=== PATIENT | female | born 1940 | race Caucasian/White ===

== ENCOUNTER 2020-01-11 13:39 | Outpatient (CLI) | payer OTHER, SELFPAY ==
--- NOTE | ~2020-01-11 | MM_ITS ---
EXAMINATION: MM screening gideon BI w von HISTORY: Screening mammogram TECHNIQUE: Craniocaudal and mediolateral oblique 3-D tomosynthesis images were obtained and synthetic 2-D images were generated. CAD analysis was submitted and interpreted. COMPARISON: Comparison to multiple prior studies sequentially, with oldest reviewed study dated 10/2016. BREAST PARENCHYMAL COMPOSITION: There are scattered areas of fibroglandular density. FINDINGS: There is a developing focal asymmetry in the periareolar location of the left breast on MLO view. There is a cluster of calcifications in the lower inner quadrant of the right breast near the areola which have increased in number and density. IMPRESSION: 1. Developing left breast asymmetry and clustered right breast calcifications. 2. Additional mammographic views and possible breast ultrasound are recommended. BI-RADS Category 0: Incomplete: Needs additional imaging evaluation. Reviewed, dictated and finalized at location A. IMPRESSION: 1. Developing left breast asymmetry and clustered right breast calcifications. 2. Additional mammographic views and possible breast ultrasound are recommended . BI-RADS Category 0: Incomplete: Needs additional imaging evaluation.
== END 2020-01-11 13:40 | disposition home or self-care (01) ==
LOC: ANHIMG 13:47
PROVIDERS: PCP Obstetrics & Gynecology; Visit Provider Obstetrics & Gynecology
DX: Z12.31 Encounter for screening mammogram for malignant neoplasm of breast (principal); R92.8 Other abnormal and inconclusive findings on diagnostic imaging of breast
CPT/HCPCS: 77063; 77067

== ENCOUNTER 2020-01-23 12:15 | Outpatient (CLI) | payer OTHER, MEDICAID, SELFPAY ==
--- NOTE | ~2020-01-23 | MMUS_ITS ---
EXAMINATION: MM diagnostic mammo BI, US breast LT limited HISTORY: Follow-up right breast calcifications and left breast asymmetry TECHNIQUE: Additional 3-D tomosynthesis images of were performed and synthetic 2-D images were genera juan. CAD analysis was submitted and interpreted. High resolution left breast ultrasound was performed . COMPARISON: Comparison to multiple prior studies sequentially, with oldest reviewed study dated 11/2017. FINDINGS: MAMMOGRAPHIC FINDINGS: Breast composed of scattered areas of fibroglandular density. The calcifications in the subareolar lo cation of the right breast have a linear monomorphic appearance, most likely benign. There is persist ent focal asymmetry superiorly in the left breast on MLO and medial lateral views anteriorly. ULTRASOUND: High-resolution Limited left breast ultrasound: At 12:00 near the nipple there is an irregular shaped hypoechoic structure measuring 11 x 9 x 5 mm wi thout internal vascularity. There is mixed posterior attenuation. IMPRESSION: 1. Irregular shaped hypoechoic mass of the left breast at 12:00 near the nipple measuring 11 mm maxim um dimension. Ultrasound-guided left breast biopsy recommended. BI-RADS Category 4. 2. Probable benign right breast calcifications. Six-month follow-up diagnostic right mammogram recomm ended. BI-RADS Category 3. Reviewed, dictated and finalized at location A. IMPRESSION: 1. Irregular shaped hypoechoic mass of the left breast at 12:00 near the nipple measuring 11 mm maximum dimension. Ultrasound-guided left breast biopsy recomm ended. BI-RADS Category 4. 2. Probable benign right breast calcifications. Six-month follow-up diagnostic right mammogram recommended. BI-RADS Category 3.
== END 2020-01-23 12:16 | disposition home or self-care (01) ==
PROVIDERS: PCP Obstetrics & Gynecology; Visit Provider Obstetrics & Gynecology
DX: R92.8 Other abnormal and inconclusive findings on diagnostic imaging of breast (principal)
CPT/HCPCS: 76642; 77066

== ENCOUNTER 2020-02-02 09:03 | Outpatient (CLI) | payer OTHER, MEDICAID, SELFPAY ==
--- NOTE | ~2020-02-02 | MMUS_ITS ---
EXAMINATION: US breast biopsy LT w image, MM post biopsy invasive LT DATE: 02/02/2020 10:22 (accession [id number]), 02/02/2020 10:27 (accession [id number]) INDICATION: Indeterminate left breast mass. Ultrasound-guided core biopsy is requested to evaluate fo r malignancy. TECHNIQUE AND FINDINGS: The risks and potential benefits of the procedure were discussed with the patient including bleeding and infection. A time out was performed. The skin of the left breast was prepared and draped in usual sterile fashion. 1% lidocaine was used for superficial anesthesia. 1% lidocaine with epinephrine was used for deep anesthesia. A vacuum-assisted biopsy gun needle was advanced through to the outer edge of the region of interest from a lateral approach utilizing sonographic guidance. A total of three tissue core samples were obt ained through the lesion. A tissue marker clip was then placed at the biopsy site. Hemostasis was ach ieved. A sterile bandage was applied. The patient tolerated procedure well and there was no evidence of immediate complication. A two view left breast mammogram was obtained to document tissue marker clip placement. IMPRESSION: 1. Successful ultrasound-guided vacuum-assisted biopsy of left breast mass with tissue marker placeme nt. Reviewed, dictated and finalized at location A. IMPRESSION: 1. Successful ultrasound-guided vacuum-assisted biopsy of left breast mass with tissue marker placement.
== END 2020-02-02 09:04 | disposition home or self-care (01) ==
LOC: ANHIMG 09:05
PROVIDERS: Visit Provider Obstetrics & Gynecology
DX: N60.12 Diffuse cystic mastopathy of left breast (principal)
CPT/HCPCS: 19083; 88305; A4648

== ENCOUNTER 2020-04-15 19:34 | Emergency (ER) | payer OTHER, MEDICAID, SELFPAY ==
[2020-04-15 19:41] VITALS: BP 143/85; PULSE 82; RESP 16; TEMP 36.7; O2SAT 98
--- NOTE | 2020-04-15 20:02 | ED.WOUNDLAC ---
HPI - Wound/Laceration General Chief Complaint: Wound/Laceration Stated Complaint: scratched vericose vein/bleeding now controlled Time Seen by Provider: 04/15/20 19:57 Source: patient Mode of arrival: ambulatory Limitations: no limitations History of Present Illness HPI narrative: This patient is a 79 year old female on eliquis for afib who presents for evaluation left leg bleeding. She states approximately 2 hours ago she scratched a sore on her leg because she thought it was a mosquito bite. This wound began bleeding. She applied pressure for an hour and she was unable to stop the bleeding. She denies any other bleeding issues. She denies lightheadedness. She has no pain. Related Data Allergies Allergy/AdvReac Type Severity Reaction Status Date / Time amiodarone Allergy Unknown Verified 06/02/17 16:29 diltiazem Allergy Unknown Verified 06/02/17 16:29 losartan Allergy Unknown rash Verified 04/24/16 21:03 Review of Systems Review of Systems: All systems reviewed & are unremarkable except as noted in HPI and below Constitutional: Constitutional: Denies chills and Denies fever(s) Cardiovascular: Cardiovascular: Denies chest pain Respiratory: Respiratory: Denies dyspnea Genitourinary: Genitourinary: Denies hematuria Neurologic: Denies focal weakness and Denies numbness PMFSH Past Medical History Medical History (Updated 04/15/20 @ 20:10 by Jacquelyn Wilks MD) Atrial fibrillation Hypertension Surgical History Surgical History (Updated 04/15/20 @ 20:07 by Jacquelyn Wilks MD) H/O repair of rotator cuff Family History Family History (Updated 11/21/16 @ 23:56 by DOCTOR UNKNOWN) Sibling Hypertension Mother Family history of heart disease in male family member before age 55 Family history of coronary artery disease, Onset Age: 81 No family history of cardiovascular disease Patient's mother is Father Acute myocardial infarction Family history of premature coronary heart disease, Onset Age: 62 Hypertension Family history of elevated blood lipids Family history of diabetes mellitus in first degree relative Patient's father is Other Cerebrovascular accident Diabetes mellitus Family history of arthritis Social History Social History (Updated 04/15/20 @ 20:07 by Jacquelyn Wilks MD) Smoking status: Former smoker Smoking end date: 08/17/02 Alcohol intake: never Exam Const: General: no acute distress and alert Orientation/consciousness: patient oriented x3 Eyes: EOM: EOMs intact bilaterally Resp: Effort & Inspection: normal respiratory effort Skin: General skin exam: normal color Rashes: no rashes Neuro: General: patient oriented x3 and moves all extremities Extrem: General: no pedal edema Other: left lateral leg with varicose veins. No bleeding to small punctate area on lateral leg Course Reevaluation(s) Reevaluation #1: Patients' bleeding has stopped. Her leg was rewrapped. Date: 04/15/20 Time: 20:08 Vital Signs Vital signs: Vital Signs Temperature 98.0 F 04/15/20 19:41 Pulse Rate 82 04/15/20 19:41 Respiratory Rate 16 04/15/20 19:41 Blood Pressure 143/85 H 04/15/20 19:41 Pulse Oximetry 98 04/15/20 19:41 Temperature 98.0 F 04/15/20 20:14 Pulse Rate 82 04/15/20 20:14 Respiratory Rate 16 04/15/20 20:14 Blood Pressure 141/85 H 04/15/20 20:14 Pulse Oximetry 98 04/15/20 20:14 Discharge Plan Discharge Clinical Impression: Bleeding from varicose veins of left lower extremity Patient Disposition: Home, Self-Care Condition: Stable Instructions: Abrasion (ED) Additional Instructions: If your bleeding restarts, apply pressure with 2 fingers to the area for 20 minutes. REturn to ER if unable to stop bleeding Follow-up/Referrals: Angel,Moreno Hernandez MD [Primary Care Provider] - Discharge Date/Time: 04/15/20 20:15
[2020-04-15 20:14] VITALS: BP 141/85; PULSE 82; RESP 16; TEMP 36.7; O2SAT 98
== END 2020-04-15 20:15 | disposition home or self-care (01) ==
PROVIDERS: Emergency Provider General Practice; PCP Internal Medicine
DX: I83.892 Varicose veins of left lower extremity with other complications (principal); I48.91 Unspecified atrial fibrillation; Z79.01 Long term (current) use of anticoagulants; I10 Essential (primary) hypertension; Z87.891 Personal history of nicotine dependence
CPT/HCPCS: 99283

== ENCOUNTER 2020-04-22 20:03 | Emergency (ER) | payer OTHER, MEDICAID, SELFPAY ==
--- NOTE | ~2020-04-22 | XR_ITS ---
XR chest 2V DATE: 04/22/2020 20:31 INDICATION: Generalized chest pain. Shortness of breath. Hypertension. History of atrial fibrillation . TECHNIQUE: AP and lateral views COMPARISON: 01/13/2017 PA and lateral chest FINDINGS: Heart size is within normal range. Aortic calcification. No hilar or mediastinal enlargemen t. No pulmonary infiltrate or consolidation, pleural effusion or pulmonary vascular congestion or pne umothorax. Diffuse osteopenia. IMPRESSION: No active cardiopulmonary disease. Aortic calcification Diffuse osteopenia Reviewed, dictated and finalized at location A.
--- NOTE | ~2020-04-22 | CT_ITS ---
EXAMINATION: CT abdomen pelvis w con INDICATION: Right upper quadrant and epigastric pain TECHNIQUE: Computed tomographic images of the abdomen and pelvis were obtained after the administrati on of 100 cc of Omnipaque 350 intravenous contrast. The dose-length product (DLP) was 1033.50 mGy-cm. Automated exposure control and iterative reconstruction technique were employed. COMPARISON: 03/19/2013 FINDINGS: Minimal dependent atelectasis is present in the lung bases. The heart size is normal. The l iver, spleen, pancreas, gallbladder, and adrenal glands are normal. Cysts of the kidneys measure up t o 11 mm on the left. There is calcified atherosclerosis of the aorta and many of the other arteries. No pathologically enlarged abdominal or pelvic lymph nodes are identified. Colonic diverticulosis is present without evidence of diverticulitis. The appendix is normal. There is mild lumbar spondylosis. The endometrial thickness measures approximately 11 mm. There appears to be a tiny soft tissue densi ty projecting in the endometrial complex at the left aspect of the uterine fundus. IMPRESSION: 1. No CT correlate for the patient's symptoms. 2. Mild thickening of the endometrial complex with possible small polyp. Follow-up with nonemergent p elvic ultrasound is recommended. Reviewed, dictated and finalized at location A. IMPRESSION: 1. No CT correlate for the patient's symptoms. 2. Mild thickening of the endometrial complex with possible small polyp. Follow -up with nonemergent pelvic ultrasound is recommended.
[2020-04-22 20:09] VITALS: BP 146/93; PULSE 73; RESP 24; TEMP 36.5; O2SAT 95
--- NOTE | 2020-04-22 20:12 | ECG_ITS ---
Measurements Intervals [place] Rate: 64 P: 74 WI: 150 QRS: 53 QRSD: 94 T: 41 QT: 425 QTc: 440 Interpretive Statements SINUS RHYTHM ATRIAL PREMATURE COMPLEX RSR' IN V1 OR V2, CONSIDER RIGHT VENTRICULAR HYPERTROPHY OR RIGHT VCD BASELINE ARTIFACT- I, II, III, AVR, AVL BORDERLINE ECG Electronically Signed On 04-23-2020 8:19:53 CDT by [facility] D.O.
[2020-04-22 20:49] LABS: Basophils Percent Auto 0.1 % (0.2-1.2); Eosinophils Absolute Auto 0.1 K/mm3 (0-0.3); Eosinophils Percent Auto 0.6 % (0-4.4); Hematocrit 40.9 % (37.0-47.0); Hemoglobin 13.6 g/dL (12.0-15.0); Immature Granulocyte Absolute 0.05 K/mm3 (0.00-0.031); Immature Granulocyte Percent A 0.4 % (0-0.5); Lymphocytes Absolute Auto 1.38 K/mm3 (0.9-3.2); Lymphocytes Percent Auto 10.3 % (18.3-44.2); Mean Corpuscular HGB Conc 33.3 g/dl (32-36); Mean Corpuscular Hemoglobin 30.4 pg (26-34); Mean Corpuscular Volume 91.3 fl (80-100); Mean Platelet Volume 11.1 fl (7.4-10.4); Monocytes Absolute Auto 0.8 K/mm3 (0.1-0.6); Monocytes Percent Auto 6.3 % (2.6-8.5); Neutrophils Percent Auto 82.3 % (45.5-73.1); Platelet Count Result 267 k/mm3 (150-375); Red Blood Count 4.48 M/mm3 (4.2-5.4); Red Cell Distribution Width 13.2 % (11.5-14.5); White Blood Count 13.3 K/mm3 (4.5-10.0)
--- NOTE | 2020-04-22 20:57 | ED.GENADULT ---
HPI - General Adult General Chief complaint: Chest Pain Stated complaint: cp, back pain Time Seen by Provider: 04/22/20 20:09 History of Present Illness HPI narrative: Patient is a 79-year-old female who presents ER with chest/abdominal pain. Symptoms began approximately 5:30 PM while she was at rest. Pain is sharp and associated with vomiting x1. It radiates to her back. No aggravating or alleviating factors. She tried simethicone. She had similar symptoms back in February. She has not had a stress test or ultrasound. Still has her gallbladder. Has never had any coronary issue recalled. Related Data Home Medications Medication Instructions Recorded Confirmed apixaban [Eliquis] mg 04/22/20 celecoxib mg 04/22/20 furosemide 04/22/20 isosorbide mononitrate mg PO 04/22/20 metoprolol succinate PO 04/22/20 omeprazole 04/22/20 sotalol 04/22/20 Allergies Allergy/AdvReac Type Severity Reaction Status Date / Time amiodarone Allergy Unknown Unknown Verified 04/22/20 20:36 diltiazem Allergy Unknown Unknown Verified 04/22/20 20:36 losartan Allergy Unknown rash Verified 04/24/16 21:03 Review of Systems Review of Systems: All systems reviewed & are unremarkable except as noted in HPI and below Constitutional: Constitutional: Denies chills, Denies fever(s) and Denies weakness Cardiovascular: Cardiovascular: Reports chest pain, Denies rapid heart rate and Denies radiating jaw, neck or arm pain Respiratory: Respiratory: Denies cough, Denies dyspnea and Denies wheezing Gastrointestinal: Gastrointestinal: Reports abdominal pain, Denies diarrhea, Reports nausea and Reports vomiting Genitourinary: Genitourinary: Denies nocturia and Denies dysuria Musculoskeletal: Musculoskeletal: Reports back pain [facility] Past Medical History Medical History (Updated 04/22/20 @ 23:06 by Mike Acosta MD) Atrial fibrillation Hypertension Surgical History Surgical History (Updated 04/15/20 @ 20:07 by Jacquelyn Wikls MD) H/O repair of rotator cuff Family History Family History (Updated 11/21/16 @ 23:56 by DOCTOR UNKNOWN) Sibling Hypertension Mother Family history of heart disease in male family member before age 55 Family history of coronary artery disease, Onset Age: 81 No family history of cardiovascular disease Patient's mother is Father Acute myocardial infarction Family history of premature coronary heart disease, Onset Age: 62 Hypertension Family history of elevated blood lipids Family history of diabetes mellitus in first degree relative Patient's father is Other Cerebrovascular accident Diabetes mellitus Family history of arthritis Social History Social History (Updated 04/15/20 @ 20:07 by Jacquelyn Wilks MD) Smoking status: Former smoker Smoking end date: 08/17/02 Alcohol intake: never Exam Narrative: Exam Narrative: GENERAL: Uncomfortable-appearing, well-nourished, and in no acute distress. HEAD: Normocephalic, atraumatic. ENT: Mucous membranes moist. CHEST: Clear to auscultation. No respiratory distress. HEART: Regular rate and rhythm. Normal peripheral pulses. ABDOMEN: Soft, significantly tender to the epigastrium right upper quadrant with guarding, nondistended, normal active bowel sounds. EXTREMITIES: Normal range of motion. No edema. SKIN: Warm, dry, no rash. NEURO: Alert and oriented x3. PSYCH: Normal mood and affect. Course Course Emergency Course: Patient informed of results. Pain resolved with morphine but still has some discomfort with palpation. Nausea vomiting. Tolerating oral fluids. Discussed case with Dr. Duval. Patient most comfortable with going home with oral antibiotics and pain and nausea control and eating a low-fat diet as opposed to staying in the hospital for potential work-up. Her etl informatica developer is located at [facility]. Discussed she will need a cardiac clearance before she can have her
--- NOTE | 2020-04-22 20:59 | PC.NURSE ---
Called lab to add on Hepatic and Lipase
[2020-04-22 21:02] LABS: Anion Gap 10 mmol/L (8-16); Blood Urea Nitrogen 18 mg/dL (7-17); Calcium 9.5 mg/dL (8.4-10.2); Carbon Dioxide 30 mmol/L (22-30); Chloride 101 mmol/L (98-107); Estimated Glomerular Filt Rate > 60; Glucose 155 mg/dL (65-105); INR 1.1; Prothrombin Time 14.2 Seconds (11.1-14.7); Sodium 141 mmol/L (137-145)
[2020-04-22 21:12] LABS: Troponin I < 0.012 ng/mL (0.000-0.034)
[2020-04-22] MEDS: MORPHINE SULFATE 4 MG/ML INJ IV PUSH (21:14)
[2020-04-22 21:16] LABS: Alanine Aminotransferase 23 U/L (4-35); Albumin Level 4.4 g/dL (3.5-5.1); Alkaline Phosphatase 78 U/L (38-126); Aspartate Amino Transferase 54 U/L (14-36); Bilirubin,Total 0.7 mg/dL (0.2-1.3); Lipase 83 U/L (23-300)
[2020-04-22 23:12] VITALS: BP 138/65; PULSE 65; RESP 16; O2SAT 96
== END 2020-04-22 23:50 | disposition home or self-care (01) ==
PROVIDERS: Emergency Provider Emergency Medicine; PCP Internal Medicine
DX: K80.50 Calculus of bile duct without cholangitis or cholecystitis without obstruction (principal); I10 Essential (primary) hypertension; Z79.01 Long term (current) use of anticoagulants; Z87.891 Personal history of nicotine dependence; I48.91 Unspecified atrial fibrillation; R94.31 Abnormal electrocardiogram [ECG] [EKG]; I49.1 Atrial premature depolarization
CPT/HCPCS: 36415; 71046; 74177; 80048; 80076; 83690; 84484; 85025; 85610; 85730; 93005; 96374; 99284; J2270; Q9967

== ENCOUNTER 2020-04-29 08:20 | Outpatient (CLI) | payer OTHER, MEDICAID, SELFPAY ==
--- NOTE | ~2020-04-29 | US_ITS ---
US abdomen complete EXAMINATION: US Abdomen Complete INDICATION: Nausea and vomiting. Back pain. PROCEDURE: Realtime High Resolution abdomen ultrasound. COMPARISON: Ultrasound dated 12/03/2011 FINDINGS: There are gallstones. There are foci of comet tail artifact, consistent with adenomyomatosi s. No significant gallbladder wall thickening or pericholecystic fluid. Common bile duct measures 5 mm. Liver echotexture is slightly heterogeneous, although no discrete mass identified.. Pancreas within normal limits. Pancreatic tail is obscured by bowel gas. Spleen is unremarkeable. Renal echotexture is within normal limits bilaterally without hydronephrosis, contour deforming mass or renal stone. R ight kidney measures 9.8 cm. Left kidney measures 10.1 cm. There is a 1.2 cm left renal cyst. Visualized aspects of the aorta and IVC are within normal limits. Portal vein is patent. No sonograph ic Bolton's sign indicated by the technologist. IMPRESSION: 1: Cholelithiasis with gallbladder adenomyomatosis. Reviewed, dictated and finalized at location A.
== END 2020-04-29 08:21 | disposition home or self-care (01) ==
PROVIDERS: PCP Internal Medicine; Visit Provider Internal Medicine
DX: K80.20 Calculus of gallbladder without cholecystitis without obstruction (principal); D13.5 Benign neoplasm of extrahepatic bile ducts
CPT/HCPCS: 76700

== ENCOUNTER 2021-01-15 09:27 | Outpatient (CLI) | payer OTHER, MEDICAID, SELFPAY ==
--- NOTE | ~2021-01-15 | MM_ITS ---
EXAMINATION: MM screening [facility] BI w von HISTORY: Screening TECHNIQUE: Craniocaudal and mediolateral oblique 3-D tomosynthesis images were obtained and synthetic 2-D images were generated. CAD analysis was submitted and interpreted. COMPARISON: Comparison to multiple prior studies sequentially, with oldest reviewed study dated 11/2017. BREAST PARENCHYMAL COMPOSITION: There are scattered areas of fibroglandular density. FINDINGS: There are benign bilateral breast calcifications. There is no evidence of suspicious mass, calcification, or architectural distortion to suggest malignancy in either breast. There has been no suspicious interval change. IMPRESSION: 1. No mammographic evidence of malignancy. 2. Recommend routine screening mammography in one year. BI-RADS Category 2: Benign finding(s). Reviewed, dictated and finalized at location A.
== END 2021-01-15 09:28 | disposition home or self-care (01) ==
LOC: ANHIMG 09:32
PROVIDERS: PCP Internal Medicine; Visit Provider Obstetrics & Gynecology
DX: Z12.31 Encounter for screening mammogram for malignant neoplasm of breast (principal)
CPT/HCPCS: 77063; 77067

== ENCOUNTER 2021-05-05 07:34 | Emergency (ER) | payer OTHER, MEDICAID, SELFPAY ==
--- NOTE | ~2021-05-05 | XR_ITS ---
EXAMINATION: XR chest 1V portable INDICATION: Shortness of breath TECHNIQUE: Portable AP chest at 0930 hours COMPARISON: 04/22/2020 FINDINGS: The lungs are free of acute opacities. There is no pleural effusion or pneumothorax. There are questionable changes of right distal clavicle resection. There is thoracic dextroscoliosis. IMPRESSION: 1. No acute cardiopulmonary abnormality. Reviewed, dictated and finalized at location A.
[2021-05-05 07:35] VITALS: BP 162/65; PULSE 82; RESP 24; TEMP 37.6; O2SAT 93
--- NOTE | 2021-05-05 07:59 | ECG_ITS ---
Measurements Intervals [place] Rate: 80 P: 65 VT: 153 QRS: 64 QRSD: 94 T: 45 QT: 385 QTc: 446 Interpretive Statements SINUS RHYTHM INCOMPLETE RIGHT BUNDLE BRANCH BLOCK BASELINE ARTIFACT- I, III, AVR, AVL BORDERLINE ECG Electronically Signed On 05-05-2021 10:35:14 CDT by [facility] D.O.
[2021-05-05 08:22] VITALS: PULSE 78; RESP 20; O2SAT 99
[2021-05-05 09:03] LABS: Basophils Percent Auto 0.2 % (0.2-1.2); Eosinophils Absolute Auto 0.2 K/mm3 (0-0.3); Eosinophils Percent Auto 1.3 % (0-4.4); Hematocrit 42.3 % (37.0-47.0); Hemoglobin 13.8 g/dL (12.0-15.0); Immature Granulocyte Absolute 0.03 K/mm3 (0.00-0.031); Immature Granulocyte Percent A 0.2 % (0-0.5); Lymphocytes Absolute Auto 1.89 K/mm3 (0.9-3.2); Lymphocytes Percent Auto 15.7 % (18.3-44.2); Mean Corpuscular HGB Conc 32.6 g/dl (32-36); Mean Corpuscular Volume 95.1 fl (80-100); Mean Platelet Volume 11.4 fl (7.4-10.4); Monocytes Percent Auto 8.7 % (2.6-8.5); Neutrophils Absolute Auto 8.9 K/mm3 (1.3-6.7); Neutrophils Percent Auto 73.9 % (45.5-73.1); Platelet Count Result 224 k/mm3 (150-375); Red Blood Count 4.45 M/mm3 (4.2-5.4); Red Cell Distribution Width 12.8 % (11.5-14.5)
[2021-05-05 09:13] LABS: Alanine Aminotransferase 19 U/L (4-35); Albumin Level 4.1 g/dL (3.5-5.1); Alkaline Phosphatase 66 U/L (38-126); Anion Gap 7 mmol/L (8-16); Aspartate Amino Transferase 35 U/L (14-36); Bilirubin,Total 0.4 mg/dL (0.2-1.3); Blood Urea Nitrogen 10 mg/dL (7-17); Calcium 9.3 mg/dL (8.4-10.2); Carbon Dioxide 30 mmol/L (22-30); Chloride 105 mmol/L (98-107); Estimated CRCL calculation 83 ml/min; Estimated Glomerular Filt Rate > 60; Glucose 135 mg/dL (65-110); Potassium 3.6 mmol/L (3.4-5.0); Sodium 142 mmol/L (137-145)
[2021-05-05 09:23] VITALS: BP 159/54; PULSE 82; RESP 20; O2SAT 99
[2021-05-05 09:25] LABS: NT Pro B Type Natriuretic Pept 795 pg/mL (5-100); Troponin I < 0.012 ng/mL (0.000-0.034)
--- NOTE | 2021-05-05 10:32 | ED.SOB ---
HPI - SOB/Dyspnea General Chief Complaint: Shortness of Breath/Dyspnea Stated Complaint: sob Time Seen by Provider: 05/05/21 07:45 Source: patient Mode of arrival: EMS Limitations: no limitations History of Present Illness HPI Narrative: 80-year-old with a history of hypertension, A. fib on Eliquis here with complaints of sore throat and cough for past few days. Patient states that she has been having scratchy throat for the last few days, since last night she has been coughing and feels short of breath. She denies any fever or chills. She states cough at times is productive with brown-colored phlegm. She denies any chest pain. No history of nausea or vomiting. MD elicited complaint: shortness of breath and cough Onset (ago): day(s) (2) Timing: constant Severity: moderate Exacerbating factors: nothing Relieving factors: nothing Associated symptoms: sputum production (At times brown-colored sputum) Treatment prior to arrival: none Related Data Home Medications Medication Instructions Recorded Confirmed apixaban [Eliquis] mg 04/22/20 celecoxib mg 04/22/20 furosemide 04/22/20 isosorbide mononitrate mg PO 04/22/20 metoprolol succinate PO 04/22/20 omeprazole 04/22/20 sotalol 04/22/20 Allergies Allergy/AdvReac Type Severity Reaction Status Date / Time amiodarone Allergy Unknown Unknown Verified 05/05/21 07:40 diltiazem Allergy Unknown Unknown Verified 05/05/21 07:40 losartan Allergy Unknown rash Verified 05/05/21 07:40 Review of Systems Review of Systems: All systems reviewed & are unremarkable except as noted in HPI and below Constitutional: Constitutional: Reports no additional constitutional complaints Eyes: Eyes: Reports no additional eye complaints ENT: Reports as per HPI Cardiovascular: Cardiovascular: Reports no additional cardiovascular complaints Respiratory: Respiratory: Reports cough and Reports dyspnea Gastrointestinal: Gastrointestinal: Reports no additional gastrointestinal complaints Genitourinary: Genitourinary: Reports no additional female genitourinary complaints Musculoskeletal: Musculoskeletal: Reports no additional musculoskeletal complaints Integumentary/Breasts: Skin/Breast: Reports system reviewed and no additional complaints, except as docu PMFSH Past Medical History Medical History Atrial fibrillation Hypertension Surgical History Surgical History H/O repair of rotator cuff Family History Family History Sibling Hypertension Mother Family history of heart disease in male family member before age 55 Family history of coronary artery disease, Onset Age: 81 No family history of cardiovascular disease Patient's mother is Father Acute myocardial infarction Family history of premature coronary heart disease, Onset Age: 62 Hypertension Family history of elevated blood lipids Family history of diabetes mellitus in first degree relative Patient's father is Other Cerebrovascular accident Diabetes mellitus Family history of arthritis Social History Social History Smoking status: Former smoker Smoking end date: 08/17/02 Alcohol intake: never Exam Narrative: GENERAL: Well-appearing, well-nourished, and in no acute distress. HEAD: Normocephalic, atraumatic. EYES: PERRLA and EOMI. NECK: Supple. CHEST: Clear to auscultation. No respiratory distress. HEART: Regular rate and rhythm. No murmur heard. Normal peripheral pulses. ABDOMEN: Soft, nontender, nondistended, normal active bowel sounds. EXTREMITIES: Normal range of motion. No edema. SKIN: Warm, dry, no rash. NEURO: No focal deficits. Alert and oriented x3. PSYCH: Normal mood and affect. Course Course Emergency Course: Patient comfortab
[2021-05-05 10:51] VITALS: BP 159/54; PULSE 80; RESP 20; O2SAT 98
== END 2021-05-05 11:00 | disposition home or self-care (01) ==
PROVIDERS: Emergency Provider Family Medicine; PCP Internal Medicine
DX: J40 Bronchitis, not specified as acute or chronic (principal); I10 Essential (primary) hypertension; I48.91 Unspecified atrial fibrillation; Z79.01 Long term (current) use of anticoagulants; Z87.891 Personal history of nicotine dependence
CPT/HCPCS: 36415; 71045; 80053; 83880; 84484; 85025; 87040; 93005; 99284

== ENCOUNTER 2021-10-31 17:55 | Inpatient (IN) | payer OTHER, MEDICAID, SELFPAY ==
[2021-10-31] VITALS (7 sets, daily range): BP systolic 107–134; BP diastolic 42–82; PULSE 73–81; RESP 16–20; TEMP 36.8; O2SAT 92–96; BMI 33.9
--- NOTE | ~2021-10-31 | XR_ITS ---
XR chest 1V portable 11/04/2021 01:28 Indication: Shortness of breath Procedure: AP portable chest Comparison: Comparison to multiple prior studies sequentially, with oldest reviewed study dated 01/2020. Findings: Borderline heart size. Mild interstitial edema. No significant effusion. No pneumothorax. N o acute osseous abnormality. Impression: 1: Mild interstitial edema. Reviewed, dictated and finalized at location A. Impression: 1: Mild interstitial edema.
--- NOTE | ~2021-10-31 | CT_ITS ---
EXAMINATION: CT chest abdomen pelvis wo con DATE: 10/31/2021 19:22 INDICATION: Right-sided chest pain, abdominal pain. Back pain. Vomiting, diarrhea. TECHNIQUE: Computed tomography (CT) of the chest, abdomen, and pelvis was performed without intraveno us contrast. Automated exposure control and iterative reconstruction technique were employed. Exam do se: 1233.78 mGy-cm total exam DLP. COMPARISON: 05/05/2021 portable AP chest 04/29/2020 complete abdominal ultrasound 04/22/2020 CT abdomen and pelvis FINDINGS: CHEST CT: The lungs are clear of infiltrate or consolidation. Thoracic aortic and great vessel and prominent coronary artery calcification. No thoracic aortic aneu rysm. Normal heart size. No pericardial or pleural effusion. No hilar or mediastinal mass lesion or lymphadenopathy. No pulmonary infiltrate or consolidation or pulmonary mass lesion. Small sliding hiatal hernia. ABDOMEN/PELVIS CT: Status post cholecystectomy. No hepatic, splenic, pancreatic, and adrenal or renal space-occupying ma ss lesion. No bile duct or pancreatic duct dilatation. No urinary tract calculus or hydroureteronephrosis. There is extensive calcification of the abdominal aorta and at the origins of the celiac and superior mesenteric and renal arteries. No abdominal aortic aneurysm. No intraperitoneal or retroperitoneal o r pelvic mass lesion or adenopathy or ascites. The uterus, adnexal areas and urinary bladder are unremarkable. Small bilateral fat-containing inguinal hernias. Normal appendix. There are fluid containing nondilated small bowel segments throughout the abdomen as well as some flu id levels in the colon, consistent with clinical presentation of diarrhea. No bowel obstruction, courtney l wall thickening, pneumatosis or intraperitoneal free air is noted. Severe degenerative disc disease of the lower cervical spine. Inferior compression fracture of T12 vertebral body, with prominent cupping of the inferior vertebral endplate. IMPRESSION: Extensive atherosclerotic calcification of the thoracic and abdominal aorta and at the o rigins of the celiac, superior mesenteric and renal arteries Prominent coronary artery calcifications Status post cholecystectomy Fluid containing nondilated small bowel segments and fluid levels in the colon, suggesting enterocoli tis; no bowel obstruction or free air Reviewed, dictated and finalized at Location [facility]. Reviewed, dictated and finalized at location A. IMPRESSION: Extensive atherosclerotic calcification of the thoracic and abdomi nal aorta and at the origins of the celiac, superior mesenteric and renal arter ies Prominent coronary artery calcifications Status post cholecystectomy Fluid containing nondilated small bowel segments and fluid levels in the colon, suggesting enterocolitis; no bowel obstruction or free air
[2021-10-31] MEDS: SODIUM CHLORIDE 0.9% IV 1,000 ML 999 ML (18:18)
--- NOTE | 2021-10-31 18:24 | ED.GENADULT ---
HPI - General Adult General Chief complaint: Nausea/Vomiting/Diarrhea <Noble Mccallum MD - Last Filed: 10/31/21 18:40> Stated complaint: Vomiting diarrhea <Noble Mccallum MD - Last Filed: 10/31/21 18:40> Time Seen by Provider: 10/31/21 18:07 <Noble Mccallum MD - Last Filed: 10/31/21 18:40> Source: patient and EMS <Noble Mccallum MD - Last Filed: 10/31/21 18:40> Mode of arrival: EMS <Noble Mccallum MD - Last Filed: 10/31/21 18:40> Limitations: no limitations <Noble Mccallum MD - Last Filed: 10/31/21 18:40> History of Present Illness HPI narrative: Patient 81 years old white female came to the emergency room by ambulance from home complaining of nausea, vomiting and diarrhea started yesterday, patient reports vomiting at least 20 episodes and diarrhea at least 20 episodes. Patient denies fever, chills, sick contact, lives with her sister who is asymptomatic. Patient also complaining of diffuse abdominal pain and chest pain mainly on the right side which gets worse with activity and vomiting. Patient is telling me that she have right chest injury when she was little with a lot of surgery and the scar tissue associated with chronic right chest pain but lately is worse than ever.. <Noble Mccallum MD - Last Filed: 10/31/21 18:40> Related Data Home medications: Home Medications Medication Instructions Recorded Confirmed apixaban [Eliquis] mg 04/22/20 celecoxib mg 04/22/20 furosemide 04/22/20 isosorbide mononitrate mg PO 04/22/20 metoprolol succinate PO 04/22/20 omeprazole 04/22/20 sotalol 04/22/20 <Noble Mccallum MD - Last Filed: 10/31/21 18:40> Allergies/adverse reactions: Allergies Allergy/AdvReac Type Severity Reaction Status Date / Time amiodarone Allergy Unknown Unknown Verified 05/05/21 07:40 diltiazem Allergy Unknown Unknown Verified 05/05/21 07:40 losartan Allergy Unknown rash Verified 05/05/21 07:40 <Noble Mccallum MD - Last Filed: 10/31/21 18:40> Review of Systems Review of Systems: CONSTITUTIONAL: Denies fever, chills, or sweats. EYES: Denies visual changes, redness, or discharge. ENT: Denies rhinorrhea, congestion, sore throat, or otalgia. CARDIOVASCULAR: Denies chest pain, palpitations, or edema. RESPIRATORY: Denies cough or dyspnea. GASTROINTESTINAL: Abdominal pain with nausea, vomiting and diarrhea GENITOURINARY: Denies dysuria or hematuria. SKIN: Denies rash or itching. MUSCULOSKELETAL: Denies back pain, joint pain, or myalgia. NEUROLOGIC: Denies headache, numbness, or weakness. PSYCHIATRIC: Denies anxiety or depression. <Noble Mccallum MD - Last Filed: 10/31/21 18:40> [facility] Past Medical History Medical History: Medical History Atrial fibrillation Hypertension <Noble Mccallum MD - Last Filed: 10/31/21 18:40> Surgical History Surgical History: Surgical History H/O repair of rotator cuff <Noble Mccallum MD - Last Filed: 10/31/21 18:40> Family History Family History: Family History Sibling Hypertension Mother Family history of heart disease in male family member before age 55 Family history of coronary artery disease, Onset Age: 81 No family history of cardiovascular disease Patient's mother is Father Acute myocardial infarction Family history of premature coronary heart disease, Onset Age: 62 Hypertension Family history of elevated blood lipids Family history of diabetes mellitus in first degree relative Patient's father is Other Cerebrovascular accident Diabetes mellitus Family history of arthritis <Noble Mccallum MD - Last Filed: 10/31/21 18:40> Social History Social History: Social History Smoking status: Former smoker Smoking end date:
[2021-10-31 18:34] LABS: Basophils Percent Auto 0.3 % (0.2-1.2); Eosinophils Percent Auto 0.2 % (0-4.4); Hematocrit 52.7 % (37.0-47.0); Hemoglobin 16.9 g/dL (12.0-15.0); Immature Granulocyte Absolute 0.04 K/mm3 (0.00-0.031); Immature Granulocyte Percent A 0.3 % (0-0.5); Lymphocytes Absolute Auto 1.58 K/mm3 (0.9-3.2); Lymphocytes Percent Auto 13.8 % (18.3-44.2); Mean Corpuscular HGB Conc 32.1 g/dl (32-36); Mean Corpuscular Hemoglobin 30.5 pg (26-34); Mean Corpuscular Volume 95.1 fl (80-100); Mean Platelet Volume 11.5 fl (7.4-10.4); Monocytes Absolute Auto 1.9 K/mm3 (0.1-0.6); Monocytes Percent Auto 16.6 % (2.6-8.5); Neutrophils Absolute Auto 7.9 K/mm3 (1.3-6.7); Neutrophils Percent Auto 68.8 % (45.5-73.1); Platelet Count Result 210 k/mm3 (150-375); Red Blood Count 5.54 M/mm3 (4.2-5.4); Red Cell Distribution Width 13.2 % (11.5-14.5); White Blood Count 11.5 K/mm3 (4.5-10.0)
[2021-10-31 18:44] LABS: Alanine Aminotransferase 43 U/L (4-35); Albumin Level 4.5 g/dL (3.5-5.1); Alkaline Phosphatase 58 U/L (38-126); Anion Gap 13 mmol/L (8-16); Aspartate Amino Transferase 101 U/L (14-36); Bilirubin,Total 0.4 mg/dL (0.2-1.3); Blood Urea Nitrogen 30 mg/dL (7-17); Calcium 8.8 mg/dL (8.4-10.2); Carbon Dioxide 25 mmol/L (22-30); Chloride 100 mmol/L (98-107); Estimated CRCL calculation 23 ml/min; Estimated Glomerular Filt Rate 24; Glucose 133 mg/dL (65-110); Lipase 45 U/L (23-300); Potassium 3.4 mmol/L (3.4-5.0); Sodium 138 mmol/L (137-145)
[2021-10-31] MEDS: SODIUM CHLORIDE 0.9% IV 1,000 ML 999 ML IV CONT (18:50)
[2021-10-31] MEDS: ONDANSETRON INJ 4 MG/2 ML VIAL 8 MG IV PUSH (18:51)
--- NOTE | 2021-10-31 19:56 | PM.IMHP ---
H&P: HPI History of Present Illness Date/Time: 10/31/21 19:56 Chief Complaint: Nausea vomiting diarrhea. Narrative: Patient is a 81-year-old female with past medical history significant for atrial fibrillation, hypertension, patient is rate controlled and anticoagulated. She presents to the emergency room today due to nausea vomiting diarrhea for 3 days or so now she has become incontinent of bowel. Patient denies any fevers, rigors, chills, abdominal pain, pelvic pain, pain or burning with urination ,no shortness of breath, no cough, no sputum production, no leg swelling. Patient had too many numerous bowel movements to count. In emergency room patient was found to have urinalysis with numerous WBCs. Patient has been admitted for further evaluation management and treatment. Review of Systems Review of Systems: Nausea, vomiting, diarrhea. Constitutional: Constitutional: Denies chills, Denies fever(s), Denies malaise, Denies night sweats and Denies weakness Eyes: Eyes: Denies change in vision ENT: Denies dysphagia, Denies vertigo, Denies dizziness, Denies nasal congestion, Denies nasal discharge, Denies nasal obstruction and Denies odynophagia Cardiovascular: Cardiovascular: Denies pedal edema, Denies claudication, Denies leg edema, Denies radiating jaw, neck or arm pain, Denies palpitations, Denies dyspnea on exertion and Denies orthopnea Respiratory: Respiratory: Denies chest congestion, Denies cough, Denies excessive phlegm production, Denies dyspnea and Denies wheezing Gastrointestinal: Gastrointestinal: Denies abdominal pain, Denies dyspepsia, Denies heartburn, Reports diarrhea, Reports nausea and Reports vomiting Genitourinary: Genitourinary: Denies dysuria and Denies pelvic pain Musculoskeletal: Musculoskeletal: Denies arthralgias and Denies muscle weakness Integumentary/Breasts: Skin/Breast: Denies rash Neurologic: Denies syncope, Denies focal weakness and Denies Sensory deficit (Neuro) Psychiatric: Psychiatric: Reports no additional psychiatric complaints and Reports as per HPI Endocrine: Endocrine: Denies cold intolerance, Denies heat intolerance, Denies polyphagia, Denies polydipsia and Denies palpitations Hematologic/Lymphatic: Hematologic/Lymphatic: Reports no additional hematologic/lymphatic complaints and Reports as per HPI Allergic/Immunologic: Allergic/Immunologic: Reports no additional allergic/immunologic complaints and Reports as per HPI PMFSH Past Medical History Medical History (Updated 11/01/21 @ 12:27 by UTE Estevez) Atrial fibrillation Hypertension Surgical History Surgical History H/O repair of rotator cuff Family History Family History Sibling Hypertension Mother Family history of heart disease in male family member before age 55 Family history of coronary artery disease, Onset Age: 81 No family history of cardiovascular disease Patient's mother is Father Acute myocardial infarction Family history of premature coronary heart disease, Onset Age: 62 Hypertension Family history of elevated blood lipids Family history of diabetes mellitus in first degree relative Patient's father is Other Cerebrovascular accident Diabetes mellitus Family history of arthritis Social History Social History Smoking status: Never smoker Smoking end date: 08/17/02 Alcohol intake: never Substance use: never Spiritual care concerns: No Meds Home Medications and Allergies Home Medications Medication Instructions Recorded Confirmed Type apixaban [Eliquis] 5 mg PO BID 10/31/21 10/31/21 History furosemide 40 mg PO DAILY 10/31/21 10/31/21 History isosorbide mononitrate 30 mg PO DAILY 10/31/21 10/31/21 History metoprolol succinate 50 mg PO DAILY 10/31/21 10/31/21 History omep
[2021-10-31 20:18] LABS: Add Urine Microscopic? YES; Appearance Urine Cloudy (Clear); Bilirubin Urine Negative (Negative); Color Urine Yellow (Yellow); Glucose Urine UA Negative (Negative); Ketones Urine Negative (Negative); Leukocyte Esterase Ur 1+ LEU/UL (Negative); Mucus Urine Rare /lpf; Nitrate Urine Negative (Negative); Protein Urine 1+ mg/dL (Negative); Squamous Epithelial Cell Urine Few /hpf (Few); Urobilinogen Urine Negative mg/dL (<2.0); WBC Urine 21-30 /hpf
[2021-10-31 20:20] LABS: Blood Urine Negative (Negative)
[2021-10-31] MEDS: SODIUM CHLORIDE 0.9% IV 1,000 ML 125 ML IV CONT (21:25)
[2021-10-31 21:54] LABS: Toxigenic C. Diff POSITIVE (NEGATIVE)
--- NOTE | 2021-10-31 22:09 | ADMGEN ---
This patient, Dulce Gibbons, was admitted to [facility] Surg Room 328-01. Patient/family oriented to hospital policies and general routines including ID bracelet, bed and alarms, visiting hours, pain management, procedures, bathroom and other care routines, personal items, smoking policy, room service/diet, and visiting hours. Information on how to activate the Rapid Response Team has been discussed. Patient/Family are encouraged to report perceived risks to care and to ask questions if they do not understand what they are told or what they should do.
[2021-11-01] MEDS: SODIUM CHLORIDE 0.9% IV 1,000 ML 125 ML IV CONT ×3 (05:44→20:17)
[2021-11-01 05:58] VITALS: BP 128/36; PULSE 77; RESP 16; TEMP 37.2; O2SAT 90
[2021-11-01 08:14] VITALS: PULSE 76
[2021-11-01] MEDS: PANTOPRAZOLE 40 MG TABLET PO (08:14)
[2021-11-01] MEDS: SOTALOL HCL 80 MG TABLET PO ×2 (08:14→16:59)
[2021-11-01] MEDS: METOPROLOL SUCCINATE EXT REL 50 MG TABCR PO (08:14)
[2021-11-01] MEDS: ISOSORBIDE MONONITRATE 30 MG TAB.ER.24H PO (08:15)
[2021-11-01] MEDS: APIXABAN 5 MG TABLET PO ×2 (08:15→16:59)
[2021-11-01] MEDS: MORPHINE SULFATE (*CRX) 2 MG/ML INJ 1 MG IV PUSH (08:24)
[2021-11-01 09:04] VITALS: O2SAT 92
--- NOTE | 2021-11-01 11:30 | PM.IMPN ---
Progress Note: A&P Assessment and Plan (1) C. difficile colitis: Code(s): A04.72 - Enterocolitis due to Clostridium difficile, not specified as recurrent Status: Acute Assessment and Plan: Reports only 3 episodes of diarrhea today WBC is 6.0 Stool specimens positive Fidaxomicin 200mg PO Q12hr IV fluids Contact precautions (2) MODESTO (acute kidney injury): Code(s): N17.9 - Acute kidney failure, unspecified Status: Acute Assessment and Plan: BUN/Cr 30/2.0 upon admission Currently 17/0.80 IV hydration Continue to trend labs Education about hydration (3) Abnormal urinalysis: Code(s): R82.90 - Unspecified abnormal findings in urine Status: Acute Assessment and Plan: Urinalysis showed cloudy yellow urine with 1+ leukocyte esterase, 21-30 wbc's Urine culture pending No signs urgency or frequency noted by the patient Will hold off any antibiotics for now Continue to trend for symptoms Educate about good [place] care (4) Afib: Code(s): I48.91 - Unspecified atrial fibrillation Status: Acute Assessment and Plan: History of AFib Continue Eliquis, metoprolol, sotalol Talked to cardiology who stated this is a patient of Dr. Agarwal, and said to continue current treatment Continue to monitor heart rate and rhythm (5) Hypertension: Code(s): I10 - Essential (primary) hypertension Status: Acute Assessment and Plan: Current BP 128/36 Continue antihypertensives Trend BP Adjust therapy as indicated Time Spent With Patient Time with patient: Greater than 35 minutes Subjective Date/time seen: 11/01/21 11:30 Interval history: Date/Time 11/01/21 1130 Patient seems to be doing well today. She was really wanting to go home today. She did present with an MODESTO which has been trending down and she does know that she has C diff. her bowel movements have slowed down however I feel like the patient needs at least 1 more data shows some portion. She denies any other complaints like chest pain, shortness of breath, nausea, vomiting, sweats, fevers, chills. She does have abdominal cramping and pain however his from her C diff infection. Review of Systems Review of Systems: All systems reviewed & are unremarkable except as noted in HPI and below Exam Const: General: cooperative, healthy appearing, no acute distress, well developed, alert and awake Nutritional Appearance: well nourished Orientation/consciousness: oriented to person, oriented to place, oriented to time and patient oriented x3 Limitations: no limitations HENMT: Head: normal to inspection Ears: hearing grossly normal bilaterally General nose exam: Normal external nose present Mouth: Yes Normal oral and palatal mucosa present, Yes lip normal and Yes tongue normal Teeth and gingiva: abnormal tooth and associated gingiva and poor dentition Eyes: General: appearance normal, both eyes and all related structures Neck: Neck: normal visual inspection, full ROM, trachea midline and supple Chest: Chest palpation & inspection: normal inspection of the chest Resp: Effort & Inspection: normal respiratory effort and able to speak in complete sentences Auscultation: clear to auscultation bilaterally Cardio: Jugular venous distension: no JVD Rate: regular rate Rhythm: regular rhythm Heart sounds: S1 normal heart sound present and S2 normal heart sound present Peripheral pulses: Peripheral pulses 2+ throughout GI: Inspection: normal to inspection GI Palp: Yes Soft to palpation and No Tenderness to palpation present (GI) Auscultation: normal bowel sounds Skin: General skin exam: normal color and no rashes or lesions noted Lesions: no lesions Rashes: no rashes Trauma: no lacerations or abrasions Wounds: no wounds Hair: normal Nails: normal Neuro: General: patient oriented x3, moves all extremities and Normal light touch and
[2021-11-01 12:00] LABS: Hematocrit 43.4 % (37.0-47.0); Hemoglobin 14.3 g/dL (12.0-15.0); Mean Corpuscular HGB Conc 32.9 g/dl (32-36); Mean Corpuscular Hemoglobin 30.8 pg (26-34); Mean Corpuscular Volume 93.3 fl (80-100); Mean Platelet Volume 11.2 fl (7.4-10.4); Platelet Count Result 173 k/mm3 (150-375); Red Blood Count 4.65 M/mm3 (4.2-5.4); Red Cell Distribution Width 13.3 % (11.5-14.5)
[2021-11-01 12:12] LABS: Alanine Aminotransferase 36 U/L (4-35); Albumin Level 3.4 g/dL (3.5-5.1); Alkaline Phosphatase 39 U/L (38-126); Anion Gap 7 mmol/L (8-16); Aspartate Amino Transferase 79 U/L (14-36); Bilirubin,Total 0.3 mg/dL (0.2-1.3); Blood Urea Nitrogen 17 mg/dL (7-17); Calcium 7.8 mg/dL (8.4-10.2); Carbon Dioxide 23 mmol/L (22-30); Chloride 109 mmol/L (98-107); Estimated CRCL calculation 52 ml/min; Estimated Glomerular Filt Rate > 60; Glucose 91 mg/dL (65-110); Magnesium 1.6 mg/dL (1.6-2.3); Potassium 3.3 mmol/L (3.4-5.0); Sodium 139 mmol/L (137-145)
[2021-11-01] MEDS: SACCHAROMYCES BOULARDII 250 MG CAPSULE PO ×2 (12:59→16:59)
[2021-11-01] MEDS: FIDAXOMICIN 200 MG TABLET PO ×2 (12:59→20:17)
[2021-11-01 14:00] VITALS: BP 97/50; PULSE 71; RESP 16; TEMP 35.9; O2SAT 93
[2021-11-01] MEDS: traMADol HCL (*CRX) 50 MG TABLET PO (16:58)
[2021-11-01 16:59] VITALS: PULSE 70
[2021-11-01 22:00] VITALS: BP 132/68; PULSE 70; RESP 18; TEMP 36.9; O2SAT 93
[2021-11-02] VITALS (8 sets, daily range): BP systolic 113–150; BP diastolic 51–69; PULSE 67–73; RESP 14–18; TEMP 36.5–37; O2SAT 91–94
[2021-11-02] MEDS: traMADol HCL (*CRX) 50 MG TABLET PO ×2 (00:10→06:35)
[2021-11-02] MEDS: ONDANSETRON INJ 4 MG/2 ML VIAL IV PUSH (01:42)
[2021-11-02] MEDS: SODIUM CHLORIDE 0.9% IV 1,000 ML 125 ML IV CONT ×3 (04:14→19:59)
[2021-11-02 05:59] LABS: Basophils Percent Auto 0.2 % (0.2-1.2); Eosinophils Percent Auto 0.6 % (0-4.4); Hematocrit 46.1 % (37.0-47.0); Hemoglobin 14.9 g/dL (12.0-15.0); Immature Granulocyte Absolute 0.01 K/mm3 (0.00-0.031); Immature Granulocyte Percent A 0.2 % (0-0.5); Lymphocytes Absolute Auto 1.58 K/mm3 (0.9-3.2); Mean Corpuscular HGB Conc 32.3 g/dl (32-36); Mean Corpuscular Hemoglobin 31.4 pg (26-34); Mean Corpuscular Volume 97.3 fl (80-100); Mean Platelet Volume 11.4 fl (7.4-10.4); Monocytes Absolute Auto 0.7 K/mm3 (0.1-0.6); Monocytes Percent Auto 14.3 % (2.6-8.5); Neutrophils Absolute Auto 2.7 K/mm3 (1.3-6.7); Neutrophils Percent Auto 53.7 % (45.5-73.1); Platelet Count Result 179 k/mm3 (150-375); Red Blood Count 4.74 M/mm3 (4.2-5.4); Red Cell Distribution Width 13.5 % (11.5-14.5); White Blood Count 5.1 K/mm3 (4.5-10.0)
[2021-11-02 06:24] LABS: Alanine Aminotransferase 37 U/L (4-35); Albumin Level 3.7 g/dL (3.5-5.1); Alkaline Phosphatase 44 U/L (38-126); Anion Gap 7 mmol/L (8-16); Aspartate Amino Transferase 67 U/L (14-36); Bilirubin,Total 0.2 mg/dL (0.2-1.3); Blood Urea Nitrogen 10 mg/dL (7-17); Calcium 8.2 mg/dL (8.4-10.2); Carbon Dioxide 24 mmol/L (22-30); Chloride 112 mmol/L (98-107); Estimated CRCL calculation 59 ml/min; Estimated Glomerular Filt Rate > 60; Glucose 95 mg/dL (65-110); Magnesium 1.6 mg/dL (1.6-2.3); Potassium 3.2 mmol/L (3.4-5.0); Sodium 143 mmol/L (137-145)
[2021-11-02] MEDS: SOTALOL HCL 80 MG TABLET PO ×2 (09:40→18:16)
[2021-11-02] MEDS: ISOSORBIDE MONONITRATE 30 MG TAB.ER.24H PO (09:40)
[2021-11-02] MEDS: FIDAXOMICIN 200 MG TABLET PO ×2 (09:40→19:59)
[2021-11-02] MEDS: APIXABAN 5 MG TABLET PO ×2 (09:40→18:16)
[2021-11-02] MEDS: METOPROLOL SUCCINATE EXT REL 50 MG TABCR PO (09:40)
[2021-11-02] MEDS: PANTOPRAZOLE 40 MG TABLET PO (09:41)
[2021-11-02] MEDS: SACCHAROMYCES BOULARDII 250 MG CAPSULE PO ×3 (09:41→18:16)
--- NOTE | 2021-11-02 13:08 | PM.IMPN ---
Progress Note: A&P Assessment and Plan (1) C. difficile colitis: Code(s): A04.72 - Enterocolitis due to Clostridium difficile, not specified as recurrent Status: Acute Assessment and Plan: Patient's leukocytosis has resolved. Patient is doing well on current regimen of fidaxomicin and patient is having fewer stools. At this point in time case management has found that the medication will only be 4 dollars, but there is no pharmacy that will have the medication until Thursday. (2) MODESTO (acute kidney injury): Code(s): N17.9 - Acute kidney failure, unspecified Status: Acute Assessment and Plan: AKA has resolved and is at baseline. (3) Afib: Code(s): I48.91 - Unspecified atrial fibrillation Status: Acute Assessment and Plan: Patient has a history of atrial fibrillation, but she states she has not been in atrial fibrillation for quite some time. Patient is on sotalol. Will continue with anticoagulation. (4) Hypokalemia: Code(s): E87.6 - Hypokalemia Status: Acute Assessment and Plan: Will replace potassium and recheck level in a.m.. Subjective Date/time seen: 11/02/21 13:08 Interval history: Date/Time 11/01/21 1130 Patient seems to be doing well today. She was really wanting to go home today. She did present with an MODESTO which has been trending down and she does know that she has C diff. her bowel movements have slowed down however I feel like the patient needs at least 1 more data shows some portion. She denies any other complaints like chest pain, shortness of breath, nausea, vomiting, sweats, fevers, chills. She does have abdominal cramping and pain however his from her C diff infection. Date 11/02/2021: Patient states she has significantly improved. Patient states that she is very uncomfortable Hospital but. Patient states that she is not able to control her bowel movements and not have any incontinence. Patient states she did have 2 diarrhea stools last evening. Patient denies any fever chills. Patient denies any nausea, vomiting, constipation, dysuria, hematuria, frequency, or urgency. Review of Systems Review of Systems: A 12 point review of systems was completed patient all pertinent positive and negative per HPI the remainder are unremarkable. Exam Narrative: Constitutional: Patient is well-nourished in no acute distress. Patient is alert and oriented x3 HEENT: Moist mucous membranes. No scleral icterus. No lymphadenopathy. Neck: No carotid bruits noted no JVD noted Lungs: Lung sounds are clear to auscultation bilaterally. No accessory muscle use. No rhonchi, rales, or wheezes noted. Cardiovascular: Apical pulse is regular rate and rhythm. S1-S2 noted, no S3 or S4 noted. No gallops, murmurs, or rubs noted. Abdomen: Soft, round, and nontender. No palpable masses. Extremities: No edema. Nontender. Skin: No rashes or lesions. Warm and dry. Skin is intact. Neurological: No focal neurological deficits. Cranial nerves II-XII grossly intact. Psychiatric: Cooperative, appropriate mood, and affect Objective Data Vital Signs Vital Signs: Vital Signs - 24 hr 11/01/21 14:00 11/01/21 16:59 11/01/21 22:00 Temperature 35.9 C L 36.9 C Pulse Rate 71 70 70 Respiratory Rate 16 18 Blood Pressure 97/50 L 132/68 Pulse Oximetry 93 93 11/02/21 06:00 11/02/21 08:48 11/02/21 09:40 Temperature 36.5 C Pulse Rate 73 68 Respiratory Rate 16 Blood Pressure 150/69 H Pulse Oximetry 91 93 Intake/Output Intake/Output: Intake & Output 10/30/21 10/31/21 11/01/21 11/02/21 23:59 23:59 23:59 23:59 Intake Total 1999 4490 2690 Output Total 4500 Balance 1999 2690 Meds/Results Medications: Active Medications Generic Name Dose Route Start Last Admin Trade Name Freq PRN Reason Stop Dose Admin Hydrocodone Bitart/Acetaminophen 1 tab 11/02/21 13:03 Hydrocodone/Acetaminophen (*Crx) 5-325 Mg Tablet PO Q6H
[2021-11-02] MEDS: CYCLOBENZAPRINE HCL 5 MG TABLET PO (13:55)
[2021-11-02] MEDS: POTASSIUM CHLORIDE 20 MEQ PACKET (FOR LIQUID) PO (13:58)
[2021-11-02] MEDS: HYDROcodone/acetaminophen (*CRX) 5-325 MG TABLET 1 TAB PO (18:15)
[2021-11-03] VITALS (8 sets, daily range): BP systolic 96–148; BP diastolic 46–69; PULSE 68–77; RESP 16–24; TEMP 36.2–36.7; O2SAT 91–93
[2021-11-03] MEDS: SODIUM CHLORIDE 0.9% IV 1,000 ML 125 ML IV CONT ×2 (03:03→21:45)
[2021-11-03 06:09] LABS: Basophils Percent Auto 0.3 % (0.2-1.2); Eosinophils Absolute Auto 0.1 K/mm3 (0-0.3); Eosinophils Percent Auto 1.8 % (0-4.4); Hematocrit 41.8 % (37.0-47.0); Hemoglobin 13.5 g/dL (12.0-15.0); Immature Granulocyte Absolute 0.01 K/mm3 (0.00-0.031); Immature Granulocyte Percent A 0.3 % (0-0.5); Lymphocytes Absolute Auto 1.37 K/mm3 (0.9-3.2); Lymphocytes Percent Auto 34.4 % (18.3-44.2); Mean Corpuscular HGB Conc 32.3 g/dl (32-36); Mean Corpuscular Hemoglobin 30.5 pg (26-34); Mean Corpuscular Volume 94.6 fl (80-100); Mean Platelet Volume 11.4 fl (7.4-10.4); Monocytes Absolute Auto 0.6 K/mm3 (0.1-0.6); Monocytes Percent Auto 14.3 % (2.6-8.5); Neutrophils Percent Auto 48.9 % (45.5-73.1); Platelet Count Result 136 k/mm3 (150-375); Red Blood Count 4.42 M/mm3 (4.2-5.4); Red Cell Distribution Width 13.4 % (11.5-14.5)
[2021-11-03 06:31] LABS: Anion Gap 6 mmol/L (8-16); Blood Urea Nitrogen 4 mg/dL (7-17); Calcium 7.8 mg/dL (8.4-10.2); Carbon Dioxide 21 mmol/L (22-30); Chloride 113 mmol/L (98-107); Estimated CRCL calculation 67 ml/min; Estimated Glomerular Filt Rate > 60; Glucose 87 mg/dL (65-110); Potassium 3.1 mmol/L (3.4-5.0); Sodium 140 mmol/L (137-145)
[2021-11-03] MEDS: POTASSIUM CHLORIDE 20 MEQ TABLET 40 MEQ PO (08:28)
[2021-11-03] MEDS: SOTALOL HCL 80 MG TABLET PO ×2 (08:30→17:58)
[2021-11-03] MEDS: METOPROLOL SUCCINATE EXT REL 50 MG TABCR PO (08:31)
[2021-11-03] MEDS: ISOSORBIDE MONONITRATE 30 MG TAB.ER.24H PO (08:31)
[2021-11-03] MEDS: PANTOPRAZOLE 40 MG TABLET PO (08:31)
[2021-11-03] MEDS: FIDAXOMICIN 200 MG TABLET PO ×2 (08:31→21:33)
[2021-11-03] MEDS: SACCHAROMYCES BOULARDII 250 MG CAPSULE PO ×3 (08:31→17:58)
[2021-11-03] MEDS: APIXABAN 5 MG TABLET PO ×2 (08:31→17:59)
[2021-11-03] MEDS: HYDROcodone/acetaminophen (*CRX) 5-325 MG TABLET 1 TAB PO (10:31)
--- NOTE | 2021-11-03 10:53 | PM.IMPN ---
Progress Note: A&P Assessment and Plan (1) C. difficile colitis: Code(s): A04.72 - Enterocolitis due to Clostridium difficile, not specified as recurrent Status: Acute Assessment and Plan: - Patient's leukocytosis has resolved. Patient is doing well on current regimen of fidaxomicin and patient is having fewer stools. At this point in time case management has found that the medication will only be 4 dollars, but there is no pharmacy that will have the medication until Thursday. (2) MODESTO (acute kidney injury): Code(s): N17.9 - Acute kidney failure, unspecified Status: Acute Assessment and Plan: - MODESTO has resolved and is at baseline. (3) Afib: Qualifiers: Atrial fibrillation type: paroxysmal Qualified Code(s): I48.0 - Paroxysmal atrial fibrillation Code(s): I48.91 - Unspecified atrial fibrillation Status: Acute Assessment and Plan: - Patient has a history of atrial fibrillation, but she states she has not been in atrial fibrillation for quite some time. Patient is on sotalol. Will continue with anticoagulation. (4) Hypokalemia: Code(s): E87.6 - Hypokalemia Status: Acute Assessment and Plan: - Will replace potassium and recheck level in a.m.. Time Spent With Patient Time with patient: 15 - 25 minutes Subjective Date/time seen: 11/03/21 0830 This pt. was examined at the bedside in interval assessment. She denies any acute complaints of CP, dyspnea, N/V/and has not had any diarrhea in >12 hours. She has been afebrile. Her potassium remains marginally low this morning and it will be replaced. No further issues or symptoms. She will be able to discharge tomorrow as long as her Potassium is OK as her pharmacy will have her Fidaxomicin. Review of Systems Review of Systems: A 12 point ROS was performed and is otherwise negative with exception of what is documented in HPI. All systems reviewed & are unremarkable except as noted in HPI and below Exam Narrative: Constitutional: Patient is well-nourished in no acute distress. Patient is alert and oriented x3 HEENT: Moist mucous membranes. No scleral icterus. No lymphadenopathy. Neck: No carotid bruits noted no JVD noted Lungs: Lung sounds are clear to auscultation bilaterally. No accessory muscle use. No rhonchi, rales, or wheezes noted. Cardiovascular: Apical pulse is regular rate and rhythm. S1-S2 noted, no S3 or S4 noted. No gallops, murmurs, or rubs noted. Abdomen: Soft, round, and nontender. No palpable masses. Extremities: No edema. Nontender. Skin: No rashes or lesions. Warm and dry. Skin is intact. Neurological: No focal neurological deficits. Cranial nerves II-XII grossly intact. Psychiatric: Cooperative, appropriate mood, and affect Objective Data Vital Signs Vital Signs: Vital Signs - 24 hr 11/02/21 14:00 11/02/21 18:16 11/02/21 21:28 Temperature 98.6 F Pulse Rate 70 70 Respiratory Rate 18 Blood Pressure 126/69 Pulse Oximetry 91 93 11/02/21 22:00 11/03/21 06:00 11/03/21 08:30 Temperature 98.4 F 97.1 F L Pulse Rate 67 69 72 Respiratory Rate 14 16 Blood Pressure 113/51 L 148/67 H Pulse Oximetry 94 92 11/03/21 08:31 Temperature Pulse Rate 72 Respiratory Rate Blood Pressure Pulse Oximetry Intake/Output Intake/Output: Intake & Output 10/31/21 11/01/21 11/02/21 11/03/21 23:59 23:59 23:59 23:59 Intake Total 1999 4490 4350 2518 Output Total 4500 Balance 1999 4350 2518 Meds/Results Medications: Active Medications Generic Name Dose Route Start Last Admin Trade Name Freq PRN Reason Stop Dose Admin Hydrocodone Bitart/Acetaminophen 1 tab 11/02/21 13:03 11/03/21 10:31 Hydrocodone/Acetaminophen (*Crx) 5-325 Mg Tablet PO 1 tab Q6H PRN Administration Pain Rated 7-10 Apixaban 5 mg 11/01/21 09:00 11/03/21 08:31 Apixaban 5 Mg Tablet PO 5 mg BID DA Administration Cyclobenzaprine HCl 5 mg 10/15
[2021-11-03] MEDS: traMADol HCL (*CRX) 50 MG TABLET PO (21:41)
[2021-11-03] MEDS: CYCLOBENZAPRINE HCL 5 MG TABLET PO (21:42)
[2021-11-04] MEDS: HYDROcodone/acetaminophen (*CRX) 5-325 MG TABLET 1 TAB PO (00:38)
[2021-11-04 00:56] VITALS: BP 182/60; PULSE 77; RESP 24; TEMP 36.6; O2SAT 91
[2021-11-04] MEDS: FUROSEMIDE INJ 40 MG/4 ML VIAL IV PUSH (01:35)
[2021-11-04 03:13] LABS: Estimated CRCL calculation 67 ml/min; Estimated Glomerular Filt Rate > 60
[2021-11-04 06:00] VITALS: BP 119/62; PULSE 71; RESP 20; TEMP 36.7; O2SAT 92
[2021-11-04 08:00] VITALS: PULSE 71; RESP 20; O2SAT 92
--- NOTE | 2021-11-04 08:04 | PM.DS ---
DS: Admitting Diagnosis Discharge Date 11/04/2021 Admitting Diagnosis 1) UTI 2) Nausea and Vomiting 3) Diarrhea 4) MODESTO DS: Discharge Diagnosis Discharge Diagnosis (1) C. difficile colitis: Code(s): A04.72 - Enterocolitis due to Clostridium difficile, not specified as recurrent Status: Acute Assessment and Plan: - Patient's leukocytosis has resolved. Patient is doing well on current regimen of fidaxomicin and patient is having fewer stools. At this point in time case management has found that the medication will only be 4 dollars, but there is no pharmacy that will have the medication until Thursday. (2) MODESTO (acute kidney injury): Code(s): N17.9 - Acute kidney failure, unspecified Status: Acute Assessment and Plan: - MODESTO has resolved and is at baseline. (3) Afib: Qualifiers: Atrial fibrillation type: paroxysmal Qualified Code(s): I48.0 - Paroxysmal atrial fibrillation Code(s): I48.91 - Unspecified atrial fibrillation Status: Acute Assessment and Plan: - Patient has a history of atrial fibrillation, but she states she has not been in atrial fibrillation for quite some time. Patient is on sotalol. Will continue with anticoagulation. (4) Hypokalemia: Code(s): E87.6 - Hypokalemia Status: Acute Assessment and Plan: - Will replace potassium and recheck level in a.m.. - Pt. will be sent home with a minimal dose of Potassium and have orders to recheck it in two days along with follow up labs in two days to recheck and further orders/continuation/discontinuation per PCP. DS: Summary Hospital Course Reason for hospitalization: Diarrhea Hospital Course: This pleasant, 81 year old female with past medical history significant for atrial fibrillation, and HTN presents to the ER with complaints of having three to four days of N/V/D and she has started to become incontinent of bowel. There was no preceeding fevers, rigors, chills, abdominal or pelvic pain. She denied any cough, dyspnea or edema of the legs. Pt. was having so many bowel movements that it could not be counted. She was also found to have numerous WBC's on her UA. She appeared dehydrated with MODESTO, and elevated WBC's and was therefore admitted to the hospital for further workup and management. She was started on Rocephin initially and then later on 10/31, the pt's C-diff returned positive. She was started on Fidaxomicin at that time. Pt's Potassium has waxed and waned since being admitted and she has been supplemented orally several times. She is being discharged today with continued Fidaxomicin 200 mg po BID for 8 days as she has already completed two days. In addition, she will be discharged with a prescription for Potassium supplementation to take at home and orders to have her BMP rechecked on 11/06/21. She will need follow up with her PCP this week without fail to readdress the potassium. Pt. is advised to increase fluids and allow for rest time. Status at Discharge Functional status at discharge: independent ambulation Overall status at discharge: patient is back to baseline Time Spent with Patient Time attestation: Total time spent providing and/or coordinating discharge services: 35 mintues Time spent: Greater than 30 minutes Exam Narrative: Constitutional: Patient is well-nourished in no acute distress. Patient is alert and oriented x3 HEENT: Moist mucous membranes. No scleral icterus. No lymphadenopathy. Neck: No carotid bruits noted no JVD noted Lungs: Lung sounds are clear to auscultation bilaterally. No accessory muscle use. No rhonchi, rales, or wheezes noted. Cardiovascular: Apical pulse is regular rate and rhythm. S1-S2 noted, no S3 or S4 noted. No gallops, murmurs, or rubs noted. Abdomen: Soft, round, and nontender. No palpable masses. Extremities: No edema. Nontender. Skin: No rashes or lesions. Warm and dry. Skin is intact. Neurological: No focal neurological deficits.
[2021-11-04] MEDS: PANTOPRAZOLE 40 MG TABLET PO (08:46)
[2021-11-04] MEDS: POTASSIUM CHLORIDE 20 MEQ PACKET (FOR LIQUID) 60 MEQ PO (08:46)
[2021-11-04] MEDS: ISOSORBIDE MONONITRATE 30 MG TAB.ER.24H PO (08:46)
[2021-11-04] MEDS: APIXABAN 5 MG TABLET PO (08:46)
[2021-11-04] MEDS: SACCHAROMYCES BOULARDII 250 MG CAPSULE PO (08:46)
[2021-11-04] MEDS: FIDAXOMICIN 200 MG TABLET PO (08:46)
[2021-11-04] MEDS: METOPROLOL SUCCINATE EXT REL 50 MG TABCR PO (08:46)
[2021-11-04] MEDS: SOTALOL HCL 80 MG TABLET PO (08:46)
--- NOTE | 2021-11-04 11:30 | PCCCNOTE ---
On 11/04/21, the student, [Talita Gonzales ], provided care and [facility]. I have reviewed the student's documentation and agree with the findings.
== END 2021-11-04 11:56 | disposition home or self-care (01) | DRG 372 ==
LOC: ANHED 19:36 → ANH3MEDSUR 20:53
PROVIDERS: Emergency Medicine; Nurse Practitioner; Nurse Practitioner Adult Health; Admitting Provider Internal Medicine; Emergency Provider Emergency Medicine; PCP Internal Medicine; Visit Provider Nurse Practitioner Adult Health
DX: A04.72 Enterocolitis due to Clostridium difficile, not specified as recurrent (principal); N39.0 Urinary tract infection, site not specified; N17.9 Acute kidney failure, unspecified; R11.2 Nausea with vomiting, unspecified; E87.6 Hypokalemia; I48.0 Paroxysmal atrial fibrillation; I10 Essential (primary) hypertension; Z79.899 Other long term (current) drug therapy; Z79.01 Long term (current) use of anticoagulants
CPT/HCPCS: 36415; 71045; 71250; 74176; 80048; 80053; 81001; 82565; 83690; 83735; 85025; 85027; 87040; 87045; 87086; 87088; 87269; 87272; 87427; 87493; 89055; 96361; 96374; 96375; 99285; A9270; G0378; J0692; J1940; J2270; J2405; J3370; J7030

== ENCOUNTER 2021-11-22 14:02 | Outpatient (CLI) | payer OTHER, MEDICAID, SELFPAY ==
--- NOTE | ~2021-11-22 | US_ITS ---
US breast RT complete DATE: 11/22/2021 15:51 INDICATION: Right breast lump TECHNIQUE: Real-time imaging of complete right breast including all 4 quadrants and subareolar area COMPARISON: 01/15/2021 bilateral screening mammogram FINDINGS: Linear hyperechoic subcutaneous calcifications with posterior shadowing are noted, consiste nt with benign calcifications noted in the upper inner quadrant of the right breast. No suspicious mass lesion or suspicious shadowing, cyst or other significant finding is noted otherwi se. IMPRESSION: BI-RADS Category 2: Benign finding Recommendation: Routine mammographic screening Reviewed, dictated and finalized at [facility]. Reviewed, dictated and finalized at location A.
== END 2021-11-22 14:03 | disposition home or self-care (01) ==
LOC: ANHIMG 14:21
PROVIDERS: PCP Internal Medicine; Visit Provider Student in an Organized Health Care Education/Training Program
DX: N64.4 Mastodynia (principal)
CPT/HCPCS: 76641

== ENCOUNTER 2022-01-16 09:51 | Outpatient (CLI) | payer OTHER, MEDICAID, SELFPAY ==
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
== END 2022-01-16 09:52 | disposition home or self-care (01) ==
PROVIDERS: PCP Internal Medicine; Visit Provider Internal Medicine
DX: Z12.31 Encounter for screening mammogram for malignant neoplasm of breast (principal)
CPT/HCPCS: 77063; 77067

== ENCOUNTER 2022-07-18 09:58 | Emergency (ER) | payer OTHER, MEDICAID, SELFPAY ==
--- NOTE | ~2022-07-18 | XR_ITS ---
EXAMINATION: XR chest 1V DATE: 07/18/2022 10:54 INDICATION: Arrhythmia. TECHNIQUE: A single frontal view of the chest was obtained. COMPARISON: Chest single view 11/04/2021, chest CT 10/31/2021 FINDINGS: There is no pneumonia, pleural effusion, or pneumothorax. The heart size is normal. Surgica l clips in the right upper quadrant are likely from cholecystectomy. IMPRESSION: 1. No acute cardiopulmonary disease. Reviewed, dictated and finalized at location A. FACTURING TECHNOLOGY ANALYST
[2022-07-18 10:03] VITALS: BP 167/90; PULSE 97; RESP 23; TEMP 36.1; O2SAT 94
[2022-07-18 10:16] VITALS: BP 126/74; PULSE 98; RESP 17; O2SAT 92
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
[2022-07-18 10:31] VITALS: BP 112/72; PULSE 97; RESP 17; O2SAT 92
--- NOTE | 2022-07-18 10:33 | ECG_ITS ---
Measurements Intervals [place] Rate: 97 P: 92 [place]: 173 QRS: 58 QRSD: 94 T: 51 QT: 372 QTc: 473 Interpretive Statements SINUS RHYTHM NONSPECIFIC ST & T-WAVE ABNORMALITY COMPARED TO ECG 05/05/2021 08:15:48 T-WAVE ABNORMALITY NOW PRESENT Electronically Signed On 07-18-2022 10:43:06 [employer] by Patti Dior M.D.
[2022-07-18 10:46] VITALS: BP 124/84; PULSE 97; RESP 18; O2SAT 92
== END 2022-07-18 11:34 | disposition home or self-care (01) ==
PROVIDERS: Emergency Provider Emergency Medicine; PCP Internal Medicine
DX: R00.2 Palpitations (principal); I48.91 Unspecified atrial fibrillation; I10 Essential (primary) hypertension; Z79.01 Long term (current) use of anticoagulants; R94.31 Abnormal electrocardiogram [ECG] [EKG]
CPT/HCPCS: 71045; 93005; 99283

== ENCOUNTER 2023-01-15 09:20 | Observation (INO) | payer OTHER, MEDICAID, SELFPAY ==
[2023-01-15] VITALS (40 sets, daily range): BP systolic 103–164; BP diastolic 59–107; PULSE 72–117; RESP 13–38; TEMP 36.5–36.8; O2SAT 89–97; BMI 33.5
--- NOTE | ~2023-01-15 | XR_ITS ---
EXAMINATION: XR chest 2V DATE: 01/15/2023 09:45 INDICATION: Chest pain. TECHNIQUE: Frontal and lateral views of the chest were obtained. COMPARISON: Chest single view 07/18/2022 FINDINGS: The chest demonstrates clear lungs without pneumonia, pleural effusion, or pneumothorax. Th e heart size is normal. 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 Surgical clips in the right upper quadrant are likely from cholecystectomy. IMPRESSION: 1. No acute cardiopulmonary disease. Reviewed, dictated and finalized at location A.
--- NOTE | 2023-01-15 09:28 | ECG_ITS ---
Measurements Intervals [place] Rate: 116 P: [place]: 0 QRS: 60 QRSD: 94 T: 23 QT: 308 QTc: 428 Interpretive Statements ATRIAL FLUTTER/TACHYCARDIA WITH RAPID VENTRICULAR RESPONSE NONSPECIFIC T-WAVE ABNORMALITY ABNORMAL RHYTHM ECG COMPARED TO ECG 07/18/2022 10:06:36 ATRIAL FLUTTER NOW PRESENT Electronically Signed On 01-15-2023 15:27:04 CDT by Patti Dior M.D.
--- NOTE | 2023-01-15 09:36 | ED.CHESTPAIN ---
HPI - Chest Pain General Chief Complaint: Chest Pain Stated Complaint: EMS calling STEMI Time Seen by Provider: 01/15/23 09:36 Related Data Home Medications Medication Instructions Recorded Confirmed apixaban 5 mg tablet (Eliquis) 5 mg PO BID 10/31/21 04/15/22 furosemide 40 mg tablet 40 mg PO DAILY 10/31/21 04/15/22 isosorbide mononitrate 30 mg 30 mg PO DAILY 10/31/21 04/15/22 tablet,extended release 24 hr metoprolol succinate 50 mg 50 mg PO DAILY 10/31/21 04/15/22 tablet,extended release 24 hr omeprazole 40 mg capsule,delayed 40 mg PO DAILY 10/31/21 04/15/22 release sotalol 80 mg tablet (Sotalol AF) 80 mg PO BID 10/31/21 04/15/22 Allergies Allergy/AdvReac Type Severity Reaction Status Date / Time amiodarone Allergy Unknown Unknown Verified 07/18/22 09:59 diltiazem Allergy Unknown Unknown Verified 07/18/22 09:59 losartan Allergy Unknown rash Verified 07/18/22 09:59 codeine Allergy Itching Verified 07/18/22 09:59 [facility] Past Medical History Medical History Atrial fibrillation Hypertension Surgical History Surgical History H/O knee surgery H/O repair of rotator cuff Family History Family History Sibling Hypertension Mother Family history of heart disease in male family member before age 55 Family history of coronary artery disease, Onset Age: 81 No family history of cardiovascular disease Patient's mother is Father Acute myocardial infarction Family history of premature coronary heart disease, Onset Age: 62 Hypertension Family history of elevated blood lipids Family history of diabetes mellitus in first degree relative Patient's father is Other Cerebrovascular accident Diabetes mellitus Family history of arthritis Social History Social History Smoking status: Former smoker Smoking end date: 08/17/02 Alcohol intake: never Substance use: never Spiritual care concerns: No Course Reevaluation(s) Reevaluation #1: Currently patient is asymptomatic after Lopressor 5 mg IV x3, heart rate running in the 100s, ekg monitor tech showing A-fib. Patient to be admitted to IMU for further evaluation Date: 01/15/23 Time: 12:34 Consultations Consultation #1: DR BORGES bell attendant on-call, Date: 01/15/23 Time: 12:33 Vital Signs Vital signs: Vital Signs Temperature 36.8 C 01/15/23 09:19 Pulse Rate 115 H 01/15/23 09:19 Respiratory Rate 16 01/15/23 09:19 Blood Pressure 164/107 H 01/15/23 09:19 Pulse Oximetry 92 01/15/23 09:19 Oxygen Delivery Room Air 01/15/23 09:19 Temperature 36.8 C 01/15/23 09:19 Pulse Rate 107 H 01/15/23 12:55 Respiratory Rate 13 01/15/23 12:51 Blood Pressure 108/69 01/15/23 12:31 Pulse Oximetry 95 01/15/23 12:51 Oxygen Delivery Nasal Cannula 01/15/23 10:55 Oxygen Flow Rate 2 01/15/23 10:55 MDM - Chest Pain MDM Narrative Medical decision making narrative: Patient presents with fast heartbeat and questionable intermittent sharp pain under her left breast since last night. EKG on arrival showed A-fib with RVR. Patient on Eliquis for A-fib, last EKG showed normal sinus rhythm, A-fib today is new Currently patient is asymptomatic, denying any chest pain or shortness of breath. Differential diagnosis include stress, anxiety, electrolyte imbalance, hypertension, coronary artery disease, noncompliance with her medication. Patient have allergy to Cardizem, make her throat close up. Currently on sotalol and blood pressure. Lopressor 5 mg IV x3 ordered. With heart rate running in the 100s. Later 25 mg of Lopressor orally given, heart rate currently running less than 100, still A-fib. Currently patient is still asymptomatic. Patient to be admitted to the hospitalist, IMU, work-u
[2023-01-15] MEDS: METOPROLOL TARTRATE INJ 5 MG/5 ML VIAL IV PUSH ×3 (09:52→10:06)
[2023-01-15 09:59] LABS: Basophils Percent Auto 0.4 % (0.2-1.2); Eosinophils Absolute Auto 0.1 K/mm3 (0-0.3); Eosinophils Percent Auto 1.6 % (0-4.4); Hematocrit 48.5 % (37.0-47.0); Hemoglobin 16.3 g/dL (12.0-15.0); Immature Granulocyte Absolute 0.02 K/mm3 (0.00-0.031); Immature Granulocyte Percent A 0.3 % (0-0.5); Lymphocytes Absolute Auto 2.58 K/mm3 (0.9-3.2); Lymphocytes Percent Auto 33.8 % (18.3-44.2); Mean Corpuscular HGB Conc 33.6 g/dl (32-36); Mean Corpuscular Hemoglobin 31.2 pg (26-34); Mean Corpuscular Volume 92.7 fl (80-100); Mean Platelet Volume 11.6 fl (7.4-10.4); Monocytes Absolute Auto 0.8 K/mm3 (0.1-0.6); Monocytes Percent Auto 10.2 % (2.6-8.5); Neutrophils Absolute Auto 4.1 K/mm3 (1.3-6.7); Neutrophils Percent Auto 53.7 % (45.5-73.1); Platelet Count Result 241 k/mm3 (150-375); Red Blood Count 5.23 M/mm3 (4.2-5.4); Red Cell Distribution Width 12.8 % (11.5-14.5); White Blood Count 7.6 K/mm3 (4.5-10.0)
[2023-01-15 10:12] LABS: INR 1.2; Prothrombin Time 16.2 Seconds (11.1-14.7)
[2023-01-15 10:13] LABS: Partial Thromboplastin Time 33.8 SECONDS (22.3-36.8)
[2023-01-15 10:20] LABS: Alanine Aminotransferase 29 U/L (6-35); Albumin Level 4.4 g/dL (3.5-5.1); Alkaline Phosphatase 73 U/L (38-126); Anion Gap 7 mmol/L (8-16); Aspartate Amino Transferase 44 U/L (14-36); Bilirubin,Total 0.8 mg/dL (0.2-1.3); Blood Urea Nitrogen 11 mg/dL (7-17); Calcium 8.9 mg/dL (8.4-10.2); Carbon Dioxide 31 mmol/L (22-30); Chloride 102 mmol/L (98-107); Estimated CRCL calculation 78 ml/min; Estimated Glomerular Filt Rate > 60; Glucose 149 mg/dL (65-110); Lipase 36 U/L (23-300); Potassium 3.5 mmol/L (3.4-5.0); Sodium 140 mmol/L (137-145)
[2023-01-15 10:31] LABS: Troponin I < 0.012 ng/mL (0.000-0.034)
[2023-01-15 10:32] LABS: Alveolar/Arterial O2 Gradient 38.5 mmHg; Base Excess ABG 2.9 mEq/l (+/-2.0); Fractional Inspired Oxygen 21 %; HCO3 ABG 27.8 mEq/l (22.0-26.0); Oxygen Content ABG 20.2 %vol (16.0-22.0); Oxygen Saturation ABG 91.1 % (95.0-100.0); Oxyhemoglobin 89.5 % THb (90.0-100.0); PCO2 ABG 43.5 mmHg (35.0-45.0); PO2 ABG 59.1 mmHg (80.0-100.0); PO2 FiO2 Ratio Arterial Blood 2.81 %; Total Hemoglobin 16.1 g/dL (12.0-18.0); pH ABG 7.424 (7.350-7.450)
[2023-01-15 10:33] LABS: Site Drawn LEFT BRACHIAL
[2023-01-15 10:34] LABS: Device ROOM AIR
[2023-01-15 12:44] LABS: Troponin I < 0.012 ng/mL (0.000-0.034)
[2023-01-15] MEDS: METOPROLOL TARTRATE 50 MG TAB 25 MG PO (12:55)
--- NOTE | 2023-01-15 14:10 | PM.IMHP ---
H&P: HPI History of Present Illness Date/Time: 01/15/23 14:10 Chief Complaint: Chest pain Narrative: This is a 82-year-old female patient with a past medical history of AFib. The patient stated that she has had an ablation in the past. EMS called a STEMI. Chest x-ray was read as no acute cardiopulmonary disease. Chest x-ray was read as no acute cardiopulmonary disease. H&H is 16.3 and 48.5. Troponin has been negative x2. EKG was atrial flutter tachycardia with rapid ventricular response. The patient was given aspirin Lopressor x3 IV pushes the p.o. which overload. The patient is on metoprolol as well as sotalol at home. Cardiology has been consulted. When I saw the patient in ER she was anywhere from 90 to the lower 1 teens AFib. The patient no longer has any chest pain. The patient is being admitted to observation status on the date of service of 01/15/2023. Review of Systems Review of Systems: All systems reviewed & are unremarkable except as noted in HPI and below Constitutional: Constitutional: Reports as per HPI and Reports no additional constitutional complaints Eyes: Eyes: Reports as per HPI and Reports no additional eye complaints ENT: Reports system reviewed and no additional complaints, except as documented and Reports Normal hearing present Cardiovascular: Cardiovascular: Reports no additional cardiovascular complaints Respiratory: Respiratory: Reports no additional respiratory complaints and Reports no additional respiratory complaints Gastrointestinal: Gastrointestinal: Reports as per HPI and Reports no additional gastrointestinal complaints Musculoskeletal: Musculoskeletal: Reports no additional musculoskeletal complaints Integumentary/Breasts: Skin/Breast: Reports system reviewed and no additional complaints, except as docu and Reports as per HPI Neurologic: Reports system reviewed and no additional complaints, except as documented, Reports as per HPI and Reports Normal hearing present Psychiatric: Psychiatric: Reports no additional psychiatric complaints and Reports as per HPI Endocrine: Endocrine: Reports no additional endocrine complaints Hematologic/Lymphatic: Hematologic/Lymphatic: Reports no additional hematologic/lymphatic complaints Allergic/Immunologic: Allergic/Immunologic: Reports no additional allergic/immunologic complaints [facility] Past Medical History Medical History (Updated 01/15/23 @ 18:17 by Adina Armstrong NP) Atrial fibrillation Chronic GERD Diverticulitis Hypertension Surgical History Surgical History (Updated 01/15/23 @ 18:17 by Adina Armstrong NP) H/O cardiac radiofrequency ablation H/O knee surgery Bilateral H/O repair of rotator cuff H/O tubal ligation Family History Family History Sibling Hypertension Mother Family history of heart disease in male family member before age 55 Family history of coronary artery disease, Onset Age: 81 No family history of cardiovascular disease Patient's mother is Father Acute myocardial infarction Family history of premature coronary heart disease, Onset Age: 62 Hypertension Family history of elevated blood lipids Family history of diabetes mellitus in first degree relative Patient's father is Other Cerebrovascular accident Diabetes mellitus Family history of arthritis Social History Social History (Updated 01/15/23 @ 18:18 by Adina Armstrong NP) Social History: She lives with her sister and is . She has 4 sons. Code status full code Smoking packs per day: 1 Smoking cigarettes per day: 20.0 Years smoked: 40 Smoking pack-years: 40.00 Smoking status: Former smoker Smoking end date: 08/17/02 Alcohol intake: never Substance use: never Lack of Transportation: No Lack of Food: Never True Current Housing: I Have Housing Concerned About Future Housing: No Difficulty Payi
--- NOTE | 2023-01-15 16:16 | PM.CNCAR ---
Assessment and Plan Assessment and plan (1) Atrial fibrillation with rapid ventricular response: Code(s): I48.91 - Unspecified atrial fibrillation Status: Acute Assessment and Plan: Continue home Sotalol dose. Continue Eliquis. Will increase dose of Toprol from 50mg to 100mg. Monitor on tele. Patient to follow up with Dr. Gupta after hospital discharge. History of Present Illness History of Present Illness Consult date/time: 01/15/23 16:16 Requesting physician: Noble Mccallum MD Consult reason: atrial fibrillation Reason For Visit: A-Fib with RVR Narrative: We are consulted for atrial fibrillation with RVR. This is an 82-year-old female with a known history of paroxysmal atrial fibrillation on Sotalol, Toprol, and Eliquis who presented from home for evaluation of palpitations. Noticed her heart rate going up to the 120s at home. On arrival to the ED, EKG shows possible atrial flutter with ventricular rate at 116bpm. Patient was given total of IV Metoprolol 15mg with improvement in heart rates down to the 90s. Tele currently shows HR in the 90s - 115s. Patient is feeling well otherwise. Her primary medical receptionist medical assistant is Dr. Gupta. Review of Systems Review of Systems: All systems reviewed & are unremarkable except as noted in HPI and below (HPI) [facility] Past Medical History Medical History Atrial fibrillation Hypertension Surgical History Surgical History H/O cardiac radiofrequency ablation H/O knee surgery H/O repair of rotator cuff H/O tubal ligation Family History Family History Sibling Hypertension Mother Family history of heart disease in male family member before age 55 Family history of coronary artery disease, Onset Age: 81 No family history of cardiovascular disease Patient's mother is Father Acute myocardial infarction Family history of premature coronary heart disease, Onset Age: 62 Hypertension Family history of elevated blood lipids Family history of diabetes mellitus in first degree relative Patient's father is Other Cerebrovascular accident Diabetes mellitus Family history of arthritis Social History Social History Social History: lives with sister and i 4 sons full code Smoking status: Former smoker Smoking end date: 08/17/02 Alcohol intake: never Substance use: never Spiritual care concerns: No Meds Home Medications and Allergies Home Medications Medication Instructions Recorded Confirmed Type apixaban 5 mg tablet (Eliquis) 5 mg PO BID 10/31/21 04/15/22 History furosemide 40 mg tablet 40 mg PO DAILY 10/31/21 04/15/22 History isosorbide mononitrate 30 mg 30 mg PO DAILY 10/31/21 04/15/22 History tablet,extended release 24 hr metoprolol succinate 50 mg 50 mg PO DAILY 10/31/21 04/15/22 History tablet,extended release 24 hr omeprazole 40 mg capsule,delayed 40 mg PO DAILY 10/31/21 04/15/22 History release sotalol 80 mg tablet (Sotalol AF) 80 mg PO BID 10/31/21 04/15/22 History Allergies Allergy/AdvReac Type Severity Reaction Status Date / Time amiodarone Allergy Unknown Unknown Verified 07/18/22 09:59 diltiazem Allergy Unknown Unknown Verified 07/18/22 09:59 losartan Allergy Unknown rash Verified 07/18/22 09:59 codeine Allergy Itching Verified 07/18/22 09:59 Vital Signs Vital Signs - 24 hr 01/15/23 09:19 01/15/23 09:28 01/15/23 09:52 Temperature 36.8 C Pulse Rate 115 H 116 H 117 H Respiratory Rate 16 Blood Pressure 164/107 H Pulse Oximetry 92 Oxygen Delivery Room Air Oxygen Flow Rate 01/15/23 10:00 01/15/23 10:02 01/15/23 10:06 Temperature Pulse Rate 106 H 89 98 Respiratory Rate 18 Blood Pressure 114/70 Pulse Oximetry 90
--- NOTE | 2023-01-15 17:10 | PC.NURSE ---
This patient, Dulce Gibbons, was admitted to IMU Room 206-02. Patient/family oriented to hospital policies and general routines including ID bracelet, bed and alarms, visiting hours, pain management, procedures, bathroom and other care routines, personal items, smoking policy, room service/diet, and visiting hours. Information on how to activate the Rapid Response Team has been discussed. Patient/Family are encouraged to report perceived risks to care and to ask questions if they do not understand what they are told or what they should do.
[2023-01-15] MEDS: METOPROLOL SUCCINATE EXT REL 25 MG TABCR PO (17:40)
[2023-01-15 18:15] LABS: Troponin I < 0.012 ng/mL (0.000-0.034)
[2023-01-15] MEDS: APIXABAN 5 MG TABLET PO (20:07)
[2023-01-15] MEDS: SOTALOL HCL 80 MG TABLET PO (20:07)
[2023-01-15] MEDS: diphenhydrAMINE HCl CAP 25 MG CAPSULE PO (20:13)
[2023-01-15] MEDS: MELATONIN 5 MG TABLET PO (22:01)
[2023-01-16] VITALS (17 sets, daily range): BP systolic 120–133; BP diastolic 56–80; PULSE 72–119; RESP 12–20; TEMP 35.8–36.7; O2SAT 90–97
[2023-01-16] MEDS: FUROSEMIDE 40 MG TABLET PO (08:44)
[2023-01-16] MEDS: PANTOPRAZOLE 40 MG TABLET PO ×2 (08:44→20:51)
[2023-01-16] MEDS: ISOSORBIDE MONONITRATE 30 MG TAB.ER.24H PO (08:44)
[2023-01-16] MEDS: SOTALOL HCL 80 MG TABLET PO ×2 (08:44→20:50)
[2023-01-16] MEDS: MULTIVITAMINS THERAPEUTIC TAB (*BKC) 1 TABLET PO (08:44)
[2023-01-16] MEDS: APIXABAN 5 MG TABLET PO ×2 (08:45→20:51)
[2023-01-16] MEDS: METOPROLOL SUCCINATE EXT REL 100 MG TABCR PO (08:45)
--- NOTE | 2023-01-16 09:19 | ECG_ITS ---
Measurements Intervals [place] Rate: 114 P: [place]: 0 QRS: 64 QRSD: 95 T: 31 QT: 274 QTc: 378 Interpretive Statements ATRIAL FLUTTER/TACHYCARDIA WITH RAPID VENTRICULAR RESPONSE ST DEVIATION AND MODERATE T-WAVE ABNORMALITY, CONSIDER ANTERIOR ISCHEMIA [-0.1+ mV T WAVE IN V3/V4] COMPARED TO ECG 01/15/2023 09:22:18 NO SIGNIFICANT CHANGES Electronically Signed On 01-16-2023 13:48:20 CDT by Patti Dior M.D.
[2023-01-16] MEDS: METOPROLOL SUCCINATE EXT REL 50 MG TABCR PO (09:45)
[2023-01-16] MEDS: diphenhydrAMINE HCl CAP 25 MG CAPSULE PO (09:46)
--- NOTE | 2023-01-16 10:43 | PM.PNCARD ---
Progress Note: A&P Assessment and Plan (1) Atrial fibrillation with rapid ventricular response: Code(s): I48.91 - Unspecified atrial fibrillation Status: Acute Assessment and Plan: Continue home Sotalol dose. Of note, patient has allergies to Amiodarone and Diltiazem (shortness of breath, swelling of throat). Continue Eliquis. Will work on rate control. Home dose of Toprol increased from 50mg to 100mg. Will increase to 150mg this morning. Monitor on tele. Patient to follow up with Dr. Gupta after hospital discharge. Subjective Date/time seen: 01/16/23 10:43 Interval history: Reason for visit: Atrial fibrillation / atrial flutter with RVR. HPI: We are consulted for atrial fibrillation with RVR. This is an 82-year-old female with a known history of paroxysmal atrial fibrillation on Sotalol, Toprol, and Eliquis who presented from home for evaluation of palpitations. Noticed her heart rate going up to the 120s at home. On arrival to the ED, EKG shows possible atrial flutter with ventricular rate at 116bpm. Patient was given total of IV Metoprolol 15mg with improvement in heart rates down to the 90s. Tele currently shows HR in the 90s - 115s. Patient is feeling well otherwise. Her primary art psychotherapist is Dr. Gupta. Date of service 01/16: EKG this morning shows atrial flutter with ventricular rate at 114bpm. Patient otherwise doing well. Has occasional intermittent chest pressure. Review of Systems Review of Systems: 8 point ROS obtained. Negative, unless stated in HPI. Exam Const: General: comfortable and no acute distress HENMT: Mouth: Yes moist mucous membranes Eyes: General: appearance normal, both eyes and all related structures Sclera: sclerae normal Neck: Neck: supple Resp: Effort & Inspection: normal respiratory effort Auscultation: clear to auscultation bilaterally Cardio: Rate: tachycardic Rhythm: regular rhythm GI: GI Palp: Yes Soft to palpation and No Tenderness to palpation present (GI) Neuro: Speech: normal speech Extrem: General: normal to inspection Psych: Mental Status: mental status grossly normal Affect: normal affect Objective Data Vital Signs Vital Signs: Vital Signs - 24 hr 01/15/23 10:45 01/15/23 10:47 01/15/23 10:55 Temperature Pulse Rate 117 H 117 H Respiratory Rate 22 H 16 Blood Pressure 142/74 H Pulse Oximetry 90 91 94 Oxygen Delivery Nasal Cannula Oxygen Flow Rate 2 01/15/23 12:55 01/15/23 10:48 01/15/23 11:00 Temperature Pulse Rate 107 H 116 H 115 H Respiratory Rate 24 H 18 Blood Pressure Pulse Oximetry 90 96 Oxygen Delivery Oxygen Flow Rate 01/15/23 11:19 01/15/23 11:32 01/15/23 11:48 Temperature Pulse Rate 107 H 86 115 H Respiratory Rate 25 H 20 29 H Blood Pressure Pulse Oximetry 96 96 95 Oxygen Delivery Oxygen Flow Rate 01/15/23 12:01 01/15/23 12:02 01/15/23 12:15 Temperature Pulse Rate 100 108 H 116 H Respiratory Rate 31 H 38 H 14 Blood Pressure 111/88 Pulse Oximetry 96 96 Oxygen Delivery Oxygen Flow Rate 01/15/23 12:31 01/15/23 12:33 01/15/23 12:51 Temperature Pulse Rate 92 102 H 103 H Respiratory Rate 19 25 H 13 Blood Pressure 108/69 Pulse Oximetry 96 96 95 Oxygen Delivery Oxygen Flow Rate 01/15/23 13:00 01/15/23 13:03 01/15/23 13:15 Temperature Pulse Rate 95 96 103 H Respiratory Rate 21 H 17 20 Blood Pressure 114/59 L Pulse Oximetry 95 95 Oxygen Delivery Oxygen Flow Rate 01/15/23 13:30 01/15/23 13:32 01/15/23 13:45 Temperature Pulse Rate 99 105 H 108 H Respiratory Rate 19 28 H 31 H Blood Pressure 103/63 Pulse Oximetry 95 Oxygen Delivery Oxygen Flow Rate 01/15/23 14:00 01/15/23 16:26 01/15/23 17:40 Temperature Pulse Rate 112 H 115 H 114 H Respiratory Rate 23 H 18 Blood Pressure 103/63 Pulse Oximetry 95 93 Oxygen Delivery Oxygen Flow Rate 01/15/23 16:44 01/15/23 17:30 06
--- NOTE | 2023-01-16 13:25 | PM.IMPN ---
Progress Note: A&P Assessment and Plan (1) Atrial fibrillation with rapid ventricular response: Code(s): I48.91 - Unspecified atrial fibrillation Status: Acute Assessment and Plan: Cardiology has been consulted. Continue with home sotalol and continue Eliquis. Patient's sister metoprolol will be increased from 50-100. Continue to monitor in telemetry. Continue heart healthy diet (2) Hypertension: Qualifiers: Hypertension type: primary hypertension Qualified Code(s): I10 - Essential (primary) hypertension Code(s): I10 - Essential (primary) hypertension Status: Acute Assessment and Plan: Continue with isosorbide, Lasix metoprolol has been increased and continue sotalol Subjective Date/time seen: 01/16/23 13:25 Interval history: No new complaints. Exam Const: General: cooperative, healthy appearing, comfortable, no acute distress, well developed, alert, awake, Physically active, average body habitus and well nourished Nutritional Appearance: average body habitus and well nourished Orientation/consciousness: oriented to person, oriented to place, oriented to time and patient oriented x3 Limitations: no limitations HENMT: Head: normal to inspection, No palpable skull fracture present, normocephalic and atraumatic Ears: hearing grossly normal bilaterally and external ears normal Face/Nose/Sinus: Normal external nose present and Normal nares present Eyes: General: appearance normal, both eyes and all related structures Alignment and Position: alignment normal Periorbital: periorbital findings normal Eyelids: eyelids normal Cornea: corneas normal Pupils: Equal, round and reactive pupils present EOM: EOMs intact bilaterally Neck: Neck: normal visual inspection, full ROM, no lymphadenopathy, trachea midline and supple Thyroid: thyroid normal Carotids: normal carotid upstroke Lymphatic: no lymphadenopathy noted Chest: Chest palpation & inspection: normal inspection of the chest Resp: Auscultation: clear to auscultation bilaterally Cardio: Palpation: normal PMI Rate: tachycardic Rhythm: abnormal rhythm Heart sounds: S1 normal heart sound present and S2 normal heart sound present Peripheral pulses: Peripheral pulses 2+ throughout GI: Inspection: normal to inspection Auscultation: normal bowel sounds Rectal Exam: deferred Back/Spine/Pelvis: Cervical Spine: cervical ROM normal Skin: General skin exam: normal color Lesions: no lesions Rashes: no rashes Trauma: no lacerations or abrasions Wounds: no wounds Hair: normal Nails: normal Neuro: General: oriented to person, oriented to place, oriented to time and patient oriented x3 Cranial nerves: Yes Equal, round and reactive pupils present and Yes Normal hearing present Cognition (Neuro): normal cognition Speech: normal speech Motor exam (neuro): 5/5 motor strength present throughout Sensory Exam: normal sensation Extrem: General: normal to inspection Right upper extremity: normal to inspection and shoulder/upper arm Left upper extremity: normal to inspection and shoulder/upper arm Right lower extremity: normal to inspection Left lower extremity: normal to inspection Psych: Appearance: grossly normal Mental Status: mental status grossly normal Speech and movement: Normal speech and movement present Affect: normal affect Attitude: cooperative Thought process: Normal thought process present Insight: Good insight present (Psych) Judgement: Good judgement present (Psych) Objective Data Vital Signs Vital Signs: Vital Signs - 24 hr 01/15/23 13:30 01/15/23 13:32 01/15/23 13:45 Temperature Pulse Rate 99 105 H 108 H Respiratory Rate 19 28 H 31 H Blood Pressure 103/63 Pulse Oximetry 95 Oxygen Delivery 01/15/23 14:00 01/15/23 16:26 01/15/23 17:40 Temperature Pulse Rate 112 H 115 H 114 H Respiratory Rate 23 H 18 Blood Pressure 103/63 Pulse Oximetry 95 93 Oxygen Delivery
[2023-01-16] MEDS: MELATONIN 5 MG TABLET PO (21:57)
[2023-01-17] VITALS (11 sets, daily range): BP systolic 112–135; BP diastolic 64–68; PULSE 87–117; RESP 20; TEMP 35.8–36.3; O2SAT 92–96
[2023-01-17] MEDS: ACETAMINOPHEN 325 MG TABLET 650 MG PO (07:35)
--- NOTE | 2023-01-17 08:35 | ECG_ITS ---
Measurements Intervals [place] Rate: 114 P: SD: 0 QRS: 60 QRSD: 102 T: 15 QT: 318 QTc: 439 Interpretive Statements ATRIAL FLUTTER/TACHYCARDIA NONSPECIFIC ST & T-WAVE ABNORMALITY ABNORMAL RHYTHM ECG COMPARED TO ECG 01/16/2023 09:41:34 NO SIGNIFICANT CHANGES Electronically Signed On 01-17-2023 9:44:39 CDT by Patti Dior M.D.
--- NOTE | 2023-01-17 08:41 | PM.PNCARD ---
Progress Note: A&P Assessment and Plan (1) Atrial fibrillation with rapid ventricular response: Code(s): I48.91 - Unspecified atrial fibrillation Status: Acute Assessment and Plan: Continue home Sotalol dose. Of note, patient has allergies to Amiodarone and Diltiazem (shortness of breath, swelling of throat). Continue Eliquis. Will work on rate control. Home dose of Toprol increased from 50mg to 200mg QD. Monitor on tele. Patient to follow up with Dr. Gupta after hospital discharge. Patient is now rate-controlled. Okay to discharge home from my standpoint. Recommendations/plan discussed with Hospitalist, Dr. Goldman. Subjective Date/time seen: 01/17/23 08:41 Interval history: Reason for visit: Atrial fibrillation / atrial flutter with RVR. HPI: We are consulted for atrial fibrillation with RVR. This is an 82-year-old female with a known history of paroxysmal atrial fibrillation on Sotalol, Toprol, and Eliquis who presented from home for evaluation of palpitations. Noticed her heart rate going up to the 120s at home. On arrival to the ED, EKG shows possible atrial flutter with ventricular rate at 116bpm. Patient was given total of IV Metoprolol 15mg with improvement in heart rates down to the 90s. Tele currently shows HR in the 90s - 115s. Patient is feeling well otherwise. Her primary atm servicer is Dr. Gupta. Date of service 01/16: EKG this morning shows atrial flutter with ventricular rate at 114bpm. Patient otherwise doing well. Has occasional intermittent chest pressure. Date of service 01/17: Doing well this morning. No symptoms. Rate controlled on tele now. Review of Systems Review of Systems: 8 point ROS obtained. Negative, unless stated in HPI. Exam Const: General: comfortable and no acute distress HENMT: Mouth: Yes moist mucous membranes Eyes: General: appearance normal, both eyes and all related structures Sclera: sclerae normal Neck: Neck: supple Resp: Effort & Inspection: normal respiratory effort Auscultation: clear to auscultation bilaterally Cardio: Rate: regular rate Rhythm: regular rhythm GI: GI Palp: Yes Soft to palpation and No Tenderness to palpation present (GI) Neuro: Speech: normal speech Extrem: General: normal to inspection Psych: Mental Status: mental status grossly normal Affect: normal affect Objective Data Vital Signs Vital Signs: Vital Signs - 24 hr 01/16/23 08:44 01/16/23 08:45 01/16/23 09:45 Temperature Pulse Rate 118 H 118 H 114 H Respiratory Rate Blood Pressure Pulse Oximetry Oxygen Delivery 01/16/23 10:00 01/16/23 11:57 01/16/23 12:00 Temperature Pulse Rate 119 H 103 H Respiratory Rate Blood Pressure Pulse Oximetry Oxygen Delivery Room Air 01/16/23 12:00 01/16/23 16:00 01/16/23 16:00 Temperature 35.8 C L 36.3 C L Pulse Rate 109 H 117 H 117 H Respiratory Rate 16 16 Blood Pressure 122/77 120/65 Pulse Oximetry 91 93 Oxygen Delivery Room Air 01/16/23 14:00 01/16/23 16:00 01/16/23 18:00 Temperature Pulse Rate 92 83 99 Respiratory Rate Blood Pressure Pulse Oximetry Oxygen Delivery 01/16/23 20:00 01/16/23 20:50 01/16/23 20:00 Temperature 36.4 C Pulse Rate 93 89 Respiratory Rate 20 Blood Pressure 132/59 L Pulse Oximetry 90 Oxygen Delivery Room Air 01/16/23 20:00 01/16/23 22:00 01/16/23 23:30 Temperature 36.2 C L Pulse Rate 92 72 85 Respiratory Rate 20 Blood Pressure 124/56 L Pulse Oximetry 92 Oxygen Delivery 01/17/23 00:00 01/17/23 00:00 01/17/23 02:00 Temperature Pulse Rate 88 88 Respiratory Rate Blood Pressure Pulse Oximetry Oxygen Delivery Room Air 01/17/23 04:00 01/17/23 04:00 01/17/23 04:00 Temperature 36.3 C L Pulse Rate 87 111 H Respiratory Rate 20 Blood Pressure 122/68 Pulse Oximetry 92 Oxygen Delivery Room Air 01/17/23 06:00 01/17/23 08:04 Temperature 35.8
[2023-01-17] MEDS: SOTALOL HCL 80 MG TABLET PO (09:11)
[2023-01-17] MEDS: ISOSORBIDE MONONITRATE 30 MG TAB.ER.24H PO (09:11)
[2023-01-17] MEDS: APIXABAN 5 MG TABLET PO (09:11)
[2023-01-17] MEDS: FUROSEMIDE 40 MG TABLET PO (09:11)
[2023-01-17] MEDS: PANTOPRAZOLE 40 MG TABLET PO (09:11)
[2023-01-17] MEDS: MULTIVITAMINS THERAPEUTIC TAB (*BKC) 1 TABLET PO (09:13)
[2023-01-17] MEDS: METOPROLOL SUCCINATE EXT REL 100 MG TABCR 200 MG PO (09:14)
--- NOTE | 2023-01-17 12:33 | PM.DS ---
DS: Admitting Diagnosis Discharge Date January 17, 2023 Admitting Diagnosis Atrial fibrillation with RVR DS: Discharge Diagnosis Discharge Diagnosis (1) Atrial fibrillation with rapid ventricular response: Code(s): I48.91 - Unspecified atrial fibrillation Status: Acute Assessment and Plan: Cardiology has been consulted. Continue with home sotalol and continue Eliquis. Patient's sister metoprolol will be increased from 50-100. Continue to monitor in telemetry. Continue heart healthy diet (2) Hypertension: Qualifiers: Hypertension type: primary hypertension Qualified Code(s): I10 - Essential (primary) hypertension Code(s): I10 - Essential (primary) hypertension Status: Acute Assessment and Plan: Continue with isosorbide, Lasix metoprolol has been increased and continue sotalol DS: Summary Hospital Course Hospital Course: Patient is an 82-year-old female with known history of AFib with RVR. She came in with RVR her medications were adjusted and her heart rates are now controlled. Continue anticoagulation and follow up with Cardiology as an outpatient Time Spent with Patient Time attestation: Total time spent providing and/or coordinating discharge services: Exam Const: General: cooperative, healthy appearing, comfortable, no acute distress, well developed, alert, awake, Physically active, average body habitus and well nourished Nutritional Appearance: average body habitus and well nourished Orientation/consciousness: oriented to person, oriented to place, oriented to time and patient oriented x3 Limitations: no limitations HENMT: Head: normal to inspection, No palpable skull fracture present, normocephalic and atraumatic Ears: hearing grossly normal bilaterally and external ears normal Face/Nose/Sinus: Normal external nose present and Normal nares present Eyes: General: appearance normal, both eyes and all related structures Alignment and Position: alignment normal Periorbital: periorbital findings normal Eyelids: eyelids normal Cornea: corneas normal Pupils: Equal, round and reactive pupils present EOM: EOMs intact bilaterally Neck: Neck: normal visual inspection, full ROM, no lymphadenopathy, trachea midline and supple Thyroid: thyroid normal Carotids: normal carotid upstroke Lymphatic: no lymphadenopathy noted Chest: Chest palpation & inspection: normal inspection of the chest Resp: Auscultation: clear to auscultation bilaterally Cardio: Palpation: normal PMI Rate: tachycardic Rhythm: abnormal rhythm Heart sounds: S1 normal heart sound present and S2 normal heart sound present Peripheral pulses: Peripheral pulses 2+ throughout GI: Inspection: normal to inspection Auscultation: normal bowel sounds Rectal Exam: deferred Back/Spine/Pelvis: Cervical Spine: cervical ROM normal Skin: General skin exam: normal color Lesions: no lesions Rashes: no rashes Trauma: no lacerations or abrasions Wounds: no wounds Hair: normal Nails: normal Neuro: General: oriented to person, oriented to place, oriented to time and patient oriented x3 Cranial nerves: Yes Equal, round and reactive pupils present and Yes Normal hearing present Cognition (Neuro): normal cognition Speech: normal speech Motor exam (neuro): 5/5 motor strength present throughout Sensory Exam: normal sensation Extrem: General: normal to inspection Right upper extremity: normal to inspection and shoulder/upper arm Left upper extremity: normal to inspection and shoulder/upper arm Right lower extremity: normal to inspection Left lower extremity: normal to inspection Psych: Appearance: grossly normal Mental Status: mental status grossly normal Speech and movement: Normal speech and movement present Affect: normal affect Attitude: cooperative Thought process: Normal thought process present Insight: Good insight present (Psych) Judgement: Good judgement present (Psych) Discharge Plan Discharge Atten
== END 2023-01-17 13:30 | disposition home or self-care (01) ==
LOC: ANHED 12:27 → ANHIMU 14:35
PROVIDERS: Admitting Provider Chiropractor; Emergency Provider Emergency Medicine; PCP Internal Medicine; Visit Provider Chiropractor
DX: I48.91 Unspecified atrial fibrillation (principal); I10 Essential (primary) hypertension; R07.9 Chest pain, unspecified; R94.31 Abnormal electrocardiogram [ECG] [EKG]; D64.9 Anemia, unspecified; K21.9 Gastro-esophageal reflux disease without esophagitis; K57.92 Diverticulitis of intestine, part unspecified, without perforation or abscess without bleeding; Z87.891 Personal history of nicotine dependence; Z79.01 Long term (current) use of anticoagulants; Z79.899 Other long term (current) drug therapy; Z82.49 Family history of ischemic heart disease and other diseases of the circulatory system
CPT/HCPCS: 36415; 36600; 71046; 80053; 82805; 83690; 84443; 84484; 85025; 85610; 85730; 93005; 96374; 96376; 99285; A9270; G0378

== ENCOUNTER 2023-04-30 00:50 | Emergency (ER) | payer OTHER, MEDICAID, SELFPAY ==
--- NOTE | ~2023-04-30 | CT_ITS ---
CT of the Abdomen and Pelvis: Indication: Abdominal pain Technique: 2.5 mm axial scans were obtained through the abdomen and pelvis following intravenous adm inistration of 100 cc of Omnipaque 350. Dose reduction technique was used on this scan by utilizing a utomated exposure control and iterative reconstruction technique. The dose-length product (DLP) was 1 091.94 mGy-cm. COMPARISON: 10/31/2021 Findings: Scans through the lung bases are unremarkable. The liver, spleen, pancreas, adrenals and kidneys are within normal limits. Cholecystectomy clips pre sent. There are atherosclerotic calcifications of the aorta. No lymphadenopathy. No bowel obstruction or bowel wall thickening. There is no evidence to suggest acute appendicitis. Si gmoid diverticulosis noted. Images through the pelvis were performed. Urinary bladder unremarkable. No pelvic mass seen. No ascit es. Impression: No significant abnormalities seen. Reviewed, dictated and finalized at [facility]. Impression: No significant abnormalities seen.
--- NOTE | ~2023-04-30 | XR_ITS ---
Clinical Indication: Chest pain PA and lateral views of the chest: Comparison: 01/15/2023 Findings: Questionable minimal bibasilar pulmonary edema/atelectasis. No pleural effusion or pneumoth orax. Cardiomediastinal silhouette is within normal limits. Bones and soft tissues are unremarkable. Impression: Questionable minimal bibasilar pulmonary edema/atelectasis. Reviewed, dictated and finalized at location . Impression: Questionable minimal bibasilar pulmonary edema/atelectasis.
--- NOTE | 2023-04-30 00:58 | ECG_ITS ---
Measurements Intervals [place] Rate: 62 P: 85 NE: 142 QRS: 77 QRSD: 102 T: 43 QT: 441 QTc: 451 Interpretive Statements SINUS RHYTHM EARLY PRECORDIAL R/S TRANSITION BASELINE ARTIFACT- I, II, III, AVR, AVL, AVF, V1-V2 BORDERLINE ECG COMPARED TO ECG 01/17/2023 09:31:48 SINUS RHYTHM NOW PRESENT Electronically Signed On 04-30-2023 6:39:50 CDT by [facility] D.O.
[2023-04-30 01:10] VITALS: BP 175/66; PULSE 65; RESP 18; TEMP 36.8; O2SAT 94
[2023-04-30 01:26] LABS: Basophils Percent Auto 0.2 % (0.2-1.2); Eosinophils Absolute Auto 0.2 K/mm3 (0-0.3); Eosinophils Percent Auto 2.1 % (0-4.4); Hematocrit 44.5 % (37.0-47.0); Hemoglobin 14.8 g/dL (12.0-15.0); Immature Granulocyte Absolute 0.02 K/mm3 (0.00-0.031); Immature Granulocyte Percent A 0.2 % (0-0.5); Lymphocytes Absolute Auto 2.95 K/mm3 (0.9-3.2); Mean Corpuscular HGB Conc 33.3 g/dl (32-36); Mean Corpuscular Hemoglobin 31.6 pg (26-34); Mean Corpuscular Volume 94.9 fl (80-100); Monocytes Absolute Auto 1.2 K/mm3 (0.1-0.6); Monocytes Percent Auto 12.1 % (2.6-8.5); Neutrophils Absolute Auto 5.4 K/mm3 (1.3-6.7); Neutrophils Percent Auto 55.4 % (45.5-73.1); Platelet Count Result 239 k/mm3 (150-375); Red Blood Count 4.69 M/mm3 (4.2-5.4); Red Cell Distribution Width 12.6 % (11.5-14.5); White Blood Count 9.8 K/mm3 (4.5-10.0)
[2023-04-30 01:39] LABS: Alanine Aminotransferase 23 U/L (6-35); Albumin Level 4.1 g/dL (3.5-5.1); Alkaline Phosphatase 68 U/L (38-126); Anion Gap 6 mmol/L (8-16); Aspartate Amino Transferase 35 U/L (14-36); Bilirubin,Total 0.6 mg/dL (0.2-1.3); Blood Urea Nitrogen 15 mg/dL (7-17); Calcium 9.5 mg/dL (8.4-10.2); Carbon Dioxide 32 mmol/L (22-30); Chloride 99 mmol/L (98-107); Estimated CRCL calculation 52 ml/min; Estimated Glomerular Filt Rate > 60; Glucose 124 mg/dL (65-110); Lipase 54 U/L (23-300); Potassium 3.6 mmol/L (3.4-5.0); Sodium 137 mmol/L (137-145)
[2023-04-30 01:44] LABS: INR 1.2; Prothrombin Time 15.9 Seconds (11.1-14.7)
[2023-04-30 01:49] LABS: Troponin I < 0.012 ng/mL (0.000-0.034)
--- NOTE | 2023-04-30 04:26 | ED.GENADULT ---
HPI - General Adult General Chief complaint: Chest Pain Stated complaint: right sided back/chest pain Time Seen by Provider: 04/30/23 03:24 History of Present Illness HPI narrative: Patient 82-year-old female who presents the emergency department with chief complaint of right-sided chest/abdominal pain. The patient reports that earlier in the week she had a flu shot and then reports that she started developing diarrhea and subsequently has had nausea and vomiting patient denies fever reports that this evening started vomiting yellow material and reports that she has pain in the right upper quadrant and right side of her chest in the area of the breast Related Data Home Medications Medication Instructions Recorded Confirmed apixaban 5 mg tablet (Eliquis) 5 mg PO BID 10/31/21 01/15/23 furosemide 40 mg tablet 40 mg PO DAILY 10/31/21 01/15/23 isosorbide mononitrate 30 mg 30 mg PO DAILY 10/31/21 01/15/23 tablet,extended release 24 hr omeprazole 40 mg capsule,delayed 40 mg PO DAILY 10/31/21 01/15/23 release multivitamin 1 tablet PO DAILY 01/15/23 01/15/23 Allergies Allergy/AdvReac Type Severity Reaction Status Date / Time amiodarone Allergy Unknown Unknown Verified 04/30/23 00:50 diltiazem Allergy Unknown Unknown Verified 04/30/23 00:50 losartan Allergy Unknown rash Verified 04/30/23 00:50 codeine Allergy Itching Verified 04/30/23 00:50 Review of Systems Review of Systems: A 10 system review of systems was completed on the patient and is negative except for what is stated in the HPI. Nursing and ancillary documentation was reviewed. [facility] Past Medical History Medical History Atrial fibrillation Chronic GERD Diverticulitis Hypertension Surgical History Surgical History H/O cardiac radiofrequency ablation H/O knee surgery Bilateral H/O repair of rotator cuff H/O tubal ligation Family History Family History Sibling Hypertension Mother Family history of heart disease in male family member before age 55 Family history of coronary artery disease, Onset Age: 81 No family history of cardiovascular disease Patient's mother is Father Acute myocardial infarction Family history of premature coronary heart disease, Onset Age: 62 Hypertension Family history of elevated blood lipids Family history of diabetes mellitus in first degree relative Patient's father is Other Cerebrovascular accident Diabetes mellitus Family history of arthritis Social History Social History Social History: She lives with her sister and is . She has 4 sons. Code status full code Smoking packs per day: 1 Smoking cigarettes per day: 20.0 Years smoked: 40 Smoking pack-years: 40.00 Smoking status: Former smoker Smoking end date: 08/17/02 Alcohol intake: never Substance use: never Lack of Transportation: No Lack of Food: Never True Current Housing: I Have Housing Concerned About Future Housing: No Difficulty Paying Gas/Electric Bills: No Difficulty Paying for Meds: No Currently Unemployed: No Education: High School Diploma/GED Difficulty w/ Childcare or Family Care: No Spiritual care concerns: No Exam Narrative: GENERAL: Well-appearing, well-nourished, and in no acute distress. HEAD: Normocephalic, atraumatic. EYES: PERRLA and EOMI. ENT: Nares clear, no rhinorrhea or epistaxis. Mucous membranes moist. NECK: Supple. CHEST: Clear to auscultation. No respiratory distress. HEART: Regular rate and rhythm. No murmur heard. Normal peripheral pulses. ABDOMEN: Soft, tenderness to palpation in the right upper quadrant, nondistended, normal active bowel sounds. EXTREMITIES: Normal range
[2023-04-30] MEDS: MORPHINE SULFATE (*CRX) 2 MG/ML INJ IV PUSH (04:48)
[2023-04-30] MEDS: ONDANSETRON INJ 4 MG/2 ML VIAL IV PUSH (04:48)
[2023-04-30] MEDS: SODIUM CHLORIDE 0.9% IV 1,000 ML 999 ML IV CONT (04:49)
[2023-04-30 05:02] LABS: Lactic Acid Reflex 1.4 mmol/L (0.7-2.0)
[2023-04-30 05:09] LABS: Appearance Urine Cloudy (Clear); Bacteria Urine None Seen /hpf; Bilirubin Urine 1+ (Negative); Blood Urine Trace (Negative); Color Urine Dark Yellow (Yellow); Glucose Urine UA Negative (Negative); Ketones Urine Trace mg/dL (Negative); Leukocyte Esterase Ur Negative LEU/UL (Negative); Need Manual Microscopic Reviewed; Nitrate Urine Negative (Negative); Non Pathogenic Casts >20; Protein Urine 1+ mg/dL (Negative); Squamous Epithelial Cell Urine Few /hpf (Few)
[2023-04-30 05:15] LABS: Troponin I < 0.012 ng/mL (0.000-0.034)
[2023-04-30 05:20] LABS: Add Urine Microscopic? YES; Specific Grav Ur 1.038 (1.001-1.035)
[2023-04-30] MEDS: HYDROmorphone HCL INJ (*CRX) 1 MG/ML SYR 0.5 MG IV PUSH (05:40)
[2023-04-30 07:19] VITALS: BP 148/53; PULSE 71; RESP 17; O2SAT 96
== END 2023-04-30 07:20 | disposition home or self-care (01) ==
PROVIDERS: Emergency Provider Emergency Medicine; PCP Internal Medicine
DX: N39.0 Urinary tract infection, site not specified (principal); R07.89 Other chest pain; R94.31 Abnormal electrocardiogram [ECG] [EKG]
CPT/HCPCS: 36415; 71046; 74177; 80053; 81001; 83605; 83690; 84484; 85025; 85610; 85730; 87086; 87088; 93005; 96361; 96374; 96375; 99284; J1170; J2270; J2405; J7030; Q9967

== ENCOUNTER 2023-06-09 15:39 | Emergency (ER) | payer OTHER, MEDICAID, SELFPAY ==
[2023-06-09] VITALS (18 sets, daily range): BP systolic 127–164; BP diastolic 54–115; PULSE 57–102; RESP 12–24; TEMP 36.4; O2SAT 92–100
--- NOTE | ~2023-06-09 | XR_ITS ---
EXAMINATION: XR chest 2V DATE: 06/09/2023 16:00 INDICATION: Shortness of breath. Cough. TECHNIQUE: Frontal and lateral views of the chest were obtained. COMPARISON: Chest 2 views 04/30/2023, CT abdomen and pelvis 04/30/2023 FINDINGS: There is mild atelectasis in the lower lung zones. No pleural effusion or pneumothorax. The heart size is normal. Surgical clips in the right upper quadrant are likely from cholecystectomy. IMPRESSION: 1. Mild atelectasis in the lower lung zones. Reviewed, dictated and finalized at location E.
--- NOTE | 2023-06-09 15:44 | ECG_ITS ---
Measurements Intervals [place] Rate: 60 P: 71 NV: 148 QRS: 71 QRSD: 98 T: 59 QT: 463 QTc: 466 Interpretive Statements SINUS RHYTHM MINIMAL ST CHANGES COMPARED TO ECG 04/30/2023 01:03:13 ST (T WAVE) DEVIATION NOW PRESENT Electronically Signed On 06-09-2023 20:00:51 CDT by Halie Sandoval M.D.
[2023-06-09 16:03] LABS: Basophils Percent Auto 0.2 % (0.2-1.2); Eosinophils Absolute Auto 0.2 K/mm3 (0-0.3); Eosinophils Percent Auto 1.7 % (0-4.4); Hemoglobin 15.4 g/dL (12.0-15.0); Immature Granulocyte Absolute 0.03 K/mm3 (0.00-0.031); Immature Granulocyte Percent A 0.3 % (0-0.5); Lymphocytes Percent Auto 30.9 % (18.3-44.2); Mean Corpuscular HGB Conc 32.8 g/dl (32-36); Mean Corpuscular Hemoglobin 30.7 pg (26-34); Mean Corpuscular Volume 93.6 fl (80-100); Monocytes Absolute Auto 1.1 K/mm3 (0.1-0.6); Monocytes Percent Auto 11.2 % (2.6-8.5); Neutrophils Absolute Auto 5.6 K/mm3 (1.3-6.7); Neutrophils Percent Auto 55.7 % (45.5-73.1); Platelet Count Result 220 k/mm3 (150-375); Red Blood Count 5.02 M/mm3 (4.2-5.4)
[2023-06-09 16:16] LABS: Alanine Aminotransferase 20 U/L (6-35); Albumin Level 4.4 g/dL (3.5-5.1); Alkaline Phosphatase 65 U/L (38-126); Anion Gap 6 mmol/L (8-16); Aspartate Amino Transferase 34 U/L (14-36); Bilirubin,Total 0.5 mg/dL (0.2-1.3); Blood Urea Nitrogen 13 mg/dL (7-17); Calcium 9.5 mg/dL (8.4-10.2); Carbon Dioxide 29 mmol/L (22-30); Chloride 103 mmol/L (98-107); Estimated CRCL calculation 65 ml/min; Estimated Glomerular Filt Rate > 60; Glucose 107 mg/dL (65-110); Potassium 3.7 mmol/L (3.4-5.0); Sodium 138 mmol/L (137-145)
[2023-06-09 16:39] LABS: Influenza A QL RT-PCR Negative (Negative); Influenza B QL RT-PCR Negative (Negative); SARS-CoV-2 RNA PCR Negative (Negative)
--- NOTE | 2023-06-09 16:52 | ED.SOB ---
HPI - SOB/Dyspnea General Chief Complaint: Shortness of Breath/Dyspnea <Hope Ga PA-C - Last Filed: 06/11/23 10:22> Stated Complaint: cough, sob <JOANN Luevano Last Filed: 06/11/23 10:22> Time Seen by Provider: 06/09/23 17:00 <JOANN Luevano Last Filed: 06/11/23 10:22> Source: patient <JOANN Luevano Last Filed: 06/11/23 10:22> Mode of arrival: wheelchair <JOANN Luevano Last Filed: 06/11/23 10:22> Limitations: no limitations <JOANN Luevano Last Filed: 06/11/23 10:22> History of Present Illness HPI Narrative: This is a 82 year old female that presents to the ER for cold symptoms. Ongoing over the last several weeks. She has been on an antibiotic, cough medication and taking antihistamines with little relief. <JOANN Luevano Last Filed: 06/11/23 10:22> This is a 82 year old female that presents to the ER for cold symptoms. Ongoing over the last several weeks. She has been on an antibiotic, cough medication and taking antihistamines with little relief. Reports cough for 5 weeks, occasionally productive. She denies shortness of breath or chest pain at rest. Reports aching associated with coughing. Denies fevers. History of A-fib on Eliquis. <Laquita Villalobos PA-C - Last Filed: 06/10/23 01:27> Related Data Home Medications: Home Medications Medication Instructions Recorded Confirmed apixaban 5 mg tablet (Eliquis) 5 mg PO BID 10/31/21 01/15/23 furosemide 40 mg tablet 40 mg PO DAILY 10/31/21 01/15/23 isosorbide mononitrate 30 mg 30 mg PO DAILY 10/31/21 01/15/23 tablet,extended release 24 hr omeprazole 40 mg capsule,delayed 40 mg PO DAILY 10/31/21 01/15/23 release multivitamin 1 tablet PO DAILY 01/15/23 01/15/23 <Hope Ga PA-C - Last Filed: 06/11/23 10:22> Allergies/Adverse Reactions: Allergies Allergy/AdvReac Type Severity Reaction Status Date / Time amiodarone Allergy Unknown Unknown Verified 06/09/23 17:03 diltiazem Allergy Unknown Unknown Verified 06/09/23 17:03 losartan Allergy Unknown rash Verified 06/09/23 17:03 codeine Allergy Itching Verified 06/09/23 17:03 <Hope Ga PA-C - Last Filed: 06/11/23 10:22> Review of Systems Review of Systems: CONSTITUTIONAL: Denies fever ENT: Reports congestion CARDIOVASCULAR: Denies palpitations, or edema. RESPIRATORY: Reports cough and dyspnea. <Hope Ga PA-C - Last Filed: 06/11/23 10:22> All systems reviewed & are unremarkable except as noted in HPI and below <Hope Ga PA-C - Last Filed: 06/11/23 10:22> [facility] Past Medical History Medical History: Medical History Atrial fibrillation Chronic GERD Diverticulitis Hypertension <Hope Ga PA-C - Last Filed: 06/11/23 10:22> Surgical History Surgical History: Surgical History H/O cardiac radiofrequency ablation H/O knee surgery Bilateral H/O repair of rotator cuff H/O tubal ligation <Hope Ga PA-C - Last Filed: 06/11/23 10:22> Family History Family History: Family History Sibling Hypertension Mother Family history of heart disease in male family member before age 55 Family history of coronary artery disease, Onset Age: 81 No family history of cardiovascular disease Patient's mother is Father Acute myocardial infarction Family history of premature coronary heart disease, Onset Age: 62 Hypertension Family history of elevated blood lipids Family history of diabetes mellitus in first degree relative Patient's father is Other Cerebrovascular accident Diabetes mellitus Family history of arthritis <Hope Ga PA-C - Last Filed: 06/11/23 10:22> Social History Social History:
[2023-06-09 17:47] LABS: NT Pro B Type Natriuretic Pept 983 pg/mL (19.9-100); Troponin I < 0.012 ng/mL (0.000-0.034)
[2023-06-09] MEDS: IPRATROPIUM BR 0.02% INH SOLN 0.5 MG/2.5 ML VIAL 1.5 MG INHALATION (17:52)
[2023-06-09] MEDS: LEVALBUTEROL NEB 1.25 MG/3 ML 2.5 MG INHALATION (17:52)
--- NOTE | 2023-06-09 19:10 | PC.NURSE ---
Assumed care of pt from JARAD Martinez at this time.
== END 2023-06-09 20:25 | disposition home or self-care (01) ==
PROVIDERS: Emergency Medicine; Physician Assistant; Emergency Provider Physician Assistant; PCP Internal Medicine
DX: J40 Bronchitis, not specified as acute or chronic (principal); R06.2 Wheezing; I48.91 Unspecified atrial fibrillation; K21.9 Gastro-esophageal reflux disease without esophagitis; I10 Essential (primary) hypertension
CPT/HCPCS: 36415; 71046; 80053; 83880; 84484; 85025; 87636; 93005; 94640; 99284

== ENCOUNTER 2023-08-31 15:02 | Emergency (ER) | payer OTHER, MEDICAID, SELFPAY ==
[2023-08-31 15:04] VITALS: BP 142/65; PULSE 61; RESP 18; TEMP 36.6; O2SAT 93
--- NOTE | 2023-08-31 15:14 | ECG_ITS ---
Measurements Intervals [place] Rate: 60 P: 56 WA: 153 QRS: 54 QRSD: 95 T: 42 QT: 454 QTc: 456 Interpretive Statements SINUS RHYTHM INCOMPLETE RIGHT BUNDLE BRANCH BLOCK BASELINE ARTIFACT- I, II, AVR, AVL BORDERLINE ECG COMPARED TO ECG 06/09/2023 15:49:46 NO SIGNIFICANT CHANGES Electronically Signed On 08-31-2023 15:41:51 [employer] by [facility] D[facility]
[2023-08-31 15:47] VITALS: BP 143/53; PULSE 61; RESP 16; O2SAT 91
--- NOTE | 2023-08-31 17:23 | ED.GENADULT ---
HPI - General Adult General Chief complaint: Arrhythmia/Palpitations Stated complaint: neuro sx, now resolved Time Seen by Provider: 08/31/23 16:50 82-year-old female presenting to the emergency department for evaluation of some left-sided arm weakness. Patient states that when she was checking her blood pressure and pulse ox earlier she had a few seconds of weakness of the left arm. Patient denies any recent falls or injuries. Patient denies any prior history of CVA. Patient states that she does feel improved and patient is declining any additional workup Related Data Home Medications Medication Instructions Recorded Confirmed apixaban 5 mg tablet (Eliquis) 5 mg PO BID 10/31/21 01/15/23 furosemide 40 mg tablet 40 mg PO DAILY 10/31/21 01/15/23 isosorbide mononitrate 30 mg 30 mg PO DAILY 10/31/21 01/15/23 tablet,extended release 24 hr omeprazole 40 mg capsule,delayed 40 mg PO DAILY 10/31/21 01/15/23 release multivitamin 1 tablet PO DAILY 01/15/23 01/15/23 sotalol 120 mg tablet mg 08/31/23 08/31/23 Allergies Allergy/AdvReac Type Severity Reaction Status Date / Time amiodarone Allergy Unknown Unknown Verified 08/31/23 15:19 diltiazem Allergy Unknown Unknown Verified 08/31/23 15:19 losartan Allergy Unknown rash Verified 08/31/23 15:19 codeine Allergy Itching Verified 08/31/23 15:19 Review of Systems Review of Systems: All systems reviewed & are unremarkable except as noted in HPI and below PMFSH Past Medical History Medical History Atrial fibrillation Chronic GERD Diverticulitis Hypertension Surgical History Surgical History H/O cardiac radiofrequency ablation H/O knee surgery Bilateral H/O repair of rotator cuff H/O tubal ligation Family History Family History Sibling Hypertension Mother Family history of heart disease in male family member before age 55 Family history of coronary artery disease, Onset Age: 81 No family history of cardiovascular disease Patient's mother is Father Acute myocardial infarction Family history of premature coronary heart disease, Onset Age: 62 Hypertension Family history of elevated blood lipids Family history of diabetes mellitus in first degree relative Patient's father is Other Cerebrovascular accident Diabetes mellitus Family history of arthritis Social History Social History Social History: She lives with her sister and is . She has 4 sons. Code status full code Smoking packs per day: 1 Smoking cigarettes per day: 20.0 Years smoked: 40 Smoking pack-years: 40.00 Smoking status: Former smoker Smoking end date: 08/17/02 Alcohol intake: never Substance use: never Lack of Transportation: No Lack of Food: Never True Current Housing: I Have Housing Concerned About Future Housing: No Difficulty Paying Gas/Electric Bills: No Difficulty Paying for Meds: No Currently Unemployed: No Education: High School Diploma/GED Difficulty w/ Childcare or Family Care: No Spiritual care concerns: No Exam Narrative: APPEARANCE: Well appearing, no pain, no distress, well-nourished. HEAD: normocephalic, atraumatic. EYES: PERRLA/EOMI, conjunctivae clear. NOSE: Normal no drainage EARS:TMS clear with good light reflex. THROAT: Pharynx clear, no exudate. NECK: Supple. No adenopathy, no masses. RESPIRATORY: Airway patent, respirations nonlabored. Clear to auscultation bilaterally, no rales, rhonchi, wheezing. CARDIOVASCULAR: Regular rate and rhythm without murmurs rubs or gallops. ABDOMINAL: Soft, nontender, nondistended, normal bowel sounds MUSCULOSKELETAL: Moves all extremities. Strength/ROM intact, No edema, No calf tenderness. NEURO: Al
[2023-08-31 18:03] VITALS: BP 181/65; PULSE 62; RESP 16; O2SAT 93
== END 2023-08-31 18:05 | disposition home or self-care (01) ==
PROVIDERS: Emergency Provider Emergency Medicine; PCP Internal Medicine
DX: R53.1 Weakness (principal); I48.91 Unspecified atrial fibrillation; K21.9 Gastro-esophageal reflux disease without esophagitis; I10 Essential (primary) hypertension; Z86.73 Personal history of transient ischemic attack (TIA), and cerebral infarction without residual deficits; Z87.891 Personal history of nicotine dependence
CPT/HCPCS: 93005; 99283

== ENCOUNTER 2023-10-23 13:37 | Outpatient (CLI) | payer OTHER, MEDICAID, SELFPAY ==
--- NOTE | ~2023-10-23 | MM_ITS ---
EXAMINATION: MM screening gideon BI w von HISTORY: Screening mammogram TECHNIQUE: Craniocaudal and mediolateral oblique 3-D tomosynthesis images were obtained and synthetic 2-D images were generated. CAD analysis was submitted and interpreted. COMPARISON: 01/16/2022 bilateral screening mammogram 11/22/2021 complete right breast ultrasound examination 01/15/2021 bilateral screening mammogram BREAST PARENCHYMAL COMPOSITION: There are scattered areas of fibroglandular density. FINDINGS: Chronic small right breast. Bilateral benign calcifications. Biopsy marker on the left; his tory of prior benign left breast biopsy. There is no evidence of suspicious mass, calcification, or a rchitectural distortion to suggest malignancy in either breast. There has been no suspicious interval change. IMPRESSION: 1. No mammographic evidence of malignancy. 2. Recommend routine screening mammography in one year. BI-RADS Category 2: Benign finding(s). Reviewed, dictated and finalized at location A. PROOFER
== END 2023-10-23 13:38 | disposition home or self-care (01) ==
LOC: ANHIMG 13:40
PROVIDERS: PCP Internal Medicine; Visit Provider Obstetrics & Gynecology
DX: Z12.31 Encounter for screening mammogram for malignant neoplasm of breast (principal)
CPT/HCPCS: 77063; 77067

== ENCOUNTER 2024-11-08 10:03 | Outpatient (CLI) | payer OTHER, MEDICAID, SELFPAY ==
--- NOTE | ~2024-11-08 | MM_ITS ---
EXAMINATION: MM screening gideon BI w von HISTORY: Screening TECHNIQUE: Craniocaudal and mediolateral oblique 3-D tomosynthesis images were obtained and synthetic 2-D images were generated. CAD analysis was submitted and interpreted. COMPARISON: 10/23/2023 and dating back to 01/15/2021 BREAST PARENCHYMAL COMPOSITION: There are scattered areas of fibroglandular density. FINDINGS: Punctate calcifications are detected bilaterally, stable and benign in appearance. Microclip within the retroareolar position of the left breast, consistent with patient's history. Otherwise stable parenchymal pattern without suspicious microcalcifications, architectural distortion , discrete masses or significant asymmetry. IMPRESSION: 1. No mammographic evidence of malignancy. 2. Recommend routine screening mammography in one year. BI-RADS Category 2: Benign finding(s). Reviewed, dictated and finalized at location A.
--- OUTSIDE RECORDS SUMMARY | 2024-11-08 11:37 | XMS_ITS | Clinical Summary ---
Author Organization [facility] Address [address] [place] [address] Care Team Providers Care Gis Specialist Name Role Phone Deena Garcia MD Primary Care Provider + Source Comments [facility],non-owned Affiliates and Associated Physician Practices is amultiple site organization consisting of ambulatory clinics and hospital sitesin [place], [place], [place] and [place]. This disclosure is being madepursuant to the Care Everywhere program and may not contain all information available regarding this patient. Last updated 18.[facility] [employer] Social History Tobacco Use Types Packs/Day Years Used Date Smoking Tobacco: Never Assessed Sex and Gender Information Value Date Recorded Sex Assigned at Not on file Gender Identity Not on file Sexual Orientation Not on file Plan of Treatment Health Maintenance Due Date Last Done Comments BONE DENSITY TESTING 1942 DTAP/TDAP/TD VACCINES (1 - Tdap) 1961 PNEUMOCOCCAL VACCINE 50+ (1 of 1 - PCV) 1992 ZOSTER VACCINE (1 of 2) 1992 Respiratory Syncytial Virus (RSV) Vaccine Pt: or over 60 yrs (1 - 1-dose 75+ series) 2017 COVID-19 VACCINE ( - 2023-2 5 season) 2024 INFLUENZA VACCINE (#1) 2024 04/18/2017 DEPRESSION SCREENING 08/17/2024 MEDICARE AWV CALENDAR YEAR 2024 HEPATITIS B VACCINE Aged Out No longe r eligible based on patient's age to complete this topic HIB VACCINE Aged Out No longer eligi ble based on patient's age to complete this topic HPV VACCINE Aged Out No longer eligi ble based on patient's age to complete this topic MENINGOCOCCAL (Group B) VACC INE SHARED DECISION-MAKING Aged Out No longer eligibl e based on patient's age to complete this topic MENINGOCOCCAL GROUPS A/C/Y/W VACCINE Aged Out No longer eligible b ased on patient's age to complete this topic Care Teams Gis Specialist Relationship Specialty Start Date End Date Deena Garcia MD [address] [facility] [address] [place] [address] PCP - General 02/07/20
--- OUTSIDE RECORDS SUMMARY | 2024-11-08 11:37 | XMS_ITS | Continuity of Care Document ---
Author Organization [employer] Address [address] [place] [address] Phone Care Team Providers Care Dressage Judge Name Role Phone Moreno Ortiz MD Unavailable Unavailable Allergies, Adverse Reactions, Alerts Substance Reaction Status Criticality ARB-Angiotensin Receptor Antagonist Activ e No Information diltiazem Anaphylaxis(severe) Active No Infor mation amiodarone Anaphylaxis(severe) Active No Infor mation Medications Medication Instructions Dosage Effective Dates (start - stop) Status Comments Guaifenesin AC 10 mg-100 mg/5 mL oral liquid take 10 milliliter by oral route every 4 hours as needed 10.00 milliliter - Active lidocaine-prilocai ne 2.5 %-2.5 % topical cream apply to painful area on breast daily as needed - Active Ozempic 0.25 mg or 0.5 mg (2 mg/3 mL) subcutaneous pen injector inject (0.5MG) by subcutaneous route every week on the same day of each week 0.5 MG - Active furosemide 40 mg tablet take 1 tablet by oral route every day 40 MG - Active omeprazole 40 mg capsule,delayed release take 1 capsule by oral route every day - Active metoprolol succinate ER 100 mg tablet,extended release 24 hr take 2 tablet by oral route every day 200 MG - Active trazodone 50 mg tablet take 1 tablet by oral route every day at bedtime 50 MG - Active atorvastatin 40 mg tablet take 1 tablet by oral route every day 40 MG - Active Eliquis 5 mg tablet take 1 tablet by oral route 2 times every day 5 MG - Active isosorbide mononitrate ER 30 mg tablet,extended release 24 hr take 1 tablet by oral route every day in the morning 30 MG - Active sotalol 120 mg tablet take 1 tablet by oral route 2 times every day 120 MG - Active Vitamin B-12 1,000 mcg tablet take 1 tablet by oral route every day - Active Guaifenesin AC 10 mg-100 mg/5 mL oral liquid take 10 milliliter by oral route every 4 hours as needed 10.00 milliliter - No Longer Active Procedures Procedure Date COMPREHEN METABOLIC PANEL [facility] HEMOGLOBIN A1C HGA1C, GLYCO LIPID PANEL MICROALBUMIN, QN (URINE) CREATININE, (U-R) ROUTINE VENIPUNCTURE PPPS, subseq visit BODY MASS INDEX DOCD SYST BP LT 130 MM HG DIAST BP < 80 MM HG PPPS, subseq visit BODY MASS INDEX [facility] SYST BP LT 130 MM HG DIAST BP < 80 MM HG Pt inelig neg scrn depres COMPREHEN METABOLIC PANEL [facility] HEMOGLOBIN A1C HGA1C, GLYCO LIPID PANEL MICROALBUMIN, QN (URINE) CREATININE, (U-R) ROUTINE VENIPUNCTURE OFFICE [id number] Visit Complexity Inherent To E/M 2023 BODY MASS INDEX [facility] SYST BP LT 130 MM HG DIAST BP < 80 MM HG TELEPHONE E&M SERVICE BY A PHYSICIAN;5-1 0 MINUTES OF MEDICAL DISCUSSION [facility] MED/CURRENT MED MERGE TELEPHONE E&M SERVICE BY A PHYSICIAN;5-1 0 MINUTES OF MEDICAL DISCUSSION [facility] MED/CURRENT MED MERGE FALL RISK ASSESSMENT DOC'D PRES/ABSN URINE INCON ASSESS PPPS, subseq visit BODY MASS INDEX DOCD SYST BP LT 130 MM HG DIAST BP < 80 MM HG FALL RISK ASSESSMENT DOC'D PRES/ABSN URINE INCON ASSESS Kept Appointment No Charge Encounter Feb Transitional Care- First 7 Days Of Disch arge BODY MASS INDEX DOCD SYST BP LT 130 MM HG DIAST BP < 80 MM HG FALL RISK ASSESSMENT DOC'D PRES/ABSN URINE INCON ASSESS Pt inelig neg scrn depres COMPREHEN METABOLIC PANEL CMP HEMOGLOBIN A1C HGA1C, GLYCO LIPID PANEL MICROALBUMIN, QN (URINE) CREATININE, (U-R) ROUTINE VENIPUNCTURE OFFICE [id number] BODY MASS INDEX DOCD SYST BP GE 130 - 139MM HG DIAST BP < 80 MM HG FALL RISK ASSESSMENT DOC'D PRES/ABSN URINE INCON ASSESS PPPS, subseq visit BODY MASS INDEX DOCD SYST BP GE 130 - 139MM HG DIAST BP < 80 MM HG FALL RISK ASSESSMENT DOC'D PRES/ABSN URINE INCON ASSESS OFFICE [id number] BODY MASS INDEX DOCD SYST BP LT 130 MM HG DIAST BP < 80 MM HG FALL RISK ASSESSMENT DOC'D PRES/ABSN URINE INCON ASSESS COMPREHEN METABOLIC PANEL CMP HEMOGLOBIN A1C HGA1C, GLYCO LIPID PANEL MICROALBUMIN, QN (URINE) CREATININE, (U-R) ROUTINE VENIPUNCTURE OFFICE [id number] BODY MASS INDEX DOCD SYST BP GE 130 - 139MM HG DIAST BP < 80 MM HG [facility] MED/CURRENT MED MERGE Pt inelig neg scrn depres OFFICE [id number] BODY MASS INDEX DOCD SYST BP GE 130 - 139MM HG DIAST BP < 80 MM HG FALL RISK ASSESSMENT DOC'D PRES/ABSN URINE INCON ASSESS OFFICE [id number] BODY MASS INDEX DOCD SYST BP LT 130 MM HG DIAST BP 80-89 MM HG FALL RISK ASSESSMENT DOC'D PRES/ABSN URINE INCON ASSESS PPPS, subseq visit BODY MASS INDEX DOCD SYST BP LT 130 MM HG DIAST BP < 80 MM HG FALL RISK ASSESSMENT DOC'D PRES/ABSN URINE INCON ASSESS HEMOGLOBIN A1C HGA1C, GLYCO ROUTINE VENIPUNCTURE OFFICE [id number] BODY MASS INDEX DOCD SYST BP LT 130 MM HG DIAST BP < 80 MM HG FALL RISK ASSESSMENT DOC'D PRES/ABSN URINE INCON ASSESS Pt inelig neg scrn depres OFFICE [id number] BODY MASS INDEX DOCD SYST BP LT 130 MM HG DIAST BP < 80 MM HG CBC, INC PLATELETS AND DIFFERENTIAL COMPREHEN METABOLIC PANEL CMP 0 HEMOGLOBIN A1C HGA1C, GLYCO LIPID PANEL ROUTINE VENIPUNCTURE FALL RISK ASSESSMENT DOC'D PRES/ABSN URINE INCON ASSESS PPPS, subseq visit BODY MASS INDEX DOCD SYST BP LT 130 MM HG DIAST BP < 80 MM HG FALL PLAN OF CARE DOC'D URINE INCON PLAN DOC'D PRES/ABSN URINE INCON ASSESS OFFICE [id number] BODY MASS INDEX DOCD SYST BP LT 130 MM HG DIAST BP < 80 MM HG FALL PLAN OF CARE DOC'D URINE INCON PLAN DOC'D PRES/ABSN URINE INCON ASSESS Pt inelig neg scrn depres CBC, INC PLATELETS AND DIFFERENTIAL COMPREHEN METABOLIC PANEL CMP 9 LIPID PANEL VITAMIN D, 25-HYDROXY ROUTINE VENIPUNCTURE HEMOGLOBIN A1C HGA1C, GLYCO OFFICE [id number] BODY MASS INDEX DOCD SYST BP GE 130 - 139MM HG DIAST BP < 80 MM HG FALL PLAN OF CARE DOC'D URINE INCON PLAN DOC'D PRES/ABSN URINE INCON ASSESS OFFICE [id number] BODY MASS INDEX DOCD SYST BP LT 130 MM HG DIAST BP < 80 MM HG Advance Directives Directive Yes / No Effective Date File Name Life Support Not Answered N/A N/A Intubation Not Answered N/A N/A Antibiotics Not Answered N/A N/A IV Fluid Support Not Answered N/A N/A Tube Feed Not Answered N/A N/A Other Directive N/A N/A WARNING:The information contained in this section is historical and is provided for information only and does not constitute a legal document or any assurance that the information is still accurate. Please verify the information with the barakat of the legal document before using it for clinical purposes. Encounters Encounter Description Practice Location Reason(s) For Visit Diagnoses Date Provider Providers Copied on Encounter [facility], [address], [place], [place], [address] , tel: [phone] [facility] No Information 5 Angel Mayer. [address] [place] [address], [facility] [address] [place], [place], [address] , . tel: [phone] [facility], [address] [place] [address], [id number] , tel: [phone] [place] preventive (chief complaint)C hronic Conditions (chief complaint) Medicare annual wellness visit, subsequentType 2 diabetes mellitus with obesityObesity, unspecifiedChronic diastolic heart failureParoxysmal atrial fibrillationAortic atherosclerosisLung fibrosisGastroesoph ageal reflux disease, unspecified whether esophagitis presentBody mass index [BMI] 33.0-33.9, adult 5 Angel Mayer. [address] [place] [address], [facility] [address] , [place], [place], [address] , . tel: [phone] Referring Provider: Moreno Ortiz, [address] [place] [address] [address] , [place], [address] . tel:[phone] [facility], [address], [place], [place], [address] , tel: [phone] [facility] No Information 4 Angel Mayer. [address] [place] [address], [address] , [place], [place], [address] , . tel: [phone] [facility], [address] [place] [address], [id number] , tel: [phone] [place] Medicare preventive (chief complaint)C hronic Conditions (chief complaint) Medicare annual wellness visit, subsequentType 2 diabetes mellitus with obesityObesity, unspecifiedParoxysm al atrial fibrillation Apr- 4 Angel Mayer. [address] [place] [address], [address] , [place], [place], [address] [place] [address] , . tel: [phone] Referring Provider: Moreno Ortiz, [address] [place] [address] [address], [place], [address] . tel:[phone] [facility], [address], [place], [address] [place] [address] , tel: [phone] [facility] No Information Apr-0 4 Angel Mayer. [address] [place] [address], [address], [place], [address] [place] [address] , . tel: [phone] [facility], [address], [place], [place], [address] , tel: [phone] [facility] No Information 0 4 Angel Mayer. [address] [place] [address], [address], [place], [address] [place] [address] , . tel: [phone] [facility], [address], [place], [place], [address] , tel: [phone] [facility] No Information 4 Angel Mayer. [address] [place] [address], [address], [place], [address] [place] [address] , . tel: [phone] [facility], [address], [place], [place], [address] , tel: [phone] [facility] No Information 4 Angel Mayer. [address] [place] [address], [address], [place], [address] [place] [address] , . tel: [phone] OFFICE WJSIM-XPM-WJP [facility], [address], [place], [address] [place] [address] , tel: [phone] [facility] Chronic Conditions (chief complaint) Morbid obesityPrimary hypertensionAortic atherosclerosisChro luis fernando diastolic heart failureControlled type 2 diabetes mellitus with complication, without long-term current use of insulinParoxysmal atrial fibrillationLung fibrosisPrimary osteoarthritis involving multiple jointsBody mass index [BMI] 35.0-35.9, adult 4 Angel Mayer. [address] [place] [address], [address] [place], [place], [address] [place] [address] , . tel: [phone] Referring Provider: Moreno Ortiz, [address] [place] [address] [address] , [place], [place], [address] [place] [address] . tel:[phone] [facility], [address], [place], [place], [address] , tel: [phone] [facility] PalpitationsParoxys mal atrial fibrillation 4 Angel Mayer. [address] [place] [address], [address] , [place], [address] [place] [address] , . tel: [phone] TELEPHONE E&M SERVICE BY A PHYSICIAN;5-1 0 MINUTES OF MEDICAL DISCUSSION [facility], [address], [place], [place], [address] , tel: [phone] [facility] Paroxysmal atrial fibrillationPalpita tions 4 Angel Mayer. [address] [place] [address], [address] [place], [place], [address] [place] [address] , . tel: [phone] Referring Provider: Moreno Ortiz, [address] [place] [address], [place], [address] [place] [address] . tel:[phone] [facility], [address], [place], [place], [address] , tel: [phone] [facility] No Information 4 Angel Mayer. [address] [place] [address], [address] [place], [place], [address] , . tel: [phone] [facility], [address], [place], [place], [address] , tel: [phone] [facility] No Information 3 Angel Mayer. [address] [place] [address], [address] , [place], [place], [address] , . tel: [phone] TELEPHONE E&M SERVICE BY A PHYSICIAN;5-1 0 MINUTES OF MEDICAL DISCUSSION [facility], [address], [place], [place], [address] , tel: [phone] [facility] Cough, unspecified 3 Angel Mayer. [address] [place] [address], [address], [place], [place], [address] , . tel: [phone] Referring Provider: Moreno Ortiz, [address] [place] [address] [address], [place], [address] . tel:[phone] [facility], [address], [place], [place], [address] , tel: [phone] [facility] Medicare preventive (chief complaint)C hronic Conditions (chief complaint) Atypical chest painLung fibrosisUrinary frequencyMedicare annual wellness visit, subsequentSubconjun ctival hemorrhage of left eye 3 Angel Mayer. [address] [place] [address], [address], [place], [place], [address] , . tel: [phone] Referring Provider: Moreno Ortiz, [address] [place] [address] [address], [place], [address] . tel:[phone] [facility], [address], [place], [place], [address] , tel: [phone] [facility] No Information 3 Gerardo Bains. [address] [place] [address], [address], [place], [place], [address] , . tel: [phone] [facility], [address], [place], [place], [address] , tel: [phone] [facility] Paroxysmal atrial fibrillation 3 Angel Mayer. [address] [place] [address], [address], [place], [place], [address] , . tel: [phone] Referring Provider: Moreno Ortiz, [address] [place] [address] [address], [place], [address] . tel:[phone] Transitional Care- First 7 Days Of Discharge [facility], [address], [place], [place], [address] , tel: [phone] [facility] Chronic Conditions (chief complaint) Paroxysmal atrial fibrillationBody mass index [BMI] 35.0-35.9, adult Garrick- 3 Angel Mayer. [address] [place] [address], [address] , [place], [place], [address] , . tel: [phone] Referring Provider: Moreno Ortiz [address] [place] [address] [address], [place], [address] [place] [address] . tel:[phone] OFFICE CIIFI-DZA-JMM [facility], [address], [place], [address] , tel: [phone] [facility] Chronic Conditions (chief complaint) Morbid obesityDiabetes mellitus type 2 in obeseAortic atherosclerosisChro luis fernando diastolic heart failureParoxysmal atrial fibrillationOSA (obstructive sleep apnea)Primary hypertensionGastroe sophageal reflux disease, unspecified whether esophagitis present 3 Angel Mayer. [address] [place] [address], [address] , [place], [place], [address] , . tel: [phone] Referring Provider: Moreno Ortiz [address] [place] [address] [address] , [place], [address] [place] [address] . tel:[phone] [facility], [address], [place], [place], [address] , tel: [phone] [facility] Carotid bruit, unspecified laterality 2 Angel Mayer. [address] [place] [address], [address] , [place], [place], [address] , . tel: [phone] [facility], [address], [place], [place], [address] , tel: [phone] [facility] Other specified symptoms and signs involving the circulatory and respiratory systems 2 Angel Mayer. [address] [place] [address], [address] , [place], [place], [address] , . tel: [phone] [facility], [address], [place], [place], [address] , tel: [phone] [facility] Paroxysmal atrial fibrillationAtheros clerosis of aorta 2 Angel Mayer. [address] [place] [address], [address], [place], [place], [address] , . tel: [phone] [facility], [address], [place], [address] , tel: [phone] [facility] Type 2 diabetes mellitus with other specified complication 2 Angel Mayer. [address] [place] [address], [address] , [place], [place], [address] , . tel: [phone] [facility], [address], [place], [place], [address] , tel: [phone] [facility] Medicare preventive (chief complaint)C hronic Conditions (chief complaint) Medicare annual wellness visit, subsequentPrimary osteoarthritis involving multiple jointsGastroesophag eal reflux disease, unspecified whether esophagitis presentBody mass index [BMI] 36.0-36.9, adult 2 Angel Mayer. [address] [place] [address], [address] , [place], [place], [address] , . tel: [phone] Referring Provider: Moreno Ortiz [address] [place] [address] [address] , [place], [address] . tel:[phone] OFFICE UYZWO-UVU-MMO ANDED [facility], [address], [place], [place], [address] , tel: [phone] [facility] acute problem (chief complaint) Acute bronchitis, unspecified organism 2 Angel Mayer. [address] [place] [address], [address] , [place], [place], [address] , . tel: [phone] Referring Provider: Moreno Ortiz [address] [place] [address] [address] , [place], [address] . tel:[phone] OFFICE YFLKO[facility]GUA-FDB [employer], [address], [place], [place], [address] , tel: [phone] [facility] Chronic Conditions (chief complaint) Diabetes mellitus type 2 in obeseMorbid obesityAortic atherosclerosisOSA (obstructive sleep apnea)Chronic diastolic heart failureParoxysmal atrial fibrillationChronic bilateral low back pain without sciaticaC. difficile colitis 2 Angel Mayer. [address] [place] [address], [address] , [place], [place], [address] , . tel: [phone] Referring Provider: Moreno Ortiz, [address] [place] [address] [address], [place], [address] . tel:[phone] [facility], [address], [place], [place], [address] , tel: [phone] [facility] No Information 2 Angel Mayer. [address] [place] [address], [address], [place], [address] [place] [address] , . tel: [phone] Referring Provider: Moreno Ortiz, [address] [place] [address] [address], [place], [address] [place] [address] . tel:[phone] OFFICE UKRAE-INC-OJR ANDED [facility], [address], [place], [address] [place] [address] , tel: [phone] [facility] Chronic Conditions (chief complaint) Obesity (BMI 30-39.9)Vitamin B12 deficiencyBody mass index [BMI] 37.0-37.9, adult Dec- 1 Angel Mayer. [address] [place] [address], [address] , [place], [address] [place] [address] , . tel: [phone] Referring Provider: Moreno Ortiz, [address] [place] [address] [address], [place], [address] [place] [address] . tel:[phone] [facility], [address], [place], [place], [address] , tel: [phone] [facility] No Information 1 Angel Mayer. [address] [place] [address], [address] , [place], [address] [place] [address] , . tel: [phone] OFFICE IHVUI-BNF-PGK ANDED [facility], [address], [place], [place], [address] , tel: [phone] [facility] Chronic Conditions (chief complaint) Cough 1 Angel Mayer. [address] [place] [address], [address], [place], [place], [address] , . tel: [phone] Referring Provider: Moreno Ortiz, [address] [place] [address] [address] , [place], [address] [place] [address] . tel:[phone] [facility], [address], [place], [place], [address] , tel: [phone] [facility] Medicare preventive (chief complaint)C hronic Conditions (chief complaint) Medicare annual wellness visit, subsequentDiabetes mellitus type 2 in obeseObesity, unspecifiedDermatit isChronic cough 1 Angel Mayer. [address] [place] [address], [address] , [place], [place], [address] , . tel: [phone] Referring Provider: Moreno Ortiz, [address] [place] [address] [address], [place], [address] . tel:[phone] [facility], [address], [place], [place], [address] , tel: [phone] [facility] Yeast infection of the vagina 1 Angel Mayer. [address] [place] [address], [address] , [place], [place], [address] , . tel: [phone] OFFICE GQLDP-YWI-GWB [facility], [address], [place], [address] , tel: [phone] [facility] Chronic Conditions (chief complaint) Chronic diastolic heart failureParoxysmal atrial fibrillationDiabete s mellitus type 2 in obeseMorbid obesityEssential hypertensionAortic atherosclerosisScia angelica of left sideCervical radiculopathy 1 Angel Mayer. [address] [place] [address], [address] , [place], [place], [address] , . tel: [phone] Referring Provider: Moreno Ortiz, [address] [place] [address] [address], [place], [address] . tel:[phone] [facility], [address], [place], [place], [address] , tel: [phone] [facility] Type 2 diabetes mellitus with other specified complication 1 Angel Mayer. [address] [place] [address], [address] , [place], [place], [address] , . tel: [phone] OFFICE QYMFZ-XAS-QSF [facility], [address], [place], [place], [address] , tel: [phone] [facility] Chronic Conditions (chief complaint) Lower abdominal painHemorrhage of varicose veins of left lower extremityDiabetes mellitus type 2 in obeseObesity, unspecified May- 0 Angel Mayer. [address] [place] [address], [address], [place], [address] [place] [address] , . tel: [phone] Referring Provider: Moreno Ortiz, [address] [place] [address] [address], [place], [address] . tel:[phone] [facility], [address], [place], [place], [address] , [place] tel: [phone] [facility] Encounter for gynecological examination (general) (routine) with abnormal findings May- 0 Angel Mayer. [address] [place] [address], [address], [place], [address] [place] [address] , . tel: [phone] [facility], [address], [place], [place], [address] , tel: [phone] [facility] Encounter for well woman exam with abnormal findings May- 0 Angel Mayer. [address] [place] [address], [address], [place], [place], [address] , . tel: [phone] [facility], [address], [place], [place], [address] , [place] tel: [phone] [facility] Atherosclerosis of aorta Apr- 0 Angel Mayer. [address] [place] [address], [address], [place], [place], [address] , [place]. tel: [phone] [facility], [address], [place], [place], [address] , [place] tel: [phone] [facility] Gallstones Apr- 0 Angel Mayer. [address] [place] [address], [address], [place], [place], [address] , [place]. tel: [phone] [facility], [address], [place], [place], [address] , tel: [phone] [facility] Abdominal pain, unspecified abdominal location Sep-0 0 Angel Mayer. [address] [place] [address], [address], [place], [place], [address] , [place]. tel: [phone] [facility], [address], [place], [place], [address] , [place] tel: [phone] [facility] No Information 0 Angel Mayer. [address] [place] [address], [address], [place], [place], [address] , [place]. tel: [phone] [facility], [address], [place], [place], [address] , [place] tel: [phone] [facility] Unspecified lump in the left breast, unspecified quadrantOther abnormal and inconclusive findings on diagnostic imaging of breast 0 Angel Mayer. [address] [place] [address], [address] , [place], [place], [address] , [place]. tel: [phone] [facility], [address], [place], [place], [address] , tel: [phone] [facility] Medicare preventive (chief complaint)C hronic Conditions (chief complaint) Medicare annual wellness visit, subsequentMorbid obesityChronic diastolic heart failureAortic atherosclerosisPrim augusta osteoarthritis involving multiple jointsOSA (obstructive sleep apnea)Paroxysmal atrial fibrillationRash 0 Angel Mayer. [address] [place] [address], [address] , [place], [place], [address] , [place]. tel: [phone] Referring Provider: Moreno Ortiz [address] [place] [address] [address] , [place], [address] . tel:[phone] OFFICE JOHMZ-JOA-KIO [facility], [address], [place], [place], [address] , [place] tel: [phone] [facility] Chronic Conditions (chief complaint) Morbid obesityEssential hypertensionAortic atherosclerosisPrim augusta osteoarthritis involving multiple jointsParoxysmal atrial fibrillationPurpura 0 Angel Mayer. [address] [place] [address], [address], [place], [place], [address] , . tel: [phone] Referring Provider: Moreno Ortiz [address] [place] [address] [address], [place], [address] . tel:[phone] [facility], [address], [place], [place], [address] , tel: [phone] [facility] Unilateral primary osteoarthritis, left kneeOther meniscus derangements, unspecified lateral meniscus, left knee 9 Angel Mayer. [address] [place] [address], [address] , [place], [place], [address] , . tel: [phone] [facility], [address], [place], [place], [address] , [place] tel: [phone] [facility] Left knee pain, unspecified chronicity 9 Angel Mayer. [address] [place] [address], [address] , [place], [place], [address] , . tel: [phone] [facility], [address], [place], [place], [address] , tel: [phone] [facility] No Information 9 Angel Mayer. [address] [place] [address], [address] , [place], [place], [address] , [place]. tel: [phone] OFFICE NMZAF-SWB-CBN [facility], [address], [place], [place], [address] , tel: [phone] [facility] Chronic Conditions (chief complaint) Body mass index (BMI) 37.0-37.9, adultEssential hypertensionParoxys mal atrial fibrillationAortic atherosclerosisCard iomyopathy, unspecified typeMorbid obesityVitamin D deficiencyOSA (obstructive sleep apnea)Lichen sclerosus of female genitaliaElevated glucose 9 Gerardo Bains. [address] [place] [address], [address] , [place], [place], [address] , . tel: [phone] Referring Provider: Moreno Ortiz, [address] [place] [address] [address], [place], [address] . tel:[phone] OROS, [address], [place], [place], [address] , tel: [phone] [facility] Encounter for gynecological examination (general) (routine) without abnormal findings 9 Angel Mayer. [address] [place] [address], [address], [place], [place], [address] , . tel: [phone] OROS, [address], [place], [place], [address] , tel: [phone] [facility] Lumbago with sciatica, left side 9 Angel Mayer. [address] [place] [address], [address], [place], [place], [address] , . tel: [phone] OROS, [address], [place], [place], [address] , tel: [phone] [facility] Chronic left-sided low back pain with left-sided sciaticaOther chronic pain 9 Angel Mayer. [address] [place] [address], [address], [place], [place], [address] , . tel: [phone] [id number] ANDED OROS, [address], [place], [place], [address] , tel: [phone] [facility] Chronic Conditions (chief complaint) Chronic left-sided low back pain with left-sided sciaticaParoxysmal atrial fibrillation 9 Angel Mayer. [address] [place] [address], [address], [place], [place], [address] , . tel: [phone] Referring Provider: Moreno Ortiz, [address] [place] [address] [address], [place], [address] . tel:[phone] OROS, [address], [place], [place], [address] , tel: [phone] [facility] Sciatica of right side 9 Angel Mayer. [address] [place] [address], [address], [place], [place], [address] , [place]. tel: [phone] OROS, [address], [place], [place], [address] , tel: [phone] [facility] Paroxysmal atrial fibrillation 9 Angel Mayer. [address] [place] [address], [address], [place], [place], [address] , . tel: [phone] OROS, [address], [place], [place], [address] , tel: [phone] [facility] Encounter for gynecological examination (general) (routine) without abnormal findings 9 Angel Mayer. [address] [place] [address], [address] [place], [place], [address] , . tel: [phone] OROS, [address], [place], [place], [address] , tel: [phone] [facility] Chronic Conditions (chief complaint) Dilated cardiomyopathyParox ysmal atrial fibrillationAortic atherosclerosisGast roesophageal reflux disease, esophagitis presence not specifiedMorbid obesityOSA (obstructive sleep apnea)Body mass index (BMI) 37.0-37.9, adult Angel Mayer. [address] [place] [address], [address] [place] [address], [id number] , . tel: [phone] Referring Provider: Moreno Ortiz [address] [place] [address] [address] , [place], [address] . tel:[phone] OROS, [address], [place], [place], [address] , tel: [phone] [facility] Paroxysmal atrial fibrillation 8 Angel Mayer. [address] [place] [address], [address] [place], [place], [address] , . tel: [phone] OROS, [address], [place], [place], [address] , tel: [phone] [facility] Body mass index (BMI) 38.0-38.9, adultParoxysmal atrial fibrillationDilated cardiomyopathyAorti c atherosclerosis Angel Mayer. [address] [place] [address], [address] [place], [place], [address] , . tel: [phone] Referring Provider: Moreno Ortiz [address] [place] [address] [address] , [place], [address] . tel:[phone] OROS, [address], [place], [place], [address] , tel: [phone] [facility] Morbid obesityParoxysmal atrial fibrillationDilated cardiomyopathyAorti c atherosclerosis 8 Angel Mayer. [address] [place] [address], [address], [place], [address] [place] [address] , . tel: [phone] Referring Provider: Moreno Ortiz, [address] [place] [address] [address], [place], [address] [place] [address] . tel:[phone] OROS, [address], [place], [place], [address] , tel: [phone] [facility] Paroxysmal atrial fibrillation 8 Angel Mayer. [address] [place] [address], [address], [place], [address] [place] [address] , . tel: [phone] OR[facility], [address], [place], [place], [address] , tel: [phone] [facility] ER f/u for bronchitis (chief complaint) Acute bronchitis, unspecified organism 8 Angel Mayer. [address] [place] [address], [address], [place], [place], [address] , . tel: [phone] Referring Provider: Moreno Ortiz, [address] [place] [address] [address], [place], [address] [place] [address] . tel:[phone] OR[facility], [address], [place], [address] , tel: [phone] [facility] Essential (primary) hypertension 8 Angel Mayer. [address] [place] [address], [address], [place], [address] [place] [address] , . tel: [phone] OROS, [address], [place], [place], [address] , tel: [phone] [facility] FRANTZ (obstructive sleep apnea)Aortic atherosclerosisCard iomyopathy, unspecified typeParoxysmal atrial fibrillationEssenti al hypertensionGastroe sophageal reflux disease without esophagitisMorbid obesityVitamin D deficiency 8 Gerardo Bains. [address] [place] [address], [address], [place], [place], [address] , [place]. tel: [phone] Referring Provider: Moreno Ortiz, [address] [place] [address] [address], [place], [address] . tel:[phone] [facility], [address], [place], [place], [address] , tel: [phone] [facility] Paroxysmal atrial fibrillation 8 Angel Mayer. [address] [place] [address], [address], [place], [place], [address] , . tel: [phone] [facility], [address], [place], [place], [address] , tel: [phone] [facility] Essential (primary) hypertension 8 nAgel Mayer. [address] [place] [address], [address], [place], [place], [address] , . tel: [phone] [employer] [facility], [address], [place], [place], [address] , tel: [phone] [facility] Paroxysmal atrial fibrillation 7 Angel Mayer. [address] [place] [address], [address], [place], [place], [address] , . tel: [phone] [facility] [facility], [address], [place], [place], [address] , tel: [phone] [facility] Paroxysmal atrial fibrillation 7 Angel Mayer. [address] [place] [address], [address], [place], [place], [address] , . tel: [phone] [facility], [address], [place], [place], [address] , tel: [phone] [facility] Paroxysmal atrial fibrillation 7 Angel Mayer. [address] [place] [address], [address], [place], [place], [address] , . tel: [phone] [facility], [address], [place], [place], [address] , tel: [phone] [facility] Aortic atherosclerosisParo xysmal atrial fibrillationMorbid obesitySnoringFatig ue, unspecified type 7 Nj Mc. [address] [place] [address], [address], [place], [place], [address] . tel: [phone] Referring Provider: Moreno Ortiz, [address] [place] [address] [address], [place], [address] . tel:[phone] OR[facility], [address], [place], [place], [address] , tel: [phone] [facility] Paroxysmal atrial fibrillation Angel Mayer. [address] [place] [address], [facility] [address], [place], [place], [address] , [place]. tel: [phone] OROS, [address], [place], [place], [address] , tel: [phone] [facility] Paroxysmal atrial fibrillation Angel Mayer. [address] [place] [address], [facility] [address], [place], [place], [address] , . tel: [phone] OROS, [address], [place], [place], [address] , tel: [phone] [facility] Paroxysmal atrial fibrillation 7 Angel Mayer. [address] [place] [address], [facility] [address], [place], [place], [address] , . tel: [phone] [facility], [address], [place], [place], [address] , tel: [phone] [facility] Essential hypertensionChronic diastolic heart failureParoxysmal atrial fibrillationAortic atherosclerosisAbno rmal mammogramMammograph ic microcalcification found on diagnostic imaging of breast 7 Angel Mayer. [address] [place] [address], [address], [place], [place], [address] , [place]. tel: [phone] Referring Provider: Moreno Ortiz, [address] [place] [address] [address], [place], [address] . tel:[phone] [facility], [address], [place], [place], [address] , tel: [phone] [facility] Paroxysmal atrial fibrillationEssenti al hypertensionGastroe sophageal reflux disease without esophagitisVitamin D deficiencyScre[place] [address] [facility], [facility] [address], [place], [place], [address] . tel: [phone] Referring Provider: Moreno Ortiz, [address] [facility] [address], [place], [address] . tel:[phone] Family History Family Member Type Diagnosis Age At Onset Mother Problem (finding) coronary arterioscleros is Mother Problem (finding) hypertension Sister Problem (finding) Hearing deficiency Mother Problem (finding) raised blood lipids Father Problem (finding) hypertension Sister Problem (finding) Obesity Sister Problem (finding) hypertension Father Problem (finding) Diabetes mellitus Mother Problem (finding) stroke Mother Problem (finding) Diabetes mellitus Father Problem (finding) coronary arterioscleros is Immunizations Vaccine Date Status Comments COVID-19, mRNA, LNP-S, PF, danica-sucrose, 30 mcg/0.3 mL administered Source: Othe r Provider Influenza, high-dose, trival ent, PF administered Source: Other Provid er COVID-19, mRNA, LNP-S, PF, danica-sucrose, 30 mcg/0.3 mL administered Source: Othe r Provider Pneumococcal conjugate PCV20 , polysaccharide [id number] conjugate, adjuvant, PF administered Source: Other Provid er RSV (Beyfortus), monoclonal antibody, seasonal dose, 0.5mL dosage, neonates and children to 24 mos administered Source: Source Unspe cified Fluzone High-Dose, high dose , preservative free administered Note: [facility] ; Source: Source Unspecified Fluzone High-Dose, high dose , preservative free administered Source: Source Unspe cified Moderna (Low Dose) COVID19 Vaccine, 0.25mL per dose, booster dose administered Source: Source Unspe cified Moderna COVID19 Vaccine, 0.5 mL per dose, 2 doses, administered 28 days apart administered Source: Source Unspe cified influenza, high-dose, quadrivalent administered Source: Other Provid er Moderna COVID19 Vaccine, 0.5 mL per dose, 2 doses, administered 28 days apart administered Source: Source Unspe cified Moderna COVID19 Vaccine, 0.5 mL per dose, 2 doses, administered 28 days apart administered Source: Source Unspe cified zoster recombinant administered Source: O ther Provider influenza, high-dose, quadrivalent administered Source: Other Provid er Flublok, quadrivalent, preservative free, 0.5mL dosage administered Source: Source Unspecified Pneumococcal conjugate PCV 13 administere d Note: [facility]. ; Source: Other Provider Flublok, quadrivalent, preservative free, 0.5mL dosage administered Source: Source Unspecified Flublok, quadrivalent, preservative free, 0.5mL dosage administered Source: Source Unspecified Fluzone High-Dose 4623-6943, high dose, preservative free administered Source: Carmela rce Unspecified Pneumococcal conjugate PCV 13 administere d Source: Other Provider pneumococcal polysaccharide vaccine, 23 valent administered Source: Other Provid er Zoster administered Source: Other P rovider Payers Payer name Insurance type Covered libertarian ID Leylaa vivi(s) [employer] [id number] Social History Type Description Quantity Date Captured Comments Alcohol Use Details Unknown Caffeine Use Details Unknown Tobacco Use Status No Information Smoking Status No Information Sex Female Chief Complaint And Reason For Visit No Information Reason For Referral Reason For Referral No Information Plan Of Treatment Date Type Action Status Goal Dietary manageme nt education, guidance, and counseling completed Goal Dietary manageme nt education, guidance, and counseling completed Goal Dietary manageme nt education, guidance, and counseling completed Goal Dietary manageme nt education, guidance, and counseling completed Goal Dietary manageme nt education, guidance, and counseling completed Goal Dietary manageme nt education, guidance, and counseling completed Goal Dietary manageme nt education, guidance, and counseling completed Goal Tobacco cessation counseling completed Goal Dietary manageme nt education, guidance, and counseling completed Goal Dietary manageme nt education, guidance, and counseling completed Referral Referred To: Sinan Morrell [address] [place], [place], [phone] Ordered: Referrals: Cardiology. Sinan Morrell. Evaluation/diagnostic/treatment - Level 3 Appointment date/timeframe: 09/02/2023 ordered Referral [place]erred To: [place] [address] [place]
[address] [place], [phone] Ordered: Referrals: Cardiology. Chago Lopez MD. Evaluation/diagnostic/treatment - Level 3 Appointment date/timeframe: 08/20/2022 ordered Referral Referred To: Chago Lopez [address] [place]
[address] [place], [phone] Ordered: Referrals: Cardiology. Chago Lopez. Evaluation/diagnostic/treatment - Level 3 Appointment date/timeframe: 07/21/2022 ordered Referral Referred To: Mary Solorio [address] [place], [phone] Ordered: Referrals: Magistrate Judge. Mary Solorio. Evaluation/diagnostic/treatment - Level 3 Appointment date/timeframe: 06/02/2022 ordered Referral Referred To: Tari Duval MD Ordered: Referrals: Surgery. Tari Duval MD. Evaluation/diagnostic/treatment - Level 3 Appointment date/timeframe: 04/15/2022 ordered Referral Referred To: Diane Reed [address] [facility] [place], [phone] Ordered: Referrals: Magistrate Judge. Diane Reed. Evaluation/diagnostic/treatment - Level 3 Appointment date/timeframe: 08/30/2020 ordered Referral Referred To: Donald Self [address] [place], [phone] Ordered: Referrals: Surgery. Donald Self. Evaluation/diagnostic/treatment - Level 3 Appointment date/timeframe: 06/06/2020 ordered Referral Referred To: Damir Fay MD Ordered: Referrals: Obstetrics and Gynecology. Damir Fay MD. Evaluation/diagnostic/treatment - Level 3 ordered Referral Referred To: Physical Therapy Ordered: Referrals: Physical Therapy. Location: [facility]. Evaluation/diagnostic/treatment - Level 3 Appointment date/timeframe: 07/18/2019 ordered Referral Referred To: [place] [address] [facility]
[address] [place], [phone] Ordered: Referrals: Orthopedic Surgery. Jared Rivera MD. Evaluation/diagnostic/treatment - Level 3 Appointment date/timeframe: 06/09/2019 ordered Referral Referred To: Damir Kemp MD Ordered: Referrals: Obstetrics and Gynecology. Damir Kemp MD. Evaluation/diagnostic/treatment - Level 3 ordered Referral Referred To: MD Oskar Torres [address] [place], [phone] Ordered: Referrals: Anesthesiology. MD Oskar Torres. Evaluation/diagnostic/treatment - Level 3 ordered Referral Referred To: Moreno Gallardo Ordered: Referrals: Chiropractor. Moreno Gallardo. Evaluation/diagnostic/treatment - Level 3 ordered Referral Referred To: Any Gupta Ordered: Referrals: Cardiovascular Disease. Any Gupta. Evaluation/diagnostic/treatment - Level 3 ordered Appointment Dulce Gibbons BOOKED Future Order: Radiology Order MR I cervical spine wo contrast ([id number]), Sent on: Sent History Of Present Illness Encounter Date Complaint History Of Prese nt Illness Chronic Conditions *See Chronic Conditions HPI Medicare preventive The patient has not felt depressed and has had interest and pleasure doing things recently. Functional Status: (Functional status has not changed) on 11/03/2024. Cognitive Status: (Cognitive status has not changed) on 11/03/2024. The ''Up and Go'' test took less than 30 seconds andthe patient does not need help with activities of daily living. The patient is at risk for falls. The patient has not fallen in the last year. The fall(s) did not result in injury. Patient's activity level is sedentary. Patient never exercises. The patient has smoke detectors in the home. Patient reports using a seatbelt in vehicles. Patient reports a healthy diet. Relevant history is negative for alcohol use. Patient is a former tobacco user. Medicare preventive The patient has not felt depressed and has had interest and pleasure doing things recently. Functional Status: (Functional status has not changed) on 04/27/2024. Cognitive Status: (Cognitive status has not changed) on 04/27/2024. The ''Up and Go'' test took less than 30 seconds andthe patient does not need help with activities of daily living. The patient is at risk for falls. The patient has not fallen in the last year. The fall(s) did not result in injury. Patient's activity level is sedentary. Patient never exercises. The patient has smoke detectors in the home. Patient reports using a seatbelt in vehicles. Patient reports a healthy diet. Relevant history is negative for alcohol use. Chronic Conditions *See Chronic Conditions [facility] Chronic Conditions *See Chronic Conditions [facility] Medicare preventive The patient has not felt depressed and has had interest and pleasure doing things recently. Functional Status: (Functional status has not changed) on 05/01/2023. Cognitive Status: (Cognitive status has not changed) on 05/01/2023. The ''Up and Go'' test took less than 30 seconds andthe patient does not need help with activities of daily living. The patient is at risk for falls. The patient has not fallen in the last year. The fall(s) did not result in injury. Patient's activity level is sedentary. Patient never exercises. The patient has smoke detectors in the home. Patient reports using a seatbelt in vehicles. Patient reports a healthy diet. Patient reports recent weight loss. Relevant history is negative for alcohol use. Patient is a former tobacco user. Chronic Conditions *See Chronic Conditions [facility] Chronic Conditions *See Chronic Conditions [facility] Chronic Conditions *See Chronic Conditions HPI Medicare preventive The patient has not felt depressed and has had interest and pleasure doing things recently. Functional Status: (Functional status has not changed) on 04/10/2022. Cognitive Status: (Cognitive status has not changed) on 04/10/2022. The ''Up and Go'' test took less than 30 seconds andthe patient does not need help with activities of daily living. The patient is at risk for falls. The patient has not fallen in the last year. The fall(s) did not result in injury. Patient's activity level is sedentary. Patient never exercises. The patient has smoke detectors in the home. Patient reports using a seatbelt in vehicles. Patient reports a healthy diet. Patient reports recent weight gain. Relevant history is negative for alcohol use. Patient is a former tobacco user. Chronic Conditions *See Chronic Conditions [facility] acute problem Here with one we ek of severe cough, wheezing and shortness of breath, no fever, similar episode last year. Chronic Conditions *See Chronic Conditions [facility] Chronic Conditions *See Chronic Conditions [facility] Chronic Conditions *See Chronic Conditions [facility] Medicare preventive The patient has not felt depressed and has had interest and pleasure doing things recently. Functional Status: (Functional status has not changed) on 02/11/2021. Cognitive Status: (Cognitive status has not changed) on 02/11/2021. The ''Up and Go'' test took less than 30 seconds and the patient does not need help with activities of daily living. The patient is at risk for falls. The patient has not fallen in the last year. The fall(s) did not result in injury. Patient's activity level is sedentary. Patient never exercises. The patient has smoke detectors in the home. Patient reports using a seatbelt in vehicles. Patient reports a healthy diet. Patient reports recent weight gain. Relevant history is positive for passive smoke exposure. Relevant history is negative for alcohol use. Patient is a former tobacco user. Chronic Conditions *See Chronic Conditions [facility] Chronic Conditions *See Chronic Conditions [facility] Chronic Conditions *See Chronic Conditions [facility] Chronic Conditions *See Chronic Conditions [facility] Medicare preventive The patient has not felt depressed and has had interest and pleasure doing things recently. Cognitive Status: (Cognitive status has not changed) on 12/27/2019. The patient is not at risk for falls. The patient has not fallen in the last year. The fall(s) did not result in injury. Patient's activity level is sedentary. Patient reports a healthy diet. Patient reports recent weight loss. Relevant history is positive for passive smoke exposure. Relevant history is negative for alcohol use. Patient is a former tobacco user. Chronic Conditions *See Chronic Conditions HPI Chronic Conditions *See Chronic Conditions HPI Chronic Conditions *See Chronic Conditions HPI Chronic Conditions *See Chronic Conditions HPI ER f/u for bronchitis Here for f /u after her ER visit for severe shortness, diagnosed with bronchitis and given treatment, but still coughing and wheezing a lot. Saw EP this AM and reported things are going well with her heart. Functional Status Date Functional Assessmen t No Information Instructions Date Instruction Additional Infor hannahion Continue current med ications for now. Related to Gastroesophageal reflux disease, unspecified whether esophagitis present Keep UTD on vaccines. Related to Lung fibrosis Continue current med ications for now. Related to Paroxysmal atrial fibrillation Follow a low cholest maryan diet and check lipids. Related to Aortic atherosclerosis Continue a healthy d iet, exercise, and weight loss as appropriate. Related to Obesity, unspecified Continue medications at current dose/regimen and check CMP. Goals: Your goal is to monitor your weight. Related to Chronic diastolic heart failure Continue medications at current dose/regimen and check A1C and Micral. Goals: Your goal is to manage your medicine. Barriers: No barriers to goal achievement have been identified. Related to Type 2 diabetes mellitus with obesity Get appropriate vacc ammon. Return 6 months Related to Medicare annual wellness visit, subsequent Counseled on weight reduction Disease process Dietary management e ducation, guidance, and counseling Related to Body mass index (BMI) 33.0-33.9, adult Giving encouragement to exercise Related to Body mass index (BMI) 33.0-33.9, adult Counseled on dietary changes Continue current med ications for now. Related to Paroxysmal atrial fibrillation Continue a healthy d iet, exercise, and weight loss as appropriate. Related to Obesity, unspecified Get appropriate vacc ammon. Return 6 months Related to Medicare annual wellness visit, subsequent Continue current med ications for now. Goals: Your goal is to manage your medicine. Barriers: No barriers to goal achievement have been identified. Related to Type 2 diabetes mellitus with obesity Counseled on weight reduction Counseled on dietary changes Disease process Weight loss would help. Related to Primary osteoarthritis involving multiple joints Keep UTD on vaccines. Related to Lung fibrosis No new recommendations. Related to Paroxysmal atrial fibrillation Follow a low cholest maryan diet and check lipids. Related to Aortic atherosclerosis Continue medications at current dose/regimen and check CMP. Related to Primary hypertension Continue current med ications for now. Goals: Your goal is to monitor your weight. Related to Chronic diastolic heart failure Check A1C and Micral , will start Ozempic when samples available. Goals: Your goal is to work on healthy eating habits. Barriers: No barriers to goal achievement have been identified. Related to Controlled type 2 diabetes mellitus with complication, without long-term current use of insulin Continue a healthy d iet, exercise, and weight loss as appropriate. Return 6 months Related to Morbid obesity Disease process Dietary management e ducation, guidance, and counseling Related to Body mass index (BMI) 35.0-35.9, adult Giving encouragement to exercise Related to Body mass index (BMI) 35.0-35.9, adult Recheck UA. Related to Urina ry frequency Get appropriate vaccines. Relate d to Lung fibrosis See ophtho if persists. Related to Subconjunctival hemorrhage of left eye Get appropriate vacc ammon. Return 6 months Related to Medicare annual wellness visit, subsequent Observe for now. Related to Atyp ical chest pain Counseled on weight reduction Counseled on dietary changes Disease process Continue current med ications for now and CALL ME next time (has my cell number). Related to Paroxysmal atrial fibrillation Giving encouragement to exercise Related to Body mass index (BMI) 35.0-35.9, adult Dietary management e ducation, guidance, and counseling Related to Body mass index (BMI) 35.0-35.9, adult Disease process Continue current med ications for now. Related to Gastroesophageal reflux disease, unspecified whether esophagitis present Continue current med ications for now. Related to Paroxysmal atrial fibrillation Continue current med ications for now. Goals: Your goal is to manage your medicine. Related to Chronic diastolic heart failure Continues to benefit from using CPAP every night. Related to FRANTZ (obstructive sleep apnea) Continue medications at current dose/regimen and check CMP. Related to Primary hypertension Follow a low cholest maryan diet and check lipids. Related to Aortic atherosclerosis Continue a healthy d iet, exercise, and weight loss as appropriate. Return 6 months Related to Morbid obesity Check A1C and micral . Goals: Your goal is to work on healthy eating habits. Barriers: No barriers to goal achievement have been identified. Related to Diabetes mellitus type 2 in obese Disease process Continue current med ications for now. Related to Gastroesophageal reflux disease, unspecified whether esophagitis present Continue a healthy d iet, exercise, and weight loss as appropriate. Related to Primary osteoarthritis involving multiple joints Get appropriate vaccines. Relate d to Medicare annual wellness visit, subsequent Counseled on weight reduction Dietary management e ducation, guidance, and counseling Related to Body mass index (BMI) 36.0-36.9, adult Counseled on dietary changes Disease process Given samples of [place] legy, script for prednisone, call if not better soon! Related to Acute bronchitis, unspecified organism Disease process Continue Vancomycin another month and call with an update. Related to C. difficile colitis Will try a script an d let me know what happens. Related to Chronic bilateral low back pain without sciatica Continue current med ications for now. Related to Paroxysmal atrial fibrillation Continue current med ications for now. Goals: Your goal is to manage your medicine. Related to Chronic diastolic heart failure Continues to benefit from using CPAP every night. Related to FRANTZ (obstructive sleep apnea) Check A1C and micral . Goals: Your goal is to work on healthy eating habits. Barriers: No barriers to goal achievement have been identified. Related to Diabetes mellitus type 2 in obese Continue a healthy d iet, exercise, and weight loss as appropriate. Related to Morbid obesity Diabetes Health Report Urinary Incontinence Fall Risk Prevention Disease process Continue a healthy d iet, exercise, and weight loss as appropriate. Related to Obesity (BMI 30-39.9) Take supplement. Related to Mary [place] min B12 deficiency Fall Risk Prevention Dietary management e ducation, guidance, and counseling Related to Body mass index (BMI) 37.0-37.9, adult Giving encouragement to exercise Related to Body mass index (BMI) 37.0-37.9, adult Disease process Diabetes Health Report Urinary Incontinence Add prednisone and c all if not improving soon! Related to Cough Fall Risk Prevention Disease process Diabetes Health Report Urinary Incontinence No clear etiology, w ill continue to monitor. Related to Chronic cough Try Triamcinolone cream. Related to Dermatitis Continue a healthy d iet, exercise, and weight loss as appropriate. Related to Obesity, unspecified Continue a healthy d iet, exercise, and weight loss as appropriate. Your goal is to be active. No barriers to goal achievement have been identified. Related to Diabetes mellitus type 2 in obese Get appropriate vaccines. Relate d to Medicare annual wellness visit, subsequent Fall Risk Prevention Counseled on dietary changes Urinary Incontinence Disease process Diabetes Health Report Counseled on weight reduction Needs an MRI of the cervical spine to evaluate for a cervical myelopathy. Related to Cervical radiculopathy Weight loss would help her back. Related to Sciatica of left side Continue good foot care. Related to Aortic atherosclerosis Continue a healthy d iet, exercise, and weight loss as appropriate. Related to Morbid obesity Continue current med ications for now. Related to Essential hypertension Continue current med ications for now. Your goal is to manage your medicine. No barriers to goal achievement have been identified. Related to Chronic diastolic heart failure Continue current med ications for now. Related to Paroxysmal atrial fibrillation Check A1C on diet. Y our goal is to work on healthy eating habits. Related to Diabetes mellitus type 2 in obese Dietary management e ducation, guidance, and counseling Related to Body mass index (BMI) 36.0-36.9, adult Diabetes Health Report Giving encouragement to exercise Related to Body mass index (BMI) 36.0-36.9, adult Fall Risk Prevention Urinary Incontinence Disease process Continue a healthy d iet, exercise, and weight loss as appropriate. Related to Obesity, unspecified Recheck labs on diet . Your goal is to work on healthy eating habits. No barriers to goal achievement have been identified. Related to Diabetes mellitus type 2 in obese Call if any problems. 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 Related to Lower abdominal pain Fall Risk Prevention Urinary Incontinence Disease process Continue good foot care. Related to Aortic atherosclerosis Fungal, continue tri amcinolone and add fluconazole. Related to Rash Continue current med ications for now. Related to Paroxysmal atrial fibrillation Continues to benefit from using CPAP every night. Related to FRANTZ (obstructive sleep apnea) Call if any problems. Related to Primary osteoarthritis involving multiple joints Continue a healthy d iet, exercise, and weight loss as appropriate. Related to Morbid obesity Continue current med ications for now. Your goal is to manage your medicine. No barriers to goal achievement have been identified. Related to Chronic diastolic heart failure Get appropriate vaccines. Relate d to Medicare annual wellness visit, subsequent Dietary management e ducation, guidance, and counseling Related to Body mass index (BMI) 36.0-36.9, adult Counseled on weight reduction Disease process Urinary Incontinence Fall Risk Prevention Counseled on dietary changes Giving encouragement to exercise Related to Body mass index (BMI) 36.0-36.9, adult Protect skin with long sleeves. Related to Purpura F/u with cardiology. Related to Paroxysmal atrial fibrillation Try Celebrex. Related to Prima ry osteoarthritis involving multiple joints Follow a low cholesterol diet. R elated to Aortic atherosclerosis Continue current med ications for now. Related to Essential hypertension Continue a healthy d iet, exercise, and weight loss as appropriate. Related to Morbid obesity Urinary Incontinence Disease process Fall Risk Prevention She is noted to have elevated glucose on her lab results. Related to Elevated glucose Follow plan of care per refuse collector. Related to Lichen sclerosus of female genitalia Advise if symptoms return. Relat ed to FRANTZ (obstructive sleep apnea) Labs are drawn for f ollow up of chronic conditions Related to Vitamin D deficiency Encouraged to watch diet more closely, increase exercise to daily as able. Related to Morbid obesity Continue present lesley n of care. Advise if becomes short of breath. Related to Cardiomyopathy, unspecified type Continue present lesley n of care. will check lipids today. Related to Aortic atherosclerosis Continue present plan of care. R elated to Paroxysmal atrial fibrillation Labs are drawn for f ollow up of chronic conditions Related to Essential hypertension Disease process Prescribed activity/ exercise education Related to Body mass index (BMI) 37.0-37.9, adult Dietary management e ducation, guidance, and counseling Related to Body mass index (BMI) 37.0-37.9, adult Given samples of Eliquis. Relate d to Paroxysmal atrial fibrillation Check MRI of the lumbar spine. R elated to Chronic left-sided low back pain with left-sided sciatica Urinary Incontinence Disease process Fall Risk Prevention Given samples of Eliquis. Relate d to Paroxysmal atrial fibrillation Follow a low cholesterol diet. R elated to Aortic atherosclerosis Continue current med ications for now. Related to Gastroesophageal reflux disease, esophagitis presence not specified Continue current med ications for now. Related to Dilated cardiomyopathy Call if any new prob lems, weight loss would help. Related to FRANTZ (obstructive sleep apnea) Continue a healthy d iet, exercise, and weight loss as appropriate. Related to Morbid obesity Disease process Dietary management e ducation, guidance, and counseling Related to Body mass index (BMI) 37.0-37.9, adult Fall Risk Prevention Urinary Incontinence Giving encouragement to exercise Related to Body mass index (BMI) 37.0-37.9, adult Disease process Add Ray saldaña, symptoms should improve soon! Related to Acute bronchitis, unspecified organism Disease process Fall Risk Prevention Urinary Incontinence Assessments Type Assessment Date No Information Patient Care Teams Name Effective Dates (start - stop) Status Members No Information
--- OUTSIDE RECORDS SUMMARY | 2024-11-08 11:37 | XMS_ITS | Referral Summary ---
Author Organization [facility] Address [address] [place] [id number] Care Team Providers Care Mems Device Scientist Name Role Phone Moreno Ortiz MD Primary Care Provider [phone] Donald Self MD Unavailable [phone] Allergies Active Allergy Reactions Criticality Noted Date Comments Amiodarone Shortness of breath Reaction: Shortness of Breath, Codeine Itching Low 09/11/2017 Diltiazem Shortness of breath,Other (See comments) Reaction: Shortness of Breath, throat was closing up, Medications apixaban (ELIQUIS) 5 mg tablet take 1 tablet by oral route 2 times every day 0 0 6 Active isosorbide mononitrate ER (IMDUR) 30 mg 24 hr tablet take 1 tablet by oral route every day in the morning 0 0 6 Active multivitamin tablet tablet take 1 tablet by oral route every day with food 0 0 6 Active omeprazole (PriLOSEC) 40 mg capsule Take 1 capsule (40 mg total) by mouth daily Active sotalol (BETAPACE) 80 mg tablet Take 1 tablet (80 mg total) by mouth every 12 hours 120 twice daily 7 Active furosemide (LASIX) 40 mg tablet Take 1 tablet (40 mg total) by mouth daily 7 Active cholecalciferol (VITAMIN D-3) 1,000 unit Take 1 tablet/capsule (1,000 Units total) by mouth every other day Active metoprolol XL (TOPROL-XL) 50 mg 24 hr tablet Take 1 tablet (50 mg total) by mouth daily 90 tablet 2 9 Active Additional Information Patient taking differently:50 mg oral Daily,200 mg once daily, Reported on 02/23/2023 dicyclomine (BENTYL) 20 mg tablet Take 1 tablet (20 mg total) by mouth every 6 (six) hours 15 tablet 0 Active Additional Information Patient not taking.Reported on 07/21/2022 HYDROcodone-acet aminophen (NORCO) 5-325 mg per tabletIndication s:Pain Take 1 tablet by mouth every 6 (six) hours as needed for pain 10 tablet 0 Active Additional Information Patient not taking.Reported on 03/03/2022 oxyCODONE-acetam inophen (PERCOCET) 5-325 mg per tabletIndication s:Pain Take 1-2 tablets by mouth every 4 (four) hours as needed for pain 30 tablet 0 Active Additional Information Patient not taking.Reported on 03/03/2022 docusate sodium (COLACE) 100 mg capsuleIndicatio ns:constipation Take 1 capsule (100 mg total) by mouth 2 (two) times a day with a glass of water 30 capsule 0 Active Additional Information Patient not taking.Reported on 07/21/2022 gabapentin (NEURONTIN) 300 mg capsule Take 300 mg by mouth 3 (three) times a day Active losartan (COZAAR) 25 mg tablet Take 1 tablet (25 mg total) by mouth daily 90 tablet 3 4 Active atorvastatin (LIPITOR) 40 mg tablet Take 1 tablet (40 mg total) by mouth daily 60 tablet 5 11/28/19 25 Active Active Problems Problem Noted Date Diagnosed Date Gallbladder hydrops 05/03/2020 Overview (05/03/2020): Added automatically from request for surgery [id number] Chronic cholecystitis 05/03/2020 Aortic atherosclerosis 06/09/2019 Cardiomyopathy 06/09/2019 Gastro-esophageal reflux disease without esophag itis 06/09/2019 Morbid obesity 06/09/2019 Vitamin D deficiency 06/09/2019 Abnormal mammogram 06/09/2019 Non-rheumatic mitral regurgitation 09/11/2017 Assessment & Plan (09/11/2017 10:41 AM IN STORE MARKETING ASSOCIATE): This was noted as possibly severe on her transesophageal echocardiogram. Of course later in the study when the blood pressure was lower (about 85 or 90 systolic) this appeared mild. I did communicate these results with Dr. Gupta. I have asked her to follow up with him to determine if another transesophageal echocardiogram is needed, and it when should be performed. For now I have resumed her beta-jareth and discontinued verapamil. intermediate current use of antiarrhythmic drug Assessment & Plan (02/19/2018 10:40 AM CDT): She is in sinus rhythm, on 80 mg of sotalol twice a day. QTC is 460 milliseconds. Recent laboratory studies show a normal GFR. Assessment & Plan (11/13/2017 12:48 PM CDT): She is doing well on sotalol. Her QTC is 463 milliseconds today, which is acceptable. I did advise her to discuss any new prescriptions with her pharmacy, especially to avoid any additional QT prolonging agents. Assessment & Plan (09/11/2017 10:41 AM IN STORE MARKETING ASSOCIATE): She is doing well on sotalol 80 mg b.i.d.. Her QTC is acceptable today. Persistent atrial fibrillation 05/27/2016 Overview (02/19/2018): Persistent AF Assessment & Plan (02/19/2018 10:40 AM CDT): She remains in sinus rhythm, now 6 months status post PVI. She is interested in continuing sotalol, which is reasonable to do at this time. She should continue anticoagulation for life given her chads 2 Vasc score of 4. She denies any bleeding concerns. I will see her in follow-up in 6 months time. Assessment & Plan (11/13/2017 12:47 PM CDT): She remains in sinus rhythm, now 3 months status post PVI. We discussed discontinuing her antiarrhythmic, but she does prefer to stay on it at this time. This is reasonable, especially considering that she had persistent atrial fibrillation. She should continue on Eliquis for life unless a contraindication should arise. She has not had any bleeding concerns. I will see her again in 3 months. We again discussed lifestyle modifications such as weight loss to improve the durability of her PVI. Assessment & Plan (09/11/2017 10:39 AM IN STORE MARKETING ASSOCIATE): She remains in sinus rhythm, now 1 month status post PVI. She should continue on sotalol, and we will consider stopping this at the three-month bisi if she maintains sinus rhythm. Of course she may require antiarrhythmic drug therapy for maintenance of sinus rhythm given that she had persistent atrial fibrillation. She has a chads 2 Vasc score of 3 (age, female gender, hypertension) and it will be for after her birthday next week. I recommend continued use of apixaban for anticoagulation given her high risk for stroke. She denies any bleeding concerns at this time. I will see her again in 2 months. Assessment & Plan (07/17/2017 2:26 PM IN STORE MARKETING ASSOCIATE): She has symptomatic persistent atrial fibrillation. She previously had a good response from cardioversion, but after her most recent 1 her atrial fibrillation recurred within a few days. This is in spite of being on sotalol, although she is only on 80 mg BID and would likely need a higher dose. She was not able to tolerate amiodarone in the past due to allergy. Discussed options for management today, including medical therapy with either an increased dose of sotalol or an alternative agent or pulmonary vein isolation. I did inform her that she would likely require ablation and antiarrhythmic drug for maintenance of sinus rhythm. We discussed the risks of the procedure, including bleeding, damage to surrounding structures, cardiac perforation, esophageal injury, stroke, anesthesia complication, and recurrence. She would like to proceed with ablation. At that time, we can increase her sotalol to 120 mg, although her creatinine clearance is borderline given her obesity. I did emphasize the importance of treating sleep apnea if she is diagnosed with this. We also discussed lifestyle modifications such as weight loss for increasing her chances of maintaining sinus rhythm. She understands this, and would like to proceed with ablation. The chads 2 Vasc of 3 ( feel, hypertension, age) the and also with impaired glucose tolerance and 2 months until her 77th birthday. Therefore, she should remain on anticoagulation with Eliquis. She denies any bleeding problems with this. termite technician current use of anticoagulant therapy 1 Overview (11/21/2016): Chronic anticoagulation Impaired glucose tolerance 05/27/2016 Overview (11/21/2016): Glucose intolerance (impaired glucose tolerance) Drug allergy 05/27/2016 Overview (11/21/2016): Drug allergy Diastolic heart failure 05/27/2016 Overview (11/21/2016): Diastolic congestive heart failure, unspecified congestive heart failure chronicity Essential hypertension 05/27/2016 Overview (11/21/2016): Essential hypertension Obesity with body mass index 30 or greater 05/27 Overview (11/21/2016): Obesity (BMI 30-39.9) Assessment & Plan (09/11/2017 10:42 AM IN STORE MARKETING ASSOCIATE): She is making efforts at weight loss with diet restrictions. I encouraged her to continue this. There is evidence that patients who undergo PVI do better if they are able to lose and sustain weight loss. Social History Tobacco Use Types Packs/Day Years Used Date Smoking Tobacco: Former Smokeless Tobacco: Never Tobacco Cessation:Counseling Given: Not Answered Alcohol Use Standard Drinks/Week Comments No 0 (1 standard drink = 0.6 oz pur e alcohol) Comments No Sex and Gender Information Value Date Recorded Sex Assigned at Not on file Legal Sex Female 8:08 AM IN STORE MARKETING ASSOCIATE Gender Identity Not on file Sexual Orientation Not on file Occupation Industry Job Start Date Job End Date retired Not on file Not on file Not on file Last Filed Vital Signs Vital Sign Reading Time Taken Comments Blood Pressure 110/66 10/21/2023 12:16 PM IN STORE MARKETING ASSOCIATE Pulse 70 10/21/2023 12:16 PM IN STORE MARKETING ASSOCIATE Temperature 36.3 C (97.4 F) 12/03/2020 9:55 AM CDT Respiratory Rate 16 10/21/2023 12:16 PM IN STORE MARKETING ASSOCIATE Oxygen Saturation 90% 03/23/2023 10:28 AM CDT Inhaled Oxygen Concentration - - Weight 86.2 kg (190 lb) 10/21/2023 12:16 PM IN STORE MARKETING ASSOCIATE Verbal Height 160 cm (5' 3 ) 10/21/2023 12:16 PM IN STORE MARKETING ASSOCIATE Body Mass Index 33.66 10/21/2023 12:16 PM IN STORE MARKETING ASSOCIATE Plan of Treatment Not on file Insurance [facility] [place] [phone] [facility] [employer] [facility] [place] [address] Care Teams Mems Device Scientist Relationship Specialty Start Date End Date Moreno Ortiz MD PCP - General 08/06/17 Donald Self MD Surgeon General Surgery 05/07/20
--- OUTSIDE RECORDS SUMMARY | 2024-11-08 11:37 | XMS_ITS | Clinical Summary ---
Author Organization [facility] Address [address] [place] [id number] Care Team Providers Care Poultry Farm Worker Name Role Phone Moreno Ortiz MD Primary Care Provider [phone] Donald Self MD Unavailable [phone] Allergies Active Allergy Reactions Criticality Noted Date [...] (05/03/2020): Added automatically from request for surgery [id number] Chronic cholecystitis 05/03/2020 Aortic atherosclerosis 06/09/2019 Cardiomyopathy 06/09/2019 Gastro-esophageal reflux disease without esophag itis 06/09/2019 Morbid obesity 06/09/2019 Vitamin D deficiency 06/09/2019 Abnormal mammogram 06/09/2019 Non-rheumatic mitral regurgitation 09/11/2017 Assessment & Plan (09/11/2017 10:41 AM SALES AGENT FIN[employer]CIAL REPORT SERVICE): This was noted as possibly severe on [...] have resumed her beta-jareth and discontinued verapamil. care home current use of antiarrhythmic drug Assessment & [...] agents. Assessment & Plan (09/11/2017 10:41 AM SALES AGENT FINANCIAL REPORT SERVICE): She is doing well on sotalol 80 [...] PVI. Assessment & Plan (09/11/2017 10:39 AM SALES AGENT FINANCIAL REPORT SERVICE): She remains in sinus rhythm, now 1 [...] months. Assessment & Plan (07/17/2017 2:26 PM SALES AGENT FINANCIAL REPORT SERVICE): She has symptomatic persistent atrial fibrillation. She [...] She denies any bleeding problems with this. manager long term care current use of anticoagulant therapy 1 Overview [...] 30-39.9) Assessment & Plan (09/11/2017 10:42 AM SALES AGENT FINANCIAL REPORT SERVICE): She is making efforts at weight loss with diet restrictions. I encouraged her to continue this. There is evidence that patients who undergo PVI do better if they are able to lose and sustain weight loss. Surgical History Surgery Date Site/Laterality Comments TUBAL LIGATION KNEE SURGERY Bilateral ABLATION OF AFIB FLUTTER 08/12/2017 BUNIONECTOMY Right HEEL SPUR EXCISION Left Medical History Medical History Date Comments Hx Other Medical arthroscopic lin rgery right shoulder; Comments: [facility] 05/27/2016 - Hx Other Medical arthroscopic lin rgery left knee; Comments: [facility] 05/27/2016 - Atrial fibrillation (HCC) Hypertension Diastolic dysfunction CHF (congestive heart failure) (HCC) C. difficile diarrhea got after COVID Booster Covid-19 02/13/2022 Family History Medical History Relation Name Comments Other Brother 1 Diabetes Father Heart attack Father Other Father Diabetes Mother Heart failure Mother Stroke Mother Stroke; [facility] 06/2016 -Also had diabetes Relation Name Status Comments Brother 1 Brother 2 Alive Brother 3 Alive Brother 4 Alive Father Mother (Age 80) Sister Alive Social History Tobacco Use Types Packs/Day Years Used Date Smoking Tobacco: Former Smokeless Tobacco: Never Tobacco Cessation:Counseling Given: Not Answered Alcohol Use Standard Drinks/Week Comments No 0 (1 standard drink = 0.6 oz pur e alcohol) Comments No Sex and Gender Information Value Date Recorded Sex Assigned at Not on file Legal Sex Female 8:08 AM SALES AGENT FINANCIAL REPORT SERVICE Gender Identity Not on file Sexual Orientation Not on file Occupation Industry Job Start Date Job End Date retired Not on file Not on file Not on file Obstetrics History Last Filed Vital Signs Vital Sign Reading Time Taken Comments Blood Pressure 110/66 10/21/2023 12:16 PM SALES AGENT FINANCIAL REPORT SERVICE Pulse 70 10/21/2023 12:16 PM SALES AGENT FINANCIAL REPORT SERVICE Temperature 36.3 C (97.4 F) 12/03/2020 9:55 AM CDT Respiratory Rate 16 10/21/2023 12:16 PM SALES AGENT FIN[employer]CIAL REPORT SERVICE Oxygen Saturation 90% 03/23/2023 10:28 AM CDT Inhaled Oxygen Concentration - - Weight 86.2 kg (190 lb) 10/21/2023 12:16 PM SALES AGENT FINANCIAL REPORT SERVICE Verbal Height 160 cm (5' 3 ) 10/21/2023 12:16 PM SALES AGENT FINANCIAL REPORT SERVICE Body Mass Index 33.66 10/21/2023 12:16 PM SALES AGENT FIN[employer]CIAL REPORT SERVICE Plan of Treatment Health Maintenance Due Date Last Done Comments Depression Screening 1940 Osteoporosis Screening-Bone Density Scan 1942 DTaP/Tdap/Td Vaccine (1 - Tdap) 1953 Hepatitis B Screening 1960 Well Visit 65+ 2007 Pneumococcal vaccine 65+ (2 of 2 - PPSV23) 02/19/2016 02/18/2015 Zoster Vaccine (2 of 3) 10/09/2016 08/14/20 16, 09/06/2013, 04/22/2013 Fall Risk Assessment 05/07/2021 05/07/2020 Influenza Vaccine (#1) 2024 8, 05/18/2017, 06/24/2016, Additional history exists Insurance [facility] Member Subscriber Plan / Payer (Ef fective 2013-Present) Name:DULCE HAYNES Relation to Subscriber:Self Name:Dulce Haynes Payer ID:[id number] ([facility]) Type:MEDICARE RISK OTHER Address: [address] Member Subscriber Plan / Payer ( fective 2019-Present) Name:Dulce Haynes Relation to Subscriber:Self Name:Dulce Haynes Payer ID:[id number] ([facility]) Type:MEDICARE RISK OTHER Address: [address] [facility] Care Teams Poultry Farm Worker Relationship Specialty Start Date End Date Moreno Ortiz MD PCP - General 08/06/17 Donald Self MD Surgeon General Surgery 05/07/20
== END 2024-11-08 10:04 | disposition home or self-care (01) ==
LOC: ANHIMG 10:03
PROVIDERS: PCP Internal Medicine; Visit Provider Obstetrics & Gynecology
DX: Z12.31 Encounter for screening mammogram for malignant neoplasm of breast (principal)
CPT/HCPCS: 77063; 77067

== ENCOUNTER 2025-04-26 08:38 | Emergency (ER) | payer OTHER, SELFPAY ==
--- OUTSIDE RECORDS SUMMARY | 2025-04-19 02:35 | XMS_ITS | Continuity of Care Document ---
Author Organization [employer] Address [address] [place] [address] Phone Care Team Providers Care Head Miller Name Role Phone Moreno Ortiz MD Unavailable Unavailable Allergies, Adverse Reactions, Alerts Substance Reaction Status Criticality ARB-Angiotensin Receptor Antagonist Activ e No Information diltiazem Anaphylaxis(severe) Active No Infor mation amiodarone Anaphylaxis(severe) Active No Infor mation Procedures Procedure Date FALL RISK ASSESSMENT DOC'D PRES/ABSN URINE INCON ASSESS Pt inelig neg scrn depres OFFICE [id number] BODY MASS INDEX DOCD SYST BP LT 130 MM HG DIAST BP < 80 MM HG COMPREHEN METABOLIC PANEL [facility] 5 HEMOGLOBIN A1C HGA1C, GLYCO LIPID PANEL MICROALBUMIN, QN (URINE) CREATININE, (U-R) ROUTINE VENIPUNCTURE PPPS, subseq visit BODY MASS INDEX DOCD SYST BP LT 130 MM HG DIAST BP < 80 MM HG PPPS, subseq visit BODY MASS INDEX DOCD SYST BP LT 130 MM HG DIAST BP < 80 MM HG Pt inelig neg scrn depres COMPREHEN METABOLIC PANEL [facility] 4 HEMOGLOBIN A1C HGA1C, GLYCO LIPID PANEL MICROALBUMIN, QN (URINE) CREATININE, (U-R) ROUTINE VENIPUNCTURE OFFICE [id number] Visit Complexity Inherent To E/M 2023 BODY MASS INDEX DOCD SYST BP LT [...] neg scrn depres COMPREHEN METABOLIC PANEL CMP 3 HEMOGLOBIN A1C HGA1C, GLYCO LIPID PANEL MICROALBUMIN, QN (URINE) CREATININE, (U-R) ROUTINE VENIPUNCTURE OFFICE [id number] BODY MASS INDEX DOCD SYST BP GE 130 - 139MM HG DIAST BP < 80 MM HG FALL RISK ASSESSMENT DOC'D PRES/ABSN URINE INCON ASSESS PPPS, subseq visit BODY MASS INDEX DOCD SYST BP GE 130 - 139MM HG DIAST BP < 80 MM HG FALL RISK ASSESSMENT DOC'D PRES/ABSN URINE INCON ASSESS OFFICE [id number] BODY MASS INDEX DOCD SYST BP LT 130 MM HG DIAST BP < 80 MM HG FALL RISK ASSESSMENT DOC'D PRES/ABSN URINE INCON ASSESS COMPREHEN METABOLIC PANEL CMP HEMOGLOBIN A1C HGA1C, GLYCO LIPID PANEL MICROALBUMIN, QN (URINE) CREATININE, (U-R) ROUTINE VENIPUNCTURE OFFICE [id number] BODY MASS INDEX DOCD SYST BP GE 130 - 139MM HG DIAST BP < 80 MM HG DSCHRG MED/CURRENT MED MERGE Pt inelig neg scrn depres OFFICE [id number] BODY MASS INDEX DOCD SYST BP GE 130 - 139MM HG DIAST BP < 80 MM HG FALL RISK ASSESSMENT DOC'D PRES/ABSN URINE INCON ASSESS OFFICE [id number] BODY MASS INDEX DOCD SYST BP LT 130 MM HG DIAST BP 80-89 MM HG FALL RISK ASSESSMENT DOC'D PRES/ABSN URINE INCON ASSESS PPPS, subseq visit BODY MASS INDEX DOCD SYST BP LT 130 MM HG DIAST BP < 80 MM HG FALL RISK ASSESSMENT DOC'D PRES/ABSN URINE INCON ASSESS HEMOGLOBIN A1C HGA1C, GLYCO ROUTINE VENIPUNCTURE OFFICE [id number] BODY MASS INDEX DOCD SYST BP LT 130 MM HG DIAST BP < 80 MM HG FALL RISK ASSESSMENT DOC'D PRES/ABSN URINE INCON ASSESS Pt inelig neg scrn depres OFFICE [id number] BODY MASS INDEX DOCD SYST BP LT [...] PLAN DOC'D PRES/ABSN URINE INCON ASSESS OFFICE [id number] BODY MASS INDEX DOCD SYST BP LT 130 MM HG DIAST BP < 80 MM HG FALL PLAN OF CARE DOC'D URINE INCON PLAN DOC'D PRES/ABSN URINE INCON ASSESS Pt inelig neg scrn depres CBC, INC PLATELETS AND DIFFERENTIAL COMPREHEN METABOLIC PANEL CMP LIPID PANEL VITAMIN D, 25-HYDROXY ROUTINE VENIPUNCTURE HEMOGLOBIN A1C HGA1C, GLYCO OFFICE [id number] BODY MASS INDEX DOCD SYST BP GE 130 - 139MM HG DIAST BP < 80 MM HG FALL PLAN OF CARE DOC'D URINE INCON PLAN DOC'D PRES/ABSN URINE INCON ASSESS OFFICE [id number] BODY MASS INDEX DOCD SYST BP LT 130 MM HG DIAST BP < 80 MM HG Advance Directives Directive Yes / No Effective Date File Name No Information Encounters Encounter Description Practice Location Reason(s) For Visit Diagnoses Date Provider Providers Copied on Encounter [employer], [address], [place], [place], [address] , tel: [phone] [facility] No Information 5 Angel Mayer. [address] [place] [address], [facility] [address] , [place], [place], [address] , . tel: [phone] OFFICE ZUBQE-NWB-HEX FORTINO [employer], [address], [place], [place], [address] , tel: [phone] [facility] Chronic Conditions (chief complaint) Nausea and vomiting, unspecified vomiting typePain of right breastDouble visionType 2 diabetes mellitus with other specified complication 5 Angel Mayer. [address] [place] [address], [address], [place], [place], [address] , . tel: [phone] Referring Provider: Moreno Ortiz, [address] [place] [address] [address] , [place], [address] . tel:[phone] [facility], [address], [place], [place], [address] , tel: [phone] [facility] Medicare preventive (chief complaint)C hronic Conditions (chief complaint) Medicare annual wellness visit, subsequentType 2 diabetes mellitus with obesityObesity, unspecifiedChronic diastolic heart failureParoxysmal atrial fibrillationAortic atherosclerosisLung fibrosisGastroesoph ageal reflux disease, unspecified whether esophagitis presentBody mass index [BMI] 33.0-33.9, adult Oct- 5 Angel Mayer. [address] [place] [address], [address] , [place], [place], [address] , . tel: [phone] Referring Provider: Moreno Ortiz, [address] [place] [address] [address], [place], [address] . tel:[phone] [facility] [employer], [address], [place], [address] , tel: [phone] [facility] Medicare preventive (chief complaint)C hronic Conditions (chief complaint) Medicare annual wellness visit, subsequentType 2 diabetes mellitus with obesityObesity, unspecifiedParoxysm al atrial fibrillation Sep- 4 Angel Mayer. [address] [place] [address], [address] , [place], [address] , . tel: [phone] Referring Provider: Moreno Ortiz, [address] [place] [address] [address] , [place], [address] . tel:[phone] [employer], [address], [place], [place], [address] , tel: [phone] [facility] No Information Apr-0 4 Angel Mayer. [address] [place] [address], [address] , [place], [place], [address] , . tel: [phone] [facility] [employer], [address], [place], [address] , tel: [phone] [facility] No Information 4 Angel Mayer. [address] [place] [address], [address] , [place], [address] , . tel: [phone] OFFICE PFLPH-VXL-HCM FORTINO [facility] [employer] [facility], [address], [place], [address] , tel: [phone] [facility] Chronic Conditions (chief complaint) Morbid obesityPrimary hypertensionAortic atherosclerosisChro luis fernando diastolic heart failureControlled type 2 diabetes mellitus with complication, without long-term current use of insulinParoxysmal atrial fibrillationLung fibrosisPrimary osteoarthritis involving multiple jointsBody mass index [BMI] 35.0-35.9, adult Mar-2 - 4 Angel Mayer. [address] [place] [address], [address], [place], [address] , . tel: [phone] Referring Provider: Moreno Ortiz, [address] [place] [address] [address], [place], [address] . tel:[phone] [facility], [address], [place], [place], [address] , tel: [phone] [facility] PalpitationsParoxys mal atrial fibrillation 4 Angel Mayer. [address] [place] [address], [address], [place], [place], [address] , . tel: [phone] TELEPHONE E&M SERVICE BY A PHYSICIAN;5-1 0 MINUTES OF MEDICAL DISCUSSION [facility], [address], [place], [place], [address] , tel: [phone] [facility] Paroxysmal atrial fibrillationPalpita tions 4 Angel Mayer. [address] [place] [address], [address] , [place], [place], [address] , . tel: [phone] Referring Provider: Moreno Ortiz, [address] [place] [address] [address], [place], [address] . tel:[phone] [facility] [employer] [facility], [address], [place], [address] , tel: [phone] [facility] No Information 3 Angel Mayer. [address] [place] [address], [address] , [place], [address] , . tel: [phone] TELEPHONE E&M SERVICE BY A PHYSICIAN;5-1 0 MINUTES OF MEDICAL DISCUSSION [facility] [address], [place], [place], [address] , tel: [phone] [facility] Cough, unspecified 3 Angel Mayer. [address] [place] [address], [address] , [place], [address] , . tel: [phone] Referring Provider: Moreno Ortiz, [address] [place] [address] [address], [place], [address] . tel:[phone] [facility], [address], [place], [address] , tel: [phone] [facility] Medicare preventive (chief complaint)C hronic Conditions (chief complaint) Atypical chest painLung fibrosisUrinary frequencyMedicare annual wellness visit, subsequentSubconjun ctival hemorrhage of left eye 3 Angel Mayer. [address] [place] [address], [address] , [place], [address] [place] [address] , . tel: [phone] Referring Provider: Moreno Ortiz, [address] [place] [address] [address] , [place], [address] [place] [address] . tel:[phone] [employer], [address], [place], [place], [address] , tel: [phone] [facility] No Information 3 Gerardo Bains. [address] [place] [address], [address] , [place], [address] [place] [address] , . tel: [phone] [facility] [employer] [facility], [address], [place], [address] , tel: [phone] [facility] Paroxysmal atrial fibrillation 3 Angel Mayer. [address] [place] [address], [address] , [place], [address] [place] [address] , . tel: [phone] Referring Provider: Moreno Ortiz, [address] [place] [address] [address] , [place], [address] [place] [address] . tel:[phone] [facility]- First 7 Days Of Discharge [facility] [employer], [address], [place], [place], [address] , tel: [phone] [facility] Chronic Conditions (chief complaint) Paroxysmal atrial fibrillationBody mass index [BMI] 35.0-35.9, adult 3 Angel Mayer. [address] [place] [address], [address] , [place], [place], [address] , . tel: [phone] Referring Provider: Moreno Ortiz, [address] [place] [address] [address] , [place], [address] [place] [address] . tel:[phone] OFFICE ESHEJ-ACE-GYG FORTINO [facility] [employer] [facility], [address], [place], [address] , [place] tel: [phone] [facility] Chronic Conditions (chief complaint) Morbid obesityDiabetes mellitus type 2 in obeseAortic atherosclerosisChro luis fernando diastolic heart failureParoxysmal atrial fibrillationOSA (obstructive sleep apnea)Primary hypertensionGastroe sophageal reflux disease, unspecified whether esophagitis present 3 Angel Mayer. [address] [place] [address], [address] , [place], [address] [place] [address] , . tel: [phone] Referring Provider: Moreno Ortiz, [address] [place] [address] [address], [place], [address] [place] [address] . tel:[phone] [facility] [employer] [facility], [address], [place], [address] , tel: [phone] [facility] Carotid bruit, unspecified laterality 2 Angel Mayer. [address] [place] [address], [address] , [place], [address] [place] [address] , . tel: [phone] [facility] [employer] [facility], [address], [place], [address] , tel: [phone] [facility] Other specified symptoms and signs involving the circulatory and respiratory systems 2 Angel Mayer. [address] [place] [address], [address] , [place], [address] , . tel: [phone] [facility], [address], [place], [address] , tel: [phone] [facility] Paroxysmal atrial fibrillationAtheros clerosis of aorta 2 Angel Mayer. [address] [place] [address], [address], [place], [place], [address] , . tel: [phone] [facility] [employer], [address], [place], [address] , tel: [phone] [facility] Type 2 diabetes mellitus with other specified complication 2 Angel Mayer. [address] [place] [address], [address], [place], [place], [address] , . tel: [phone] [employer], [address], [place], [address] , [place] tel: [phone] [facility] Medicare preventive (chief complaint)C hronic Conditions (chief complaint) Medicare annual wellness visit, subsequentPrimary osteoarthritis involving multiple jointsGastroesophag eal reflux disease, unspecified whether esophagitis presentBody mass index [BMI] 36.0-36.9, adult 2 Angel Mayer. [address] [place] [address], [address] , [place], [place], [address] , . tel: [phone] Referring Provider: Moreno Ortiz [address] [place] [address] [address], [place], [address] . tel:[phone] OFFICE TCRIF-WWH-YKJ ANDED [facility] [employer] [facility], [address], [place], [address] , tel: [phone] [facility] acute problem (chief complaint) Acute bronchitis, unspecified organism 2 Angel Mayer. [address] [place] [address], [address] , [place], [address] , . tel: [phone] Referring Provider: Moreno Ortiz [address] [place] [address] [address] , [place], [address] . tel:[phone] OFFICE HEZEU-KWC-SPS FORTINO [facility], [address], [place], [address] , tel: [phone] [facility] Chronic Conditions (chief complaint) Diabetes mellitus type 2 in obeseMorbid obesityAortic atherosclerosisOSA (obstructive sleep apnea)Chronic diastolic heart failureParoxysmal atrial fibrillationChronic bilateral low back pain without sciaticaC. difficile colitis 2 Angel Mayer. [address] [place] [address], [address] , [place], [place], [address] , . tel: [phone] Referring Provider: Moreno Ortiz [address] [place] [address] [address], [place], [address] . tel:[phone] [facility] [employer], [address], [place], [address] , tel: [phone] [facility] No Information 2 Angel Mayer. [address] [place] [address], [address] , [place], [place], [address] , . tel: [phone] Referring Provider: Moreno Ortiz, [address] [place] [address] [address], [place], [address] . tel:[phone] OFFICE PLAAN-SEZ-GSL ANDED [facility] [employer] [facility], [address], [place], [address] , tel: [phone] [facility] Chronic Conditions (chief complaint) Obesity (BMI 30-39.9)Vitamin B12 deficiencyBody mass index [BMI] 37.0-37.9, adult Dec- 1 Angel Mayer. [address] [place] [address], [address], [place], [place], [address] , . tel: [phone] Referring Provider: Moreno Ortiz, [address] [place] [address] [address], [place], [address] . tel:[phone] [facility] [employer], [address], [place], [address] , tel: [phone] [facility] No Information 1 Angel Mayer. [address] [place] [address], [address] , [place], [place], [address] , . tel: [phone] OFFICE SHXKZ-XQS-QSG ANDED [facility], [address], [place], [address] , tel: [phone] [facility] Chronic Conditions (chief complaint) Cough Apr- 1 Angel Mayer. [address] [place] [address], [address] , [place], [place], [address] , . tel: [phone] Referring Provider: Moreno Ortiz [address] [place] [address] [address], [place], [address] . tel:[phone] [facility] [employer], [address], [place], [address] , tel: [phone] [facility] Medicare preventive (chief complaint)C hronic Conditions (chief complaint) Medicare annual wellness visit, subsequentDiabetes mellitus type 2 in obeseObesity, unspecifiedDermatit isChronic cough 1 Angel Mayer. [address] [place] [address], [address] , [place], [place], [address] , . tel: [phone] Referring Provider: Moreno Ortiz, [address] [place] [address] [address], [place], [address] . tel:[phone] [facility], [address], [place], [place], [address] , tel: [phone] [facility] Yeast infection of the vagina 1 Angel Mayer. [address] [place] [address], [address], [place], [address] , . tel: [phone] OFFICE HPVNP-OBO-MMV [facility], [address], [place], [place], [address] , tel: [phone] [facility] Chronic Conditions (chief complaint) Chronic diastolic heart failureParoxysmal atrial fibrillationDiabete s mellitus type 2 in obeseMorbid obesityEssential hypertensionAortic atherosclerosisScia angelica of left sideCervical radiculopathy 1 Angel Mayer. [address] [place] [address], [address], [place], [address] , . tel: [phone] Referring Provider: Moreno Ortiz, [address] [place] [address] [address], [place], [address] . tel:[phone] [facility], [address], [place], [place], [address] , tel: [phone] [facility] Type 2 diabetes mellitus with other specified complication 1 Angel Mayer. [address] [place] [address], [address], [place], [place], [address] , . tel: [phone] OFFICE PMCQD-ZFN-AFN [facility], [address], [place], [address] , tel: [phone] [facility] Chronic Conditions (chief complaint) Lower abdominal painHemorrhage of varicose veins of left lower extremityDiabetes mellitus type 2 in obeseObesity, unspecified 0 Angel Mayer. [address] [place] [address], [address], [place], [place], [address] , . tel: [phone] Referring Provider: Moreno Ortiz, [address] [place] [address] [address], [place], [address] . tel:[phone] [facility], [address], [place], [address] , [place] tel: [phone] [facility] Encounter for gynecological examination (general) (routine) with abnormal findings May- 0 Angel Mayer. [address] [place] [address], [address], [place], [place], [address] , [place]. tel: [phone] [facility], [address], [place], [address] , [place] tel: [phone] [facility] Encounter for well woman exam with abnormal findings May- 0 Angel Mayer. [address] [place] [address], [address], [place], [address] , [place]. tel: [phone] [facility], [address], [place], [address] , [place] tel: [phone] [facility] Atherosclerosis of aorta Apr- 0 Angel Mayer. [address] [place] [address], [address], [place], [address] , [place]. tel: [phone] [facility], [address], [place], [address] , [place] tel: [phone] [facility] Gallstones Apr- 0 Angel Mayer. [address] [place] [address], [address], [place], [address] , [place]. tel: [phone] [facility], [address], [place], [place], [address] , [place] tel: [phone] [facility] Abdominal pain, unspecified abdominal location Sep-0 0 Angel Mayer. [address] [place] [address], [address], [place], [address] , [place]. tel: [phone] [facility], [address], [place], [address] , [place] tel: [phone] [facility] No Information Mar- 0 Angel Mayer. [address] [place] [address], [address], [place], [address] , [place]. tel: [phone] [facility], [address], [place], [address] , tel: [phone] [facility] Unspecified lump in the left breast, unspecified quadrantOther abnormal and inconclusive findings on diagnostic imaging of breast 0 Angel Mayer. [address] [place] [address], [address] , [place], [place], [address] , . tel: [phone] [facility], [address], [place], [place], [address] , tel: [phone] [facility] Medicare preventive (chief complaint)C hronic Conditions (chief complaint) Medicare annual wellness visit, subsequentMorbid obesityChronic diastolic heart failureAortic atherosclerosisPrim augusta osteoarthritis involving multiple jointsOSA (obstructive sleep apnea)Paroxysmal atrial fibrillationRash 0 Angel Mayer. [address] [place] [address], [address] [place], [place], [address] , . tel: [phone] Referring Provider: Moreno Ortiz, [address] [place] [address] [address] , [place], [address] [place] [address] . tel:[phone] OFFICE YLQFL-HYM-MLI FORTINO [facility] [employer] [facility], [address], [place], [address] , tel: [phone] [facility] Chronic Conditions (chief complaint) Morbid obesityEssential hypertensionAortic atherosclerosisPrim augusta osteoarthritis involving multiple jointsParoxysmal atrial fibrillationPurpura 0 Angel Mayer. [address] [place] [address], [address] [place], [place], [address] , . tel: [phone] Referring Provider: Moreno Ortiz [address] [place] [address] [address] , [place], [address] . tel:[phone] [facility], [address], [place], [place], [address] , tel: [phone] [facility] Unilateral primary osteoarthritis, left kneeOther meniscus derangements, unspecified lateral meniscus, left knee 9 Angel Mayer. [address] [place] [address], [address] , [place], [place], [address] , . tel: [phone] [employer], [address], [place], [address] , [place] tel: [phone] [facility] Left knee pain, unspecified chronicity 9 Angel Mayer. [address] [place] [address], [address], [place], [place], [address] , . tel: [phone] [facility] [employer], [address], [place], [address] , tel: [phone] [facility] No Information 9 Angel Mayer. [address] [place] [address], [address], [place], [address] , [place]. tel: [phone] OFFICE TFXFB-UGP-DOQ FORTINO [employer], [address], [place], [address] , tel: [phone] [facility] Chronic Conditions (chief complaint) Body mass index (BMI) 37.0-37.9, adultEssential hypertensionParoxys mal atrial fibrillationAortic atherosclerosisCard iomyopathy, unspecified typeMorbid obesityVitamin D deficiencyOSA (obstructive sleep apnea)Lichen sclerosus of female genitaliaElevated glucose 9 Gerardo Bains. [address] [place] [address], [address], [place], [place], [address] , . tel: [phone] Referring Provider: Moreno Ortiz, [address] [place] [address] [address], [place], [address] . tel:[phone] [facility] [employer], [address], [place], [address] , [place] tel: [phone] [facility] Encounter for gynecological examination (general) (routine) without abnormal findings 9 Angel Mayer. [address] [place] [address], [address], [place], [address] , [place]. tel: [phone] [facility] [employer], [address], [place], [address] , tel: [phone] [facility] Lumbago with sciatica, left side 9 Angel Mayer. [address] [place] [address], [address], [place], [place], [address] , . tel: [phone] [facility] [employer], [address], [place], [address] , [place] tel: [phone] [facility] Chronic left-sided low back pain with left-sided sciaticaOther chronic pain 9 Angel Mayer. [address] [place] [address], [address], [place], [address] , . tel: [phone] OFFICE ZSLGH-XDY-FJL ANDED [employer], [address], [place], [address] , [place] tel: [phone] [facility] Chronic Conditions (chief complaint) Chronic left-sided low back pain with left-sided sciaticaParoxysmal atrial fibrillation 9 Angel Mayer. [address] [place] [address], [facility] [address], [place], [place], [address] , . tel: [phone] Referring Provider: Moreno Ortiz, [address] [place] [address] [address] , [place], [address] . tel:[phone] [facility] [employer], [address], [place], [address] , tel: [phone] [facility] Sciatica of right side 9 Angel Mayer. [address] [place] [address], [address] , [place], [place], [address] , . tel: [phone] [facility], [address], [place], [address] , tel: [phone] [facility] Paroxysmal atrial fibrillation 9 Angel Mayer. [address] [place] [address], [address], [place], [place], [address] , [place]. tel: [phone] [employer], [address], [place], [place], [address] , tel: [phone] [facility] Encounter for gynecological examination (general) (routine) without abnormal findings 9 Angel Mayer. [address] [place] [address], [address], [place], [place], [address] , . tel: [phone] [employer], [address], [place], [place], [address] , tel: [phone] [facility] Chronic Conditions (chief complaint) Dilated cardiomyopathyParox ysmal atrial fibrillationAortic atherosclerosisGast roesophageal reflux disease, esophagitis presence not specifiedMorbid obesityOSA (obstructive sleep apnea)Body mass index (BMI) 37.0-37.9, adult 9 Angel Mayer. [address] [place] [address], [address] [place], [place], [address] [place] [address] , . tel: [phone] Referring Provider: Moreno Ortiz, [address] [place] [address] [address], [place], [place], [address] [place] [address] . tel:[phone] [employer], [address], [place], [place], [address] , tel: [phone] [facility] Paroxysmal atrial fibrillation 8 Angel Mayer. [address] [place] [address], [address] [place], [place], [address] [place] [address] , . tel: [phone] [employer], [address], [place], [place], [address] , tel: [phone] [facility] Body mass index (BMI) 38.0-38.9, adultParoxysmal atrial fibrillationDilated cardiomyopathyAorti c atherosclerosis 8 Angel Mayer. [address] [place] [address], [address] [place], [place], [address] , . tel: [phone] Referring Provider: Moreno Ortiz, [address] [place] [address] [address] , [place], [address] [place] [address] . tel:[phone] [employer], [address], [place], [address] , tel: [phone] [facility] Morbid obesityParoxysmal atrial fibrillationDilated cardiomyopathyAorti c atherosclerosis 8 Angel Mayer. [address] [place] [address], [address] , [place], [place], [address] , . tel:[phone] Referring Provider: Moreno Ortiz [address] [place] [address] [address] , [place], [address] . tel:[phone] [employer], [address], [place], [place], [address] , tel: [phone] [facility] Paroxysmal atrial fibrillation 8 Angel Mayer. [address] [place] [address], [address], [place], [place], [address] , . tel: [phone] [facility] [employer], [address], [place], [place], [address] , tel: [phone] [facility] ER f/u for bronchitis (chief complaint) Acute bronchitis, unspecified organism 8 Angel Mayer. [address] [place] [address], [address], [place], [place], [address] , . tel: [phone] Referring Provider: Moreno Ortiz, [address] [place] [address] [address], [place], [address] . tel:[phone] [employer], [address], [place], [place], [address] , tel: [phone] [facility] Essential (primary) hypertension 8 Angel Mayer. [address] [place] [address], [address], [place], [place], [address] , . tel: [phone] [employer], [address], [place], [address] , tel: [phone] [facility] FRANTZ (obstructive sleep apnea)Aortic atherosclerosisCard iomyopathy, unspecified typeParoxysmal atrial fibrillationEssenti al hypertensionGastroe sophageal reflux disease without esophagitisMorbid obesityVitamin D deficiency 8 Gerardo Bains. [address] [place] [address], [address], [place], [place], [address] , . tel: [phone] Referring Provider: Moreno Ortiz [address] [place] [address] [address], [place], [address] . tel:[phone] [employer], [address], [place], [place], [address] , tel: [phone] [facility] Paroxysmal atrial fibrillation 8 Angel Mayer. [address] [place] [address], [address], [place], [place], [address] , [place]. tel: [phone] [employer], [address], [place], [address] , [place] tel: [phone] [facility] Essential (primary) hypertension 8 Angel Mayer. [address] [place] [address], [address], [place], [address] , [place]. tel: [phone] [employer], [address], [place], [address] , [place] tel: [phone] [facility] Paroxysmal atrial fibrillation 7 Angel Mayer. [address] [place] [address], [address], [place], [address] , [place]. tel: [phone] [employer], [address], [place], [place], [address] , tel: [phone] [facility] Paroxysmal atrial fibrillation 7 Angel Mayer. [address] [place] [address], [address], [place], [place], [address] , . tel: [phone] [employer], [address], [place], [place], [address] , [place] tel: [phone] [facility] Paroxysmal atrial fibrillation 7 Angel Mayer. [address] [place] [address], [address], [place], [address] , [place]. tel: [phone] [employer], [address], [place], [address] , [place] tel: [phone] [facility] Aortic atherosclerosisParo xysmal atrial fibrillationMorbid obesitySnoringFatig ue, unspecified type 7 [place] Mc. [id number] [place] [address], [address], [place], [place], [address] . tel: [phone] Referring Provider: Moreno Ortiz, [address] [place] [address] [address], [place], [address] . tel:[phone] [employer], [address], [place], [address] , [place] tel: [phone] [facility] Paroxysmal atrial fibrillation 7 Angel Mayer. [address] [place] [address], [address], [place], [place], [address] , . tel: [phone] [facility], [address], [place], [place], [address] , tel: [phone] [facility] Paroxysmal atrial fibrillation 7 Angel Mayer. [address] [place] [address], [facility] [address] , [place], [place], [address] , . tel: [phone] [facility], [address], [place], [place], [address] , tel: [phone] [facility] Paroxysmal atrial fibrillation May- 7 Angel Mayer. [address] [place] [address], [facility] [address], [place], [place], [address] , . tel: [phone] [facility], [address], [place], [place], [address] , tel: [phone] [facility] Essential hypertensionChronic diastolic heart failureParoxysmal atrial fibrillationAortic atherosclerosisAbno rmal mammogramMammograph ic microcalcification found on diagnostic imaging of breast May- 7 Angel Mayer. [address] [place] [address], [facility] [address] , [place], [place], [address] , . tel: [phone] Referring Provider: Moreno Ortiz, [address] [place] [address] [address] , [place], [address] . tel:[phone] [facility] [address], [place], [place], [address] , tel: [phone] [facility] Paroxysmal atrial fibrillationEssenti al hypertensionGastroe sophageal reflux disease without esophagitisVitamin D deficiencyScreening for cholesterol level 7 Nj Mc. [address] [place] [address], [address], [place], [place], [address] . tel: [phone] Referring Provider: Moreno Ortiz, [address] [place] [address] [address], [place], [address] . tel:[phone] Family History Family Member Type Diagnosis Age [...] r Provider Pneumococcal conjugate PCV20 , polysaccharide [id number] conjugate, adjuvant, PF administered Source: Other Provid [...] Pneumococcal conjugate PCV 13 administere d Note: alex. ; Source: Other Provider Flublok, quadrivalent, preservative free, 0.5mL dosage administered Source: Source Unspecified Flublok, quadrivalent, preservative free, 0.5mL dosage administered Source: Source Unspecified Fluzone High-Dose 5130-0832, high dose, preservative free administered Source: Carmela rce Unspecified Pneumococcal conjugate PCV 13 administere d Source: Other Provider pneumococcal polysaccharide vaccine, 23 valent administered Source: Other Provid er Zoster administered Source: Other P nathanielder Payers Payer name Insurance type Covered libertarian ID enid trinidad(s) [employer] [id number] Social History Type Description Quantity Date Captured Comments Sex Female Smoking Status No Information Chief Complaint And Reason For Visit No [...] guidance, and counseling completed Referral Referred To: Faizan Lau [address] [place], [phone] Ordered: Referrals: Retail [employer]. Faizan Lau. Evaluation/diagnostic/treatment - Level 3 Appointment date/timeframe: 02/09/2025 ordered Referral Referred To: Sinan Morrell [address] [place], [place], [phone] Ordered: Referrals: Cardiology. Sinan Morrell. Evaluation/diagnostic/treatment - Level 3 Appointment date/timeframe: 09/02/2023 ordered Referral [place]: [place] [address] [place]
[address] [place], [phone] Ordered: Referrals: Cardiology. Chago Lopez MD. Evaluation/diagnostic/treatment - Level 3 Appointment date/timeframe: 08/20/2022 ordered Referral Referred To: Chago Lopez [address] [place]
[address] [place], [phone] Ordered: Referrals: Cardiology. Chago Lopez. Evaluation/diagnostic/treatment - Level 3 Appointment date/timeframe: 07/21/2022 ordered Referral Referred To: Mary Solorio [address] [place], [phone] Ordered: Referrals: Retail Marketing Executive. Mary Solorio. Evaluation/diagnostic/treatment - Level 3 Appointment date/timeframe: 06/02/2022 ordered Referral Referred To: Tari Duval MD Ordered: Referrals: Surgery. Tari Duval MD. Evaluation/diagnostic/treatment - Level 3 Appointment date/timeframe: 04/15/2022 ordered Referral Referred To: Diane Reed [address] [facility], [phone] Ordered: Referrals: Retail Marketing Executive. Diane Reed. Evaluation/diagnostic/treatment - Level 3 Appointment date/timeframe: 08/30/2020 ordered Referral Referred To: Donald Self [address] [place], [phone] Ordered: Referrals: Surgery. Donald Self. Evaluation/diagnostic/treatment - Level 3 Appointment date/timeframe: 06/06/2020 ordered Referral Referred To: Damir Fay MD Ordered: Referrals: Obstetrics and Gynecology. Damir Fay MD. Evaluation/diagnostic/treatment - Level 3 ordered Referral Referred To: Physical Therapy Ordered: Referrals: Physical Therapy. Location: [facility]. Evaluation/diagnostic/treatment - Level 3 Appointment date/timeframe: 07/18/2019 ordered Referral [place] [address] [facility]
[address] [place], [phone] Ordered: Referrals: Orthopedic Surgery. Jared Rivera MD. Evaluation/diagnostic/treatment - Level 3 Appointment date/timeframe: 06/09/2019 ordered Referral Referred To: Damir Kemp MD Ordered: Referrals: Obstetrics and Gynecology. Damir Kemp MD. Evaluation/diagnostic/treatment - Level 3 ordered Referral Referred To: MD Oskar Torres [address] [place], [phone] Ordered: Referrals: Anesthesiology. MD Oskar Torres. Evaluation/diagnostic/treatment - Level 3 ordered Referral Referred To: Moreno Gallardo Ordered: Referrals: Chiropractor. Moreno Gallardo. Evaluation/diagnostic/treatment - Level 3 ordered Referral Referred To: Any Gupta Ordered: Referrals: Cardiovascular Disease. Any Gputa. Evaluation/diagnostic/treatment - Level 3 ordered Appointment Dulce Gibbons BOOKED Future Order: Radiology Order MR I cervical spine wo contrast ([id number]), Sent on: Sent History Of Present Illness Encounter Date Complaint History Of Prese nt Illness Chronic Conditions *See Chronic Conditions HPI Chronic Conditions *See Chronic Conditions HPI Medicare [...] alcohol use. Chronic Conditions *See Chronic Conditions HPI Chronic Conditions *See Chronic Conditions [facility] Medicare preventive The patient has not felt [...] tobacco user. Chronic Conditions *See Chronic Conditions [facility] Chronic Conditions *See Chronic Conditions [facility] Chronic Conditions *See Chronic Conditions HPI Medicare [...] tobacco user. Chronic Conditions *See Chronic Conditions [facility] acute problem Here with one we ek of severe cough, wheezing and shortness of breath, no fever, similar episode last year. Chronic Conditions *See Chronic Conditions [facility] Chronic Conditions *See Chronic Conditions [facility] Chronic Conditions *See Chronic Conditions [facility] Medicare preventive The patient has not felt [...] tobacco user. Chronic Conditions *See Chronic Conditions [facility] Chronic Conditions *See Chronic Conditions [facility] Chronic Conditions *See Chronic Conditions [facility] Chronic Conditions *See Chronic Conditions [facility] Medicare preventive The patient has not felt [...] No Information Instructions Date Instruction Additional Infor mation See ophtho. Related to Doubl e vision STOP Ozempic and rogelio l if not resolved. Related to Nausea and vomiting, unspecified vomiting type No good options. Related to Pain of right breast Disease process Continue current med ications for [...] Elevated glucose Follow plan of care per equipment service associate. 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
--- OUTSIDE RECORDS SUMMARY | 2025-04-19 02:35 | XMS_ITS | Continuity of Care Document ---
Author Organization [employer] Address [address] [place] [address] Phone Care Team Providers Care Dock Coordinator Name Role Phone Moreno Ortiz MD Unavailable Unavailable Allergies, Adverse Reactions, Alerts Substance Reaction Status Criticality ARB-Angiotensin Receptor Antagonist Activ e No Information diltiazem Anaphylaxis(severe) Active No Infor mation amiodarone Anaphylaxis(severe) Active No Infor mation Procedures Procedure Date FALL RISK ASSESSMENT DOC'D PRES/ABSN URINE INCON ASSESS Pt inelig neg scrn depres OFFICE [id number]-[id number] BODY MASS INDEX DOCD SYST BP LT 130 MM HG DIAST BP < 80 MM HG COMPREHEN METABOLIC PANEL [facility] 5 HEMOGLOBIN A1C HGA1C, GLYCO LIPID PANEL MICROALBUMIN, QN (URINE) CREATININE, (U-R) ROUTINE VENIPUNCTURE PPPS, subseq visit BODY MASS INDEX DOCD SYST BP LT 130 MM HG DIAST BP < 80 MM HG PPPS, subseq visit BODY MASS INDEX DOCD SYST BP LT 130 MM HG DIAST BP < 80 MM HG Pt inelig neg scrn depres COMPREHEN METABOLIC PANEL [facility] 4 HEMOGLOBIN A1C HGA1C, GLYCO LIPID PANEL MICROALBUMIN, QN (URINE) CREATININE, (U-R) ROUTINE VENIPUNCTURE OFFICE [id number] Visit Complexity Inherent To E/M 2023 BODY [...] QN (URINE) CREATININE, (U-R) ROUTINE VENIPUNCTURE OFFICE [id number]-[id number]-[id number] BODY MASS INDEX DOCD SYST BP GE 130 - 139MM HG DIAST BP < 80 MM HG FALL RISK ASSESSMENT DOC'D PRES/ABSN URINE INCON ASSESS PPPS, subseq visit BODY MASS INDEX DOCD SYST BP GE 130 - 139MM HG DIAST BP < 80 MM HG FALL RISK ASSESSMENT DOC'D PRES/ABSN URINE INCON ASSESS OFFICE [id number]-[id number]-[id number] BODY MASS INDEX DOCD SYST BP LT 130 MM HG DIAST BP < 80 MM HG FALL RISK ASSESSMENT DOC'D PRES/ABSN URINE INCON ASSESS COMPREHEN METABOLIC PANEL CMP HEMOGLOBIN A1C HGA1C, GLYCO LIPID PANEL MICROALBUMIN, QN (URINE) CREATININE, (U-R) ROUTINE VENIPUNCTURE OFFICE [id number] BODY MASS INDEX DOCD SYST BP GE 130 - 139MM HG DIAST BP < 80 MM HG DSCHRG MED/CURRENT MED MERGE Pt inelig neg scrn depres OFFICE [id number]-[id number] BODY MASS INDEX DOCD SYST BP GE 130 - 139MM HG DIAST BP < 80 MM HG FALL RISK ASSESSMENT DOC'D PRES/ABSN URINE INCON ASSESS OFFICE DLPKE-KES-WJNIWGNS BODY MASS INDEX DOCD SYST BP LT 130 MM HG DIAST BP 80-89 MM HG FALL RISK ASSESSMENT DOC'D PRES/ABSN URINE INCON ASSESS PPPS, subseq visit BODY MASS INDEX DOCD SYST BP LT 130 MM HG DIAST BP < 80 MM HG FALL RISK ASSESSMENT DOC'D PRES/ABSN URINE INCON ASSESS HEMOGLOBIN A1C HGA1C, GLYCO ROUTINE VENIPUNCTURE OFFICE [id number] BODY MASS INDEX DOCD SYST BP LT 130 MM HG DIAST BP < 80 MM HG FALL RISK ASSESSMENT DOC'D PRES/ABSN URINE INCON ASSESS Pt inelig neg scrn depres OFFICE [id number]-PQC-[id number] BODY MASS INDEX DOCD SYST BP LT [...] PLAN DOC'D PRES/ABSN URINE INCON ASSESS OFFICE IHUHN-OCT-EPFUFSGH BODY MASS INDEX DOCD SYST BP LT 130 MM HG DIAST BP < 80 MM HG FALL PLAN OF CARE DOC'D URINE INCON PLAN DOC'D PRES/ABSN URINE INCON ASSESS Pt inelig neg scrn depres CBC, INC PLATELETS AND DIFFERENTIAL COMPREHEN METABOLIC PANEL CMP LIPID PANEL VITAMIN D, 25-HYDROXY ROUTINE VENIPUNCTURE HEMOGLOBIN A1C HGA1C, GLYCO OFFICE GADVO-LAX-SNPSERNT BODY MASS INDEX DOCD SYST BP GE 130 - 139MM HG DIAST BP < 80 MM HG FALL PLAN OF CARE DOC'D URINE INCON PLAN DOC'D PRES/ABSN URINE INCON ASSESS OFFICE [id number]-[id number] BODY MASS INDEX DOCD SYST BP LT 130 MM HG DIAST BP < 80 MM HG Advance Directives Directive Yes / No Effective Date File Name No Information Encounters Encounter Description Practice Location Reason(s) For Visit Diagnoses Date Provider Providers Copied on Encounter [employer], [address], [place], [place], [address] , tel: [phone] [facility] No Information 5 Angel Mayer. [address] [place] [address], [facility] [address] , [place], [place], [address] , . tel: [phone] OFFICE BNNRY-PTN-KHJ FORTINO [employer], [address], [place], [place], [address] , tel: [phone] [facility] Chronic Conditions (chief complaint) Nausea and vomiting, unspecified vomiting typePain of right breastDouble visionType 2 diabetes mellitus with other specified complication 5 Angel Mayer. [address] [place] [address], [address], [place], [place], [address] , . tel: [phone] Referring Provider: Moreno Ortiz, [address] [place] [address] [address] , [place], [address] . tel:[phone] [facility], [address], [place], [place], [address] , tel: [phone] [facility] Medicare preventive (chief complaint)C hronic Conditions (chief complaint) Medicare annual wellness visit, subsequentType 2 diabetes mellitus with obesityObesity, unspecifiedChronic diastolic heart failureParoxysmal atrial fibrillationAortic atherosclerosisLung fibrosisGastroesoph ageal reflux disease, unspecified whether esophagitis presentBody mass index [BMI] 33.0-33.9, adult Oct- 5 Angel Mayer. [address] [place] [address], [address] , [place], [place], [address] , . tel: [phone] Referring Provider: Moreno Ortiz, [address] [place] [address] [address], [place], [address] . tel:[phone] [facility], [address], [place], [place], [address] , tel: [phone] [facility] Medicare preventive (chief complaint)C hronic Conditions (chief complaint) Medicare annual wellness visit, subsequentType 2 diabetes mellitus with obesityObesity, unspecifiedParoxysm al atrial fibrillation Sep- 4 Angel Mayer. [address] [place] [address], [address] , [place], [place], [address] , . tel: [phone] Referring Provider: Moreno Ortiz, [address] [place] [address] [address] , [place], [address] . tel:[phone] [facility], [address], [place], [place], [address] , tel: [phone] [facility] No Information Apr-0 4 Angel Mayer. [address] [place] [address], [address] , [place], [place], [address] , . tel: [phone] [facility], [address], [place], [place], [address] , tel: [phone] [facility] No Information 4 Angel Mayer. [address] [place] [address], [address] , [place], [place], [address] , . tel: [phone] OFFICE OKPZE-WYS-DGN FORTINO [employer], [address], [place], [place], [address] , tel: [phone] [facility] Chronic Conditions (chief complaint) Morbid obesityPrimary hypertensionAortic atherosclerosisChro luis fernando diastolic heart failureControlled type 2 diabetes mellitus with complication, without long-term current use of insulinParoxysmal atrial fibrillationLung fibrosisPrimary osteoarthritis involving multiple jointsBody mass index [BMI] 35.0-35.9, adult Mar-2 - 4 Angel Mayer. [address] [place] [address], [address], [place], [place], [address] , . tel: [phone] Referring Provider: Moreno Ortiz, [address] [place] [address] [address], [place], [address] . tel:[phone] [facility], [address], [place], [place], [address] , tel: [phone] [facility] PalpitationsParoxys mal atrial fibrillation 4 Angel Mayer. [address] [place] [address], [address], [place], [place], [address] , . tel: [phone] TELEPHONE E&M SERVICE BY A PHYSICIAN;5-1 0 MINUTES OF MEDICAL DISCUSSION [facility], [address], [place], [place], [address] , tel: [phone] [facility] Paroxysmal atrial fibrillationPalpita tions 4 Angel Mayer. [address] [place] [address], [address] , [place], [place], [address] , . tel: [phone] Referring Provider: Moreno Ortiz, [address] [place] [address] [address], [place], [address] . tel:[phone] [employer], [address], [place], [place], [address] , tel: [phone] [facility] No Information 3 Angel Mayer. [address] [place] [address], [address] , [place], [place], [address] , . tel: [phone] TELEPHONE E&M SERVICE BY A PHYSICIAN;5-1 0 MINUTES OF MEDICAL DISCUSSION [facility], [address], [place], [place], [address] , tel: [phone] [facility] Cough, unspecified 3 Angel Mayer. [address] [place] [address], [address] , [place], [place], [address] , . tel: [phone] Referring Provider: Moreno Ortiz, [address] [place] [address] [address], [place], [address] . tel:[phone] [employer], [address], [place], [place], [address] , tel: [phone] [facility] Medicare preventive (chief complaint)C hronic Conditions (chief complaint) Atypical chest painLung fibrosisUrinary frequencyMedicare annual wellness visit, subsequentSubconjun ctival hemorrhage of left eye 3 Angel Mayer. [address] [place] [address], [address] , [place], [address] [place] [address] , . tel: [phone] Referring Provider: Moreno Ortiz, [address] [place] [address] [address] , [place], [address] [place] [address] . tel:[phone] [employer], [address], [place], [place], [address] , tel: [phone] [facility] No Information 3 Gerardo Bains. [address] [place] [address], [address] , [place], [address] [place] [address] , . tel: [phone] [employer], [address], [place], [place], [address] , tel: [phone] [facility] Paroxysmal atrial fibrillation 3 Angel Mayer. [address] [place] [address], [address] , [place], [address] [place] [address] , . tel: [phone] Referring Provider: Moreno Ortiz, [address] [place] [address] [address] , [place], [address] [place] [address] . tel:[phone] Transitional Care- First 7 Days Of Discharge [employer], [address], [place], [place], [address] , tel: [phone] [facility] Chronic Conditions (chief complaint) Paroxysmal atrial fibrillationBody mass index [BMI] 35.0-35.9, adult 3 Angel Mayer. [address] [place] [address], [address] , [place], [place], [address] , . tel: [phone] Referring Provider: Moreno Ortiz, [address] [place] [address] [address] , [place], [address] [place] [address] . tel:[phone] OFFICE UTESJ-QPQ-AMP FORTINO [employer], [address], [place], [address] , [place] tel: [phone] [facility] Chronic Conditions (chief complaint) Morbid obesityDiabetes mellitus type 2 in obeseAortic atherosclerosisChro luis fernando diastolic heart failureParoxysmal atrial fibrillationOSA (obstructive sleep apnea)Primary hypertensionGastroe sophageal reflux disease, unspecified whether esophagitis present 3 Angel Mayer. [address] [place] [address], [address] , [place], [address] [place] [address] , . tel: [phone] Referring Provider: Moreno Ortiz, [address] [place] [address] [address], [place], [address] [place] [address] . tel:[phone] [employer], [address], [place], [place], [address] , tel: [phone] [facility] Carotid bruit, unspecified laterality 2 Angel Mayer. [address] [place] [address], [address] , [place], [address] [place] [address] , . tel: [phone] [employer], [address], [place], [place], [address] , tel: [phone] [facility] Other specified symptoms and signs involving the circulatory and respiratory systems 2 Angel Mayer. [address] [place] [address], [address] , [place], [place], [address] , . tel: [phone] [employer], [address], [place], [place], [address] , tel: [phone] [facility] Paroxysmal atrial fibrillationAtheros clerosis of aorta 2 Angel Mayer. [address] [place] [address], [address], [place], [place], [address] , . tel: [phone] [employer], [address], [place], [place], [address] , tel: [phone] [facility] Type 2 diabetes mellitus with other specified complication 2 Angel Mayer. [address] [place] [address], [address], [place], [place], [address] , . tel: [phone] [employer], [address], [place], [address] , [place] tel: [phone] [facility] Medicare preventive (chief complaint)C hronic Conditions (chief complaint) Medicare annual wellness visit, subsequentPrimary osteoarthritis involving multiple jointsGastroesophag eal reflux disease, unspecified whether esophagitis presentBody mass index [BMI] 36.0-36.9, adult 2 Angel Mayer. [address] [place] [address], [address] , [place], [place], [address] , . tel: [phone] Referring Provider: Moreno Ortiz [address] [place] [address] [address], [place], [address] . tel:[phone] OFFICE MTZYU-UNY-ZUD ANDED [employer], [address], [place], [place], [address] , tel: [phone] [facility] acute problem (chief complaint) Acute bronchitis, unspecified organism 2 Angel Mayer. [address] [place] [address], [address] , [place], [place], [address] , . tel: [phone] Referring Provider: Moreno Ortiz [address] [place] [address] [address] , [place], [address] . tel:[phone] OFFICE GPPKB-LKH-XRO FORTINO [employer], [address], [place], [place], [address] , tel: [phone] [facility] Chronic Conditions (chief complaint) Diabetes mellitus type 2 in obeseMorbid obesityAortic atherosclerosisOSA (obstructive sleep apnea)Chronic diastolic heart failureParoxysmal atrial fibrillationChronic bilateral low back pain without sciaticaC. difficile colitis 2 Angel Mayer. [address] [place] [address], [address] , [place], [place], [address] , . tel: [phone] Referring Provider: Moreno Ortiz [address] [place] [address] [address], [place], [address] . tel:[phone] [employer], [address], [place], [place], [address] , tel: [phone] [facility] No Information 2 Angel Mayer. [address] [place] [address], [address] , [place], [place], [address] , . tel: [phone] Referring Provider: Moreno Ortiz, [address] [place] [address] [address], [place], [address] . tel:[phone] OFFICE ZFIVJ-MYW-DEK ANDED [employer], [address], [place], [place], [address] , tel: [phone] [facility] Chronic Conditions (chief complaint) Obesity (BMI 30-39.9)Vitamin B12 deficiencyBody mass index [BMI] 37.0-37.9, adult Dec- 1 Angel Mayer. [address] [place] [address], [address], [place], [place], [address] , . tel: [phone] Referring Provider: Moreno Ortiz, [address] [place] [address] [address], [place], [address] . tel:[phone] [employer], [address], [place], [place], [address] , tel: [phone] [facility] No Information 1 Angel Mayer. [address] [place] [address], [address] , [place], [place], [address] , . tel: [phone] OFFICE MQPEB-KVV-JWF ANDED [employer], [address], [place], [place], [address] , tel: [phone] [facility] Chronic Conditions (chief complaint) Cough Apr- 1 Angel Mayer. [address] [place] [address], [address] , [place], [place], [address] , . tel: [phone] Referring Provider: Moreno Ortiz [address] [place] [address] [address], [place], [address] . tel:[phone] [employer], [address], [place], [place], [address] , tel: [phone] [facility] Medicare preventive (chief complaint)C hronic Conditions (chief complaint) Medicare annual wellness visit, subsequentDiabetes mellitus type 2 in obeseObesity, unspecifiedDermatit isChronic cough 1 Angel Mayer. [address] [place] [address], [address] , [place], [place], [address] , . tel: [phone] Referring Provider: Moreno Ortiz, [address] [place] [address] [address], [place], [address] . tel:[phone] [facility], [address], [place], [place], [address] , tel: [phone] [facility] Yeast infection of the vagina 1 Angel Mayer. [address] [place] [address], [address], [place], [place], [address] , . tel: [phone] OFFICE JCVCI-JJT-LYD [facility], [address], [place], [place], [address] , tel: [phone] [facility] Chronic Conditions (chief complaint) Chronic diastolic heart failureParoxysmal atrial fibrillationDiabete s mellitus type 2 in obeseMorbid obesityEssential hypertensionAortic atherosclerosisScia angelica of left sideCervical radiculopathy 1 Angel Mayer. [address] [place] [address], [address], [place], [place], [address] , . tel: [phone] Referring Provider: Moreno Ortiz, [address] [place] [address] [address], [place], [address] . tel:[phone] [facility], [address], [place], [place], [address] , tel: [phone] [facility] Type 2 diabetes mellitus with other specified complication 1 Angel Mayer. [address] [place] [address], [address], [place], [place], [address] , . tel: [phone] OFFICE AGXDG-RQQ-HXA [facility], [address], [place], [place], [address] , tel: [phone] [facility] Chronic Conditions (chief complaint) Lower abdominal painHemorrhage of varicose veins of left lower extremityDiabetes mellitus type 2 in obeseObesity, unspecified 0 Angel Mayer. [address] [place] [address], [address], [place], [place], [address] , . tel: [phone] Referring Provider: Moreno Ortiz, [address] [place] [address] [address], [place], [address] . tel:[phone] [facility], [address], [place], [place], [address] , [place] tel: [phone] [facility] Encounter for gynecological examination (general) (routine) with abnormal findings May- 0 Angel Mayer. [address] [place] [address], [address], [place], [address] , [place]. tel: [phone] [facility], [address], [place], [place], [address] , [place] tel: [phone] [facility] Encounter for well woman exam with abnormal findings May- 0 Angel Mayer. [address] [place] [address], [address], [place], [place], [address] , [place]. tel: [phone] [facility], [address], [place], [place], [address] , [place] tel: [phone] [facility] Atherosclerosis of aorta Apr- 0 Angel Mayer. [address] [place] [address], [address], [place], [place], [address] , [place]. tel: [phone] [facility], [address], [place], [place], [address] , [place] tel: [phone] [facility] Gallstones Apr- 0 Angel Mayer. [address] [place] [address], [address], [place], [address] , [place]. tel: [phone] [facility], [address], [place], [address] , [place] tel: [phone] [facility] Abdominal pain, unspecified abdominal location Sep-0 0 Angel Mayer. [address] [place] [address], [address], [place], [address] , [place]. tel: [phone] [facility], [address], [place], [place], [address] , [place] tel: [phone] [facility] No Information Mar- 0 Angel Mayer. [address] [place] [address], [address], [place], [address] , [place]. tel: [phone] [employer], [address], [place], [place], [address] , tel: [phone] [facility] Unspecified lump in the left breast, unspecified quadrantOther abnormal and inconclusive findings on diagnostic imaging of breast 0 Angel Mayer. [address] [place] [address], [address] , [place], [place], [address] , . tel: [phone] [facility], [address], [place], [place], [address] , tel: [phone] [facility] Medicare preventive (chief complaint)C hronic Conditions (chief complaint) Medicare annual wellness visit, subsequentMorbid obesityChronic diastolic heart failureAortic atherosclerosisPrim augusta osteoarthritis involving multiple jointsOSA (obstructive sleep apnea)Paroxysmal atrial fibrillationRash 0 Angel Mayer. [address] [place] [address], [address] [place], [place], [address] , . tel: [phone] Referring Provider: Moreno Ortiz, [address] [place] [address] [address] , [place], [address] [place] [address] . tel:[phone] OFFICE PXLLT-RLH-QPP FORTINO [employer], [address], [place], [address] , tel: [phone] [facility] Chronic Conditions (chief complaint) Morbid obesityEssential hypertensionAortic atherosclerosisPrim augusta osteoarthritis involving multiple jointsParoxysmal atrial fibrillationPurpura 0 Angel Mayer. [address] [place] [address], [address] [place], [place], [address] , . tel: [phone] Referring Provider: Moreno Ortiz [address] [place] [address] [address] , [place], [address] . tel:[phone] [employer], [address], [place], [place], [address] , tel: [phone] [facility] Unilateral primary osteoarthritis, left kneeOther meniscus derangements, unspecified lateral meniscus, left knee 9 Angel Mayer. [address] [place] [address], [address] , [place], [place], [address] , . tel: [phone] [employer], [address], [place], [place], [address] , [place] tel: [phone] [facility] Left knee pain, unspecified chronicity 9 Angel Mayer. [address] [place] [address], [address], [place], [place], [address] , . tel: [phone] [facility], [address], [place], [place], [address] , tel: [phone] [facility] No Information 9 Angel Mayer. [address] [place] [address], [address], [place], [place], [address] , [place]. tel: [phone] OFFICE UTMAB-VFI-DER FORTINO [employer], [address], [place], [place], [address] , tel: [phone] [facility] Chronic Conditions (chief complaint) Body mass index (BMI) 37.0-37.9, adultEssential hypertensionParoxys mal atrial fibrillationAortic atherosclerosisCard iomyopathy, unspecified typeMorbid obesityVitamin D deficiencyOSA (obstructive sleep apnea)Lichen sclerosus of female genitaliaElevated glucose 9 Gerardo Bains. [address] [place] [address], [address], [place], [place], [address] , . tel: [phone] Referring Provider: Moreno Ortiz, [address] [place] [address] [address], [place], [address] . tel:[phone] [facility] [facility], [address], [place], [place], [address] , [place] tel: [phone] [facility] Encounter for gynecological examination (general) (routine) without abnormal findings 9 Angel Mayer. [address] [place] [address], [address], [place], [place], [address] , [place]. tel: [phone] [facility] [facility], [address], [place], [place], [address] , tel: [phone] [facility] Lumbago with sciatica, left side 9 Angel Mayer. [address] [place] [address], [address], [place], [place], [address] , . tel: [phone] [employer], [address], [place], [address] , [place] tel: [phone] [facility] Chronic left-sided low back pain with left-sided sciaticaOther chronic pain 9 Angel Mayer. [address] [place] [address], [address], [place], [place], [address] , . tel: [phone] OFFICE OIFCN-NZR-RNO ANDED [employer], [address], [place], [place], [address] , [place] tel: [phone] [facility] Chronic Conditions (chief complaint) Chronic left-sided low back pain with left-sided sciaticaParoxysmal atrial fibrillation 9 Angel Mayer. [address] [place] [address], [facility] [address], [place], [place], [address] , . tel: [phone] Referring Provider: Moreno Ortiz, [address] [place] [address] [address] , [place], [address] . tel:[phone] [employer], [address], [place], [place], [address] , tel: [phone] [facility] Sciatica of right side 9 Angel Mayer. [address] [place] [address], [address] , [place], [place], [address] , . tel: [phone] [facility], [address], [place], [place], [address] , tel: [phone] [facility] Paroxysmal atrial fibrillation 9 Angel Mayer. [address] [place] [address], [address], [place], [address] , [place]. tel: [phone] [facility], [address], [place], [place], [address] , tel: [phone] [facility] Encounter for gynecological examination (general) (routine) without abnormal findings 9 Angel Mayer. [address] [place] [address], [address], [place], [place], [address] , . tel: [phone] [employer], [address], [place], [place], [address] , tel: [phone] [facility] Chronic Conditions (chief complaint) Dilated cardiomyopathyParox ysmal atrial fibrillationAortic atherosclerosisGast roesophageal reflux disease, esophagitis presence not specifiedMorbid obesityOSA (obstructive sleep apnea)Body mass index (BMI) 37.0-37.9, adult 9 Angel Mayer. [address] [place] [address], [address] [place], [place], [address] [place] [address] , . tel: [phone] Referring Provider: Moreno Ortiz, [address] [place] [address] [address], [place], [place], [address] [place] [address] . tel:[phone] [employer], [address], [place], [place], [address] , tel: [phone] [facility] Paroxysmal atrial fibrillation 8 Angel Mayer. [address] [place] [address], [address] [place], [place], [address] [place] [address] , . tel: [phone] [employer], [address], [place], [place], [address] , tel: [phone] [facility] Body mass index (BMI) 38.0-38.9, adultParoxysmal atrial fibrillationDilated cardiomyopathyAorti c atherosclerosis 8 Angel Mayer. [address] [place] [address], [address] [place], [place], [address] , . tel: [phone] Referring Provider: Moreno Ortiz, [address] [place] [address] [address] , [place], [place], [address] [place] [address] . tel:[phone] [employer], [address], [place], [place], [address] , tel: [phone] [facility] Morbid obesityParoxysmal atrial fibrillationDilated cardiomyopathyAorti c atherosclerosis 8 Angel Mayer. [address] [place] [address], [address] , [place], [place], [address] , . tel:[phone] Referring Provider: Moreno Ortiz [address] [place] [address] [address] , [place], [address] . tel:[phone] [employer], [address], [place], [place], [address] , tel: [phone] [facility] Paroxysmal atrial fibrillation 8 Angel Mayer. [address] [place] [address], [address], [place], [place], [address] , . tel: [phone] [facility] [employer], [address], [place], [place], [address] , tel: [phone] [facility] ER f/u for bronchitis (chief complaint) Acute bronchitis, unspecified organism 8 Angel Mayer. [address] [place] [address], [address], [place], [place], [address] , . tel: [phone] Referring Provider: Moreno Ortiz, [address] [place] [address] [address], [place], [address] . tel:[phone] [employer], [address], [place], [place], [address] , tel: [phone] [facility] Essential (primary) hypertension 8 Angel Mayer. [address] [place] [address], [address], [place], [place], [address] , . tel: [phone] [employer], [address], [place], [place], [address] , tel: [phone] [facility] FRANTZ (obstructive sleep apnea)Aortic atherosclerosisCard iomyopathy, unspecified typeParoxysmal atrial fibrillationEssenti al hypertensionGastroe sophageal reflux disease without esophagitisMorbid obesityVitamin D deficiency 8 Gerardo Bains. [address] [place] [address], [address], [place], [place], [address] , . tel: [phone] Referring Provider: Moreno Ortiz [address] [place] [address] [address], [place], [address] . tel:[phone] [employer], [address], [place], [place], [address] , tel: [phone] [facility] Paroxysmal atrial fibrillation 8 Angel Mayer. [address] [place] [address], [address], [place], [place], [address] , [place]. tel: [phone] [employer], [address], [place], [place], [address] , [place] tel: [phone] [facility] Essential (primary) hypertension 8 Angel Mayer. [address] [place] [address], [address], [place], [place], [address] , [place]. tel: [phone] [employer], [address], [place], [place], [address] , [place] tel: [phone] [facility] Paroxysmal atrial fibrillation 7 Angel Mayer. [address] [place] [address], [address], [place], [place], [address] , [place]. tel: [phone] [employer], [address], [place], [place], [address] , tel: [phone] [facility] Paroxysmal atrial fibrillation 7 Angel Mayer. [address] [place] [address], [address], [place], [place], [address] , . tel: [phone] [employer], [address], [place], [place], [address] , [place] tel: [phone] [facility] Paroxysmal atrial fibrillation 7 Angel Mayer. [address] [place] [address], [address], [place], [place], [address] , [place]. tel: [phone] [employer], [address], [place], [place], [address] , [place] tel: [phone] [facility] Aortic atherosclerosisParo xysmal atrial fibrillationMorbid obesitySnoringFatig ue, unspecified type [address] [place] [address], [address], [place], [place], [address] . tel: [phone] Referring Provider: Moreno Ortiz, [address] [place] [address] [address], [place], [address] . tel:[phone] [employer], [address], [place], [place], [address] , [place] tel: [phone] [facility] Paroxysmal atrial fibrillation 7 Angel Mayer. [address] [place] [address], [address], [place], [place], [address] , . tel: [phone] [facility], [address], [place], [place], [address] , tel: [phone] [facility] Paroxysmal atrial fibrillation 7 Angel Mayer. [address] [place] [address], [facility] [address] , [place], [place], [address] , . tel: [phone] [facility], [address], [place], [place], [address] , tel: [phone] [facility] Paroxysmal atrial fibrillation May- 7 Angel Mayer. [address] [place] [address], [facility] [address], [place], [place], [address] , . tel: [phone] [facility], [address], [place], [place], [address] , tel: [phone] [facility] Essential hypertensionChronic diastolic heart failureParoxysmal atrial fibrillationAortic atherosclerosisAbno rmal mammogramMammograph ic microcalcification found on diagnostic imaging of breast May- 7 Angel Mayer. [address] [place] [address], [facility] [address] , [place], [place], [address] , . tel: [phone] Referring Provider: Moreno Ortiz, [address] [place] [address] [address] , [place], [address] . tel:[phone] [facility] [address], [place], [place], [address] , tel: [phone] [facility] Paroxysmal atrial fibrillationEssenti al hypertensionGastroe sophageal reflux disease without esophagitisVitamin D deficiencyScreening for cholesterol level 7 Nj Mc. [address] [place] [address], [address], [place], [place], [address] . tel: [phone] Referring Provider: Moreno Ortiz, [address] [place] [address] [address], [place], [address] . tel:[phone] Family History Family Member Type Diagnosis Age [...] r Provider Pneumococcal conjugate PCV20 , polysaccharide [id number] conjugate, adjuvant, PF administered Source: Other Provid [...] dosage administered Source: Source Unspecified Fluzone High-Dose [id number], high dose, preservative free administered Source: Carmela rce Unspecified Pneumococcal conjugate PCV 13 administere d Source: Other Provider pneumococcal polysaccharide vaccine, 23 valent administered Source: Other Provid er Zoster administered Source: Other P nathanielder Payers Payer name Insurance type Covered democrat ID enid trinidad(s) Manufacturers[employer] Inventory [id number] Social History Type Description Quantity Date Captured [...] completed Referral Referred To: Faizan Lau [address] [place], [phone] Ordered: Referrals: Botanical Technical Officer. Faizan Lau. Evaluation/diagnostic/treatment - Level 3 Appointment date/timeframe: 02/09/2025 ordered Referral Referred To: Sinan Morrell [address] [place], [place], [phone] Ordered: Referrals: Cardiology. Sinan Morrell. Evaluation/diagnostic/treatment - Level 3 Appointment date/timeframe: 09/02/2023 ordered Referral [place]: [place] [address] [place], [phone] Ordered: Referrals: Cardiology. Chago Lopez MD. Evaluation/diagnostic/treatment - Level 3 Appointment date/timeframe: 08/20/2022 ordered Referral Referred To: Chago Lopez [address] [place], [phone] Ordered: Referrals: Cardiology. Chago Lopez. Evaluation/diagnostic/treatment - Level 3 Appointment date/timeframe: 07/21/2022 ordered Referral Referred To: Mary Solorio [address] [place], [phone] Ordered: Referrals: Botanical Technical Officer. Mary Solorio. Evaluation/diagnostic/treatment - Level 3 Appointment date/timeframe: 06/02/2022 ordered Referral Referred To: Tari Duval MD Ordered: Referrals: Surgery. Tari Duval MD. Evaluation/diagnostic/treatment - Level 3 Appointment date/timeframe: 04/15/2022 ordered Referral Referred To: Diane Reed [address] [facility] [place], [phone] Ordered: Referrals: Botanical Technical Officer. Diane Reed. Evaluation/diagnostic/treatment - Level 3 Appointment date/timeframe: 08/30/2020 ordered Referral Referred To: Donald Self [address] [place], [phone] Ordered: Referrals: Surgery. Donald Self. Evaluation/diagnostic/treatment - Level 3 Appointment date/timeframe: 06/06/2020 ordered Referral Referred To: Damir Fay MD Ordered: Referrals: Obstetrics and Gynecology. Damir Fay MD. Evaluation/diagnostic/treatment - Level 3 ordered Referral Referred To: Physical Therapy Ordered: Referrals: Physical Therapy. Location: [facility]. Evaluation/diagnostic/treatment - Level 3 Appointment date/timeframe: 07/18/2019 ordered Referral [place]: [place] [address] [facility]
[address] [place], [phone] Ordered: Referrals: Orthopedic Surgery. Jared Rivera MD. Evaluation/diagnostic/treatment - Level 3 Appointment date/timeframe: 06/09/2019 ordered Referral Referred To: Damir Kemp MD Ordered: Referrals: Obstetrics and Gynecology. Damir Kemp MD. Evaluation/diagnostic/treatment - Level 3 ordered Referral Referred To: MD Oskar Torres [address] [place], [phone] Ordered: Referrals: Anesthesiology. MD Oskar Torres. Evaluation/diagnostic/treatment - Level 3 ordered Referral Referred To: Moreno Gallardo Ordered: Referrals: Chiropractor. Moreno Gallardo. Evaluation/diagnostic/treatment - Level 3 ordered Referral Referred To: Any Gupta Ordered: Referrals: Cardiovascular Disease. Any Gupta. Evaluation/diagnostic/treatment - Level 3 ordered Appointment Dulce Gibbons BOOKED Future Order: Radiology Order MR I cervical spine wo contrast ([id number]), Sent on: Sent History Of Present Illness [...] Conditions HPI Chronic Conditions *See Chronic Conditions [facility] Medicare preventive The patient has not [...] tobacco user. Chronic Conditions *See Chronic Conditions [facility] Chronic Conditions *See Chronic Conditions [facility] Chronic Conditions *See Chronic Conditions HPI [...] tobacco user. Chronic Conditions *See Chronic Conditions [facility] acute problem Here with one we ek of severe cough, wheezing and shortness of breath, no fever, similar episode last year. Chronic Conditions *See Chronic Conditions [facility] Chronic Conditions *See Chronic Conditions [facility] Chronic Conditions *See Chronic Conditions [facility] Medicare preventive The patient has not [...] tobacco user. Chronic Conditions *See Chronic Conditions [facility] Chronic Conditions *See Chronic Conditions [facility] Chronic Conditions *See Chronic Conditions [facility] Chronic Conditions *See Chronic Conditions [facility] Medicare preventive The patient has not [...] Elevated glucose Follow plan of care per housekeeper supervisor. 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
--- NOTE | ~2025-04-26 | XR_ITS ---
EXAMINATION: XR chest 2V, 04/26/2025 10:00 CDT HISTORY: dyspnea recent pneumonia COMPARISON: No comparisons available. Technique: 2 views obtained. Findings: The lungs are clear, no effusion. No pneumothorax. Heart is normal size. Mediastinal and hilar contours are within normal limits. Bony thorax no acute abnormality. Impression: No acute cardiopulmonary abnormality. Reviewed, dictated and finalized at location A. Impression: No acute cardiopulmonary abnormality.
--- NOTE | ~2025-04-26 | CT_ITS ---
CTA CHEST CLINICAL HISTORY: SOB, travel, afib . COMPARISON: X-rays today TECHNIQUE: Helical CTA performed from thoracic inlet to upper abdomen 100 mL Omnipaque 350 Coronal, sagittal reformats. Multiplanar MIPS CT images acquired with automatic exposure control for dose reduction DLP: 538 mGy-cm FINDINGS: Pulmonary arteries: No PE. Thoracic Aorta: No dissection or aneurysm. Atherosclerotic disease. Bulky calcification along innominate artery. Heart/pericardium: Coronary artery calcifications. RV/LV ratio: Normal. Lungs/Pleura: Clear. Tracheobronchial tree: Patent. Nodes: No enlarged nodes. Bones: No acute bony abnormality. Soft tissues: Unremarkable. Visualized upper abdomen: Cirrhosis. Cholecystectomy. IMPRESSION: 1. No PE or other acute cardiopulmonary findings. Reviewed, dictated and finalized at location R.
--- OUTSIDE RECORDS SUMMARY | 2025-04-26 09:04 | XMS_ITS | Clinical Summary ---
Author Organization [facility] Address [address] [place] [address] Care Team Providers Care Power Plant Assistant Name Role Phone Moreno Ortiz MD Primary Care Provider [phone] Donald Self MD Unavailable [phone] Allergies Active Allergy Reactions Criticality Noted Date [...] 4 Active atorvastatin (LIPITOR) 40 mg tablet TAKE 1 TABLET BY MOUTH EVERY DAY 90 tablet 1 5 Active Active Problems Problem Noted Date Diagnosed Date Gallbladder hydrops 05/03/2020 Overview (05/03/2020): Added automatically from request for surgery [id number] Chronic cholecystitis 05/03/2020 Aortic atherosclerosis 06/09/2019 Cardiomyopathy 06/09/2019 Gastro-esophageal reflux disease without esophag itis 06/09/2019 Morbid obesity 06/09/2019 Vitamin D deficiency 06/09/2019 Abnormal mammogram 06/09/2019 Non-rheumatic mitral regurgitation 09/11/2017 Assessment & Plan (09/11/2017 10:41 AM ATTRACTIONS ASSOCIATE): This was noted as possibly severe [...] have resumed her beta-jareth and discontinued verapamil. correction current use of antiarrhythmic drug Assessment & [...] agents. Assessment & Plan (09/11/2017 10:41 AM ATTRACTIONS ASSOCIATE): She is doing well on sotalol [...] PVI. Assessment & Plan (09/11/2017 10:39 AM ATTRACTIONS ASSOCIATE): She remains in sinus rhythm, now [...] months. Assessment & Plan (07/17/2017 2:26 PM ATTRACTIONS ASSOCIATE): She has symptomatic persistent atrial fibrillation. [...] denies any bleeding problems with this. manager operating current use of anticoagulant therapy 1 Overview [...] 30-39.9) Assessment & Plan (09/11/2017 10:42 AM ATTRACTIONS ASSOCIATE): She is making efforts at weight [...] Medical arthroscopic lin rgery right shoulder; Comments: [facility] 05/27/2016 - Hx Other Medical arthroscopic lin rgery left knee; Comments: [facility] 05/27/2016 - Atrial fibrillation (HCC) Hypertension Diastolic dysfunction CHF (congestive heart failure) (HCC) C. difficile diarrhea got after COVID Booster Covid-19 02/13/2022 Family History Medical History Relation Name Comments Other Brother 1 Diabetes Father Heart attack Father Other Father Diabetes Mother Heart failure Mother Stroke Mother Stroke; [facility] 06/2016 -Also had diabetes Relation Name Status [...] on file Legal Sex Female 8:08 AM ATTRACTIONS ASSOCIATE Gender Identity Not on file Sexual Orientation Not on file Occupation Industry Job Start Date Job End Date retired Not on file Not on file Not on file Obstetrics History Last Filed Vital Signs Vital Sign Reading Time Taken Comments Blood Pressure 110/66 10/21/2023 12:16 PM ATTRACTIONS ASSOCIATE Pulse 70 10/21/2023 12:16 PM ATTRACTIONS ASSOCIATE Temperature 36.3 C (97.4 F) 12/03/2020 9:55 AM CDT Respiratory Rate 16 10/21/2023 12:16 PM ATTRACTIONS ASSOCIATE Oxygen Saturation 90% 03/23/2023 10:28 AM CDT Inhaled Oxygen Concentration - - Weight 86.2 kg (190 lb) 10/21/2023 12:16 PM ATTRACTIONS ASSOCIATE Verbal Height 160 cm (5' 3) 10/21/2023 12:16 PM ATTRACTIONS ASSOCIATE Body Mass Index 33.66 10/21/2023 12:16 PM ATTRACTIONS ASSOCIATE Plan of Treatment Health Maintenance Due Date Last Done Comments Depression Screening 1940 Osteoporosis Screening-Bone Density Scan 1942 DTaP/Tdap/Td Vaccine (1 - Tdap) 1953 Hepatitis B Screening 1960 Well Visit 65+ 2007 Pneumococcal vaccine 65+ (2 of 2 - PCV20 or PCV21) 02/19/2016 02/18/2015 Zoster Vaccine (2 of 3) 10/09/2016 08/14/20 16, 09/06/2013, 04/22/2013 Fall Risk Assessment 05/07/2021 05/07/2020 Influenza Vaccine (#1) 2025 8, 05/18/2017, 06/24/2016, Additional history exists Insurance [facility] Member Subscriber Plan / Payer (Ef fective 2013-Present) Name:DULCE HAYNES Relation to Subscriber:Self Name:Dulce Haynes Payer ID:[id number] ([facility]) Type:MEDICARE RISK OTHER Address: [address] [facility] [place] Member Subscriber Plan / Payer (Ef fective 2019-Present) Name:Dulce Haynes Relation to Subscriber:Self Name:Dulce Haynes Payer ID:[id number] ([facility]) Type:MEDICARE RISK OTHER Address: [address] [facility] [place] [address] Care Teams Power Plant Assistant Relationship Specialty Start Date End Date Moreno Ortiz MD PCP - General 08/06/17 Donald Self MD Surgeon General Surgery 05/07/20
--- OUTSIDE RECORDS SUMMARY | 2025-04-26 09:04 | XMS_ITS | Clinical Summary ---
Author Organization [facility] Address [address] [place] [address] Care Team Providers Care Sheet Metal Worker Maintenance Name Role Phone Deena Garcia MD Primary Care Provider + Source Comments [facility],non-owned Affiliates and Associated Physician Practices is amultiple site organization consisting of ambulatory clinics and hospital sitesin [place], [place], [place] and [place]. This disclosure is being madepursuant to the Care Everywhere program and may not contain all information available regarding this patient. Last updated 18.[facility] Social History Tobacco Use Types Packs/Day Years Used Date Smoking Tobacco: Never Assessed Comments Unknown Sex and Gender Information Value Date Recorded Sex Assigned at Not on file Legal Sex Female 5:51 AM RN ACUTE CARE Gender Identity Not on file Sexual Orientation Not on file Plan of Treatment Health Maintenance Due Date Last Done Comments BONE DENSITY TESTING 1942 DTAP/TDAP/TD VACCINES (1 - Tdap) 1961 PNEUMOCOCCAL VACCINE 50+ (1 of 1 - PCV) 1992 ZOSTER VACCINE (1 of 2) 1992 Respiratory Syncytial Virus (RSV) Vaccine Pt: or over 60 yrs (1 - 1-dose 75+ series) 2017 DEPRESSION SCREENING 08/17/2024 COVID-19 VACCINE (1 - 2023-2 5 season) 2025 INFLUENZA VACCINE (#1) 2025 04/18/2017 HEPATITIS B VACCINE Aged Out No longe [...] on patient's age to complete this topic Insurance Care Teams Sheet Metal Worker Maintenance Relationship Specialty Start Date End Date Deena Garcia MD [address] [facility] [address] [place] [address] PCP - General 02/07/20
[2025-04-26 09:08] VITALS: BP 177/47; PULSE 71; RESP 20; TEMP 36.8; O2SAT 93
[2025-04-26 09:33] LABS: Hematocrit 40.5 % (37.0-47.0); Hemoglobin 12.6 g/dL (12.0-15.0); Immature Granulocyte Percent A 0.3 % (0-0.5); Lymphocytes Absolute Auto 2.03 K/mm3 (0.9-3.2); Mean Corpuscular HGB Conc 31.1 g/dl (32-36); Mean Corpuscular Hemoglobin 27.8 pg (26-34); Mean Corpuscular Volume 89.4 fl (80-100); Nucleated Red Blood Cells Absolute Auto 0.000 K/mm3 (0.0-0.012); Nucleated Red Blood Cells Perc 0.0 % (0.0-0.2); Platelet Count Result 250 k/mm3 (150-375); Red Blood Count 4.53 M/mm3 (4.2-5.4); White Blood Count 7.6 K/mm3 (4.5-10.0)
[2025-04-26 09:44] LABS: Alanine Aminotransferase 26 U/L (6-35); Albumin Level 4.2 g/dL (3.5-5.1); Alkaline Phosphatase 74 U/L (38-126); Anion Gap 8 mmol/L (4-12); Aspartate Amino Transferase 35 U/L (14-36); Bilirubin,Total 0.4 mg/dL (0.2-1.3); Blood Urea Nitrogen 13 mg/dL (7-17); Calcium 9.7 mg/dL (8.4-10.2); Carbon Dioxide 32 mmol/L (22-30); Chloride 102 mmol/L (98-107); Estimated CRCL calculation 57 ml/min; Estimated Glomerular Filt Rate > 60; Glucose 145 mg/dL (65-110); Magnesium 1.8 mg/dL (1.6-2.3); Potassium 3.3 mmol/L (3.4-5.0); Sodium 142 mmol/L (137-145); Total Protein 7.5 g/dL (6.3-8.2)
[2025-04-26 09:47] LABS: INR 1.2; Prothrombin Time 15.2 Seconds (11.1-14.7)
[2025-04-26 09:48] LABS: Partial Thromboplastin Time 31.4 Seconds (22.3-36.8)
[2025-04-26 09:55] LABS: NT Pro B Type Natriuretic Pept 527 pg/mL (19.9-100); Troponin I < 0.012 ng/mL (0.000-0.034)
[2025-04-26 10:14] LABS: Influenza A QL RT-PCR Negative (Negative); Influenza B QL RT-PCR Negative (Negative); RSV RNA, RT-PCR Negative (Negative); SARS-CoV-2 RNA PCR Negative (Negative)
[2025-04-26 10:34] VITALS: BP 138/61; PULSE 61; PULSE 62; RESP 17; TEMP 36.4; O2SAT 94
[2025-04-26 12:27] VITALS: BP 137/53; PULSE 88; RESP 21; O2SAT 93
--- NOTE | 2025-04-26 12:35 | ED.GENADULT ---
HPI - General Adult General Chief complaint: Upper Respiratory Infection Stated complaint: RECENT PNA FEELS SHORT OF BREATH Time Seen by Provider: 04/26/25 11:31 History of Present Illness HPI narrative: 84-year-old female with previous smoking history present to the emergency department for evaluation after having a recent pneumonia. Patient had been traveling and [place] and she was diagnosed with pneumonia and patient was started on Augmentin and azithromycin. Patient did complete these antibiotics. Patient states after traveling home she started having worsening cough and shortness of breath. Patient does not use albuterol treatments at home and denies any prior diagnosis of COPD. At time of evaluation patient is resting comfortably room air with a stable pulse ox. Patient denies any associated chest pain. Patient does have history of AFib that is rate controlled and is in normal sinus at this time. Patient does have history of hypertension, GERD and [place]. Related Data Home Medications ?Medication ?Instructions ?Recorded ?Confirmed ?Last Taken ?Type apixaban 5 mg tablet (Eliquis) 5 mg PO BID 10/31/21 01/15/23 Unknown History furosemide 40 mg tablet 40 mg PO DAILY 10/31/21 01/15/23 Unknown History isosorbide mononitrate 30 mg 30 mg PO DAILY 10/31/21 01/15/23 Unknown History tablet,extended release 24 hr omeprazole 40 mg capsule,delayed 40 mg PO DAILY 10/31/21 01/15/23 Unknown History release multivitamin 1 tablet PO DAILY 01/15/23 01/15/23 Unknown History sotalol 120 mg tablet mg 08/31/23 08/31/23 Unknown History Allergies Allergy/AdvReac Type Severity Reaction Status Date / Time amiodarone Allergy Unknown Unknown Verified 04/26/25 08:39 diltiazem Allergy Unknown Unknown Verified 04/26/25 08:39 losartan Allergy Unknown rash Verified 04/26/25 08:39 codeine Allergy Itching Verified 04/26/25 08:39 Review of Systems Review of Systems: All systems reviewed & are unremarkable except as noted in HPI and below PMFSH Past Medical History Medical History Atrial fibrillation Chronic GERD Diverticulitis Hypertension Surgical History Surgical History H/O cardiac radiofrequency ablation H/O knee surgery Bilateral H/O repair of rotator cuff H/O tubal ligation Family History Family History Sibling Hypertension Mother Family history of heart disease in male family member before age 55 Family history of coronary artery disease, Onset Age: 81 No family history of cardiovascular disease Patient's mother is Father Acute myocardial infarction Family history of premature coronary heart disease, Onset Age: 62 Hypertension Family history of elevated blood lipids Family history of diabetes mellitus in first degree relative Patient's father is Other Cerebrovascular accident Diabetes mellitus Family history of arthritis Social History Social History Social History: She lives with her sister and is . She has 4 sons. Code status full code Smoking packs per day: 1 Smoking cigarettes per day: 20.0 Years smoked: 40 Smoking pack-years: 40.00 Smoking status: Former smoker Smoking end date: 08/17/02 Alcohol intake: never Substance use: never Lack of Transportation: No Lack of Food: Never True Current Housing: I Have Housing Concerned About Future Housing: No Difficulty Paying Gas/Electric Bills: No Difficulty Paying for Meds: No Currently Unemployed: No Education: High School Diploma/GED Difficulty w/ Childcare or Family Care: No Spiritual care concerns: No Exam Narrative: APPEARANCE: well-appearing HEAD: normocephalic, atraumatic. EYES: PERRLA/EOMI, conjunctivae clear. NOSE: Normal no drainage EARS:TMS clear with good light reflex. THROAT: Pharynx clear, no exudate. NECK: Supple. No adenopathy, no masses. RESPIRATORY: clear lung sounds bilaterally CARDIOVASCULAR: Regular rate and rhythm without murmurs rubs or gallops. ABDOMINAL: Soft, nontender, nondistended, normal bowel sounds MUSCULOSKELETAL: Moves all extremities. Strength/ROM intact, No edema, No calf tenderness. NEURO: Alert. Cranial nerves II through XII intact. Gross SKIN: Warm, dry. Normal Color Course Vital Signs Vital signs: Vital Signs Temperature 98.3 F 04/26/25 09:08 Pulse Rate 71 04/26/25 09:08 Respiratory Rate 20 04/26/25 09:08 Blood Pressure 177/47 H 04/26/25 09:08 Pulse Oximetry 93 04/26/25 09:08 Oxygen Delivery Room Air 04/26/25 09:08 Temperature 98.4 F 04/26/25 13:15 Pulse Rate 68 04/26/25 13:15 Respiratory Rate 18 04/26/25 13:15 Blood Pressure 133/58 L 04/26/25 13:15 Pulse Oximetry 92 04/26/25 13:15 Oxygen Delivery Room Air 04/26/25 10:34 Medical Decision Making MDM Narrative Medical decision making narrative: 84-year-old female presents to the emergency department for evaluation persistent shortness of breath after recent pneumonia. Patient does have a significant smoking history of 30 years with no prior diagnosis of COPD. Have the patient most likely has residual lung inflammation secondary to the recent infection that is being worsened by her chronic lung disease. Patient has a stable pulse ox in the emergency department. Patient is currently afebrile with no leukocytosis hemoglobin of 12.6. Patient has an INR of 1.2. No significant acute abnormalities on the patient's CMP lactic acid of 1.7. Patient denies any chest pain but patient did have a troponin ordered when this was negative. Patient's proBNP is not significantly elevated. Patient was negative for influenza RSV and for COVID. CTA was ordered to rule out subtle pneumonia and more importantly pulmonary embolism and CTA was negative. Patient was complaining of some mild shortness of breath at time of of evaluation and she will be treated with a nebulized albuterol. Patient will be discharged home with albuterol inhaler. Patient family are comfortable the plan with discharge and close follow-up. All questions concerns were addressed patient was comfortable at the time of discharge. Differential Diagnosis Differential Diagnosis: COVID, RSV, influenza, pneumonia, pulmonary edema, COPD Vital Signs Vital Signs: Vital Signs Temperature 98.3 F 04/26/25 09:08 Pulse Rate 71 04/26/25 09:08 Respiratory Rate 20 04/26/25 09:08 Blood Pressure 177/47 H 04/26/25 09:08 Pulse Oximetry 93 04/26/25 09:08 Oxygen Delivery Room Air 04/26/25 09:08 Temperature 98.4 F 04/26/25 13:15 Pulse Rate 68 04/26/25 13:15 Respiratory Rate 18 04/26/25 13:15 Blood Pressure 133/58 L 04/26/25 13:15 Pulse Oximetry 92 04/26/25 13:15 Oxygen Delivery Room Air 04/26/25 10:34 Lab Data Lab results reviewed: Yes I reviewed the patient's lab results. 04/26/25 09:24 04/26/25 09:24 Labs: Lab Results 04/26/25 04/26/25 Range/Units 09:24 09: WBC 7.6 (4.5-10.0) K/mm3 RBC 4.53 (4.2-5.4) M/mm3 Hgb 12.6 (12.0-15.0) g/dL Hct 40.5 (37.0-47.0) % MCV 89.4 (80-100) fl MCH 27.8 (26-34) pg MCHC 31.1 L (32-36) g/dl RDW 14.4 (11.5-14.5) % Plt Count 250 (150-375) k/mm3 MPV 10.9 H (7.4-10.4) fl Immature Gran % (Auto) 0.3 (0-0.5) % Neut % (Auto) 61.3 (45.5-73.1) % Lymph % (Auto) 26.7 (18.3-44.2) % [facility] % (Auto) 10.0 H (2.6-8.5) % Eos % (Auto) 1.4 (0-4.4) % Baso % (Auto) 0.3 (0.2-1.2) % Lymph # (Auto) 2.03 (0.9-3.2) K/mm3 [facility] # (Auto) 0.8 H (0.1-0.6) K/mm3 Eos # (Auto) 0.1 (0-0.3) K/mm3 Baso # (Auto) 0.0 (0.0-0.1) K/mm3 Abs Immat Gran (auto) 0.02 (0.00-0.031) K/mm3 Absolute Neuts (auto) 4.7 (1.3-6.7) K/mm3 Absolute Nucleated RBC 0.000 (0.0-0.012) K/mm3 Nucleated RBC % 0.0 (0.0-0.2) % PT 15.2 H (11.1-14.7) Seconds INR 1.2 APTT 31.4 (22.3-36.8) Seconds Sodium 142 (137-145) mmol/L Potassium 3.3 L (3.4-5.0) mmol/L Chloride 102 (98-107) mmol/L Carbon Dioxide 32 H (22-30) mmol/L Anion Gap 8 (4-12) mmol/L BUN 13 (7-17) mg/dL Creatinine 0.67 L (0.7-1.0) mg/dL Estim Creat Clear Calc 57 ml/min Estimated GFR > 60 (59 - ) Glucose 145 H (65-110) mg/dL Lactic Acid 1.7 (0.7-2.0) mmol/L Calcium 9.7 (8.4-10.2) mg/dL Magnesium 1.8 (1.6-2.3) mg/dL Total Bilirubin 0.4 (0.2-1.3) mg/dL AST 35 (14-36) U/L ALT 26 (6-35) U/L Alkaline Phosphatase 74 (38-126) U/L Troponin I < 0.012 (0.000-0.034) ng/mL NT-Pro-B Natriuret Pep 527 H (19.9-100) pg/mL Total Protein 7.5 (6.3-8.2) g/dL Albumin 4.2 (3.5-5.1) g/dL Influenza A (RT-PCR) Negative (Negative) Influenza B (RT-PCR) Negative (Negative) RSV (RT-PCR) Negative (Negative) SARS-CoV-2 RNA (RT-PCR) Negative (Negative) Imaging Data Radiologist's impression: Impressions Chest X-Ray 04/26/25 10:10 Impression: No acute cardiopulmonary abnormality. Chest CTA 04/26/25 12:00 IMPRESSION: 1. No PE or other acute cardiopulmonary findings. Discharge Plan Discharge Clinical Impression: Mild shortness of breath Patient Disposition: Home Condition: Stable Instructions: Antibiotic Form Additional Instructions: albuterol inhaler as needed for shortness of breath. Have close follow-up with your primary care physician. If you have any worsening symptoms then please call or return to the emergency department. Patient Language: Danish Prescriptions: New albuterol sulfate 90 mcg/actuation HFA aerosol inhaler 1 puff inhalation QID Qty: 6.7 0RF No Action furosemide 40 mg tablet 40 mg PO DAILY isosorbide mononitrate 30 mg tablet extended release 24 hr 30 mg PO DAILY omeprazole 40 mg capsule,delayed release(DR/EC) 40 mg PO DAILY Eliquis 5 mg tablet 5 mg PO BID multivitamin Tablet 1 tablet PO DAILY metoprolol succinate [Toprol XL] 100 mg Tablet Extended Release 24 Hr 200 mg PO QAM 30 Days Qty: 60 0RF albuterol sulfate 90 mcg/actuation HFA aerosol inhaler 2 puff inhalation QID PRN (Reason: shortness of breath or wheezing) Qty: 6.7 0RF amoxicillin-pot clavulanate 875-125 mg tablet 1 tablet PO Q12H 7 Days Qty: 14 0RF sotalol 120 mg tablet Follow-up/Referrals: Robert Durán MD [Primary Care Provider, Family Practice]
--- OUTSIDE RECORDS SUMMARY | 2025-04-26 12:44 | XMS_ITS | Clinical Summary ---
Author Organization [facility] Address [address] [place] [id number] Care Team Providers Care Assisted Living Director Name Role Phone Moreno Ortiz MD Primary Care Provider [phone] Donald Self MD Unavailable [phone] Allergies Active Allergy Reactions Criticality Noted Date [...] (05/03/2020): Added automatically from request for surgery [id number] Chronic cholecystitis 05/03/2020 Aortic atherosclerosis 06/09/2019 Cardiomyopathy 06/09/2019 Gastro-esophageal reflux disease without esophag itis 06/09/2019 Morbid obesity 06/09/2019 Vitamin D deficiency 06/09/2019 Abnormal mammogram 06/09/2019 Non-rheumatic mitral regurgitation 09/11/2017 Assessment & Plan (09/11/2017 10:41 AM SENIOR WRITER): This was noted as possibly severe on [...] agents. Assessment & Plan (09/11/2017 10:41 AM SENIOR WRITER): She is doing well on sotalol 80 [...] PVI. Assessment & Plan (09/11/2017 10:39 AM SENIOR WRITER): She remains in sinus rhythm, now 1 [...] months. Assessment & Plan (07/17/2017 2:26 PM SENIOR WRITER): She has symptomatic persistent atrial fibrillation. 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 difficile diarrhea got after COVID Booster Covid-19 02/13/2022 Family History Medical History Relation Name Comments Other Brother 1 Diabetes Father Heart attack Father Other Father Diabetes Mother Heart failure Mother Stroke Mother Stroke; [facility] 06/2016 -Also had diabetes Relation Name Status [...] on file Legal Sex Female 8:08 AM SENIOR WRITER Gender Identity Not on file Sexual Orientation Not on file Occupation Industry Job Start Date Job End Date retired Not on file Not on file Not on file Obstetrics History Last Filed Vital Signs Vital Sign Reading Time Taken Comments Blood Pressure 110/66 10/21/2023 12:16 PM SENIOR WRITER Pulse 70 10/21/2023 12:16 PM SENIOR WRITER Temperature 36.3 C (97.4 F) 12/03/2020 9:55 AM CDT Respiratory Rate 16 10/21/2023 12:16 PM SENIOR WRITER Oxygen Saturation 90% 03/23/2023 10:28 AM CDT Inhaled Oxygen Concentration - - Weight 86.2 kg (190 lb) 10/21/2023 12:16 PM SENIOR WRITER Verbal Height 160 cm (5' 3) 10/21/2023 12:16 PM SENIOR WRITER Body Mass Index 33.66 10/21/2023 12:16 PM SENIOR WRITER Plan of Treatment Health Maintenance Due Date [...] 8, 05/18/2017, 06/24/2016, Additional history exists Insurance [facility] Member Subscriber Plan / Payer (Ef fective 2013-Present) Name:DULCE HAYNES Relation to Subscriber:Self Name:Dulce Haynes Payer ID:[id number] ([facility]) Type:MEDICARE RISK OTHER Address: [address] [facility] Member Subscriber Plan / Payer (Ef fective 2019-Present) Name:Dulce Haynes Relation to Subscriber:Self Name:Dulce Haynes Payer ID:[id number] ([facility]) Type:MEDICARE RISK OTHER Address: [address] [facility] [address] [address] Care Teams Assisted Living Director Relationship Specialty Start Date End Date Moreno Ortiz MD PCP - General 08/06/17 Donald Self MD Surgeon General Surgery 05/07/20
--- OUTSIDE RECORDS SUMMARY | 2025-04-26 12:44 | XMS_ITS | Clinical Summary ---
Author Organization [facility] Address [address] [place] [address] Care Team Providers Care Slasher Tender Helper Name Role Phone Deena Garcia MD Primary Care Provider + Source Comments [facility],non-owned Affiliates and Associated Physician Practices is amultiple site organization consisting of ambulatory clinics and hospital sitesin [place], [place], [place] and [place]. This disclosure is being madepursuant to the Care Everywhere program and may not contain all information available regarding this patient. Last updated 18.[facility] [employer] Social History Tobacco Use Types Packs/Day Years Used Date Smoking Tobacco: Never Assessed Comments Unknown Sex and Gender Information Value Date Recorded Sex Assigned at Not on file Legal Sex Female 5:51 AM ACTUARIAL CONSULTANT Gender Identity Not on file Sexual Orientation [...] patient's age to complete this topic Insurance [facility] Care Address: [facility] CLAIMS [address] [place] [address] Care Teams Slasher Tender Helper Relationship Specialty Start Date End Date Deena Garcia MD [address] [address] [place] [address] PCP - General 02/07/20
[2025-04-26] MEDS: ALBUTEROL SULFATE NEB 2.5 MG/3 ML INH 5 MG INHALATION (12:45)
[2025-04-26 12:46] VITALS: PULSE 65; RESP 16
[2025-04-26 12:54] VITALS: PULSE 62; RESP 17
[2025-04-26 13:15] VITALS: BP 133/58; PULSE 68; RESP 18; TEMP 36.9; O2SAT 92
== END 2025-04-26 13:26 | disposition home or self-care (01) ==
PROVIDERS: Emergency Provider Emergency Medicine; PCP Family Medicine
DX: R06.02 Shortness of breath (principal); Z20.822 Contact with and (suspected) exposure to COVID-19; I48.91 Unspecified atrial fibrillation; I10 Essential (primary) hypertension; K21.9 Gastro-esophageal reflux disease without esophagitis; Z87.01 Personal history of pneumonia (recurrent); Z87.891 Personal history of nicotine dependence; Z79.01 Long term (current) use of anticoagulants; Z79.899 Other long term (current) drug therapy
CPT/HCPCS: 36415; 71046; 71275; 80053; 83605; 83735; 83880; 84484; 85025; 85610; 85730; 87637; 94640; 99284; Q9967

== ENCOUNTER 2025-05-01 09:55 | Inpatient (IN) | payer OTHER, SELFPAY ==
[2025-05-01] VITALS (19 sets, daily range): BP systolic 93–146; BP diastolic 43–90; PULSE 60–69; RESP 14–21; TEMP 36.4–37; O2SAT 94–96; BMI 33.4
--- NOTE | ~2025-05-01 | XR_ITS ---
EXAMINATION: XR chest 2V, 05/01/2025 10:40 CDT HISTORY: chest pain, shortness of breath COMPARISON: No comparisons available. Technique: 2 views obtained. Findings: COPD changes otherwise the lungs are clear No pneumothorax. Heart is normal size. Mediastinal and hilar contours are within normal limits. Bony thorax no acute abnormality. Impression: No acute cardiopulmonary abnormality. Reviewed, dictated and finalized at location A. Impression: No acute cardiopulmonary abnormality.
--- NOTE | ~2025-05-01 | CT_ITS ---
EXAMINATION: CTA chest PE protocol, 05/01/2025 11:50 CDT HISTORY: dyspnea COMPARISON: No comparisons available. TECHNIQUE: CTA examination is obtained with contrast CTA examination technique is performed with arterial phase of contrast-enhancement. 3-D reconstruction with thin MIP axial and MPR coronal imaging is provided Isovue 300, 92cc injected IV. One or more of the following dose reduction techniques were used: automated exposure control, adjustment of the mA and/or kV according to patient size, use of iterative reconstruction technique. FINDINGS: No significant coronary calcification is present ([id number]) LUNGS: Trace left pleural effusion. Small simple appearing right pleural effusion. Contrast bolus adequate, no pulmonary embolism identified. No tracheomalacia. No bronchiectasis. Minimal emphysematous changes. Mild pulmonary fibrotic changes. Mild pulmonary venous congestion. HEART AND PERICARDIUM: Mild cardiomegaly. Trace pericardial effusion. AORTA: Normal caliber aorta.. PULMONARY ARTERIES: No pulmonary embolism ADENOPATHY/MEDIASTINUM: Enlarged pretracheal lymph node 1.2 x 1.3 cm. LIMITED VIEWS OF THE ABDOMEN: Mild cirrhotic disease of the liver suspected. OSSEOUS STRUCTURES: No sclerotic or lytic lesions. No acute fracture is identified. OVERLYING SOFT TISSUES: Unremarkable. THYROID: The thyroid is unremarkable. IMPRESSION: 1. Negative for pulmonary embolism. Probable CHF. Reviewed, dictated and finalized at location A.
--- NOTE | 2025-05-01 10:15 | ECG_ITS ---
Test Date: 2025-05-01 10:17:43 Measurements Intervals [place] Rate: 63 P: 45 WA: 159 QRS: 48 QRSD: 92 T: 32 QT: 456 QTc: 470 Interpretive Statements SINUS RHYTHM NONSPECIFIC T-WAVE ABNORMALITY ABNORMAL ECG No previous ECG available for comparison Electronically Signed On 05-01-2025 11:17:48 CDT by Awais Sales M.D.
[2025-05-01 10:24] LABS: Hematocrit 37.4 % (37.0-47.0); Hemoglobin 11.9 g/dL (12.0-15.0); Immature Granulocyte Percent A 0.2 % (0-0.5); Lymphocytes Absolute Auto 1.89 K/mm3 (0.9-3.2); Mean Corpuscular HGB Conc 31.8 g/dl (32-36); Mean Corpuscular Hemoglobin 28.0 pg (26-34); Mean Corpuscular Volume 88.0 fl (80-100); Nucleated Red Blood Cells Absolute Auto 0.000 K/mm3 (0.0-0.012); Nucleated Red Blood Cells Perc 0.0 % (0.0-0.2); Platelet Count Result 207 k/mm3 (150-375); Red Blood Count 4.25 M/mm3 (4.2-5.4); White Blood Count 8.1 K/mm3 (4.5-10.0)
[2025-05-01 10:35] LABS: INR 1.3; Prothrombin Time 16.1 Seconds (11.1-14.7)
[2025-05-01 10:36] LABS: Alanine Aminotransferase 19 U/L (6-35); Albumin Level 3.9 g/dL (3.5-5.1); Alkaline Phosphatase 72 U/L (38-126); Anion Gap 5 mmol/L (4-12); Aspartate Amino Transferase 28 U/L (14-36); Bilirubin,Total 0.6 mg/dL (0.2-1.3); Blood Urea Nitrogen 10 mg/dL (7-17); Calcium 8.9 mg/dL (8.4-10.2); Carbon Dioxide 31 mmol/L (22-30); Chloride 103 mmol/L (98-107); Estimated CRCL calculation 67 ml/min; Estimated Glomerular Filt Rate > 60; Glucose 109 mg/dL (65-110); Lipase 40 U/L (23-300); Partial Thromboplastin Time 31.1 Seconds (22.3-36.8); Potassium 3.3 mmol/L (3.4-5.0); Sodium 139 mmol/L (137-145); Total Protein 6.9 g/dL (6.3-8.2)
[2025-05-01 10:53] LABS: Troponin I < 0.012 ng/mL (0.000-0.034)
[2025-05-01 12:02] LABS: NT Pro B Type Natriuretic Pept 931 pg/mL (19.9-100)
--- NOTE | 2025-05-01 12:17 | ED.GENADULT ---
HPI - General Adult General Chief complaint: Shortness of Breath/Dyspnea Stated complaint: SOB Time Seen by Provider: 05/01/25 11:08 History of Present Illness HPI narrative: Dulce Gibbons is an 84-year-old female who presents today with complaints of having continued shortness of breath. He explains that she was diagnosed with pneumonia on April 11 and [facility]. She states that she returned on April 25 and came here because she was having continued shortness of breath. She states that they did not find any abnormalities and she was discharged home. She states that she comes back today because she is having increased shortness of breath with exertion and was 88% on room air for EMS home. She denies having chest pain. She states that she does have history of atrial fibrillation and she is on Eliquis for this. Related Data Home Medications ?Medication ?Instructions ?Recorded ?Confirmed ?Last Taken ?Type apixaban 5 mg tablet (Eliquis) 5 mg PO BID 10/31/21 05/01/25 05/01/25 History furosemide 40 mg tablet 40 mg PO DAILY 10/31/21 05/01/25 05/01/25 History isosorbide mononitrate 30 mg 30 mg PO DAILY 10/31/21 05/01/25 05/01/25 History tablet,extended release 24 hr omeprazole 40 mg capsule,delayed 40 mg PO DAILY 10/31/21 05/01/25 05/01/25 History release multivitamin 1 tablet PO DAILY 01/15/23 05/01/25 05/01/25 History sotalol 120 mg tablet 120 mg PO Q12H 08/31/23 05/01/25 05/01/25 History atorvastatin 40 mg tablet 40 mg PO QPM 05/01/25 05/01/25 05/01/25 History metoprolol succinate 100 mg 100 mg PO Q12H 05/01/25 05/01/25 05/01/25 History tablet,extended release 24 hr (Toprol XL) Allergies Allergy/AdvReac Type Severity Reaction Status Date / Time amiodarone Allergy Unknown Unknown Verified 05/01/25 13:20 diltiazem Allergy Unknown Unknown Verified 05/01/25 13:20 losartan Allergy Unknown rash Verified 05/01/25 13:20 codeine Allergy Itching Verified 05/01/25 13:20 Review of Systems Review of Systems: All systems reviewed & are unremarkable except as noted in HPI and below PMFSH Past Medical History Medical History Diverticulitis Chronic GERD Hypertension Atrial fibrillation Surgical History Surgical History H/O cardiac radiofrequency ablation H/O tubal ligation H/O knee surgery Bilateral H/O repair of rotator cuff Family History Family History Sibling Hypertension Mother Family history of heart disease in male family member before age 55 Family history of coronary artery disease, Onset Age: 81 No family history of cardiovascular disease Patient's mother is Father Acute myocardial infarction Family history of premature coronary heart disease, Onset Age: 62 Hypertension Family history of elevated blood lipids Family history of diabetes mellitus in first degree relative Patient's father is Other Cerebrovascular accident Diabetes mellitus Family history of arthritis Social History Social History Social History: She lives with her sister and is . She has 4 sons. Code status full code Smoking packs per day: 1 Smoking cigarettes per day: 20.0 Years smoked: 40 Smoking pack-years: 40.00 Smoking status: Former smoker Smoking end date: 08/17/02 Alcohol intake: never Substance use: never Lack of Transportation: No Lack of Food: Never True Current Housing: I Have Housing Concerned About Future Housing: No Difficulty Paying Gas/Electric Bills: No Difficulty Paying for Meds: No Currently Unemployed: No Education: Decline to Answer Difficulty w/ Childcare or Family Care: No Spiritual care concerns: No Exam Narrative: GENERAL: Well-appearing, well-nourished, and in no acute distress. HEAD: Normocephalic, atraumatic. EYES: PERRLA and EOMI. ENT: Nares clear, no rhinorrhea or epistaxis. Mucous membranes moist. Oropharynx without tonsillar hypertrophy exudate or other lesions. NECK: Supple. No adenopathy or masses. No carotid bruits or JVD CHEST: No respiratory distress. Lung sounds positive for crackles in the bases bilaterally in the posterior perez HEART: Regular rate and rhythm. No murmur heard. Normal peripheral pulses. ABDOMEN: Soft, nontender, nondistended, normal active bowel sounds. EXTREMITIES: Normal range of motion. No edema. SKIN: Warm, dry, no rash. NEURO: No focal deficits. Alert and oriented x3. PSYCH: Normal mood and affect. Course Vital Signs Vital signs: Vital Signs Temperature 36.6 C 05/01/25 09:57 Pulse Rate 64 05/01/25 09:57 Respiratory Rate 20 05/01/25 09:57 Blood Pressure 115/90 05/01/25 09:57 Pulse Oximetry 94 05/01/25 09:57 Oxygen Delivery Nasal Cannula 05/01/25 09:57 Oxygen Flow Rate 3 05/01/25 09:57 Temperature 37.0 C 05/01/25 16:00 Pulse Rate 63 05/01/25 16:00 Respiratory Rate 20 05/01/25 16:00 Blood Pressure 126/46 L 05/01/25 16:00 Pulse Oximetry 95 05/01/25 16:00 Oxygen Delivery Nasal Cannula 05/01/25 13:30 Oxygen Flow Rate 2 05/01/25 13:30 Medical Decision Making [facility] Narrative Medical decision making narrative: 84-year-old female who presents with continued shortness of breath. She states that she was dealing with pneumonia diagnosis back in the end of march, when she was out of town with family. She states that she came here earlier this week with increased shortness of breath and was checked out and was discharged home as she was doing better and everything was fine. She presents today with complaints of having increased shortness of breath on exertion or it has gotten worse with past couple days. On EMS arrival to her home she was satting in the 80s on room air and is currently requiring 2 L of oxygen. She denies chest pain no fevers she states that she still does have a cough she does feel short of breath and worse whenever she tries ago and do anything. Concern for pneumonia, pulmonary embolism, CHF CBC is unremarkable CMP potassium 3.3, bicarb 31, lipase negative, the 2- troponin's are negative, BNP elevated at 931, UA unremarkable CT: Chest X-Ray 05/01/25 10:52 Impression: No acute cardiopulmonary abnormality. Chest CTA 05/01/25 12:09 IMPRESSION: 1. Negative for pulmonary embolism. Probable CHF. With patient's elevated BNP, oxygen requirement and the CHF on the CT scan and will bring patient in for admission for oxygen requirement diuresing and monitoring. I did talk to Rhoda the hospitalist who accepts admission for this patient. Medical Records Medical records reviewed: Yes I reviewed the external patient's medical records. Vital Signs Vital Signs: Vital Signs Temperature 36.6 C 05/01/25 09:57 Pulse Rate 64 05/01/25 09:57 Respiratory Rate 20 05/01/25 09:57 Blood Pressure 115/90 05/01/25 09:57 Pulse Oximetry 94 05/01/25 09:57 Oxygen Delivery Nasal Cannula 05/01/25 09:57 Oxygen Flow Rate 3 05/01/25 09:57 Temperature 37.0 C 05/01/25 16:00 Pulse Rate 63 05/01/25 16:00 Respiratory Rate 20 05/01/25 16:00 Blood Pressure 126/46 L 05/01/25 16:00 Pulse Oximetry 95 05/01/25 16:00 Oxygen Delivery Nasal Cannula 05/01/25 13:30 Oxygen Flow Rate 2 05/01/25 13:30 Vitals reviewed by me Lab Data Lab results reviewed: Yes I reviewed the patient's lab results. 05/01/25 10:18 05/01/25 10:18 Labs: Lab Results 05/01/25 05/01/25 05/01/25 Range/Units 10:18 12:27 13:09 WBC 8.1 (4.5-10.0) K/mm3 RBC 4.25 (4.2-5.4) M/mm3 Hgb 11.9 L (12.0-15.0) g/dL Hct 37.4 (37.0-47.0) % MCV 88.0 (80-100) fl MCH 28.0 (26-34) pg MCHC 31.8 L (32-36) g/dl RDW 14.6 H (11.5-14.5) % Plt Count 207 (150-375) k/mm3 MPV 11.0 H (7.4-10.4) fl Immature Gran % (Auto) 0.2 (0-0.5) % Neut % (Auto) 63.0 (45.5-73.1) % Lymph % (Auto) 23.2 (18.3-44.2) % [place] % (Auto) 11.8 H (2.6-8.5) % Eos % (Auto) 1.6 (0-4.4) % Baso % (Auto) 0.2 (0.2-1.2) % Lymph # (Auto) 1.89 (0.9-3.2) K/mm3 [place] # (Auto) 1.0 H (0.1-0.6) K/mm3 Eos # (Auto) 0.1 (0-0.3) K/mm3 Baso # (Auto) 0.0 (0.0-0.1) K/mm3 Abs Immat Gran (auto) 0.02 (0.00-0.031) K/mm3 Absolute Neuts (auto) 5.1 (1.3-6.7) K/mm3 Absolute Nucleated RBC 0.000 (0.0-0.012) K/mm3 Nucleated RBC % 0.0 (0.0-0.2) % PT 16.1 H (11.1-14.7) Seconds INR 1.3 APTT 31.1 (22.3-36.8) Seconds Sodium 139 (137-145) mmol/L Potassium 3.3 L (3.4-5.0) mmol/L Chloride 103 (98-107) mmol/L Carbon Dioxide 31 H (22-30) mmol/L Anion Gap 5 (4-12) mmol/L BUN 10 (7-17) mg/dL Creatinine 0.57 L (0.7-1.0) mg/dL Estim Creat Clear Calc 67 ml/min Estimated GFR > 60 (59 - ) Glucose 109 (65-110) mg/dL Calcium 8.9 (8.4-10.2) mg/dL Total Bilirubin 0.6 (0.2-1.3) mg/dL AST 28 (14-36) U/L ALT 19 (6-35) U/L Alkaline Phosphatase 72 (38-126) U/L Troponin I < 0.012 < 0.012 (0.000-0.034) ng/mL NT-Pro-B Natriuret Pep 931 H (19.9-100) pg/mL Total Protein 6.9 (6.3-8.2) g/dL Albumin 3.9 (3.5-5.1) g/dL Lipase 40 (23-300) U/L Urine Color Yellow (Yellow) Urine Appearance Clear (Clear) Urine pH 7.0 (5.0-9.0) Ur Specific [place] 1.007 (1.001-1.035) Urine Protein Negative (Negative) mg/dL Urine Glucose (UA) Negative (Negative) mg/dL Urine Ketones Negative (Negative) mg/dL Ur Blood (Man) Negative (Negative) Urine Nitrate Negative (Negative) Urine Bilirubin Negative (Negative) Urine Urobilinogen 0.2 (<2.0) mg/dL Leukocyte Esterase Rfl Negative (Negative) MILLY/UL Imaging Data Radiologist's impression: Impressions Chest X-Ray 05/01/25 10:52 Impression: No acute cardiopulmonary abnormality. Chest CTA 05/01/25 12:09 IMPRESSION: 1. Negative for pulmonary embolism. Probable CHF. Discharge Plan Discharge Clinical Impression: Pulmonary congestion, Breathlessness on exertion, Requires supplemental oxygen Patient Disposition: Still a Patient Condition: Stable Time of Disposition: 18:07
[2025-05-01 12:38] LABS: Add Urine Microscopic? NO; Appearance Urine Clear (Clear); Glucose Urine UA Negative (Negative); Leukocyte Esterase Ur Negative LEU/UL (Negative); Nitrate Urine Negative (Negative); Specific Grav Ur 1.007 (1.001-1.035)
[2025-05-01 13:37] LABS: Troponin I < 0.012 ng/mL (0.000-0.034)
--- OUTSIDE RECORDS SUMMARY | 2025-05-01 13:41 | XMS_ITS | Clinical Summary ---
Author Organization [facility] Address [address] [place] [address] Care Team Providers Care Registered Nurse Midwife Name Role Phone Deena Garcia MD Primary Care Provider + Source Comments [facility],non-owned Affiliates and Associated Physician Practices is amultiple site organization consisting of ambulatory clinics and hospital sitesin [place], [place], [place] and [place]. This disclosure is being madepursuant to the Care Everywhere program and may not contain all information available regarding this patient. Last updated 18.[facility] [employer] Social History Tobacco Use Types Packs/Day Years Used Date Smoking Tobacco: Never Assessed Comments Unknown Sex and Gender Information Value Date Recorded Sex Assigned at Not on file Legal Sex Female 5:51 AM WILDERNESS GUIDE Gender Identity Not on file Sexual Orientation [...] age to complete this topic Insurance [facility] Care Address: [facility] CLAIMS [address] [place] [address] Care Teams Registered Nurse Midwife Relationship Specialty Start Date End Date Deena Garcia MD [address] [place] [address] PCP - General 02/07/20
--- OUTSIDE RECORDS SUMMARY | 2025-05-01 13:41 | XMS_ITS | Clinical Summary ---
Author Organization [facility] Address [address] [place] [id number] Care Team Providers Care Dumping Machine Operator Name Role Phone Moreno Ortiz MD Primary Care Provider [phone] Donald Self MD Unavailable [phone] Allergies Active Allergy Reactions Criticality Noted Date [...] (05/03/2020): Added automatically from request for surgery [id number] Chronic cholecystitis 05/03/2020 Aortic atherosclerosis 06/09/2019 Cardiomyopathy 06/09/2019 Gastro-esophageal reflux disease without esophag itis 06/09/2019 Morbid obesity 06/09/2019 Vitamin D deficiency 06/09/2019 Abnormal mammogram 06/09/2019 Non-rheumatic mitral regurgitation 09/11/2017 Assessment & Plan (09/11/2017 10:41 AM RN GASTROENTEROLOGY): This was noted as possibly severe on [...] have resumed her beta-jareth and discontinued verapamil. [facility] current use of antiarrhythmic drug Assessment & [...] agents. Assessment & Plan (09/11/2017 10:41 AM RN GASTROENTEROLOGY): She is doing well on sotalol 80 [...] PVI. Assessment & Plan (09/11/2017 10:39 AM RN GASTROENTEROLOGY): She remains in sinus rhythm, now 1 [...] months. Assessment & Plan (07/17/2017 2:26 PM RN GASTROENTEROLOGY): She has symptomatic persistent atrial fibrillation. 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 difficile diarrhea got after COVID Booster Covid-19 02/13/2022 Family History Medical History Relation Name Comments Other Brother 1 Diabetes Father Heart attack Father Other Father Diabetes Mother Heart failure Mother Stroke Mother Stroke; [facility] 06/2016 -Also had diabetes Relation Name [...] on file Legal Sex Female 8:08 AM RN GASTROENTEROLOGY Gender Identity Not on file Sexual Orientation Not on file Occupation Industry Job Start Date Job End Date retired Not on file Not on file Not on file Obstetrics History Last Filed Vital Signs Vital Sign Reading Time Taken Comments Blood Pressure 110/66 10/21/2023 12:16 PM RN GASTROENTEROLOGY Pulse 70 10/21/2023 12:16 PM RN GASTROENTEROLOGY Temperature 36.3 C (97.4 F) 12/03/2020 9:55 AM CDT Respiratory Rate 16 10/21/2023 12:16 PM RN GASTROENTEROLOGY Oxygen Saturation 90% 03/23/2023 10:28 AM CDT Inhaled Oxygen Concentration - - Weight 86.2 kg (190 lb) 10/21/2023 12:16 PM RN GASTROENTEROLOGY Verbal Height 160 cm (5' 3) 10/21/2023 12:16 PM RN GASTROENTEROLOGY Body Mass Index 33.66 10/21/2023 12:16 PM RN GASTROENTEROLOGY Plan of Treatment Health Maintenance Due Date [...] history exists Insurance [facility] Member Subscriber Plan / Payer (Ef fective 2013-Present) Name:DULCE HAYNES Relation to Subscriber:Self Name:Dulce Haynes Payer ID:[id number] ([facility]) Type:MEDICARE RISK OTHER Address: [address] [facility] Member Subscriber Plan / Payer (Ef fective 2019-Present) Name:Dulce Haynes Relation to Subscriber:Self Name:Dulce Haynes Payer ID:[id number] ([facility]) Type:MEDICARE RISK OTHER Address: [address] [facility] [place] [address] Care Teams Dumping Machine Operator Relationship Specialty Start Date End Date Moreno Ortiz MD PCP - General 08/06/17 Donald Self MD Surgeon General Surgery 05/07/20
[2025-05-01] MEDS: FUROSEMIDE INJ 40 MG/4 ML VIAL IV PUSH (14:04)
--- NOTE | 2025-05-01 14:38 | P.HP_ITS ---
H&P: HPI History of Present Illness Date/Time: 05/01/25 14:38 Chief Complaint: Shortness of breath Narrative: 84-year-old female with past medical history of hypertension, AFib, GERD and diverticulitis presents the hospital with shortness of breath. Patient was found to be hypoxic at 84% on room air and was placed on 2 L nasal cannula. Patient states that her breathing has improved since she received Lasix in the emergency room. Patient denies fevers chills nausea or vomiting or cough. Patient states that back in March she had pneumonia and completed her antibiotic treatment. She returned back to the emergency room on April night because of continued shortness of breath at that time they did not find anything wrong and she was discharged home. Patient denies history of CHF however she is on Lasix at home. Lab work shows hemoglobin 11.9, potassium of 3.3, carbon dioxide of 31, creatinine of 0.57, proBNP of 931, troponins x2 negative, UA negative for infection, CTA shows no pulmonary embolism, probably CHF. EKG shows sinus rhythm 63. Patient was given aspirin Lasix in the emergency room. Review of Systems Review of Systems: 12 systems were reviewed and are negativ e except for as per HPI. [facility] Past Medical History Medical History Diverticulitis Chronic GERD Hypertension Atrial fibrillation Surgical History Surgical History H/O cardiac radiofrequency ablation H/O tubal ligation H/O knee surgery Bilateral H/O repair of rotator cuff Family History Family History Sibling Hypertension Mother Family history of heart disease in male family member before age 55 Family history of coronary artery disease, Onset Age: 81 No family history of cardiovascular disease Patient's mother is Father Acute myocardial infarction Family history of premature coronary heart disease, Onset Age: 62 Hypertension Family history of elevated blood lipids Family history of diabetes mellitus in first degree relative Patient's father is Other Cerebrovascular accident Diabetes mellitus Family history of arthritis Social History Social History Social History: She lives with her sister and is . She has 4 sons. Code status full code Smoking packs per day: 1 Smoking cigarettes per day: 20.0 Years smoked: 40 Smoking pack-years: 40.00 Smoking status: Former smoker Smoking end date: 08/17/02 Alcohol intake: never Substance use: never Lack of Transportation: No Lack of Food: Never True Current Housing: I Have Housing Concerned About Future Housing: No Difficulty Paying Gas/Electric Bills: No Difficulty Paying for Meds: No Currently Unemployed: No Education: Decline to Answer Difficulty w/ Childcare or Family Care: No Spiritual care concerns: No Meds Home Medications and Allergies Home Medications ?Medication ?Instructions ?Recorded ?Confirmed ?Type apixaban 5 mg tablet (Eliquis) 5 mg PO BID 10/31/21 History furosemide 40 mg tablet 40 mg PO DAILY 10/31/2104/17 History isosorbide mononitrate 30 mg 30 mg PO DAILY 10/31/21 0 05/01/25 History tablet,extended release 24 hr omeprazole 40 mg capsule,delayed 40 mg PO DAILY 05/01/25 History release multivitamin 1 tablet PO DAILY 01/15/23 0 05/01/25 History albuterol sulfate 90 mcg/actuation 2 puff inhalation Q ID PRN 06/09/23 05/01/25 Rx aerosol inhaler shortness of breath or wheez ing #6.7 grams sotalol 120 mg tablet 120 mg PO Q12H 08/31/2304/17 History albuterol sulfate 90 mcg/actuation 1 puff inhalation Q ID #6.7 grams 04/26/25 05/01/25 Rx aerosol inhaler atorvastatin 40 mg tablet 40 mg PO QPM 05/01/25 History metoprolol succinate 100 mg 100 mg PO Q12H 05/01/25 History tablet,extended release 24 hr (Toprol XL) Allergies Allergy/AdvReac Type Severity Reaction Status Date / Time amiodarone Allergy Unknown Unknown Verified 05/01/25 13:20 diltiazem Allergy Unknown Unknown Verified 05/01/25 13:20 losartan Allergy Unknown rash Verified 05/01/25 13:20 codeine Allergy Itching Verified 05/01/25 13:20 Vital Signs Vital Signs - 24 hr 05/01/25 09:57 05/01/25 10:22 05/01/25 10:23 Temperature 97.9 F Pulse Rate 64 64 65 Respiratory Rate 20 17 17 Blood Pressure 115/90 103/88 Pulse Oximetry 94 94 94 Oxygen Delivery Nasal Cannula Oxygen Flow Rate 3 05/01/25 10:30 05/01/25 10:31 05/01/25 10:48 Temperature Pulse Rate 62 63 Respiratory Rate 19 19 Blood Pressure 94/59 L Pulse Oximetry 95 95 94 Oxygen Delivery Nasal Cannula Oxygen Flow Rate 3 05/01/25 10:49 05/01/25 11:08 05/01/25 11:29 Temperature Pulse Rate 64 63 63 Respiratory Rate 21 H 19 Blood Pressure 100/68 93/61 L Pulse Oximetry 96 95 Oxygen Delivery Oxygen Flow Rate 05/01/25 12:29 Temperature Pulse Rate 65 Respiratory Rate 16 Blood Pressure 109/60 Pulse Oximetry 94 Oxygen Delivery Oxygen Flow Rate Exam Narrative: General: well appearing, appears stated age. HEENT: normocephalic, atraumatic. Mucous membranes moist. EOMI, PERRLA, bilateral sclera anicteric, no conjunctival injection. Neck supple without JVD, lymphadenopathy, or bruit. Respiratory: Diminished to ascultation bilaterally. No rales/rhonic/wheezes. Cardiovascular: Regular rate and rhythm, normal S1-S2 upon ascultation. No murmurs, rubs, or clicks. PMI is nondisplaced, capillary refill less than 3 second. Abdomen: Soft, round, no pulsatile masses, nondistended and nontender. No rebound, no guarding. No CVA tenderness, no hepatosplenomegaly. Bowel sounds present to all four quadrants. No high pitch or tinkling sounds, resonant to percussion. Extremities: No cyanosis, clubbing, or edema present. Pulses are palpable 2/2. Active ROM to all four extremities. Neuro: Alert and orientated x 4. PERRLA. Cranial nerves 2-12 intact without focal deficit. Skin: Warm, dry, and intact, without rash, erythema, or lesion. Psych: pleasant, cooperative, normal speech, normal affect, no hallucinations, no dysarthia H&P: Results Labs Labs: Short CBC 05/01/25 Range/Units 10:18 WBC 8.1 (4.5-10.0) K/mm3 Hgb 11.9 L (12.0-15.0) g/dL Hct 37.4 (37.0-47.0) % Plt Count 207 (150-375) k/mm3 BMP 05/01/25 10:18 Sodium 139 Potassium 3.3 L Chloride 103 Carbon Dioxide 31 H BUN 10 Creatinine 0.57 L Glucose 109 Calcium 8.9 Cardiac Enzymes 05/01/25 05/01/25 Range/Units 10:18 13:09 Troponin I < 0.012 < 0.012 (0.000-0.034) ng/mL Liver Function 05/01/25 Range/Units 10:18 Total Bilirubin 0.6 (0.2-1.3) mg/dL AST 28 (14-36) U/L ALT 19 (6-35) U/L Alkaline Phosphatase 72 (38-126) U/L Albumin 3.9 (3.5-5.1) g/dL Urine 05/01/25 Range/Units 12:27 Urine Color Yellow (Yellow) Urine Appearance Clear (Clear) Urine pH 7.0 (5.0-9.0) Ur Specific [place] 1.007 (1.001-1.035) Urine Protein Negative (Negative) mg/dL Urine Glucose (UA) Negative (Negative) mg/dL Assessment and Plan Assessment and plan (1) Pulmonary congestion: Code(s): R09.89 - Other specified symptoms and signs involving the circulatory and respiratory systems Status: Acute Assessment and Plan: Cardiology consulted IV Lasix Echocardiogram pending Daily weight Fluid restriction (2) Hypertension: Qualifiers: Hypertension type: primary hypertension Qualified Code(s): I10 - Essential (primary) hypertension Code(s): I10 - Essential (primary) hypertension Status: Acute Assessment and Plan: Continue home meds (3) Afib: Qualifiers: Atrial fibrillation type: paroxysmal Qualified Code(s): I48.0 - Paroxysmal atrial fibrillation Code(s): I48.91 - Unspecified atrial fibrillation Status: Acute Assessment and Plan: Continue Eliquis, sotalol, metoprolol and imdur Telemetry monitoring (4) Hypokalemia: Code(s): E87.6 - Hypokalemia Status: Acute Assessment and Plan: Replete potassium BMP in the morning Quality VTE Prophylaxis VTE prophylaxis: mechanical ordered and pharmacologic ordered Hospitalist MIPS Advance Care Plan I have confirmed that the patient's Advanced Care Plan is present, code status is documented, or surrogate decision maker is listed in patient medical record.: Yes Medication Reconciliation I have utilized all available resources to obtain, update and review the patients current medications (includes all prescriptions, OTC, herbals, cannabis, and nutritional supplements).: Yes
--- NOTE | 2025-05-01 14:45 | ECHO_ITS ---
Patient Info Name: Dulce Gibbons Age: 84 years : 1940 Gender: Female Ht: 63 in Wt: 189 lbs BSA: 1.99 m2 HR: 60 bpm BP: 146 / 62 mmHg Technical Quality: Good Exam Date: 05/01/2025 3:15 PM Patient Status: I Admit Date: 05/01/2025 Exam Type: CA echo doppler color flow Complete two-dimensional, color flow and Doppler transthoracic echocardiogram is performed. Staff Referring Physician: Emerita Zamora Engineer Systems: Pierre Shelton III Attending Provider: Jordy Stephens MD Summary 1. Complete two-dimensional, color flow and Doppler transthoracic echocardiogram is performed. 2. Left ventricular chamber dimension is normal. 3. Left ventricular systolic function is normal, estimated at 60-65. 4. The left ventricular diastolic function is grade III diastolic dysfunction. 5. E/e' 14 is mildly elevated. 6. Left atrial chamber dimension is moderately enlarged. 7. Right atrial chamber dimension is mildly enlarged. 8. There is mild aortic valve sclerosis. 9. The mitral valve has a mildly calcified annulus. 10. There is mild mitral valve regurgitation. 11. There is trace tricuspid valve regurgitation. 12. Moderate pulmonary hypertension, estimated pulmonary arterial systolic pressure is 50 mmHg. 13. Dilated inferior vena cava with >50% collapse upon inspiration consistent with elevated right atrial pressure, 10 mmHg. Left Ventricle E/e' 14 is mildly elevated. Left ventricular chamber dimension is normal. Left ventricular systolic function is normal, estimated at 60-65. The left ventricular diastolic function is grade III diastolic dysfunction. Right Ventricle Right ventricular chamber dimension is normal. Right ventricular systolic function is normal and with normal TAPSE 1.9 cm. Left Atria Left atrial chamber dimension is moderately enlarged. Right Atria Right atrial chamber dimension is mildly enlarged. Aortic Valve The aortic valve is trileaflet. There is mild aortic valve sclerosis. There is no aortic valve stenosis. There is no aortic valve regurgitation. Pulmonic Valve There is no pulmonic regurgitation. Mitral Valve The mitral valve has a mildly calcified annulus. There is no mitral valve stenosis. There is mild mitral valve regurgitation. Tricuspid Valve There is trace tricuspid valve regurgitation. Moderate pulmonary hypertension, estimated pulmonary arterial systolic pressure is 50 mmHg. Pericardium/Pleural There is no pericardial effusion. Inferior Vena Cava Dilated inferior vena cava with >50% collapse upon inspiration consistent with elevated right atrial pressure, 10 mmHg. Aorta The aortic root size at the sinus of Valsalva is normal. Left Ventricular Outflow Tract Name Value Normal LVOT 2D LVOT Diameter 2.1 cm LVOT Doppler LVOT Peak Velocity 79 cm/s LVOT Peak Gradient 3 mmHg LVOT Mean Gradient 1 mmHg LVOT VTI 19 cm LVOT VTI/AV VTI Ratio 0.6 LVOT Stroke Volume 65 ml LVOT CO 11.6 l/min LVOT CI 5.8 l/min/m2 Pulmonic Valve Name Value Normal PV Doppler PV Peak Velocity 107 cm/s PV Peak Gradient 5 mmHg PV Mean Gradient 2 mmHg PV Regurgitation Doppler PA Peak End Diastolic Velocity 113 cm/s Mitral Valve Name Value Normal MV Doppler MV Peak Gradient 4 mmHg MV Mean Gradient 1 mmHg MV Area (Cont Eq VTI) 2.8 cm2 MV Regurgitation Doppler MR Peak Gradient 106 mmHg MV Diastolic Function MV E Peak Velocity 103 cm/s MV A Peak Velocity 34 cm/s MV E/A 3.0 MV Decel Time (PW) 185 ms MV Annular TDI MV E/e' (Septal) 18.7 MV E/e' (Lateral) 11.4 MV E/e' (Average) 15.0 Tricuspid Valve Name Value Normal TV Regurgitation Doppler TR Peak Velocity 317 cm/s TR Peak Gradient 40 mmHg Estimated PAP/RSVP RA Pressure 10 mmHg <=5 PA Systolic Pressure 50 mmHg <36 RV Systolic Pressure 50 mmHg <36 TV Annular TDI TV Lateral Sravani s' Velocity 14.5 cm/s >=9.5 Aortic Valve Name Value Normal AV Doppler AV Peak Velocity 132 cm/s AV Peak Gradient 7 mmHg AV Mean Gradient 4 mmHg AV VTI 33 cm AV Area (Cont Eq VTI) 2.0 cm2 >=3.0 AV Area (Cont Eq Dao) 2.0 cm2 AV DI (Dao) 0.60 AV Regurgitation 2D LVOT Area 3.4 cm2 Ventricles Name Value Normal LV Dimensions 2D/MM IVS Diastolic Thickness (2D) 0.9 cm 0.6-1.0 LVID Diastole (2D) 4.7 cm 3.8-5.2 LVIW Diastolic Thickness (2D) 1.0 cm 0.6-0.9 LVID Systole (2D) 3.3 cm 2.2-3.5 LVOT Diameter 2.1 cm LV Mass (2D Cubed) 153.97 g 67.00-162.00 LV Mass Index (2D Cubed) 77 g/m2 43-95 Relative Wall Thickness (2D) 0.41 <=0.42 LV Fractional Shortening/Ejection Fraction 2D/MM LV Fractional Shortening (2D) 30 % 27-45 LV EF (2D Teichholz) 57 % LV Diastolic Volume (4C MOD) 84 ml LV EF (4C MOD) 60 % LV Diastolic Volume (2C MOD) 52 ml LV EF (2C MOD) 55 % LV Diastolic Volume (BP MOD) 68 ml 46-106 LV Diastolic Volume Index (BP MOD) 34 ml/m2 29-61 LV Systolic Volume (BP MOD) 29 ml 14-42 LV Systolic Volume Index (BP MOD) 15 ml/m2 8-24 LV EF (BP MOD) 57 % 54-74 LV Diastolic Length (4C) 6.7 cm LV Systolic Length (4C) 5.2 cm LV Stroke Volume (4C MOD) 50 ml Atria Name Value Normal LA Dimensions LA Volume (4C A-L) 66 ml LA Volume (BP A-L) 74 ml RA Dimensions RA Systolic Major [place] Length (4C) 5.4 cm 2.2-2.8 RA Area (4C) 17.9 cm2 <=18.0 Report Signatures
--- NOTE | 2025-05-01 14:58 | ADMGEN ---
This patient, Dulce Gibbons, was admitted to [facility] Surg Room 331-01. Patient/family oriented to hospital policies and general routines including ID bracelet, bed and alarms, visiting hours, pain management, procedures, bathroom and other care routines, personal items, smoking policy, room service/diet, and visiting hours. Information on how to activate the Rapid Response Team has been discussed. Patient/Family are encouraged to report perceived risks to care and to ask questions if they do not understand what they are told or what they should do.
[2025-05-01 16:40] LABS: Troponin I < 0.012 ng/mL (0.000-0.034)
[2025-05-01] MEDS: POTASSIUM CHLORIDE 20 MEQ PACKET (FOR LIQUID) 40 MEQ PO (17:00)
[2025-05-01] MEDS: APIXABAN 5 MG TABLET PO (20:42)
[2025-05-01] MEDS: SOTALOL HCL 80 MG TABLET PO (20:44)
[2025-05-01] MEDS: ATORVASTATIN 40 MG TABLET PO (20:44)
[2025-05-01] MEDS: METOPROLOL SUCCINATE EXT REL 100 MG TABCR PO (22:30)
[2025-05-01] MEDS: MELATONIN 5 MG TABLET PO (22:31)
[2025-05-02] VITALS (15 sets, daily range): BP systolic 121–146; BP diastolic 40–53; PULSE 59–85; RESP 14–16; TEMP 36.3–36.6; O2SAT 92–96
[2025-05-02] MEDS: ACETAMINOPHEN 325 MG TABLET 650 MG PO (05:51)
[2025-05-02 06:21] LABS: Hematocrit 37.7 % (37.0-47.0); Hemoglobin 11.6 g/dL (12.0-15.0); Immature Granulocyte Percent A 0.1 % (0-0.5); Lymphocytes Absolute Auto 1.80 K/mm3 (0.9-3.2); Mean Corpuscular HGB Conc 30.8 g/dl (32-36); Mean Corpuscular Hemoglobin 27.8 pg (26-34); Mean Corpuscular Volume 90.4 fl (80-100); Nucleated Red Blood Cells Absolute Auto 0.000 K/mm3 (0.0-0.012); Nucleated Red Blood Cells Perc 0.0 % (0.0-0.2); Platelet Count Result 191 k/mm3 (150-375); Red Blood Count 4.17 M/mm3 (4.2-5.4); White Blood Count 7.1 K/mm3 (4.5-10.0)
[2025-05-02 06:46] LABS: Anion Gap 5 mmol/L (4-12); Blood Urea Nitrogen 12 mg/dL (7-17); Calcium 8.8 mg/dL (8.4-10.2); Carbon Dioxide 35 mmol/L (22-30); Chloride 99 mmol/L (98-107); Estimated CRCL calculation 58 ml/min; Estimated Glomerular Filt Rate > 60; Glucose 116 mg/dL (65-110); Potassium 3.2 mmol/L (3.4-5.0); Sodium 139 mmol/L (137-145)
[2025-05-02] MEDS: FUROSEMIDE INJ 40 MG/4 ML VIAL IV PUSH (09:16)
[2025-05-02] MEDS: ISOSORBIDE MONONITRATE 30 MG TAB.ER.24H PO (09:17)
[2025-05-02] MEDS: APIXABAN 5 MG TABLET PO ×2 (09:17→21:14)
[2025-05-02] MEDS: SOTALOL HCL 80 MG TABLET PO ×2 (09:17→21:14)
[2025-05-02] MEDS: METOPROLOL SUCCINATE EXT REL 100 MG TABCR PO ×2 (09:17→21:14)
--- NOTE | 2025-05-02 09:58 | CONS_ITS ---
Report was recreated on 05/17/25. Original report was signed by Anne Verma APRN on 05/02/25 at 1031. Assessment and Plan Assessment and plan (1) CHF (congestive heart failure): Qualifiers: Heart failure chronicity: acute on chronic Heart failure type: diastolic Qualified Code(s): I50.33 - Acute on chronic diastolic (congestive) heart failure <Anne Verma BEHAVIORIST - Last Filed: 05/02/25 10:31> Code(s): I50.9 - Heart failure, unspecified <Anne Verma BEHAVIORIST - Last Filed: 05/02/25 10:31> Status: Acute <Anne Verma BEHAVIORIST - Last Filed: 05/02/25 10:31> (2) Hypertension: Qualifiers: Hypertension type: primary hypertension Qualified Code(s): I10 - Essential (primary) hypertension <Anne Verma APRN - Last Filed: 05/02/25 10:31> Code(s): I10 - Essential (primary) hypertension <Anne Verma BEHAVIORIST - Last Filed: 05/02/25 10:31> Status: Acute <Anne Verma BEHAVIORIST - Last Filed: 05/02/25 10:31> (3) Afib: Qualifiers: Atrial fibrillation type: paroxysmal Qualified Code(s): I 48.0 - Paroxysmal atrial fibrillation <Anne Verma APRN - Last Filed: 05/02/25 10:31> Code(s): I48.91 - Unspecified atrial fibrillation <Anne Verma BEHAVIORIST - Last Filed: 05/02/25 10:31> Status: Acute <Anne Verma BEHAVIORIST - Last Filed: 05/02/25 10:31> (4) Hypokalemia: Code(s): E87.6 - Hypokalemia <Anne Verma BEHAVIORIST - Last Filed: 05/02/25 10:31> Status: Acute <Anne Verma APRN - Last Filed: 05/02/25 10:31> Assessment and Plan: CHF-acute decompenasted diastolic heart failure Shortness of breath paroxysmal atrial fibrillation Moderate pulmonary HTN Hypertension Hypokalemia Carotid stenosis Plan: CHF-acute decompensated diastolic HF Patient acute shortness of breath is most likely secondary to acute diastolic heart failure in setting of recent pneumonia which appears to have been treated on OP basis with antibiotic therapy. Her CTA chest was negative for PE but did demonstrate some pulmonary vascular congestion. Her pBNP was mildly elevated at 931. Does not appear ischemic as troponin are negative x 3 and EKG demonstrates a NSR with no acute ST/T wave changes. She had MPI 10/2023 with her visual display associate that was negative for ischemia. Echo this admission demonstrates an EF of 60-65% with grade III diastolic dysfunction. Will continue with IV diuresis today. Consider addition of ARB as BP tolerates. Wean O2 as tolerated paroxysmal atrial fibrillation -appeared to be in NSR on admission and maintaining NSR on tele monitor -she is on Metoprolol 100 mg BID and sotalol 120 mg BID -will repeat EKG as QTC 470 on admission -renal function stable -remains on Eliquis 5 mg BID for AC Moderate pulmonary HTN -noted on echo this admission was also reported as moderate per echo 10/2023 with her visual display associate at OSH per EPIC review -appears unchanged on this admission -patient may benefit from OP sleep study Hypertension -blood pressure currently controlled. -has been low normal -currently on Metoprolol 100mg BID and Imdur 30 mg daily -would consider ARB in setting of diastolic HF if tolerated Hypokalemia -K of 3.2 would replete Carotid stenosis -carotid duplex in 2023 showed 50-80% stenosis of AMADA and LICA -will need OP follow up -asymptomatic at this time -continue Eliquis and atorvastatin. <Anne Verma APRN - Last Filed: 05/02/25 10:31> CHF-acute decompenasted diastolic heart failure Shortness of breath paroxysmal atrial fibrillation Moderate pulmonary HTN Hypertension Hypokalemia Carotid stenosis Plan: CHF-acute decompensated diastolic HF Patient acute shortness of breath is most likely secondary to acute diastolic heart failure in setting of recent pneumonia which appears to have been treated on OP basis with antibiotic therapy. Her CTA chest was negative for PE but did demonstrate some pulmonary vascular congestion. Her pBNP was mildly elevated at 931. Does not appear ischemic as troponin are negative x 3 and EKG demonstrates a NSR with no acute ST/T wave changes. She had MPI 10/2023 with her visual display associate that was negative for ischemia. Echo this admission demonstrates an EF of 60-65% with grade III diastolic dysfunction. Will continue with IV diuresis today. Add SGLT2 inhibitor. Wean O2 as tolerated paroxysmal atrial fibrillation -appeared to be in NSR on admission and maintaining NSR on tele monitor -she is on Metoprolol 100 mg BID and sotalol 120 mg BID -will repeat EKG as QTC 470 on admission -renal function stable -remains on Eliquis 5 mg BID for AC Moderate pulmonary HTN -noted on echo this admission was also reported as moderate per echo 10/2023 with her visual display associate at OSH per [facility] review -appears unchanged on this admission -patient may benefit from OP sleep study Hypertension -blood pressure currently controlled. -has been low normal -currently on Metoprolol 100mg BID and Imdur 30 mg daily -would consider ARB in setting of diastolic HF if tolerated Hypokalemia -K of 3.2 would replete Carotid stenosis -carotid duplex in 2023 showed 50-80% stenosis of AMADA and LICA -will need OP follow up -asymptomatic at this time -continue Eliquis and atorvastatin. <Magaly Rodriguez MD - Last Filed: 05/02/25 11:31> History of Present Illness History of Present Illness Consult date/time: 05/02/25 09:58 <Anne Verma APRN - Last Filed: 05/02/25 10:31> Requesting physician: Rhoda Viera APRN <Anne Verma APRN - Last Filed: 05/02/25 10:31> Consult reason: shortness of breath <Anne Verma APRN - Last Filed: 05/02/25 10:31> Reason For Visit: oxygen requirement, pulmonary congestion <Anne Verma APRN - Last Filed: 05/02/25 10:31> Narrative: Dulce Gibbons is an 84 y.o. female with a PMH of pafib, HTN, diverticulitis and chronic GERD who presented to the ER with c/o shortness of breath. According to the patient she had been on vacation in [place] and while there developed cough. She states she went to an urgent care there and was diagnosed with pneumonia and started on antibiotics. Her shortness of breath and cough persisted and came to the ER here last week and was given an inhaler. She continued to feel unwell and felt short of breath with any activity. She was concerned she may be back in atrial fibrillation as this is how she had felt in the past. She denies any fever or chills. No chest pain or pressure. No dizziness or palpitations. She has been compliant with all medications. In the ER she was noted to be hypoxic and required oxygen per NC. She was also noted to have an elevated pBNP and CT chest with pulmonary vascular congestion for which we were consulted. <Anne Verma APRN - Last Filed: 05/02/25 10:31> Review of Systems 2 Review of Systems: All systems reviewed & are unremarkable except as noted in HPI and below (the HPI ) <Anne Verma APRN - Last Filed: 05/02/25 10:31> [facility] Past Medical History Medical History: Medical History Diverticulitis Chronic GERD Hypertension Atrial fibrillation <Anne Verma APRN - Last Filed: 05/02/25 10:31> Surgical History Surgical History: Surgical History H/O cardiac radiofrequency ablation H/O tubal ligation H/O knee surgery Bilateral H/O repair of rotator cuff <Anne Verma APRN - Last Filed: 05/02/25 10:31> Family History Family History: Family History Sibling Hypertension Mother Family history of heart disease in male family member before age 55 Family history of coronary artery disease, Onset Age: 81 No family history of cardiovascular disease Patient's mother is Father Acute myocardial infarction Family history of premature coronary heart disease, Onset Age: 62 Hypertension Family history of elevated blood lipids Family history of diabetes mellitus in first degree relative Patient's father is Other Cerebrovascular accident Diabetes mellitus Family history of arthritis <Anne Verma APRN - Last Filed: 05/02/25 10:31> Social History Social History: Social History Social History: She lives with her sister and is . She has 4 sons. Code status full code Smoking packs per day: 1 Smoking cigarettes per day: 20.0 Years smoked: 40 Smoking pack-years: 40.00 Smoking status: Former smoker Smoking end date: 08/17/02 Alcohol intake: never Substance use: never Lack of Transportation: No Lack of Food: Never True Current Housing: I Have Housing Concerned About Future Housing: No Difficulty Paying Gas/Electric Bills: No Difficulty Paying for Meds: No Currently Unemployed: No Education: Decline to Answer Difficulty w/ Childcare or Family Care: No Spiritual care concerns: No <Anne Verma APRN - Last Filed: 05/02/25 10:31> Meds Home Medications and Allergies Home medications: Home Medications ?Medication ?Instructions ?Recorded ?Confirmed ?Type apixaban 5 mg tablet (Eliquis) 5 mg PO BID 10/31/21 05/01/25 History furosemide 40 mg tablet 40 mg PO DAILY 10/31/21 05/01/25 History isosorbide mononitrate 30 mg 30 mg PO DAILY 10/31/21 05/01/25 History tablet,extended release 24 hr omeprazole 40 mg capsule,delayed 40 mg PO DAILY 10/31/21 05/01/25 History release multivitamin 1 tablet PO DAILY 01/15/23 05/01/25 Hist ory albuterol sulfate 90 mcg/actuation 2 puff inhalation QID PRN 06/09/2305/01 Rx aerosol inhaler shortness of breath or wheezing #6.7 grams sotalol 120 mg tablet 120 mg PO Q12H 08/31/23 05/01/25 History albuterol sulfate 90 mcg/actuation 1 puff inhalation QID #6.7 grams 5 05/01/25 Rx aerosol inhaler atorvastatin 40 mg tablet 40 mg PO QPM 05/01/25 05/01/25 History metoprolol succinate 100 mg 100 mg PO Q12H 05/01/25 05/01/25 History tablet,extended release 24 hr (Toprol XL) <Anne Verma, BEHAVIORIST - Last Filed: 05/02/25 10:31> Allergies/Adverse reactions: Allergies Allergy/AdvReac Type Severity Reaction Status Date / Time amiodarone Allergy Unknown Unknown Verified 05/01/25 13:20 diltiazem Allergy Unknown Unknown Verified 05/01/25 13:20 losartan Allergy Unknown rash Verified 05/01/25 13:20 codeine Allergy Itching Verified 05/01/25 13:20 <Anne Verma, BEHAVIORIST - Last Filed: 05/02/25 10:31> Vital Signs Vital Signs - 24 hr 05/01/25 10:22 05/01/25 10:23 05/01/25 10:30 Temperature Pulse Rate 64 65 62 Respiratory Rate 17 17 19 Blood Pressure 103/88 Pulse Oximetry 94 94 95 Oxygen Delivery Oxygen Flow Rate 05/01/25 10:31 05/01/25 10:48 05/01/25 10:49 Temperature Pulse Rate 63 64 Respiratory Rate 19 Blood Pressure 94/59 L Pulse Oximetry 95 94 Oxygen Delivery Nasal Cannula Oxygen Flow Rate 3 05/01/25 11:08 05/01/25 11:29 05/01/25 12:29 Temperature Pulse Rate 63 63 65 Respiratory Rate 21 H 19 16 Blood Pressure 100/68 93/61 L 109/60 Pulse Oximetry 96 95 94 Oxygen Delivery Oxygen Flow Rate 05/01/25 13:30 05/01/25 14:40 05/01/25 14:40 Temperature 36.4 C L Pulse Rate 60 Respiratory Rate 20 Blood Pressure 110/65 146/62 H Pulse Oximetry 95 95 Oxygen Delivery Nasal Cannula Oxygen Flow Rate 2 05/01/25 16:00 05/01/25 18:05 05/01/25 20:00 Temperature 37.0 C Pulse Rate 63 Respiratory Rate 20 Blood Pressure 126/46 L Pulse Oximetry 95 94 95 Oxygen Delivery Nasal Cannula Nasal Cannula Oxygen Flow Rate 2 2 05/01/25 20:00 05/01/25 20:42 05/01/25 20:44 Temperature Pulse Rate 68 69 69 Respiratory Rate Blood Pressure Pulse Oximetry Oxygen Delivery Oxygen Flow Rate 05/01/25 22:30 05/01/25 23:20 05/02/25 00:00 Temperature 36.5 C Pulse Rate 64 67 63 Respiratory Rate 14 Blood Pressure 123/43 L Pulse Oximetry 95 Oxygen Delivery Oxygen Flow Rate 05/02/25 04:00 05/02/25 04:02 05/02/25 08:55 Temperature 36.4 C L Pulse Rate 64 66 66 Respiratory Rate 16 14 Blood Pressure 140/53 L Pulse Oximetry 94 94 Oxygen Delivery Oxygen Flow Rate 2 05/02/25 09:16 05/02/25 09:17 05/02/25 09:17 Temperature Pulse Rate 66 66 66 Respiratory Rate Blood Pressure Pulse Oximetry Oxygen Delivery Oxygen Flow Rate 05/02/25 09:42 Temperature Pulse Rate 85 Respiratory Rate 14 Blood Pressure Pulse Oximetry 94 Oxygen Delivery Nasal Cannula Oxygen Flow Rate 2 <Anne Verma, BEHAVIORIST - Last Filed: 05/02/25 10:31> Exam 2 Const: General: comfortable and no acute distress <Anne Verma, BEHAVIORIST - Last Filed: 05/02/25 10:31> Neck: Neck: supple and no JVD <Anne Verma, BEHAVIORIST - Last Filed: 05/02/25 10:31> Resp: Effort & Inspection: normal respiratory effort <Anne Verma BEHAVIORIST - Last Filed: 05/02/25 10:31> Auscultation: rhonchi <Anne Verma BEHAVIORIST - Last Filed: 05/02/25 10:31> Cardio: Rate: regular rate <Anne Verma BEHAVIORIST - Last Filed: 05/02/25 10:31> Rhythm: regular rhythm <Anne Verma BEHAVIORIST - Last Filed: 05/02/25 10:31> Skin: General skin exam: normal color <Anne Verma BEHAVIORIST - Last Filed: 05/02/25 10:31> Neuro: Speech: normal speech <Anne Verma BEHAVIORIST - Last Filed: 05/02/25 10:31> Extrem: General: normal to inspection <Anne Verma BEHAVIORIST - Last Filed: 05/02/25 10:31> Psych: Mental Status: mental status grossly normal <Anne Verma BEHAVIORIST - Last Filed: 05/02/25 10:31> Affect: normal affect <Anne Verma BEHAVIORIST - Last Filed: 05/02/25 10:31> Results Labs and Meds Result diagrams: 05/02/25 05:43 05/02/25 05:43 <Anne Verma BEHAVIORIST - Last Filed: 05/02/25 10:31> Lab results: Cardiac Enzymes 05/01/25 05/01/25 05/01/25 Range/Units 10:18 13:09 16:13 AST 28 (14-36) U/L Troponin I < 0.012 < 0.012 < 0.012 (0.000-0.034) ng/mL Coagulation 05/01/25 Range/Units 10:18 PT 16.1 H (11.1-14.7) Seconds APTT 31.1 (22.3-36.8) Seconds CBC 05/01/25 05/02/25 Range/Units 10:18 05:43 WBC 8.1 7.1 (4.5-10.0) K/mm3 RBC 4.25 4.17 L (4.2-5.4) M/mm3 Hgb 11.9 L 11.6 L (12.0-15.0) g/dL Hct 37.4 37.7 (37.0-47.0) % Plt Count 207 191 (150-375) k/mm3 Lymph # (Auto) 1.89 1.80 (0.9-3.2) K/mm3 Hunt # (Auto) 1.0 H 0.8 H (0.1-0.6) K/mm3 Eos # (Auto) 0.1 0.1 (0-0.3) K/mm3 Baso # (Auto) 0.0 0.0 (0.0-0.1) K/mm3 Comprehensive Metabolic Panel 05/01/25 05/02/25 Range/Units 10:18 05:43 Sodium 139 139 (137-145) mmol/L Potassium 3.3 L 3.2 L (3.4-5.0) mmol/L Chloride 103 99 (98-107) mmol/L Carbon Dioxide 31 H 35 H (22-30) mmol/L BUN 10 12 (7-17) mg/dL Creatinine 0.57 L 0.66 L (0.7-1.0) mg/dL Glucose 109 116 H (65-110) mg/dL Calcium 8.9 8.8 (8.4-10.2) mg/dL AST 28 (14-36) U/L ALT 19 (6-35) U/L Alkaline Phosphatase 72 (38-126) U/L Total Protein 6.9 (6.3-8.2) g/dL Albumin 3.9 (3.5-5.1) g/dL Intake and Output 05/01/25 05/02/25 05/02/25 23:59 07:59 15:59 Intake Total 540 500 480 Balance 540 500 480 Intake: Oral 540 500 480 Other: # Unmeasured Voids 2 Patient Weight 05/02/25 23:59 Weight 83.5 kg <Anne Verma APRN - Last Filed: 05/02/25 10:31> Imaging and Cardiology Echo: report reviewed (EF of 60-65% with grade III diastolic dysfunction, mild MR, trace TR and moderate pulmonary HTN with PA pressure of 50mmHg ) <Anne Verma APRN - Last Filed: 05/02/25 10:31> EKG Interpretation EKG: sinus rhythm and no acute changes (QTC of 470) <Anne Verma APRN - Last Filed: 05/02/25 10:31> Please be advised this is a medical document. It is intended for [id number] communication. It is written in medical language and may contain unfamiliar abbreviations or verbiage. Medical documents are intended to carry relevant information, facts as evident, and the clinical opinion of the practitioner at the time of the encounter. This report may have been done utilizing a voice recognition system. Attempts have been made to correct errors. However, there may be uncorrected grammatical, spelling, and recognition errors present. The file time of this note does not necessarily represent the time the patient was seen. Report Initialized date/time: 6809 Sweta 05/02/25957 Electronically signed by: Britney Sol 05/02/25 103 Magaly Rodriguez MD 05/02/25 [id number]
--- NOTE | 2025-05-02 10:10 | ECG_ITS ---
Test Date: 2025-05-02 10:59:51 Measurements Intervals Junction Rate: 59 P: 24 OH: 146 QRS: 55 QRSD: 90 T: 48 QT: 489 QTc: 486 Interpretive Statements SINUS BRADYCARDIA PROLONGED QT INTERVAL NONSPECIFIC T-WAVE ABNORMALITY ABNORMAL ECG Compared to ECG 05/01/2025 10:17:43 Prolonged QT interval now present Sinus rhythm no longer present Electronically Signed On 05-02-2025 12:10:37 CDT by Awais Sales M.D.
[2025-05-02] MEDS: POTASSIUM CHLORIDE 20 MEQ ER TABLET 40 MEQ PO (11:53)
--- NOTE | 2025-05-02 14:00 | P.PNIM_ITS ---
Progress Note: A&P Assessment and Plan (1) Pulmonary congestion: Code(s): R09.89 - Other specified symptoms and signs involving the circulatory and respiratory systems Status: Acute Assessment and Plan: Cardiology consulted Continue IV Lasix Echoshowed Grade III diastolic dysfrfunction Daily weight Fluid restriction cardiology following Wean oxygen as tolerated (2) Hypertension: Qualifiers: Hypertension type: primary hypertension Qualified Code(s): I10 - Essential (primary) hypertension Code(s): I10 - Essential (primary) hypertension Status: Acute Assessment and Plan: Continue home meds (3) Afib: Qualifiers: Atrial fibrillation type: paroxysmal Qualified Code(s): I48.0 - Paroxysmal atrial fibrillation Code(s): I48.91 - Unspecified atrial fibrillation Status: Acute Assessment and Plan: Continue Eliquis, metoprolol and imdur EKG today showed qtc of 488, cardiology to titrate sotalol which is 120mg bid at baseline Telemetry monitoring cardiology following (4) Hypokalemia: Code(s): E87.6 - Hypokalemia Status: Acute Assessment and Plan: Replete potassium BMP in the morning K 3.2 today, given 80 mEQ and monitor Plan DVt prophylaxis on Eliquis PT/OT For possible discharge tomorrow Subjective Date/time seen: 05/02/25 14:00 Interval history: Comfortable at bedside WIll monitor one more day and possibly discharge tomorrow Review of Systems Review of Systems: 12 systems were reviewed and are negativ e except for as per HPI. Exam Narrative: General: well appearing, appears stated age. HEENT: normocephalic, atraumatic. Mucous membranes moist. EOMI, PERRLA, bilateral sclera anicteric, no conjunctival injection. Neck supple without JVD, lymphadenopathy, or bruit. Respiratory: Diminished to ascultation bilaterally. No rales/rhonic/wheezes. Cardiovascular: Regular rate and rhythm, normal S1-S2 upon ascultation. No murmurs, rubs, or clicks. PMI is nondisplaced, capillary refill less than 3 second. Abdomen: Soft, round, no pulsatile masses, nondistended and nontender. No rebound, no guarding. No CVA tenderness, no hepatosplenomegaly. Bowel sounds present to all four quadrants. No high pitch or tinkling sounds, resonant to percussion. Extremities: No cyanosis, clubbing, or edema present. Pulses are palpable 2/2. Active ROM to all four extremities. Neuro: Alert and orientated x 4. PERRLA. Cranial nerves 2-12 intact without focal deficit. Skin: Warm, dry, and intact, without rash, erythema, or lesion. Psych: pleasant, cooperative, normal speech, normal affect, no hallucinations, no dysarthia Objective Data Vital Signs Vital Signs: Vital Signs - 24 hr 05/01/25 14:40 05/01/25 14:40 05/01/25 16:00 Temperature 97.5 F L 98.6 F Pulse Rate 60 63 Respiratory Rate 20 20 Blood Pressure 110/65 146/62 H 126/46 L Pulse Oximetry 95 95 Oxygen Delivery Oxygen Flow Rate 05/01/25 18:05 05/01/25 20:00 05/01/25 20:00 Temperature Pulse Rate 68 Respiratory Rate Blood Pressure Pulse Oximetry 94 95 Oxygen Delivery Nasal Cannula Nasal Cannula Oxygen Flow Rate 2 2 05/01/25 20:42 05/01/25 20:44 05/01/25 22:30 Temperature Pulse Rate 69 69 64 Respiratory Rate Blood Pressure Pulse Oximetry Oxygen Delivery Oxygen Flow Rate 05/01/25 23:20 05/02/25 00:00 05/02/25 04:00 Temperature 97.7 F Pulse Rate 67 63 64 Respiratory Rate 14 Blood Pressure 123/43 L Pulse Oximetry 95 Oxygen Delivery Oxygen Flow Rate 05/02/25 04:02 05/02/25 08:00 05/02/25 08:00 Temperature 97.5 F L Pulse Rate 66 65 Respiratory Rate 16 Blood Pressure 140/53 L Pulse Oximetry 94 96 Oxygen Delivery Nasal Cannula Oxygen Flow Rate 1 05/02/25 08:55 05/02/25 09:16 05/02/25 09:17 Temperature Pulse Rate 66 66 66 Respiratory Rate 14 Blood Pressure Pulse Oximetry 94 Oxygen Delivery Oxygen Flow Rate 2 05/02/25 09:17 05/02/25 09:42 05/02/25 12:00 Temperature Pulse Rate 66 85 59 L Respiratory Rate 14 Blood Pressure Pulse Oximetry 94 Oxygen Delivery Nasal Cannula Oxygen Flow Rate 2 05/02/25 12:08 Temperature Pulse Rate Respiratory Rate Blood Pressure Pulse Oximetry 96 Oxygen Delivery Room Air Oxygen Flow Rate Intake/Output Intake/Output: Intake & Output 04/29/25 04/30/25 05/01/25 05/02/25 23:59 23:59 23:59 23:59 Intake Total 540 1220 Balance 540 1220 Meds/Results Medications: Active Medications Generic Name Dose Route Start Last Admin Trade Name Freq PRN Reason Stop Dose Admin Acetaminophen 650 mg 05/01/25 14:42 05/02/25 05:51 Acetaminophen 325 Mg Tablet PO 650 mg Q4H PRN Administration Mild Pain (1-3) or Fever Albuterol 2 puff 05/01/25 18:55 Albuterol Sulfate (*Sp) Aerosol 1 Puff INHALATION QID PRN Shortness Of Breath Or Wheezing Apixaban 5 mg 05/01/25 21:00 05/02/25 09:17 Apixaban 5 Mg Tablet PO 5 mg Q12HR DA Administration Atorvastatin Calcium 40 mg 05/01/25 19:00 05/01/25 20:44 Atorvastatin 40 Mg Tablet PO 40 mg QPM DA Administration Docusate Sodium 100 mg 05/01/25 14:42 Docusate Sodium 100 Mg Capsule PO BID PRN Constipation Empagliflozin 10 mg 05/03/25 09:00 Empagliflozin 10 Mg Tablet PO DAILY DA Furosemide 40 mg 05/02/25 09:00 05/02/25 09:16 Furosemide Inj 40 Mg/4 Ml Vial IV PUSH 40 mg DAILY DA Administration Isosorbide Mononitrate 30 mg 05/02/25 09:00 05/02/25 09:17 Isosorbide Mononitrate 30 Mg Tab.Er.24h PO 30 mg DAILY DA Administration Melatonin 5 mg 05/01/25 22:20 05/01/25 22:31 Melatonin 5 Mg Tablet PO 5 mg HS DA Administration Metoprolol Succinate 100 mg 05/01/25 22:05 05/02/25 09:17 Metoprolol Succinate Ext Rel 100 Mg Tabcr PO 100 mg Q12HR DA Administration Perflutren Lipid Microsphere 0 ml 05/01/25 14:42 Perflutren Lipid Microspheres 1.5 Ml Vial Diluted To 10 Ml Total Volume IV PUSH 05/04/25 14:45 ONCE PRN adequate visualization Protocol Sotalol HCl 80 mg 05/01/25 21:00 05/02/25 09:17 Sotalol Hcl 80 Mg Tablet PO 80 mg Q12HR DA Administration Radiology Results: ITS Impressions Chest X-Ray 05/01/25 10:52 Impression: No acute cardiopulmonary abnormality. Chest CTA 05/01/25 12:09 IMPRESSION: 1. Negative for pulmonary embolism. Probable CHF. Labs Labs: Laboratory Results - last 24 hr 05/01/25 05/02/25 16:13 05:43 WBC 7.1 RBC 4.17 L Hgb 11.6 L Hct 37.7 MCV 90.4 MCH 27.8 MCHC 30.8 L RDW 14.6 H Plt Count 191 MPV 11.5 H Immature Gran % (Auto) 0.1 Neut % (Auto) 60.6 Lymph % (Auto) 25.4 [place] % (Auto) 11.6 H Eos % (Auto) 2.0 Baso % (Auto) 0.3 Lymph # (Auto) 1.80 [place] # (Auto) 0.8 H Eos # (Auto) 0.1 Baso # (Auto) 0.0 Abs Immat Gran (auto) 0.01 Absolute Neuts (auto) 4.3 Absolute Nucleated RBC 0.000 Nucleated RBC % 0.0 Sodium 139 Potassium 3.2 L Chloride 99 Carbon Dioxide 35 H Anion Gap 5 BUN 12 Creatinine 0.66 L Estim Creat Clear Calc 58 Estimated GFR > 60 Glucose 116 H Calcium 8.8 Troponin I < 0.012 Quality VTE Prophylaxis VTE prophylaxis: mechanical ordered and pharmacologic ordered
[2025-05-02] MEDS: POTASSIUM CHLORIDE 20 MEQ PACKET (FOR LIQUID) 40 MEQ PO (14:53)
[2025-05-02 15:11] LABS: Magnesium 1.9 mg/dL (1.6-2.3)
[2025-05-02 15:44] LABS: Thyroid Stimulating Hormone Reflex 2.070 uIU/mL (0.465-4.68)
[2025-05-02] MEDS: ATORVASTATIN 40 MG TABLET PO (17:18)
[2025-05-02] MEDS: MELATONIN 5 MG TABLET PO (21:15)
[2025-05-03] VITALS (7 sets, daily range): BP systolic 141; BP diastolic 50; PULSE 59–68; RESP 14; TEMP 36.6; O2SAT 93
[2025-05-03] MEDS: ACETAMINOPHEN 325 MG TABLET 650 MG PO (05:28)
[2025-05-03 06:21] LABS: Hematocrit 38.6 % (37.0-47.0); Hemoglobin 11.9 g/dL (12.0-15.0); Immature Granulocyte Percent A 0.3 % (0-0.5); Lymphocytes Absolute Auto 2.31 K/mm3 (0.9-3.2); Mean Corpuscular HGB Conc 30.8 g/dl (32-36); Mean Corpuscular Hemoglobin 27.7 pg (26-34); Mean Corpuscular Volume 90.0 fl (80-100); Nucleated Red Blood Cells Absolute Auto 0.000 K/mm3 (0.0-0.012); Nucleated Red Blood Cells Perc 0.0 % (0.0-0.2); Platelet Count Result 218 k/mm3 (150-375); Red Blood Count 4.29 M/mm3 (4.2-5.4); White Blood Count 7.7 K/mm3 (4.5-10.0)
[2025-05-03 06:42] LABS: Alanine Aminotransferase 16 U/L (6-35); Albumin Level 3.7 g/dL (3.5-5.1); Alkaline Phosphatase 68 U/L (38-126); Anion Gap 7 mmol/L (4-12); Aspartate Amino Transferase 29 U/L (14-36); Bilirubin,Total 0.4 mg/dL (0.2-1.3); Blood Urea Nitrogen 15 mg/dL (7-17); Calcium 9.2 mg/dL (8.4-10.2); Carbon Dioxide 29 mmol/L (22-30); Chloride 103 mmol/L (98-107); Estimated CRCL calculation 61 ml/min; Estimated Glomerular Filt Rate > 60; Glucose 121 mg/dL (65-110); Magnesium 1.7 mg/dL (1.6-2.3); Potassium 4.1 mmol/L (3.4-5.0); Sodium 139 mmol/L (137-145); Total Protein 6.8 g/dL (6.3-8.2)
--- NOTE | 2025-05-03 07:00 | ECG_ITS ---
Test Date: 2025-05-03 08:46:44 Measurements Intervals [place] Rate: 70 P: 0 TX: 0 QRS: 64 QRSD: 85 T: 53 QT: 417 QTc: 452 Interpretive Statements SUPRAVENTRICULAR RHYTHM NONSPECIFIC ST AND T-WAVE ABNORMALITY ARTIFACT LIMITS INTERPRETATION ABNORMAL ECG Electronically Signed On 05-03-2025 13:03:50 CDT by Awais Sales M.D.
[2025-05-03] MEDS: FUROSEMIDE INJ 40 MG/4 ML VIAL IV PUSH (08:08)
[2025-05-03] MEDS: APIXABAN 5 MG TABLET PO (08:09)
[2025-05-03] MEDS: ISOSORBIDE MONONITRATE 30 MG TAB.ER.24H PO (08:09)
[2025-05-03] MEDS: SOTALOL HCL 80 MG TABLET PO (08:09)
[2025-05-03] MEDS: EMPAGLIFLOZIN 10 MG TABLET PO (08:09)
[2025-05-03] MEDS: METOPROLOL SUCCINATE EXT REL 100 MG TABCR PO (08:09)
--- NOTE | 2025-05-03 09:45 | PN_ITS ---
This document was recreated on 05/22/2025. The original document was signed by Anne Verma APRN on 05/03/2025 0918. Progress Note: A&P Assessment and Plan (1) CHF (congestive heart failure): Qualifiers: Heart failure chronicity: acute on chronic Heart failure type: diastolic Qualified Code(s): I50.33 - Acute on chronic diastolic (congestive) heart failure Code(s): I50.9 - Heart failure, unspecified Status: Acute (2) Hypertension: Qualifiers: Hypertension type: primary hypertension Qualified Code(s): I10 - Essential (primary) hypertension Code(s): I10 - Essential (primary) hypertension Status: Acute (3) Afib: Qualifiers: Atrial fibrillation type: paroxysmal Qualified Code(s): I48.0 - Paroxysmal atrial fibrillation Code(s): I48.91 - Unspecified atrial fibrillation Status: Acute (4) Hypokalemia: Code(s): E87.6 - Hypokalemia Status: Acute Plan CHF-acute decompenasted diastolic heart failure Shortness of breath paroxysmal atrial fibrillation Moderate pulmonary HTN Hypertension Hypokalemia Carotid stenosis Plan: CHF-acute decompensated diastolic HF Patient acute shortness of breath is most likely secondary to acute diastolic heart failure in setting of recent pneumonia which appears to have been treated on OP basis with antibiotic therapy. Her CTA chest was negative for PE but did demonstrate some pulmonary vascular congestion. Her pBNP was mildly elevated at 931. Does not appear ischemic as troponin are negative x 3 and EKG demonstrates a NSR with no acute ST/T wave changes. She had MPI 10/2023 with her taffy candy maker that was negative for ischemia. Echo this admission demonstrates an EF of 60-65% with grade III diastolic dysfunction. Appears compensated at this time, will change to PO lasix. Added SGLT2 inhibitor. paroxysmal atrial fibrillation -appeared to be in NSR on admission and maintaining NSR on tele monitor -she is on Metoprolol 100 mg BID and sotalol 120 mg BID-decreased sotalol to 80mg BID d/t prolonged QTC -appears this is her home regimen per EPIC review by her outside taffy candy maker will have her follow up at discharge with her taffy candy maker Dr. Morrell -repeat EKG shows QT/QTC of 417/452 -renal function stable -remains on Eliquis 5 mg BID for AC Moderate pulmonary HTN -noted on echo this admission was also reported as moderate per echo 10/2023 with her taffy candy maker at OSH per EPIC review -appears unchanged on this admission -patient may benefit from OP sleep study Hypertension -blood pressure currently controlled. -currently on Metoprolol 100mg BID and Imdur 30 mg daily Hypokalemia -resolved Carotid stenosis -carotid duplex in 2023 showed 50-80% stenosis of AMADA and LICA -will need OP follow up -asymptomatic at this time -continue Eliquis and atorvastatin. Patient is stable for dc from CV standpoint when ok with others Can follow up with her taffy candy maker Dr. Morrell on an OP basis Subjective Date/time seen: 05/03/25 09:45 Interval history: 05/03/25: Patient is sitting up in chair and feeling improved. No further reports of shortness of breath. She is off O2. She does report cough. No chest pain or pressure. Occasional palpitations Review of Systems Review of Systems: All systems reviewed & are unremarkable except as noted in HPI and below (the HPI ) Exam Const: General: comfortable and no acute distress Neck: Neck: supple and no JVD Resp: Effort & Inspection: normal respiratory effort Auscultation: clear to auscultation bilaterally Cardio: Rate: regular rate Rhythm: regular rhythm Skin: General skin exam: normal color Neuro: Speech: normal speech Extrem: General: normal to inspection Psych: Mental Status: mental status grossly normal Affect: normal affect Objective Data Vital Signs Vital Signs: Vital Signs - 24 hr 05/02/2512:00 05/02/2512:08 05/02/2514:00 Temperature 36.6 C Pulse Rate 59 L 69 Respiratory Rate 15 Blood Pressure 121/50 L Pulse Oximetry 96 93 Oxygen Delivery Room Air 05/02/2516:00 05/02/2520:00 05/02/2520:00 Temperature Pulse Rate 68 71 71 Respiratory Rate 16 Blood Pressure Pulse Oximetry 92 Oxygen Delivery Room Air 05/02/2521:13 05/02/2521:14 05/02/2521:14 Temperature 36.3 C L Pulse Rate 71 71 71 Respiratory Rate 16 Blood Pressure 146/40 H Pulse Oximetry 92 Oxygen Delivery 05/02/2521:14 05/03/2500:00 05/03/2504:00 Temperature Pulse Rate 71 68 62 Respiratory Rate Blood Pressure Pulse Oximetry Oxygen Delivery 05/03/2506:22 05/03/2508:08 05/03/2508:09 Temperature 36.6 C Pulse Rate 67 66 66 Respiratory Rate 14 Blood Pressure 141/50 H Pulse Oximetry 93 Oxygen Delivery 05/03/2508:09 Temperature Pulse Rate 66 Respiratory Rate Blood Pressure Pulse Oximetry Oxygen Delivery Intake/Output Intake/Output: Intake & Output 04/30/25 05/01/25 05/02/25 05/03/25 23:59 23:59 23:59 23:59 Intake Total 540 1460 240 Balance 540 1460 240 Meds/Results Medications: Active Medications Generic Name Dose Route Start Last Admin Trade Name Freq PRN Reason Stop Dose Admin Acetaminophen 650 mg 05/01/25 14:42 05/03/25 05:28 Acetaminophen 325 Mg Tablet PO 650 mg Q4H PRN Administration Mild Pain (1-3) or Fever Albuterol 2 puff 05/01/25 18:55 Albuterol Sulfate (*Sp) Aerosol 1 Puff INHALATION QID PRN Shortness Of Breath Or Wheezing Apixaban 5 mg 05/01/25 21:00 05/03/25 08:09 Apixaban 5 Mg Tablet PO 5 mg Q12HR DA Administration Atorvastatin Calcium 40 mg 05/01/25 19:00 05/02/25 17:18 Atorvastatin 40 Mg Tablet PO 40 mg QPM DA Administration Docusate Sodium 100 mg 05/01/25 14:42 Docusate Sodium 100 Mg Capsule PO BID PRN Constipation Empagliflozin 10 mg 05/03/25 09:00 05/03/25 08:09 Empagliflozin 10 Mg Tablet PO 10 mg DAILY DA Administration Furosemide 40 mg 05/02/25 09:00 05/03/25 08:08 Furosemide Inj 40 Mg/4 Ml Vial IV PUSH 40 mg DAILY DA Administration Magnesium Sulfate 2 gm in 50 mls @ 25 mls/hr 05/03/25 09:37 Magnesium Sulf 2 Gm/Water 50ml IVPB 05/03/25 11:36 ONCE ONE Isosorbide Mononitrate 30 mg 05/02/25 09:00 05/03/25 08:09 Isosorbide Mononitrate 30 Mg Tab.Er.24h PO 30 mg DAILY DA Administration Melatonin 5 mg 05/01/25 22:20 05/02/25 21:15 Melatonin 5 Mg Tablet PO 5 mg HS DA Administration Metoprolol Succinate 100 mg 05/01/25 22:05 05/03/25 08:09 Metoprolol Succinate Ext Rel 100 Mg Tabcr PO 100 mg Q12HR DA Administration Perflutren Lipid Microsphere 0 ml 05/01/25 14:42 Perflutren Lipid Microspheres 1.5 Ml Vial Diluted To 10 Ml Total Volume IV PUSH 05/04/25 14:45 ONCE PRN adequate visualization Protocol Sotalol HCl 80 mg 05/02/25 21:05 05/03/25 08:09 Sotalol Hcl 80 Mg Tablet PO 80 mg Q12HR DA Administration Sotalol HCl 40 mg 05/02/25 21:05 05/03/25 08:08 Sotalol Hcl 40 Mg Tablet PO 40 mg Q12HR DA Administration Radiology Results: ITS Impressions Chest X-Ray 05/01/25 10:52 Impression: No acute cardiopulmonary abnormality. Chest CTA 05/01/25 12:09 IMPRESSION: 1. Negative for pulmonary embolism. Probable CHF. Labs Labs: Laboratory Results - last 24 hr 05/02/25 05/03/25 05:40 05:51 WBC 7.7 RBC 4.29 Hgb 11.9 L Hct 38.6 MCV 90.0 MCH 27.7 MCHC 30.8 L RDW 14.6 H Plt Count 218 MPV 11.4 H Immature Gran % (Auto) 0.3 Neut % (Auto) 56.6 Lymph % (Auto) 30.2 [place] % (Auto) 10.6 H Eos % (Auto) 2.2 Baso % (Auto) 0.1 L Lymph # (Auto) 2.31 [place] # (Auto) 0.8 H Eos # (Auto) 0.2 Baso # (Auto) 0.0 Abs Immat Gran (auto) 0.02 Absolute Neuts (auto) 4.3 Absolute Nucleated RBC 0.000 Nucleated RBC % 0.0 Sodium 139 Potassium 4.1 Chloride 103 Carbon Dioxide 29 Anion Gap 7 BUN 15 Creatinine 0.63 L Estim Creat Clear Calc 61 Estimated GFR > 60 Glucose 121 H Calcium 9.2 Magnesium 1.9 1.7 Total Bilirubin 0.4 AST 29 ALT 16 Alkaline Phosphatase 68 Total Protein 6.8 Albumin 3.7 TSH (Reflex) 2.070 Please be advised this is a medical document. It is intended for [id number] communication. It is written in medical language and may contain unfamiliar abbreviations or verbiage. Medical documents are intended to carry relevant information, facts as evident, and the clinical opinion of the practitioner at the time of the encounter. This report may have been done utilizing a voice recognition system. Attempts have been made to correct errors. However, there may be uncorrected grammatical, spelling, and recognition errors present. The file time of this note does not necessarily represent the time the patient was seen. Report Initialized date/time: [id number] 05/03/25 / 0946 Electronically signed by: [id number] 05/03/25 0951 Magaly Rodriguez MD 05/03/25 1024
[2025-05-03] MEDS: MAGNESIUM SULF 2 GM/WATER 50ML 2 GM/50 ML BAG IVPB (09:56)
--- NOTE | 2025-05-03 13:47 | P.DS_ITS ---
DS: Admitting Diagnosis Discharge Date 05/03/2025 Admitting Diagnosis pulmonary congestion DS: Discharge Diagnosis Discharge Diagnosis (1) Pulmonary congestion: Code(s): R09.89 - Other specified symptoms and signs involving the circulatory and respiratory systems Status: Acute Assessment and Plan: Cardiology consulted Continue IV Lasix Echoshowed Grade III diastolic dysfrfunction Daily weight Fluid restriction cardiology following Weaned oxygn changed to PO furosemide on discharge patient will need to follow up with her outpatient floor mechanic after discharge (2) Hypertension: Qualifiers: Hypertension type: primary hypertension Qualified Code(s): I10 - Essential (primary) hypertension Code(s): I10 - Essential (primary) hypertension Status: Acute Assessment and Plan: Continue home meds (3) Afib: Qualifiers: Atrial fibrillation type: paroxysmal Qualified Code(s): I48.0 - Pa roxysmal atrial fibrillation Code(s): I48.91 - Unspecified atrial fibrillation Status: Acute Assessment and Plan: Continue Eliquis, metoprolol and imdur EKG today showed qtc of 488, cardiology to titrate sotalol which is 120mg bid at baseline Telemetry monitoring cardiology following (4) Hypokalemia: Code(s): E87.6 - Hypokalemia Status: Acute Assessment and Plan: Replete potassium Improved DS: Summary Hospital Course Reason for hospitalization: shortness of breath Hospital Course: Patient is a 84 year old female with PMH of HTN, a-fib, GERD, CHF and diverticulitis. Patient was recently treated for pneumonia as an outpatient with PO antibiotics. Patient presented to the hospital due to shortness of breath. Patient was found to be hypoxic at 84% on room air and was placed on oxygen. Patient's labs showed a proBNP of 931, UA was negative for infection, CTA shows no pulmonary embolism but likely CHF. Patient was treated with IV Lasix for d iuresis. Cardiology was consulted. Patient's QTC was found to be prolonged and patient is taking Sotalol at home. Patient's sotalol dose was reduced. Patient had an ECHO which showed Grade III diastolic dysfunction. Patient improved and was weaned off of oxygen back to room air. Patient was switched back to oral furosemide. Patient will need to follow up with her PCP and outpatient floor mechanic after discharge. Patient was discharged home. Time Spent with Patient Time attestation: Total time spent providing and/or coordinating discharge services: 35 Minutes Exam Narrative: General: well appearing, appears stated age. HEENT: normocephalic, atraumatic. Mucous membranes moist. EOMI, PERRLA, bilateral sclera anicteric, no conjunctival injection. Neck supple without JVD, lymphadenopathy, or bruit. Respiratory: Diminished to ascultation bilaterally. No rales/rhonic/wheezes. Cardiovascular: Regular rate and rhythm, normal S1-S2 upon ascultation. No murmurs, rubs, or clicks. PMI is nondisplaced, capillary refill less than 3 second. Abdomen: Soft, round, no pulsatile masses, nondistended and nontender. No rebound, no guarding. No CVA tenderness, no hepatosplenomegaly. Bowel sounds present to all four quadrants. No high pitch or tinkling sounds, resonant to percussion. Extremities: No cyanosis, clubbing, or edema present. Pulses are palpable 2/2. Active ROM to all four extremities. Neuro: Alert and orientated x 4. PERRLA. Cranial nerves 2-12 intact without focal deficit. Skin: Warm, dry, and intact, without rash, erythema, or lesion. Psych: pleasant, cooperative, normal speech, normal affect, no hallucinations, no dysarthia DS: Data Data Completed and Pending Labs on day of discharge: Labs from last 24 hours 05/03/25 05/02/25 05:51 05:40 WBC 7.7 RBC 4.29 Hgb 11.9 L Hct 38.6 MCV 90.0 MCH 27.7 MCHC 30.8 L RDW 14.6 H Plt Count 218 MPV 11.4 H Immature Gran % (Auto) 0.3 Neut % (Auto) 56.6 Lymph % (Auto) 30.2 [place] % (Auto) 10.6 H Eos % (Auto) 2.2 Baso % (Auto) 0.1 L Lymph # (Auto) 2.31 [place] # (Auto) 0.8 H Eos # (Auto) 0.2 Baso # (Auto) 0.0 Abs Immat Gran (auto) 0.02 Absolute Neuts (auto) 4.3 Absolute Nucleated RBC 0.000 Nucleated RBC % 0.0 Sodium 139 Potassium 4.1 Chloride 103 Carbon Dioxide 29 Anion Gap 7 BUN 15 Creatinine 0.63 L Estim Creat Clear Calc 61 Estimated GFR > 60 Glucose 121 H Calcium 9.2 Magnesium 1.7 1.9 Total Bilirubin 0.4 AST 29 ALT 16 Alkaline Phosphatase 68 Total Protein 6.8 Albumin 3.7 TSH (Reflex) 2.070 Discharge Plan Discharge Attending physician on discharge: Jordy Stephens Consulting providers: Magaly Rodriguez; Awais Sales; Rhoda Viera; [facility]; Anne Verma; Zack Knox; Pablo Ferguson Discharging Clinician: Whitney Vázquez Patient Disposition: Home Activity: as tolerated Diet: heart healthy Patient Instructions: Antibiotic Form, Apixaban (By mouth), Heart Failure (DC) Patient Language: Mac[place] Stand Alone Forms: General Discharge Information Follow-up/Referrals: Robert Durán MD [Primary Care Provider, [facility]] Referral Note: call for an appt to be seen within 1-2 weeks of discharge. Please schedule an appt with your floor mechanic as well. Discharge Medications: Continued furosemide 40 mg tablet 40 mg PO DAILY isosorbide mononitrate 30 mg tablet extended release 24 hr 30 mg PO DAILY omeprazole 40 mg capsule,delayed release(DR/EC) 40 mg PO DAILY Eliquis 5 mg tablet 5 mg PO BID multivitamin Tablet 1 tablet PO DAILY sotalol 120 mg tablet 120 mg PO Q12H albuterol sulfate 90 mcg/actuation HFA aerosol inhaler 1 puff inhalation QID Qty: 6.7 0RF atorvastatin 40 mg tablet 40 mg PO QPM metoprolol succinate [Toprol XL] 100 mg Tablet Extended Release 24 Hr 100 mg PO Q12H No Action cholecalciferol (vitamin D3) 125 mcg (5,000 unit) capsule 125 mcg PO DAILY [id number]-lutein Tablet PO .QD Saccharomyces boulardii [Daily Probiotic (S. boulardii)] 250 mg capsule 250 mg PO DAILY Date of admission: 05/01/25 13:34 Primary Care Provider: Robert Durán Admitting Provider: Jordy Stephens Attending physician on admission: Whitney Vázquez Condition: Stable Quality VTE Prophylaxis VTE prophylaxis: mechanical ordered and pharmacologic ordered
== END 2025-05-03 14:30 | disposition home or self-care (01) | DRG 291 ==
LOC: ANHED 13:35 → ANH3MEDSUR 14:20
PROVIDERS: Internal Medicine; Nurse Practitioner Family; Nurse Practitioner Gerontology; Student in an Organized Health Care Education/Training Program; Admitting Provider Family Medicine; Emergency Provider Nurse Practitioner Family; PCP Family Medicine; Visit Provider Nurse Practitioner Adult Health
DX: I11.0 Hypertensive heart disease with heart failure (principal); I50.33 Acute on chronic diastolic (congestive) heart failure; R09.89 Other specified symptoms and signs involving the circulatory and respiratory systems; I48.0 Paroxysmal atrial fibrillation; E87.6 Hypokalemia; K21.9 Gastro-esophageal reflux disease without esophagitis; I65.29 Occlusion and stenosis of unspecified carotid artery; Z87.891 Personal history of nicotine dependence; Z79.01 Long term (current) use of anticoagulants
CPT/HCPCS: 36415; 71046; 71275; 80048; 80053; 81003; 83690; 83735; 83880; 84443; 84484; 85025; 85610; 85730; 93005; 93306; 99285; A9270; J1938; J3475; Q9967

== ENCOUNTER 2025-07-17 10:22 | Outpatient (CLI) | payer OTHER, SELFPAY ==
--- NOTE | ~2025-07-17 | US_ITS ---
EXAMINATION: US carotid duplex BI DATE: 07/17/2025 12:18 INDICATION: Retinal hemorrhage. Vision abnormality. TECHNIQUE: Grayscale, color Doppler, and pulsed Doppler images of the cervical carotid arteries were obtained. The degree of vessel stenosis is placed in one of the following categories: normal, <50%, 50-69%, >=70% but less than near- occlusion, near-occlusion, or total occlusion. Note that percent stenosis relative to normal distal artery lumen diameter is indirectly measured from velocity measurements as described by Hoang, et al. Radiology 2003; 229:340-346. Notes: Normal: Peak systolic velocity <125 centimeters/sec and no plaque <50%. Peak systolic velocity <125 (EDV <40; ICA/CCA PSV ratio <2.0; used these factors only a tandem lesions or low cardiac output or contralateral disease) 50-69 %: PSV 125-230 (EDV 40-100; ratio 2-4) >= 70% but less than near occlusion: PSV greater than 230 (EDV > 100; ratio> 4.0) Near Occlusion: PSV that is variable; markedly narrowed lumen Occlusion: Absent flow on color/spectral Doppler and no lumen on canales scale. COMPARISON: None. FINDINGS: RIGHT: The right common carotid artery (CCA) peak systolic velocity (PSV) is 26 cm/s. The right internal carotid artery (ICA) PSV is 56 cm/s. The right ICA end- diastolic velocity (EDV) is 0 cm/s. The right ICA/CCA PSV ratio is 2.2. The external carotid artery (ECA) PSV is 34 cm/s. There is retrograde flow in the right vertebral artery. LEFT: The left CCA PSV is 123 cm/s. The left ICA PSV is 120 cm/s. The left ICA EDV is 24 cm/s. The left ICA/CCA PSV ratio is 1.0. The ECA PSV is 145 cm/s. There is antegrade flow in the left vertebral artery. IMPRESSION: 1. Less than 50% stenosis in the right internal carotid artery by sonographic criteria. 2. Less than 50% stenosis in the left internal carotid artery by sonographic criteria. 3: Retrograde flow right vertebral artery, compatible with vertebral artery flow reversal, which may be due to proximal subclavian stenosis of subclavian steal physiology. Reviewed, dictated and finalized at location I. RVISOR SAWING AND ASSEMBLY IMPRESSION: 1. Less than 50% stenosis in the right internal carotid artery by sonographic c riteria. 2. Less than 50% stenosis in the left internal carotid artery by sonographic cr iteria. 3: Retrograde flow right vertebral artery, compatible with vertebral artery carin w reversal, which may be due to proximal subclavian stenosis of subclavian stea l physiology.
--- NOTE | ~2025-07-17 | CT_ITS ---
EXAMINATION: CT brain wo con DATE: 07/17/2025 10:43 INDICATION: Retinal hemorrhage, unspecified eye. TECHNIQUE: Computed tomography (CT) of the head was performed without intravenous contrast. The mA was adjusted according to patient size. Iterative reconstruction technique was employed. The dose-length product was 529.67 mGy-cm. COMPARISON: None FINDINGS: There are scattered areas of low attenuation in the cerebral white matter, which is within normal limits for the patient's age. There is no intracranial hemorrhage, acute infarction, or abnormal intracranial mass lesion. The ventricles are normal in size. The orbits are normal. There is mucosal thickening in the paranasal sinuses. There is a small right mastoid effusion. IMPRESSION: 1. Normal aging brain. Reviewed, dictated and finalized at location E. PASTE SUPERVISOR IMPRESSION: 1. Normal aging brain.
--- OUTSIDE RECORDS SUMMARY | 2025-07-17 11:40 | XMS_ITS | Clinical Summary ---
Author Organization [facility] Address [address] [place] [id number] Care Team Providers Care Integrated Marketing Intern Name Role Phone Donald Self MD Unavailable [phone] Robert Durán MD Primary Care Provider [phone] Allergies Active Allergy Reactions Criticality Noted Date [...] (05/03/2020): Added automatically from request for surgery [id number] Chronic cholecystitis 05/03/2020 Aortic atherosclerosis 06/09/2019 Cardiomyopathy 06/09/2019 Gastro-esophageal reflux disease without esophag itis 06/09/2019 Morbid obesity 06/09/2019 Vitamin D deficiency 06/09/2019 Abnormal mammogram 06/09/2019 Non-rheumatic mitral regurgitation 09/11/2017 Assessment & Plan (09/11/2017 10:41 AM WAREHOUSE INCENTIVE SELECTOR): This was noted as possibly severe on [...] have resumed her beta-jareth and discontinued verapamil. senior living current use of antiarrhythmic drug Assessment & [...] agents. Assessment & Plan (09/11/2017 10:41 AM WAREHOUSE INCENTIVE SELECTOR): She is doing well on sotalol 80 [...] PVI. Assessment & Plan (09/11/2017 10:39 AM WAREHOUSE INCENTIVE SELECTOR): She remains in sinus rhythm, now 1 [...] months. Assessment & Plan (07/17/2017 2:26 PM WAREHOUSE INCENTIVE SELECTOR): She has symptomatic persistent atrial fibrillation. She [...] She denies any bleeding problems with this. senior living current use of anticoagulant therapy 1 Overview [...] 30-39.9) Assessment & Plan (09/11/2017 10:42 AM WAREHOUSE INCENTIVE SELECTOR): She is making efforts at weight loss with diet restrictions. I encouraged her to continue this. There is evidence that patients who undergo PVI do better if they are able to lose and sustain weight loss. Encounters Date Type Department Care Team Description 05/23/[address] [facility] Cardiology [address] [facility] [address] [place] [phone] Anne Verma NP 05/17/2025 11:45 AM CDT Office Visit [facility] [address] [place] [address] [place] [phone] Sinan Morrell MD Shortness of breath (Primary Dx); Paroxysmal atrial fibrillation (HCC) 05/17/2025 Orders Only [facility] [address] [place] [phone] Sinan Morrell MD Persistent atrial fibrillation (CMS/HCC) (Primary Dx); Cardiomyopathy, unspecified type (HCC) from Last 3 Months Surgical History Surgery Date Site/Laterality Comments TUBAL LIGATION KNEE SURGERY Bilateral ABLATION OF AFIB FLUTTER 08/12/2017 BUNIONECTOMY Right HEEL SPUR EXCISION Left Medical History Medical History Date Comments Hx Other Medical arthroscopic lin rgery right shoulder; Comments: U 05/27/2016 - Hx Other Medical arthroscopic lin rgery left knee; Comments: U 05/27/2016 - Atrial fibrillation (HCC) Hypertension Diastolic dysfunction CHF (congestive heart failure) (HCC) C. difficile diarrhea got after COVID Booster Covid-19 02/13/2022 Family History Medical History Relation Name Comments Other Brother 1 Diabetes Father Heart attack Father Other Father Diabetes Mother Heart failure Mother Stroke Mother Stroke; U 06/2016 -Also had diabetes Relation Name Status [...] on file Legal Sex Female 8:08 AM WAREHOUSE INCENTIVE SELECTOR Gender Identity Not on file Sexual Orientation Not on file Occupation Industry Job Start Date Job End Date retired Not on file Not on file Not on file Last Filed Vital Signs Vital Sign Reading Time Taken Comments Blood Pressure 122/64 05/17/2025 11:41 AM CDT Pulse 64 05/17/2025 11:41 AM CDT Temperature 36.3 C (97.4 F) 12/03/2020 9:55 AM CDT Respiratory Rate 16 05/17/2025 11:41 AM CDT Oxygen Saturation 94% 05/17/2025 11:41 AM CDT Inhaled Oxygen Concentration - - Weight 85.3 kg (188 lb) 05/17/2025 11:41 AM CDT Height 160 cm (5' 3) 10/21/2023 12:16 PM WAREHOUSE INCENTIVE SELECTOR Body Mass Index 33.3 10/21/2023 12:16 PM WAREHOUSE INCENTIVE SELECTOR Plan of Treatment Health Maintenance Due Date Last Done Comments Depression Screening 1940 Osteoporosis Screening-Bone Density Scan 1940 DTaP/Tdap/Td Vaccine (1 - Tdap) 1953 Hepatitis B Screening 1960 Well Visit 65+ 2007 Pneumococcal vaccine 65+ (2 of 2 - PPSV23, PCV20, or PCV21) 04/15/2015 02/18/2015 Zoster Vaccine (2 of 3) 10/09/2016 08/14/20 16, 09/06/2013, 04/22/2013 Fall Risk Assessment 05/07/2021 05/07/2020 Influenza Vaccine (#1) 2025 4, 05/18/2018, 05/18/2017, Additional history exists Procedures Procedure Name Priority Date/Time Associated Diagnosis Comments ECG 12-LEAD Routine 05/17/2025 11:36 AM CDT Shortness of breath CARDIOLOGY DOCUMENT SCAN Routine 05/03/2025 11:14 AM CDT CARDIOLOGY DOCUMENT SCAN Routine 05/02/2025 11:01 AM CDT from Last 3 Months Results * ECG 12 lead (05/17/2025 11:36 AM CDT) Sinan Morrell MD ECG ORDERABLES Final Result * Cardiology Document Scan (05/03/2025 11:14 AM CDT) Anatomical Region Laterality Modality Other Anne Verma NP CV CARDIAC SERVICE S PROCEDURES Final Result * Cardiology Document Scan (05/02/2025 11:01 AM CDT) Anatomical Region Laterality Modality Other Anne Verma CONFIGURATION MANAGEMENT MANAGER CV CARDIAC SERVICE S PROCEDURES Final Result from Last 3 Months Insurance [facility] Care Teams Integrated Marketing Intern Relationship Specialty Start Date End Date Robert Durán MD [address] [place] [address] PCP - General Family Medicine 05/03/25 Donald Self MD Surgeon General Surgery 05/07/20
== END 2025-07-17 10:23 | disposition home or self-care (01) ==
PROVIDERS: PCP Family Medicine; Visit Provider Family Medicine
DX: G45.8 Other transient cerebral ischemic attacks and related syndromes (principal); H05.20 Unspecified exophthalmos; H35.60 Retinal hemorrhage, unspecified eye; R09.89 Other specified symptoms and signs involving the circulatory and respiratory systems
CPT/HCPCS: 70450; 93880